=== PATIENT | male | born 1970 | race African-American/Black ===

== ENCOUNTER 2018-08-02 20:11 | Inpatient (IN) | payer OTHER ==
[2018-08-02 21:56] VITALS: BMI 27.1
--- NOTE | 2018-08-03 00:37 | HP ---
CIWA Score Nausea/Vomitin (vomiting x 2) Muscle Tremors: 4-Moderate,w/Arms Extend Anxiety: 3 Agitation: 3 Paroxysmal Sweats: 3 Orientation: 0-Oriented Tacttile Disturbances: 0-None Auditory Disturbances: 0-None Visual Disturbances: 0-None Headache: 4-Moderately Severe CIWA-Ar Total Score: 20 - Admission Criteria OASAS Guidelines: Admission for Medically Managed Detox: Requires at least one of the followin. CIWA greater than 12 2. Seizures within the past 24 hours 3. Delirium tremens within the past 24 hours 4. Hallucinations within the past 24 hours 5. Acute intervention needed for co occurring medical disorder 6. Acute intervention needed for co occurring psychiatric disorder 7. Severe withdrawal that cannot be handled at a lower level of care (continued vomiting, continued diarrhea, abnormal vital signs) requiring intravenous medication and/or fluids 8. Admission ROS [facility] - [facility] Chief Complaint: Alcohol and benzodiazepine withdrawal symptoms Allergies/Adverse Reactions: Allergies Allergy/AdvReac Type Severity Reaction Status Date / Time trazodone AdvReac Severe Nausea Verified 08/02/18 21:46 History of Present Illness: 47 years old male with a long history of alcohol and Xanax dependence is seeking admission to detox. Patient has been in detox multiple times, last at [facility] and reports 8 years of sobriety. He has history of hypertension and anxiety. Denies suicide attempt/ suicidal ideation at this time. Exam Limitations: No Limitations - Ebola screening Have you traveled outside of the country in the last 21 days: No (N) Have you had contact with anyone from an Ebola affected area: No Do you have a fever: No - Review of Systems Constitutional: Chills, Malaise, Night Sweats, Changes in sleep EENT: reports: No Symptoms Reported Respiratory: reports: No Symptoms reported GI: reports: Poor Appetite, Poor Fluid Intake, Vomiting (x 2), Abdominal cramping : reports: No Symptoms Reported Musculoskeletal: reports: No Symptoms Reported Integumentary: reports: Dryness, Flushing Neuro: reports: Headache, Tremors Endocrine: reports: No Symptoms Reported Hematology: reports: No Symptoms Reported Psychiatric: reports: Mood/Affect Appropiate, Orientated x3 Other Systems: Reviewed and Negative Patient History - Patient Medical History Hx Anemia: No Hx Asthma: No Hx Chronic Obstructive Pulmonary Disease (COPD): No Hx Cancer: No Hx Cardiac Disorders: No Hx Congestive Heart Failure: No Hx Hypertension: Yes (Amlodipine) Hx Hypercholesterolemia: No Hx Pacemaker: No HX Cerebrovascular Accident: No Hx Seizures: No Hx Dementia: No Hx Diabetes: No Hx Gastrointestinal Disorders: No Hx Liver Disease: No Hx Genitourinary Disorders: No Hx Sexually Transmitted Disorders: No Hx Renal Disease (ESRD): No Hx Thyroid Disease: No Hx Human Immunodeficiency Virus (HIV): No (NEGATIVE IN 04/2012) Hx Hepatitis C: No Hx Depression: No Hx Suicide Attempt: No (Denies suicidal ideation at this time) Hx Bipolar Disorder: No Hx Schizophrenia: No Other Medical History: Anxiety - Not on medication - Patient Surgical History Past Surgical History: No Hx Neurologic Surgery: No Hx Cataract Extraction: No Hx Cardiac Surgery: No Hx Lung Surgery: No Hx Abdominal Surgery: No Hx Appendectomy: No Hx Cholecystectomy: No Hx Genitourinary Surgery: No Hx Section: No Hx Orthopedic Surgery: No Hx Hysterectomy: No Anesthesia Reaction: No - PPD History Previous Implant?: Yes Documented Results: Positive w/proof Implanted On Prior [facility] Admission?: Yes Date: 03/17/12 Results: 0 mm PPD to be Administered?: Yes - Reproductive History Patient is a Female of Child Bearing Age (11 -55 yrs old): No (Male) - Smoking Cessation Smoking history: Current every day smoker Have you smoked in the past 12 months: Yes Aproximately how many cigarettes per day: 20 Cigars Per Day: 0 Hx Chewing Tobacco Use: No Initiated information on smoking cessation: Yes 'Breaking Loose' booklet given: 08/03/18 - Substance & Tx. History Hx Alcohol Use: Yes Substance Use Type: Cocaine, Marijuana, Prescribed Hx Substance Use Treatment: Yes ([facility]) - Substances abused Alcohol Substance route: Oral Frequency: Daily Amount used: 2 pints of vodka Age of first use: 15 Date of last use: 08/01/18 Alprazolam (Xanax) Substance route: Oral Frequency: Daily Amount used: 4mg Age of first use: 43 Date of last use: 08/01/18 Marijuana/Hashish Frequency: 3-6 times per week Amount used: 2 blunts Age of first use: 12 Date of last use: 08/01/18 Cocaine Substance route: Inhalation Frequency: 3-6 times per week Amount used: $20 Age of first use: 15 Date of last use: 08/01/18 Family Disease History - Family Disease History Family Disease History: Diabetes: Mother (hypertension) Admission Physical Exam [facility] - Vital Signs Vital Signs: Vital Signs - 24 hr 08/02/18 21:48 Pulse Rate 105 H Respiratory 20 Rate Blood Pressure 156/102 H - Physical General Appearance: Yes: Moderate Distress HEENTM: Yes: EOMI, Normal ENT Inspection, Normal Voice, PARMINDER Respiratory: Yes: Lungs Clear, Normal Breath Sounds, No Respiratory Distress Neck: Yes: Supple Breast: Yes: Breast Exam Deferred Cardiology: Yes: Tachycardia Abdominal: Yes: Normal Bowel Sounds, Soft Genitourinary: Yes: Within Normal Limits Back: Yes: Normal Inspection Musculoskeletal: Yes: Within Normal Limits Extremities: Yes: Tremors Neurological: Yes: Alert, Normal Mood/Affect Integumentary: Yes: Warm Lymphatic: Yes: Within Normal Limits - Diagnostic (1) Alcohol dependence with uncomplicated withdrawal Current Visit: Yes Status: Acute (2) Anxiety Current Visit: Yes Status: Acute (3) Cannabis dependence Current Visit: No Status: Active (4) Cocaine dependence Current Visit: No Status: Active (5) Essential hypertension Current Visit: No Status: Active (6) depression Current Visit: No Status: Active (7) migrane headaches Current Visit: No Status: Active Cleared for Admission [facility] - Detox or Rehab [facility] Level of Care: Medically Managed Detox Regimen/Protocol: Valium Breathalyzer - Breathalyzer Breathalyzer: 0 Urine Drug Screen - Test Device Lot number: [id number] Expiration date: 02/27/20 - Control Is test valid?: Yes - Results Drug screen NEGATIVE: No Urine drug screen results: THC-Marijuana, CARIDAD-Cocaine, BZO-Benzodiazepines Inpatient Rehab Admission - Rehab Decision to Admit Inpatient rehab admission?: No
[2018-08-03] MEDS ORDERED: BISMUTH SUBSALICYLATE 524 MG/30 ML UD PO PRN (00:45)
[2018-08-03] MEDS ORDERED: NICOTINE POLACRILEX 2 MG GUM BUC PRN (00:45)
[2018-08-03] MEDS ORDERED: ACETAMINOPHEN 325 MG TABLET (FP) PO PRN ×2 (00:45)
[2018-08-03] MEDS ORDERED: MAGNESIUM HYDROX 2400MG/30ML ORAL SUSPENSION 30 ML CUP PO PRN (00:45)
[2018-08-03] MEDS ORDERED: MENTHOL/PHENOL 1 EACH UD MM PRN (00:45)
[2018-08-03] MEDS ORDERED: diazePAM 5 MG TABLET PO ONE (00:45)
[2018-08-03] MEDS ORDERED: MAGNESIUM CITRATE 300 ML BOTTLE PO PRN (00:45)
[2018-08-03] MEDS ORDERED: IBUPROFEN 400 MG TABLET (FP) PO PRN (00:45)
[2018-08-03] MEDS ORDERED: MAG HYDROX/AL HYDROX/SIMETH 30 ML UNIT-DOSE CUP PO PRN (00:45)
[2018-08-03] MEDS ORDERED: METHOCARBAMOL 500 MG TABLET PO PRN (00:45)
[2018-08-03] MEDS ORDERED: hydrOXYzine PAMOATE 25 MG CAPSULE (FP) PO PRN (00:45)
[2018-08-03] MEDS ORDERED: MELATONIN 5 MG TABLETS PO PRN (00:45)
[2018-08-03] MEDS ORDERED: cloNIDine HCL 0.1 MG TABLET PO ONE (01:39)
[2018-08-03] MEDS: diazePAM 5 MG TABLET PO SCH ×3 (07:17→22:25)
--- NOTE | 2018-08-03 10:22 | PN ---
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
[2018-08-03] MEDS: NICOTINE 14 MG/24 HOURS TOPICAL PATCH TD SCH (10:30)
[2018-08-03] MEDS: PRENATAL VITAMINS W/ FOLIC ACID TABLET (FP) PO SCH (10:30)
[2018-08-03] MEDS: amLODIPine BESYLATE 10 MG TABLET (FP) PO SCH (10:30)
[2018-08-03] MEDS: diazePAM 5 MG TABLET PO PRN (10:31)
--- NOTE | 2018-08-03 11:40 | EKG ---
Test Reason : Blood Pressure : / mmHG Vent. Rate : 076 BPM Atrial Rate : 076 BPM P-R Int : 140 ms QRS Dur : 082 ms QT Int : 402 ms P-R-T Axes : 059 025 030 degrees QTc Int : 452 ms NORMAL SINUS RHYTHM NONSPECIFIC T WAVE ABNORMALITY ABNORMAL ECG NO PREVIOUS ECGS AVAILABLE Confirmed by Beny Cook MD ([id number]) on 08/03/2018 11:40:33 AM Referred By: Confirmed By:Beny Cook MD
[2018-08-03] MEDS: THIAMINE HCL 100 MG TABLET (FP) PO SCH (22:25)
[2018-08-04] MEDS: diazePAM 5 MG TABLET PO SCH ×2 (06:48→17:26)
[2018-08-04] MEDS: PRENATAL VITAMINS W/ FOLIC ACID TABLET (FP) PO SCH (10:44)
[2018-08-04] MEDS: amLODIPine BESYLATE 10 MG TABLET (FP) PO SCH (10:44)
[2018-08-04] MEDS: NICOTINE 14 MG/24 HOURS TOPICAL PATCH TD SCH (10:44)
[2018-08-04] MEDS: diazePAM 5 MG TABLET PO PRN ×2 (10:44→22:17)
[2018-08-04 12:31] LABS: ALBUMIN 3.6 g/dl (3.4-5.0); ALK PHOS 67 U/L (45-117); ANION GAP 7 MMOL/L (8-16); BILIRUBIN,TOTAL 0.8 mg/dL (0.2-1); BLOOD UREA NITROGEN 11 mg/dL (7-18); CHLORIDE 105 mmol/L (98-107); CO2 28 mmol/L (21-32); CREATININE 1.2 mg/dL (0.55-1.3); GLUCOSE,RANDOM 237 mg/dL (74-106); POTASSIUM 3.6 mmol/L (3.5-5.1); SGOT/AST 20 U/L (15-37); SGPT/ALT 44 U/L (13-61); SODIUM 140 mmol/L (136-145); TOT PROT 6.7 g/dl (6.4-8.2)
[2018-08-04 12:47] LABS: HEMATOCRIT 41.1 % (35.4-49); HEMOGLOBIN 13.9 GM/dL (11.7-16.9); MCH 30.1 pg (25.7-33.7); MCHC 33.7 g/dl (32.0-35.9); MEAN CELL VOLUME 89.2 fl (80-96); MEAN PLT VOLUME 10.1 fl (7.5-11.1); PLATELET COUNT 173 K/MM3 (134-434); RBC 4.61 M/mm3 (4.00-5.60); RDW 13.9 % (11.9-15.9); WHITE BLOOD COUNT 4.6 K/mm3 (4.0-10.0)
--- NOTE | 2018-08-04 16:57 | PN ---
[facility] CIWA - CIWA Score Nausea/Vomitin-No Nausea/No Vomiting Muscle Tremors: 3 Anxiety: 2 Agitation: 0-Normal Activity Paroxysmal Sweats: 3 Orientation: 0-Oriented Tacttile Disturbances: 2-Mild Itch/Numbness/Burn Auditory Disturbances: 1-Very Mild Visual Disturbances: 3-Moderate Sensitivity Headache: 0-None Present CIWA-Ar Total Score: 14 S Progress Note (SOAP) Subjective: Diarrhea, Sweating, Tremors, Interrupted Sleep. Objective: PATIENT A & O X 3. IN NO ACUTE DISTRESS. 08/04/18 16:56 Vital Signs Temperature 98.1 F 08/04/18 13:49 Pulse Rate 109 H 08/04/18 13:49 Respiratory Rate 18 08/04/18 13:49 Blood Pressure 119/75 08/04/18 13:49 O2 Sat by Pulse Oximetry (%) Laboratory Tests 08/04/18 08/04/18 07:30 07:30 WBC 4.6 RBC 4.61 Hgb 13.9 Hct 41.1 MCV 89.2 MCH 30.1 MCHC 33.7 RDW 13.9 Plt Count 173 MPV 10.1 Sodium 140 Potassium 3.6 Chloride 105 Carbon Dioxide 28 Anion Gap 7 L BUN 11 Creatinine 1.2 Creat Clearance w eGFR 64.35 Random Glucose 237 H Calcium 9.0 Total Bilirubin 0.8 AST 20 ALT 44 Alkaline Phosphatase 67 Total Protein 6.7 Albumin 3.6 LABS NOTED. RPR RESULT PENDING. 08/04/18 16:56 Assessment: 08/04/18 16:56 WITHDRAWAL SYMPTOMS. HYPERGLYCEMIA. 08/04/18 16:57 Plan: CONTINUE DETOX. INCREASE DAILY PO FLUID / WATER INTAKE. BGM ACBK FOR ELEVATED ADMISSION RANDOM GLUCOSE LEVEL.
[2018-08-04] MEDS: THIAMINE HCL 100 MG TABLET (FP) PO SCH (22:17)
[2018-08-05] MEDS ORDERED: diazePAM 5 MG TABLET PO ONE (06:00)
--- NOTE | 2018-08-05 08:34 | PN ---
S CIWA - CIWA Score Nausea/Vomitin Muscle Tremors: 2 Anxiety: 2 Agitation: 2 Paroxysmal Sweats: 1-Minimal Palms Moist Orientation: 0-Oriented Tacttile Disturbances: 1-Very Mild Itch/Numbness Auditory Disturbances: 1-Very Mild Visual Disturbances: 0-None Headache: 2-Mild CIWA-Ar Total Score: 13 [facility] Progress Note (SOAP) Subjective: alert,irritable,anxious,interrupted sleep Objective: 08/05/18 08:35 Vital Signs Temperature 98.1 F 08/04/18 21:33 Pulse Rate 82 08/04/18 21:33 Respiratory Rate 18 08/05/18 03:30 Blood Pressure 121/66 08/04/18 21:33 O2 Sat by Pulse Oximetry (%) Laboratory Last Values WBC 4.6 K/mm3 (4.0-10.0) 08/04/18 07:30 RBC 4.61 M/mm3 (4.00-5.60) 08/04/18 07:30 Hgb 13.9 GM/dL (11.7-16.9) 08/04/18 07:30 Hct 41.1 % (35.4-49) 08/04/18 07:30 MCV 89.2 fl (80-96) 08/04/18 07:30 MCH 30.1 pg (25.7-33.7) 08/04/18 07:30 MCHC 33.7 g/dl (32.0-35.9) 08/04/18 07:30 RDW 13.9 % (11.9-15.9) 08/04/18 07:30 Plt Count 173 K/MM3 (134-434) 08/04/18 07:30 MPV 10.1 fl (7.5-11.1) 08/04/18 07:30 Sodium 140 mmol/L (136-145) 08/04/18 07:30 Potassium 3.6 mmol/L (3.5-5.1) 08/04/18 07:30 Chloride 105 mmol/L (98-107) 08/04/18 07:30 Carbon Dioxide 28 mmol/L (21-32) 08/04/18 07:30 Anion Gap 7 MMOL/L (8-16) L 08/04/18 07:30 BUN 11 mg/dL (7-18) 08/04/18 07:30 Creatinine 1.2 mg/dL (0.55-1.3) 08/04/18 07:30 Creat Clearance w eGFR 64.35 (>60) 08/04/18 07:30 POC Glucometer 228 UNITS (80-120) 08/05/18 08:03 Random Glucose 237 mg/dL (74-106) H 08/04/18 07:30 Calcium 9.0 mg/dL (8.5-10.1) 08/04/18 07:30 Total Bilirubin 0.8 mg/dL (0.2-1) 08/04/18 07:30 AST 20 U/L (15-37) 08/04/18 07:30 ALT 44 U/L (13-61) 08/04/18 07:30 Alkaline Phosphatase 67 U/L (45-117) 08/04/18 07:30 Total Protein 6.7 g/dl (6.4-8.2) 08/04/18 07:30 Albumin 3.6 g/dl (3.4-5.0) 08/04/18 07:30 RPR Titer Nonreactive (NONREACTIVE) 08/04/18 07:30 Assessment: 08/05/18 08:36 withdrawal symptom Plan: continue detox
--- NOTE | 2018-08-05 08:40 | PN ---
[facility] Progress Note Note: patient did not want to complete treatment,stated has go go back to work,all attepmts to convince patient to stay with no avail,high risk of relapsing explained,patient understood, signed release ama, advise to go to emergency room if any problem and follow up with medical provider if any problem
--- NOTE | 2018-08-05 08:41 | DS ---
[facility] Detox Discharge Summary Admission Date: 08/03/18 Discharge Date: 08/05/18 - History Present History: Alcohol Dependence, Cannabis Dependence, Cocaine Dependence, Sedative Dependence Additional Comments: patient signed release ama,stated he has to go to work,has all medications at home, to out patient program and AA meeting as arrangement,to see medical provider for medical problem Pertinent Past History: hypertension type 2dm - Physical Exam Results Vital Signs: Vital Signs Temperature 98.1 F 08/04/18 21:33 Pulse Rate 82 08/04/18 21:33 Respiratory Rate 18 08/05/18 03:30 Blood Pressure 121/66 08/04/18 21:33 O2 Sat by Pulse Oximetry (%) Pertinent Admission Physical Exam Findings: withdrawal signs and symptom - Medication Discharge Medications: Ambulatory Orders Amlodipine Besylate [Norvasc -] 10 mg PO DAILY 03/15/12 metFORMIN HCL [Glucophage -] 500 mg PO DAILY@0700 tablet 08/05/18 - Diagnosis (1) Alcohol dependence with uncomplicated withdrawal Current Visit: Yes Status: Acute (2) Cannabis dependence Current Visit: No Status: Active (3) Cocaine dependence Current Visit: No Status: Active (4) Essential hypertension Current Visit: No Status: Active (5) Syncope Current Visit: No Status: Active (6) Weight decreased Current Visit: No Status: Active (7) DM2 (diabetes mellitus, type 2) Current Visit: Yes Status: Acute - AMA Did Patient Leave Against Medical Advice: Yes
[2018-08-05] MEDS: NICOTINE 14 MG/24 HOURS TOPICAL PATCH TD SCH (08:50)
[2018-08-05] MEDS: amLODIPine BESYLATE 10 MG TABLET (FP) PO SCH (08:50)
[2018-08-05] MEDS: PRENATAL VITAMINS W/ FOLIC ACID TABLET (FP) PO SCH (08:52)
[2018-08-05 09:17] VITALS: BP 128/83; PULSE 98; TEMP 97.9
[2018-08-06] MEDS ORDERED: metFORMIN HCL 500 MG TABLET (FP) PO SCH (07:00)
== END 2018-08-05 08:52 | disposition left against medical advice (07) | DRG 770 ==
LOC: YASAS 20:11 → Y6N 08-03 01:20
PROVIDERS: ADMIT Surgery; ATTEND Surgery
PROC: HZ2ZZZZ Detoxification Services for Substance Abuse Treatment (ICD-10-PCS; principal; 2018-08-03)
DX: F10.230 Alcohol dependence with withdrawal, uncomplicated (principal); F13.230 Sedative, hypnotic or anxiolytic dependence with withdrawal, uncomplicated; F14.20 Cocaine dependence, uncomplicated; F12.20 Cannabis dependence, uncomplicated; F41.8 Other specified anxiety disorders; F32.9 Major depressive disorder, single episode, unspecified; I10 Essential (primary) hypertension; E11.9 Type 2 diabetes mellitus without complications; R55 Syncope and collapse; R63.4 Abnormal weight loss; Z68.27 Body mass index [BMI] 27.0-27.9, adult; Z79.84 Long term (current) use of oral hypoglycemic drugs
CPT/HCPCS: 36415; 80053; 82962; 85027; 86593; 93005; 93010; J0735

== ENCOUNTER 2019-03-07 15:40 | Inpatient (IN) | payer OTHER ==
[2019-03-07 17:35] VITALS: BMI 28.5
--- NOTE | 2019-03-07 19:45 | HP ---
CIWA Score Nausea/Vomitin Muscle Tremors: 4-Moderate,w/Arms Extend Anxiety: 1-Mildly Anxious Agitation: 1-Slight > Activity Paroxysmal Sweats: 3 (Increased facial moisture) Orientation: 0-Oriented Tacttile Disturbances: 0-None Auditory Disturbances: 0-None Visual Disturbances: 0-None Headache: 3-Moderate (States RICKS is a "7") CIWA-Ar Total Score: 15 - Admission Criteria OASAS Guidelines: Admission for Medically Managed Detox: Requires at least one of the followin. CIWA greater than 12 2. Seizures within the past 24 hours 3. Delirium tremens within the past 24 hours 4. Hallucinations within the past 24 hours 5. Acute intervention needed for co occurring medical disorder 6. Acute intervention needed for co occurring psychiatric disorder 7. Severe withdrawal that cannot be handled at a lower level of care (continued vomiting, continued diarrhea, abnormal vital signs) requiring intravenous medication and/or fluids 8. Patient presents the following: CIWA greater than 12 Admission Criteria Met: Admission criteria met Admitting History and Physical - Smoking History Smoking history: Current every day smoker Have you smoked in the past 12 months: Yes Aproximately how many cigarettes per day: 20 - Alcohol/Substance Use Hx Alcohol Use: Yes Admission ROS [facility] - HPI Chief Complaint: States I need to stop, for my health. Allergies/Adverse Reactions: Allergies Allergy/AdvReac Type Severity Reaction Status Date / Time trazodone AdvReac Severe Nausea Verified 03/07/19 17:30 History of Present Illness: 48 yo presents w/ alcohol and Xanax withdrawal symptoms seeking detox. Last detox 08/05/18. Reports able to stay sober 3 months. UTox: + THC.BZO EUGENE: 0.0 Hx. Blackouts - states last on November 12, 2018. Denies hx seizures or overdoses. Alcohol use began at age 15. Currently drinks 2 pints/day. Last drink yesterday morning. Benzo use began at age 43. Currently use 4 mg daily. Patient states does not remember being prescribed Libruim or being in a detox in January. Cocaine use began at age 15. Current use $20-30 3 x/week - nasal. Last used Thursday (03/04/19) Marijuana use began at age 12. Current use is $20 3x/wk. Last used Thursday (03/04) Nicotine use began at 12. Currently down to 6 cig/day. PMHx: HTN, 07/2018 EKG showed Non-Specific T-wave abnormality MHHx: Depression. Does not see a MH Provider. Denies thoughts of harming self or others. SHx: Domiciled. Unemployed. Denies legal issues. Patient Name: Wan Banerjee Date: 1970 Address: [address] [place] [address] Sex: Male Rx Written Rx Dispensed Drug Quantity Days Supply Prescriber Name 02/18/2019 02/18/2019 chlordiazepoxide 10 mg capsule 3 1 Laks, Dylan HERNANDEZ 02/11/2019 02/11/2019 chlordiazepoxide 10 mg capsule 15 1 Laks, Dylan HERNANDEZ 02/08/2019 02/08/2019 chlordiazepoxide 10 mg capsule 45 3 Laks, Dylan HERNANDEZ 12/10/2018 12/10/2018 chlordiazepoxide 10 mg capsule 45 3 Laks, Dylan HERNANDEZ 10/13/2018 10/13/2018 chlordiazepoxide 10 mg capsule 20 2 Laks, Dylan HERNANDEZ 10/08/2018 10/08/2018 chlordiazepoxide 10 mg capsule 45 3 Laks, Dylan HERNANDEZ 08/30/2018 08/30/2018 chlordiazepoxide 10 mg capsule 30 2 Laks, Dylan HERNANDEZ 07/16/2018 07/16/2018 chlordiazepoxide 10 mg capsule 20 2 Laks, Dylan HERNANDEZ 07/12/2018 07/12/2018 chlordiazepoxide 10 mg capsule 45 3 Laks, Dylan HERNANDEZ 04/05/2018 04/05/2018 chlordiazepoxide 10 mg capsule 45 3 Laks, Dylan HERNANDEZ Exam Limitations: No Limitations - Ebola screening Have you traveled outside of the country in the last 21 days: No Have you had contact with anyone from an Ebola affected area: No Have you been sick,other than usual withdrawal symptoms: No Do you have a fever: No - Review of Systems Constitutional: Chills, Diaphoresis, Changes in sleep (Difficulty falling asleep ), Weight Stable EENT: reports: No Symptoms Reported Respiratory: reports: No Symptoms reported Cardiac: reports: No Symptoms Reported GI: reports: Nausea, Vomiting (Once this a.m. (bile-yellow liquid)) : reports: No Symptoms Reported Musculoskeletal: reports: No Symptoms Reported Integumentary: reports: No Symptoms Reported Neuro: reports: Headache (Throbbing temporal headache "7"), Tremors Endocrine: reports: No Symptoms Reported Hematology: reports: No Symptoms Reported Psychiatric: reports: Orientated x3, Agitated, Anxious, Depressed (Denies thoughts of harming self or others.) Patient History - Patient Medical History Hx Anemia: No Hx Asthma: No Hx Chronic Obstructive Pulmonary Disease (COPD): No Hx Cancer: No Hx Cardiac Disorders: No Hx Congestive Heart Failure: No Hx Hypertension: Yes (Amlodipine) Hx Hypercholesterolemia: No Hx Pacemaker: No HX Cerebrovascular Accident: No Hx Seizures: No Hx Dementia: No Hx Diabetes: No Hx Gastrointestinal Disorders: No Hx Liver Disease: No Hx Genitourinary Disorders: No Hx Sexually Transmitted Disorders: No Hx Renal Disease (ESRD): No Hx Thyroid Disease: No Hx Human Immunodeficiency Virus (HIV): No (NEGATIVE IN 04/2012) Hx Hepatitis C: No Hx Depression: No Hx Suicide Attempt: No (Denies suicidal ideation at this time) Hx Bipolar Disorder: No Hx Schizophrenia: No - Patient Surgical History Past Surgical History: No Hx Neurologic Surgery: No Hx Cataract Extraction: No Hx Cardiac Surgery: No Hx Lung Surgery: No Hx Breast Surgery: No Hx Breast Biopsy: No Hx Abdominal Surgery: No Hx Appendectomy: No Hx Cholecystectomy: No Hx Genitourinary Surgery: No Hx Section: No Hx Orthopedic Surgery: No Hx Hysterectomy: No Anesthesia Reaction: No - PPD History Previous Implant?: Yes Documented Results: Negative w/proof Implanted On Prior [facility] Admission?: Yes Date: 08/05/18 Results: 0 mm PPD to be Administered?: No - Smoking Cessation Smoking history: Current every day smoker Have you smoked in the past 12 months: Yes Aproximately how many cigarettes per day: 6 Cigars Per Day: 0 Hx Chewing Tobacco Use: No Initiated information on smoking cessation: Yes 'Breaking Loose' booklet given: 03/07/19 - Substance & Tx. History Hx Alcohol Use: Yes Hx Substance Use: Yes Substance Use Type: Alcohol, Cocaine, Marijuana, Tranquilizers (Xanax) Hx Substance Use Treatment: Yes (detox, rehab, residential (2013-) ) - Substances abused Alcohol Substance route: Oral Frequency: Daily Amount used: 3 PINTS OF VODKA Age of first use: 15 Date of last use: 03/05/19 Alprazolam (Xanax) Substance route: Oral Frequency: 3-6 times per week Amount used: 4 MG PER USE Age of first use: 43 Date of last use: 03/04/19 Marijuana/Hashish Substance route: Smoking Frequency: 3-6 times per week Amount used: 2 blunts/PER USE Age of first use: 12 Date of last use: 03/04/19 Cocaine Substance route: Inhalation Frequency: 3-6 times per week Amount used: $20/DAILY Age of first use: 15 Date of last use: 03/04/19 Admission Physical Exam [facility] - Vital Signs Vital Signs: Vital Signs - 24 hr 03/07/19 03/07/19 17:29 18:09 Temperature 98.8 F 98.8 F Pulse Rate 99 H 99 H Respiratory 17 17 Rate Blood Pressure 129/85 129/85 - Physical General Appearance: Yes: Nourished, Mild Distress, Tremorous, Irritable, Sweating (Increased facial moisture), Anxious HEENTM: Yes: EOMI, Hearing grossly Normal, Normocephalic, Normal Voice, PARMINDER, Pharynx Normal Respiratory: Yes: Lungs Clear (Pulse Ox = 97%), Normal Breath Sounds, No Respiratory Distress Neck: Yes: No masses,lesions,Nodules, Supple Breast: Yes: Breast Exam Deferred Cardiology: Yes: Regular Rhythm, Regular Rate, S1, S2 Abdominal: Yes: Non Tender, Flat, Soft, Increased Bowel Sounds Genitourinary: Yes: Within Normal Limits Back: Yes: Normal Inspection Musculoskeletal: Yes: full range of Motion, Gait Steady Extremities: Yes: Normal Capillary Refill (Peripheral pulses +), Tremors (Gross) Neurological: Yes: primary clinician II-XII NML intact, Fully Oriented, Alert, Motor Strength 5/5 Integumentary: Yes: Normal Color, Warm, Moist (Increased facial moisture) Lymphatic: Yes: Within Normal Limits - Diagnostic (1) Cocaine use disorder, mild, in early remission Current Visit: Yes Status: Acute Comment: 3 days remission (2) Cannabis dependence Current Visit: Yes Status: Chronic (3) Essential hypertension Current Visit: Yes Status: Chronic (4) Alcohol dependence with uncomplicated withdrawal Current Visit: Yes Status: Acute Cleared for Admission [facility] - Detox or Rehab [facility] Level of Care: Medically Managed Detox Regimen/Protocol: Valium (ATIVAN) Claeared for Rehab Admission: No Breathalyzer - Breathalyzer Breathalyzer: 0 Urine Drug Screen - Test Device Lot number: [id number] Expiration date: 10/27/20 - Control Is test valid?: Yes - Results Drug screen NEGATIVE: No Urine drug screen results: THC-Marijuana, BZO-Benzodiazepines Inpatient Rehab Admission - Rehab Decision to Admit Inpatient rehab admission?: No
[2019-03-07] MEDS ORDERED: LORazepam 2 MG TABLET PO ONE (20:14)
[2019-03-07] MEDS ORDERED: LORazepam 1 MG TABLET PO PRN (20:14)
[2019-03-07] MEDS ORDERED: MAGNESIUM HYDROX 2400MG/30ML ORAL SUSPENSION 30 ML CUP PO PRN (20:14)
[2019-03-07] MEDS ORDERED: MENTHOL/PHENOL 1 EACH UD MM PRN (20:14)
[2019-03-07] MEDS ORDERED: ACETAMINOPHEN 325 MG TABLET (FP) PO PRN ×2 (20:14)
[2019-03-07] MEDS ORDERED: NICOTINE POLACRILEX 2 MG GUM BUC PRN (20:14)
[2019-03-07] MEDS ORDERED: MAGNESIUM CITRATE 300 ML BOTTLE PO PRN (20:14)
[2019-03-07] MEDS ORDERED: MAG HYDROX/AL HYDROX/SIMETH 30 ML UNIT-DOSE CUP PO PRN (20:14)
[2019-03-07] MEDS ORDERED: IBUPROFEN 400 MG TABLET (FP) PO PRN (20:14)
[2019-03-07] MEDS ORDERED: BISMUTH SUBSALICYLATE 524 MG/30 ML UD PO PRN (20:14)
[2019-03-07] MEDS: THIAMINE HCL 100 MG TABLET (FP) PO SCH (22:10)
[2019-03-07] MEDS: MELATONIN 5 MG TABLETS PO PRN (22:10)
[2019-03-07] MEDS: LORazepam 2 MG TABLET PO SCH (22:10)
[2019-03-08] MEDS: LORazepam 2 MG TABLET PO SCH ×4 (05:33→22:16)
[2019-03-08] MEDS: PRENATAL VITAMINS W/ FOLIC ACID TABLET (FP) PO SCH (10:04)
[2019-03-08] MEDS: amLODIPine BESYLATE 10 MG TABLET (FP) PO SCH (10:04)
--- NOTE | 2019-03-08 10:39 | PN ---
S CIWA - CIWA Score Nausea/Vomitin-Mild Nausea/No Vomiting Muscle Tremors: 1-None Visible, but [place] Anxiety: 3 Agitation: 1-Slight > Activity Paroxysmal Sweats: 2 Orientation: 0-Oriented Tacttile Disturbances: 1-Very Mild Itch/Numbness Auditory Disturbances: 0-None Visual Disturbances: 0-None Headache: 2-Mild CIWA-Ar Total Score: 11 S Progress Note (SOAP) Subjective: 48 years old male admitted on 03/07/19 for alcohol benzo withdrawal sx management treated with ativan detox regimen resting on bed feeling tired limited conversation with staff Objective: 03/08/19 10:39 Vital Signs Temperature 96.1 F L 03/08/19 09:10 Pulse Rate 93 H 03/08/19 09:10 Respiratory Rate 16 03/08/19 09:10 Blood Pressure 130/87 03/08/19 09:10 O2 Sat by Pulse Oximetry (%) 03/08/19 10:39 lab pending Assessment: 03/08/19 10:39 alcohol benzo withdrawal Plan: ativan regimen
[2019-03-08 11:01] LABS: HEMATOCRIT 43.8 % (35.4-49); HEMOGLOBIN 14.7 GM/dL (11.7-16.9); MCH 30.2 pg (25.7-33.7); MCHC 33.4 g/dl (32.0-35.9); MEAN CELL VOLUME 90.3 fl (80-96); MEAN PLT VOLUME 10.3 fl (7.5-11.1); PLATELET COUNT 160 K/MM3 (134-434); RBC 4.86 M/mm3 (4.00-5.60); RDW 13.1 % (11.9-15.9); WHITE BLOOD COUNT 4.1 K/mm3 (4.0-10.0)
[2019-03-08 11:14] LABS: ALBUMIN 3.6 g/dl (3.4-5.0); BILIRUBIN,TOTAL 0.4 mg/dL (0.2-1); BLOOD UREA NITROGEN 14.4 mg/dL (7-18); CALCIUM 8.8 mg/dL (8.5-10.1); CREATININE 1.1 mg/dL (0.55-1.3); POTASSIUM 3.7 mmol/L (3.5-5.1); TOT PROT 6.6 g/dl (6.4-8.2)
[2019-03-08] MEDS: THIAMINE HCL 100 MG TABLET (FP) PO SCH (22:16)
[2019-03-08] MEDS: MELATONIN 5 MG TABLETS PO PRN (22:16)
[2019-03-09] MEDS: LORazepam 1 MG TABLET PO SCH ×2 (05:31→10:11)
[2019-03-09] MEDS: PRENATAL VITAMINS W/ FOLIC ACID TABLET (FP) PO SCH (10:11)
[2019-03-09] MEDS: amLODIPine BESYLATE 10 MG TABLET (FP) PO SCH (10:11)
--- NOTE | 2019-03-09 10:42 | EKG ---
Test Reason : Blood Pressure : / mmHG Vent. Rate : 080 BPM Atrial Rate : 080 BPM P-R Int : 132 ms QRS Dur : 074 ms QT Int : 370 ms P-R-T Axes : 068 033 002 degrees QTc Int : 426 ms NORMAL SINUS RHYTHM NORMAL ECG WHEN COMPARED WITH ECG OF 03-AUG-2018 01:23, NO SIGNIFICANT CHANGE WAS FOUND Confirmed by NIKOLAI BEASLEY MD ([id number]) on 03/09/2019 10:41:50 AM Referred By: Confirmed By:NIKOLAI BEASLEY MD
--- NOTE | 2019-03-09 12:25 | PN ---
S CIWA - CIWA Score Nausea/Vomitin-Mild Nausea/No Vomiting Muscle Tremors: 2 Anxiety: 2 Agitation: 2 Paroxysmal Sweats: 1-Minimal Palms Moist Orientation: 0-Oriented Tacttile Disturbances: 0-None Auditory Disturbances: 0-None Visual Disturbances: 0-None Headache: 1-Very Mild CIWA-Ar Total Score: 9 S Progress Note (SOAP) Subjective: 48 years old male admitted on 03/07/19 for alcohol benzo withdrawal sx management tretaed with ativan detox regimen feeling ok today ambulating on hallway social with peers in day room discuss supportive networking for recovery Objective: 03/09/19 12:26 Vital Signs Temperature 97.1 F L 03/09/19 09:12 Pulse Rate 89 03/09/19 09:12 Respiratory Rate 18 03/09/19 09:12 Blood Pressure 146/79 03/09/19 09:12 O2 Sat by Pulse Oximetry (%) Laboratory Last Values WBC 4.1 K/mm3 (4.0-10.0) 03/08/19 07:50 RBC 4.86 M/mm3 (4.00-5.60) 03/08/19 07:50 Hgb 14.7 GM/dL (11.7-16.9) 03/08/19 07:50 Hct 43.8 % (35.4-49) 03/08/19 07:50 MCV 90.3 fl (80-96) 03/08/19 07:50 MCH 30.2 pg (25.7-33.7) 03/08/19 07:50 MCHC 33.4 g/dl (32.0-35.9) 03/08/19 07:50 RDW 13.1 % (11.9-15.9) 03/08/19 07:50 Plt Count 160 K/MM3 (134-434) 03/08/19 07:50 MPV 10.3 fl (7.5-11.1) 03/08/19 07:50 Sodium 140 mmol/L (136-145) 03/08/19 07:50 Potassium 3.7 mmol/L (3.5-5.1) 03/08/19 07:50 Chloride 105 mmol/L (98-107) 03/08/19 07:50 Carbon Dioxide 28 mmol/L (21-32) 03/08/19 07:50 Anion Gap 7 MMOL/L (8-16) L 03/08/19 07:50 BUN 14.4 mg/dL (7-18) 03/08/19 07:50 Creatinine 1.1 mg/dL (0.55-1.3) 03/08/19 07:50 Est GFR (CKD-EPI)AfAm 90.24 03/08/19 07:50 Est GFR (CKD-EPI)NonAf 77.86 03/08/19 07:50 Random Glucose 231 mg/dL (74-106) H 03/08/19 07:50 Calcium 8.8 mg/dL (8.5-10.1) 03/08/19 07:50 Total Bilirubin 0.4 mg/dL (0.2-1) 03/08/19 07:50 AST 20 U/L (15-37) 03/08/19 07:50 ALT 42 U/L (13-61) 03/08/19 07:50 Alkaline Phosphatase 73 U/L (45-117) 03/08/19 07:50 Total Protein 6.6 g/dl (6.4-8.2) 03/08/19 07:50 Albumin 3.6 g/dl (3.4-5.0) 03/08/19 07:50 RPR Titer Nonreactive (NONREACTIVE) 03/08/19 07:50 lab noted Assessment: 03/09/19 12:26 alcohol benzo withdrawal Plan: ativan regimen
[2019-03-09 13:34] VITALS: BP 139/93; PULSE 92; TEMP 99.2
--- NOTE | 2019-03-09 14:00 | DS ---
[facility] Detox Discharge Summary Admission Date: 03/07/19 Discharge Date: 03/09/19 - History Present History: Alcohol Dependence, Sedative Dependence Additional Comments: 48 years old male admitted on 03/07/19 for alcohol and benzo withdrawal sx management treated with ativan detox regimen patient tolerated well alert oriented x 3 cardiac s1s2 regular rate rhythm respiratory clear lung bilaterally on auscultation extremities full range of motion Pertinent Past History: patient prefers to leave the detox unit today that he wants to return to work today estimation discharge date is 03/11/19 reports feeling better after lunch that he has support network in the community case discussed with the nurse routine discharge is appropriated - Physical Exam Results Vital Signs: Vital Signs Temperature 99.2 F 03/09/19 13:33 Pulse Rate 92 H 03/09/19 13:33 Respiratory Rate 18 03/09/19 13:33 Blood Pressure 139/93 03/09/19 13:33 O2 Sat by Pulse Oximetry (%) Pertinent Admission Physical Exam Findings: alcohol and benzo withdrawal sx Laboratory Last Values WBC 4.1 K/mm3 (4.0-10.0) 03/08/19 07:50 RBC 4.86 M/mm3 (4.00-5.60) 03/08/19 07:50 Hgb 14.7 GM/dL (11.7-16.9) 03/08/19 07:50 Hct 43.8 % (35.4-49) 03/08/19 07:50 MCV 90.3 fl (80-96) 03/08/19 07:50 MCH 30.2 pg (25.7-33.7) 03/08/19 07:50 MCHC 33.4 g/dl (32.0-35.9) 03/08/19 07:50 RDW 13.1 % (11.9-15.9) 03/08/19 07:50 Plt Count 160 K/MM3 (134-434) 03/08/19 07:50 MPV 10.3 fl (7.5-11.1) 03/08/19 07:50 Sodium 140 mmol/L (136-145) 03/08/19 07:50 Potassium 3.7 mmol/L (3.5-5.1) 03/08/19 07:50 Chloride 105 mmol/L (98-107) 03/08/19 07:50 Carbon Dioxide 28 mmol/L (21-32) 03/08/19 07:50 Anion Gap 7 MMOL/L (8-16) L 03/08/19 07:50 BUN 14.4 mg/dL (7-18) 03/08/19 07:50 Creatinine 1.1 mg/dL (0.55-1.3) 03/08/19 07:50 Est GFR (CKD-EPI)AfAm 90.24 03/08/19 07:50 Est GFR (CKD-EPI)NonAf 77.86 03/08/19 07:50 Random Glucose 231 mg/dL (74-106) H 03/08/19 07:50 Calcium 8.8 mg/dL (8.5-10.1) 03/08/19 07:50 Total Bilirubin 0.4 mg/dL (0.2-1) 03/08/19 07:50 AST 20 U/L (15-37) 03/08/19 07:50 ALT 42 U/L (13-61) 03/08/19 07:50 Alkaline Phosphatase 73 U/L (45-117) 03/08/19 07:50 Total Protein 6.6 g/dl (6.4-8.2) 03/08/19 07:50 Albumin 3.6 g/dl (3.4-5.0) 03/08/19 07:50 RPR Titer Nonreactive (NONREACTIVE) 03/08/19 07:50 lab noted long history of diabetes patient agrees returning to his primary care provider endocranologist for follow up - Treatment Hospital Course: Detox Protocol Followed, Detoxed Safely, Responded well, Discharged Condition Good, Rehab Referral Accepted Patient has Accepted a Rehab Referral to: community support approach - Medication Discharge Medications: Ambulatory Orders Amlodipine Besylate [Norvasc -] 10 mg PO DAILY 03/15/12 - Diagnosis (1) DM2 (diabetes mellitus, type 2) Status: Chronic 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 Diabetes mellitus complication status: without complication Qualified Code(s): E11.9 - Type 2 diabetes mellitus without complications (2) Essential hypertension Status: Chronic (3) Alcohol dependence with uncomplicated withdrawal Status: Acute (4) Nicotine dependence with current use Status: Acute - AMA Did Patient Leave Against Medical Advice: No CIWA Score - CIWA Score Nausea/Vomitin-No Nausea/No Vomiting Muscle Tremors: 2 Anxiety: 2 Agitation: 2 Paroxysmal Sweats: 1-Minimal Palms Moist Orientation: 0-Oriented Tacttile Disturbances: 0-None Auditory Disturbances: 0-None Visual Disturbances: 0-None Headache: 0-None Present CIWA-Ar Total Score: 7
[2019-03-10] MEDS ORDERED: LORazepam 0.5 MG TABLET PO PRN
[2019-03-10] MEDS ORDERED: LORazepam 0.5 MG TABLET PO SCH (05:00)
[2019-03-11] MEDS ORDERED: LORazepam 0.5 MG TABLET PO ONE (05:00)
== END 2019-03-09 14:00 | disposition home or self-care (01) | DRG 774 ==
LOC: YASAS 15:40 → Y3N 20:40
PROVIDERS: ADMIT Allergy & Immunology; ATTEND Allergy & Immunology
PROC: HZ2ZZZZ Detoxification Services for Substance Abuse Treatment (ICD-10-PCS; principal; 2019-03-07)
DX: F10.230 Alcohol dependence with withdrawal, uncomplicated (principal); F13.230 Sedative, hypnotic or anxiolytic dependence with withdrawal, uncomplicated; F14.20 Cocaine dependence, uncomplicated; F12.20 Cannabis dependence, uncomplicated; F17.210 Nicotine dependence, cigarettes, uncomplicated; F32.9 Major depressive disorder, single episode, unspecified; I10 Essential (primary) hypertension; E11.9 Type 2 diabetes mellitus without complications; Z79.4 Long term (current) use of insulin; Z88.8 Allergy status to other drugs, medicaments and biological substances
CPT/HCPCS: 36415; 80053; 85027; 86593; 93005; 93010

== ENCOUNTER 2019-11-24 09:50 | Inpatient (IN) | payer OTHER ==
--- NOTE | 2019-11-24 10:26 | BHS.RME ---
Substance Use & Tx History - Substance Use History Alcohol Substance amount: 3 pints vodka Frequency of use: Daily Substance route: Oral Date of Last Use: 11/24/19 Cocaine- Powder Substance amount: $20 Frequency of use: Less than 3 times per week Substance route: Inhalation (ex: sniffing or snorting) Date of Last Use: 11/23/19 Xanax Substance amount: 4 mg Frequency of use: Daily Substance route: Oral Date of Last Use: 11/23/19 Nicotine Substance amount: 10 ciggs Frequency of use: Daily Substance route: Smoking Date of Last Use: 11/24/19 Physical/Psych/Mental Status - Behavior General Behavior: Increased activity (restlessness, agitation) Eye Contact: Normal - Cooperativeness Cooperativeness: Cooperative - Thinking Thought Processes: Tight, Logical, Goal Directed - Physical Health Problems Is patient presently having any pain?: No Does patient presently have any injuries (include location): No Does patient currently have a fever: No Is patient : No CIWA Nausea/Vomitin Muscle Tremors: 5 Anxiety: 1-Mildly Anxious Agitation: 4-Moderately Restless Paroxysmal Sweats: 5 Orientation: 0-Oriented Tacttile Disturbances: 0-None Auditory Disturbances: 0-None Visual Disturbances: 1-Very Mild Sensitivity Headache: 5-Severe CIWA-Ar Total Score: 23
[2019-11-24 11:17] VITALS: BMI 26.3
--- NOTE | 2019-11-24 11:25 | HP ---
CIWA Score Nausea/Vomitin Muscle Tremors: 5 Anxiety: 1-Mildly Anxious Agitation: 4-Moderately Restless Paroxysmal Sweats: 5 Orientation: 0-Oriented Tacttile Disturbances: 0-None Auditory Disturbances: 0-None Visual Disturbances: 1-Very Mild Sensitivity Headache: 5-Severe CIWA-Ar Total Score: 23 - Admission Criteria OASAS Guidelines: Admission for Medically Managed Detox: Requires at least one of the followin. CIWA greater than 12 2. Seizures within the past 24 hours 3. Delirium tremens within the past 24 hours 4. Hallucinations within the past 24 hours 5. Acute intervention needed for co occurring medical disorder 6. Acute intervention needed for co occurring psychiatric disorder 7. Severe withdrawal that cannot be handled at a lower level of care (continued vomiting, continued diarrhea, abnormal vital signs) requiring intravenous medication and/or fluids 8. Admitting History and Physical - Admission Chief Complaint: " Mostly I need to do this and I need to stop. My job wants me to stop drinking. I don't want to lose my job and my apartment." History of Present Illness: 49 year old male with history with alcohol dependence and cocaine use disorder, sedative dependence and nicotine dependence. He was last here in 03/07-03/09/19 and left AMA due to work. But his boss now knows that he is alcoholic and has given him time to get treated. Substance Use & Tx History - Substance Use History Alcohol Substance amount: 3 pints vodka Frequency of use: Daily Substance route: Oral Date of Last Use: 11/24/19 Patient admits to [facility] and last one 2 months ago, also endorses the need for an eye panel maker daily Cocaine- Powder Substance amount: $20 Frequency of use: Less than 3 times per week Substance route: Inhalation (ex: sniffing or snorting) Date of Last Use: 11/23/19 Xanax Substance amount: 4 mg Frequency of use: Daily Substance route: Oral Date of Last Use: 11/23/19 Nicotine Substance amount: 10 ciggs Frequency of use: Daily Substance route: Smoking Date of Last Use: 11/24/19 PMH: HTN Psurg: None Psych: None 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 Patient meets criteria for detox as he is at high risk for relapse and has concommittant use of sedatives. 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 Loss EENT: reports: No Symptoms Reported Respiratory: reports: No Symptoms reported Cardiac: reports: No Symptoms Reported GI: reports: No Symptoms Reported : reports: No Symptoms Reported Musculoskeletal: reports: No Symptoms Reported Integumentary: reports: No Symptoms Reported Neuro: reports: No Symptoms reported Endocrine: reports: No Symptoms Reported Hematology: reports: No Symptoms Reported Psychiatric: reports: Judgement Intact, Orientated x3, Agitated, Anxious Other Systems: Reviewed and Negative Patient History - Patient Medical History Hx Anemia: No Hx Asthma: No Hx Chronic Obstructive Pulmonary Disease (COPD): No Hx Cancer: No Hx Cardiac Disorders: No Hx Congestive Heart Failure: No Hx Hypertension: Yes Hx Hypercholesterolemia: No Hx Pacemaker: No HX Cerebrovascular Accident: No Hx Seizures: No Hx Dementia: No Hx Diabetes: No Hx Gastrointestinal Disorders: No Hx Liver Disease: No Hx Genitourinary Disorders: No Hx Sexually Transmitted Disorders: No Hx Renal Disease (ESRD): No Hx Thyroid Disease: No Hx Human Immunodeficiency Virus (HIV): No (NEGATIVE IN 04/2012) Hx Hepatitis C: No Hx Depression: Yes Hx Suicide Attempt: No Hx Bipolar Disorder: No Hx Schizophrenia: No - Patient Surgical History Past Surgical History: No Hx Neurologic Surgery: No Hx Cataract Extraction: No Hx Cardiac Surgery: No Hx Lung Surgery: No Hx Breast Surgery: No Hx Breast Biopsy: No Hx Abdominal Surgery: No Hx Appendectomy: No Hx Cholecystectomy: No Hx Genitourinary Surgery: No Hx Section: No Hx Orthopedic Surgery: No Hx Hysterectomy: No Anesthesia Reaction: No - PPD History Date: 08/05/18 Results: 0 mm - Reproductive History Patient : (n/a) - Smoking Cessation Smoking history: Current every day smoker Have you smoked in the past 12 months: Yes Aproximately how many cigarettes per day: 10 Cigars Per Day: 0 Hx Chewing Tobacco Use: No Initiated information on smoking cessation: Yes 'Breaking Loose' booklet given: 11/24/19 - Substances abused Alcohol Substance route: Oral Frequency: Daily Amount used: 3 pints of vodka Age of first use: 15 Date of last use: 11/24/19 Cocaine Substance route: Inhalation Frequency: 3-6 times per week Amount used: $20 Age of first use: 15 Date of last use: 11/24/19 Alprazolam (Xanax) Substance route: Oral Frequency: Daily Amount used: 4mg Age of first use: 43 Date of last use: 11/24/19 Admission Physical Exam BHS - Vital Signs Vital Signs: Vital Signs - 24 hr 11/24/19 11/24/19 10:55 11:05 Temperature 97.2 F L 97.2 F L Pulse Rate 104 H 104 H Respiratory 18 20 Rate Blood Pressure 121/72 121/72 - Physical General Appearance: Yes: Mild Distress, Tremorous, Irritable, Sweating, Anxious HEENTM: Yes: Hearing grossly Normal, Normal ENT Inspection, Normocephalic, Normal Voice, PARMINDER, Pharynx Normal, Tm's normal Respiratory: Yes: Chest Non-Tender, Lungs Clear, Normal Breath Sounds, No Respiratory Distress, No Accessory Muscle Use Neck: Yes: No masses,lesions,Nodules, Supple, Trachea in good position Breast: Yes: Within Normal Limits Cardiology: Yes: Regular Rhythm, S1, S2, Tachycardia Abdominal: Yes: Normal Bowel Sounds, Non Tender, Flat, Soft Genitourinary: Yes: Within Normal Limits Back: Yes: Normal Inspection Musculoskeletal: Yes: full range of Motion, Gait Steady, Pelvis Stable Extremities: Yes: Normal Capillary Refill, Normal Inspection, Normal Range of Motion, Non-Tender Neurological: Yes: 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 NML intact, Fully Oriented, Alert, Motor Strength 5/5, Normal Mood/Affect, Normal Response Integumentary: Yes: Normal Color, Dry, Warm Lymphatic: Yes: Within Normal Limits - Diagnostic (1) Cocaine dependence Current Visit: Yes Status: Active (2) Weight decreased Current Visit: Yes Status: Active (3) depression Current Visit: Yes Status: Active (4) Alcohol dependence with uncomplicated withdrawal Current Visit: Yes Status: Acute (5) Cocaine use disorder, mild, in early remission Current Visit: Yes Status: Acute Comment: 3 days remission (6) Nicotine dependence with current use Current Visit: Yes Status: Acute (7) Essential hypertension Current Visit: Yes Status: Chronic Cleared for Admission S - Detox or Rehab [facility] Level of Care: Medically Managed Detox Regimen/Protocol: Librium Claeared for Rehab Admission: No Screened but not Admitted - Documentation of Visit Screened but not Admitted: No Breathalyzer - Breathalyzer Breathalyzer: 0.063 Vital Signs - Vital Signs Vital signs refused: No Temperature: 97.2 F Pulse Rate: 104 Respiratory Rate: 12 Blood Pressure: 121/72 BP Location: Left Arm Blood Pressure position: Sitting - Height Height: 5 ft 7 in - Weight Weight: 168 lb Weight measurement method: Standing scale - BMI Body Mass Index (BMI): 26.3 - Bowel Function Bowel Movement: No Urine Drug Screen - Test Device Lot number: [id number] Expiration date: 07/05/21 - Control Is test valid?: Yes - Results Drug screen NEGATIVE: No Urine drug screen results: THC-Marijuana, CARIDDA-Cocaine, BZO-Benzodiazepines Inpatient Rehab Admission - Rehab Decision to Admit Inpatient rehab admission?: No
[2019-11-24] MEDS ORDERED: METHOCARBAMOL 500 MG TABLET PO PRN (11:32)
[2019-11-24] MEDS ORDERED: NICOTINE POLACRILEX 2 MG GUM BUC PRN (11:32)
[2019-11-24] MEDS ORDERED: MAGNESIUM CITRATE 300 ML BOTTLE PO PRN (11:32)
[2019-11-24] MEDS ORDERED: MENTHOL/PHENOL 1 EACH UD MM PRN (11:32)
[2019-11-24] MEDS ORDERED: IBUPROFEN 400 MG TABLET (FP) PO PRN (11:32)
[2019-11-24] MEDS ORDERED: ACETAMINOPHEN 325 MG TABLET (FP) PO PRN ×2 (11:32)
[2019-11-24] MEDS ORDERED: MAGNESIUM HYDROX 2400MG/30ML ORAL SUSPENSION 30 ML CUP PO PRN (11:32)
[2019-11-24] MEDS ORDERED: chlordiazePOXIDE HCL 25 MG CAPSULE PO PRN (11:32)
[2019-11-24] MEDS ORDERED: BISMUTH SUBSALICYLATE 524 MG/30 ML UD PO PRN (11:32)
[2019-11-24] MEDS ORDERED: MAG HYDROX/AL HYDROX/SIMETH 30 ML UNIT-DOSE CUP PO PRN (11:32)
[2019-11-24] MEDS ORDERED: ONDANSETRON *ODT* 4 MG TABLET SL ONE (12:00)
[2019-11-24] MEDS: PRENATAL VITAMINS W/ FOLIC ACID TABLET (FP) PO SCH (12:34)
[2019-11-24] MEDS: amLODIPine BESYLATE 10 MG TABLET (FP) PO SCH (12:34)
[2019-11-24] MEDS: NICOTINE 7 MG/24 HOURS TOPICAL PATCH TD SCH (12:35)
[2019-11-24] MEDS: chlordiazePOXIDE HCL 25 MG CAPSULE PO SCH ×3 (12:35→22:55)
[2019-11-24] MEDS: hydrOXYzine PAMOATE 25 MG CAPSULE (FP) PO SCH ×3 (14:55→22:55)
[2019-11-24 15:00] LABS: HEMATOCRIT 43.3 % (35.4-49); HEMOGLOBIN 14.6 GM/dL (11.7-16.9); MCH 31.2 pg (25.7-33.7); MCHC 33.8 g/dl (32.0-35.9); MEAN CELL VOLUME 92.4 fl (80-96); MEAN PLT VOLUME 10.5 fl (7.5-11.1); PLATELET COUNT 202 K/MM3 (134-434); RBC 4.69 M/mm3 (4.00-5.60); RDW 14.4 % (11.9-15.9)
[2019-11-24 15:10] LABS: BILIRUBIN,TOTAL 1.2 mg/dL (0.2-1); CREATININE 1.5 mg/dL (0.55-1.3); POTASSIUM 3.7 mmol/L (3.5-5.1); TOT PROT 7.7 g/dl (6.4-8.2)
[2019-11-24] MEDS: MELATONIN 5 MG TABLETS PO SCH (22:55)
[2019-11-24] MEDS: THIAMINE HCL 100 MG TABLET (FP) PO SCH (22:55)
[2019-11-25] MEDS: hydrOXYzine PAMOATE 25 MG CAPSULE (FP) PO SCH ×2 (05:26→10:05)
[2019-11-25] MEDS: chlordiazePOXIDE HCL 25 MG CAPSULE PO SCH ×4 (05:26→22:26)
[2019-11-25] MEDS: amLODIPine BESYLATE 10 MG TABLET (FP) PO SCH (10:04)
[2019-11-25] MEDS: PRENATAL VITAMINS W/ FOLIC ACID TABLET (FP) PO SCH (10:04)
[2019-11-25] MEDS: NICOTINE 7 MG/24 HOURS TOPICAL PATCH TD SCH (10:04)
[2019-11-25] MEDS ORDERED: hydrOXYzine PAMOATE 25 MG CAPSULE (FP) PO PRN (10:33)
--- NOTE | 2019-11-25 10:37 | PN ---
S CIWA - CIWA Score Nausea/Vomitin Muscle Tremors: 3 Anxiety: 3 Agitation: 3 Paroxysmal Sweats: 3 Orientation: 0-Oriented Tacttile Disturbances: 0-None Auditory Disturbances: 0-None Visual Disturbances: 0-None Headache: 0-None Present CIWA-Ar Total Score: 14 S Progress Note (SOAP) Subjective: nausea sweats shakes body aches Objective: 11/25/19 10:36 Vital Signs Temperature 98 F 11/25/19 09:21 Pulse Rate 75 11/25/19 09:21 Respiratory Rate 20 11/25/19 09:21 Blood Pressure 124/81 11/25/19 09:21 O2 Sat by Pulse Oximetry (%) 99 11/25/19 09:21 Laboratory Tests 11/24/19 11/24/19 11/24/19 11:15 11:15 11:15 WBC 7.0 RBC 4.69 Hgb 14.6 Hct 43.3 MCV 92.4 MCH 31.2 MCHC 33.8 RDW 14.4 Plt Count 202 D MPV 10.5 Sodium 141 Potassium 3.7 Chloride 108 H Carbon Dioxide 26 Anion Gap 7 L BUN 23.0 H Creatinine 1.5 H Est GFR (CKD-EPI)AfAm 61.59 Est GFR (CKD-EPI)NonAf 53.14 Random Glucose 162 H Calcium 9.0 Total Bilirubin 1.2 H AST 38 H ALT 52 Alkaline Phosphatase 70 Total Protein 7.7 Albumin 4.0 Syphilis Serology COVID-19 (ALFREDO) HIV Ag/Ab Combo Qual Negative 11/24/19 11/24/19 11:15 11:15 WBC RBC Hgb Hct MCV MCH MCHC RDW Plt Count MPV Sodium Potassium Chloride Carbon Dioxide Anion Gap BUN Creatinine Est GFR (CKD-EPI)AfAm Est GFR (CKD-EPI)NonAf Random Glucose Calcium Total Bilirubin AST ALT Alkaline Phosphatase Total Protein Albumin Syphilis Serology Non-reactive COVID-19 (ALFREDO) Not detected HIV Ag/Ab Combo Qual labs noted aaox3 ambulating no acute distress Assessment: 11/25/19 10:37 withdrawal sx Plan: continue detox increase fluids [email or web address]
[2019-11-25] MEDS ORDERED: ONDANSETRON *ODT* 4 MG TABLET SL PRN (10:38)
[2019-11-25] MEDS: THIAMINE HCL 100 MG TABLET (FP) PO SCH (22:26)
[2019-11-25] MEDS: MELATONIN 5 MG TABLETS PO SCH (22:27)
[2019-11-26] MEDS: chlordiazePOXIDE HCL 25 MG CAPSULE PO SCH ×4 (05:52→22:06)
[2019-11-26] MEDS: amLODIPine BESYLATE 10 MG TABLET (FP) PO SCH (10:37)
[2019-11-26] MEDS: PRENATAL VITAMINS W/ FOLIC ACID TABLET (FP) PO SCH (10:37)
[2019-11-26] MEDS: NICOTINE 7 MG/24 HOURS TOPICAL PATCH TD SCH (10:38)
--- NOTE | 2019-11-26 11:56 | PN ---
[facility] CIWA - CIWA Score Nausea/Vomitin-No Nausea/No Vomiting Muscle Tremors: 3 Anxiety: 3 Agitation: 2 Paroxysmal Sweats: 3 Orientation: 0-Oriented Tacttile Disturbances: 0-None Auditory Disturbances: 1-Very Mild Visual Disturbances: 0-None Headache: 0-None Present CIWA-Ar Total Score: 12 S Progress Note (SOAP) Subjective: Complaints of agitation, anxiety, tremors, sweats, and mild noise sensitivity. Objective: 11/26/19 11:55 Vital Signs 11/26/19 05:47 Temperature 98.0 F Pulse Rate 74 Respiratory 18 Rate Blood Pressure 124/76 O2 Sat by Pulse 97 Oximetry (%) Laboratory Last Values WBC 7.0 K/mm3 (4.0-10.0) 11/24/19 11:15 RBC 4.69 M/mm3 (4.00-5.60) 11/24/19 11:15 Hgb 14.6 GM/dL (11.7-16.9) 11/24/19 11:15 Hct 43.3 % (35.4-49) 11/24/19 11:15 MCV 92.4 fl (80-96) 11/24/19 11:15 MCH 31.2 pg (25.7-33.7) 11/24/19 11:15 MCHC 33.8 g/dl (32.0-35.9) 11/24/19 11:15 RDW 14.4 % (11.9-15.9) 11/24/19 11:15 Plt Count 202 K/MM3 (134-434) D 11/24/19 11:15 MPV 10.5 fl (7.5-11.1) 11/24/19 11:15 Sodium 141 mmol/L (136-145) 11/24/19 11:15 Potassium 3.7 mmol/L (3.5-5.1) 11/24/19 11:15 Chloride 108 mmol/L (98-107) H 11/24/19 11:15 Carbon Dioxide 26 mmol/L (21-32) 11/24/19 11:15 Anion Gap 7 MMOL/L (8-16) L 11/24/19 11:15 BUN 23.0 mg/dL (7-18) H 11/24/19 11:15 Creatinine 1.5 mg/dL (0.55-1.3) H 11/24/19 11:15 Est GFR (CKD-EPI)AfAm 61.59 11/24/19 11:15 Est GFR (CKD-EPI)NonAf 53.14 11/24/19 11:15 Random Glucose 162 mg/dL (74-106) H 11/24/19 11:15 Calcium 9.0 mg/dL (8.5-10.1) 11/24/19 11:15 Total Bilirubin 1.2 mg/dL (0.2-1) H 11/24/19 11:15 AST 38 U/L (15-37) H 11/24/19 11:15 ALT 52 U/L (13-61) 11/24/19 11:15 Alkaline Phosphatase 70 U/L (45-117) 11/24/19 11:15 Total Protein 7.7 g/dl (6.4-8.2) 11/24/19 11:15 Albumin 4.0 g/dl (3.4-5.0) 11/24/19 11:15 Syphilis Serology Non-reactive (NONREACTIVE) 11/24/19 11:15 COVID-19 (ALFREDO) Not detected (Not Detected) 11/24/19 11:15 HIV Ag/Ab Combo Qual Negative (NEGATIVE) 11/24/19 11:15 Labs noted. Assessment: 11/26/19 11:56 Patient was seen and evaluated at bedside, alert and oriented x3, in no acute respiratory distress. Full ROM, ambulating without assistance. Skin warm to touch without lesion. Withdrawal symptoms. Plan: Continue detox protocol.
[2019-11-26] MEDS: THIAMINE HCL 100 MG TABLET (FP) PO SCH (22:05)
[2019-11-26] MEDS: MELATONIN 5 MG TABLETS PO SCH (22:05)
[2019-11-27] MEDS ORDERED: chlordiazePOXIDE HCL 10 MG CAPSULE PO PRN
[2019-11-27] MEDS: chlordiazePOXIDE HCL 10 MG CAPSULE PO SCH ×4 (06:20→22:32)
[2019-11-27] MEDS: PRENATAL VITAMINS W/ FOLIC ACID TABLET (FP) PO SCH (10:41)
[2019-11-27] MEDS: amLODIPine BESYLATE 10 MG TABLET (FP) PO SCH (10:41)
[2019-11-27] MEDS: NICOTINE 7 MG/24 HOURS TOPICAL PATCH TD SCH (10:42)
--- NOTE | 2019-11-27 15:16 | PN ---
S CIWA - CIWA Score Nausea/Vomitin-Mild Nausea/No Vomiting Muscle Tremors: 2 Anxiety: 2 Agitation: 2 Paroxysmal Sweats: 2 Orientation: 0-Oriented Tacttile Disturbances: 1-Very Mild Itch/Numbness Auditory Disturbances: 0-None Visual Disturbances: 0-None Headache: 0-None Present CIWA-Ar Total Score: 10 BHS Progress Note (SOAP) Subjective: Interrupted sleep Objective: 11/27/19 15:11 Last Vital Signs Temp Pulse Resp BP Pulse Ox 98.6 F 87 16 111/73 98 11/27/19 13:06 11/27/19 13:06 11/27/19 13:06 11/27/19 13:06 11/27/19 13:06 Laboratory Tests 11/24/19 11/24/19 11/24/19 11:15 11:15 11:15 WBC 7.0 RBC 4.69 Hgb 14.6 Hct 43.3 MCV 92.4 MCH 31.2 MCHC 33.8 RDW 14.4 Plt Count 202 D MPV 10.5 Sodium 141 Potassium 3.7 Chloride 108 H Carbon Dioxide 26 Anion Gap 7 L BUN 23.0 H Creatinine 1.5 H Est GFR (CKD-EPI)AfAm 61.59 Est GFR (CKD-EPI)NonAf 53.14 Random Glucose 162 H Calcium 9.0 Total Bilirubin 1.2 H AST 38 H ALT 52 Alkaline Phosphatase 70 Total Protein 7.7 Albumin 4.0 Syphilis Serology COVID-19 (ALFREDO) HIV Ag/Ab Combo Qual Negative 11/24/19 11/24/19 11:15 11:15 WBC RBC Hgb Hct MCV MCH MCHC RDW Plt Count MPV Sodium Potassium Chloride Carbon Dioxide Anion Gap BUN Creatinine Est GFR (CKD-EPI)AfAm Est GFR (CKD-EPI)NonAf Random Glucose Calcium Total Bilirubin AST ALT Alkaline Phosphatase Total Protein Albumin Syphilis Serology Non-reactive COVID-19 (ALFREDO) Not detected HIV Ag/Ab Combo Qual Labs reviewed: bun high, LISBET: creat 1.5 high, total bilirubin high Assessment: 11/27/19 15:14 Withdrawal sxs Noted with LISBET and abnormal LFTs Plan: Continue detox Encourage PO water intake LISBET: encourage to drink more water, repeat electrolyte panel Abnormal LFTs: repeat CMP
[2019-11-27] MEDS: MELATONIN 5 MG TABLETS PO SCH (22:32)
[2019-11-27] MEDS: THIAMINE HCL 100 MG TABLET (FP) PO SCH (22:32)
[2019-11-28] MEDS: chlordiazePOXIDE HCL 10 MG CAPSULE PO SCH ×2 (06:05→18:09)
[2019-11-28] MEDS: NICOTINE 7 MG/24 HOURS TOPICAL PATCH TD SCH (10:22)
[2019-11-28] MEDS: PRENATAL VITAMINS W/ FOLIC ACID TABLET (FP) PO SCH (10:23)
[2019-11-28] MEDS: amLODIPine BESYLATE 10 MG TABLET (FP) PO SCH (10:23)
--- NOTE | 2019-11-28 14:03 | PN ---
[facility] CIWA - CIWA Score Nausea/Vomitin-No Nausea/No Vomiting Muscle Tremors: None Anxiety: 1-Mildly Anxious Agitation: 0-Normal Activity Paroxysmal Sweats: No Perspiration Orientation: 0-Oriented Tacttile Disturbances: 0-None Auditory Disturbances: 0-None Visual Disturbances: 0-None Headache: 0-None Present CIWA-Ar Total Score: 1 S Progress Note (SOAP) Subjective: alert,irritable,anxious,interrupted sleep,aching pain in the body Objective: 11/28/19 14:47 Vital Signs Temperature 97.3 F L 11/28/19 12:55 Pulse Rate 82 11/28/19 12:55 Respiratory Rate 16 11/28/19 12:55 Blood Pressure 110/70 11/28/19 12:55 O2 Sat by Pulse Oximetry (%) 98 11/28/19 05:51 patient refused bmp blood test and fasting glucose Assessment: 11/28/19 14:48 withdrawal symptom Plan: continue detox,librium regimen,encourage oral fluid,water,life style diet modification,bgm bid,discharge in am
[2019-11-28] MEDS: MELATONIN 5 MG TABLETS PO SCH (22:09)
[2019-11-28] MEDS: THIAMINE HCL 100 MG TABLET (FP) PO SCH (22:09)
[2019-11-29] MEDS ORDERED: chlordiazePOXIDE HCL 10 MG CAPSULE PO ONE (05:00)
[2019-11-29 06:27] VITALS: BP 133/81; PULSE 81; TEMP 97.8
[2019-11-29] MEDS: amLODIPine BESYLATE 10 MG TABLET (FP) PO SCH (09:15)
[2019-11-29] MEDS: NICOTINE 7 MG/24 HOURS TOPICAL PATCH TD SCH (09:15)
[2019-11-29] MEDS: PRENATAL VITAMINS W/ FOLIC ACID TABLET (FP) PO SCH (09:16)
--- NOTE | 2019-11-29 10:09 | PN ---
[facility] CIWA - CIWA Score Nausea/Vomitin-No Nausea/No Vomiting Muscle Tremors: None Anxiety: 1-Mildly Anxious Agitation: 0-Normal Activity Paroxysmal Sweats: No Perspiration Orientation: 0-Oriented Tacttile Disturbances: 0-None Auditory Disturbances: 0-None Visual Disturbances: 0-None Headache: 0-None Present CIWA-Ar Total Score: 1 S Progress Note (SOAP) Subjective: alert,no complaint Objective: 11/29/19 09:56 Vital Signs Temperature 97.8 F 11/29/19 06:23 Pulse Rate 81 11/29/19 06:23 Respiratory Rate 18 11/29/19 06:23 Blood Pressure 133/81 11/29/19 06:23 O2 Sat by Pulse Oximetry (%) 98 11/29/19 06:23 Assessment: 11/29/19 09:56 detox completed,no withdrawal symptom Plan: discharge today,follow up with after care program as arrangement
--- NOTE | 2019-11-29 10:10 | DS ---
[facility] Detox Discharge Summary Admission Date: 11/24/19 Discharge Date: 11/29/19 - History Present History: Alcohol Dependence, Cannabis Dependence, Cocaine Dependence Additional Comments: alert,oriented x 3 ambulation on the unit lung clear on auscultation bilaterally abdomen soft,no pain,no tenderness no swelling of extremities detox completed,no withdrawal symptom stable for discharge today declined rehab follow up with after care program ,aa meeting as arrangement advise diet modification no salt ,no concentrated sweet,follow up with medical provider for medical issue,hypertension and dm total time spending on discharge is 35 minutes Pertinent Past History: hypertension type 2 dm nicotine dependence - Physical Exam Results Vital Signs: Vital Signs Temperature 97.8 F 11/29/19 06:23 Pulse Rate 81 11/29/19 06:23 Respiratory Rate 18 11/29/19 06:23 Blood Pressure 133/81 11/29/19 06:23 O2 Sat by Pulse Oximetry (%) 98 11/29/19 06:23 Pertinent Admission Physical Exam Findings: withdrawal sign and symptom Laboratory Last Values WBC 7.0 K/mm3 (4.0-10.0) 11/24/19 11:15 RBC 4.69 M/mm3 (4.00-5.60) 11/24/19 11:15 Hgb 14.6 GM/dL (11.7-16.9) 11/24/19 11:15 Hct 43.3 % (35.4-49) 11/24/19 11:15 MCV 92.4 fl (80-96) 11/24/19 11:15 MCH 31.2 pg (25.7-33.7) 11/24/19 11:15 MCHC 33.8 g/dl (32.0-35.9) 11/24/19 11:15 RDW 14.4 % (11.9-15.9) 11/24/19 11:15 Plt Count 202 K/MM3 (134-434) D 11/24/19 11:15 MPV 10.5 fl (7.5-11.1) 11/24/19 11:15 Sodium 141 mmol/L (136-145) 11/24/19 11:15 Potassium 3.7 mmol/L (3.5-5.1) 11/24/19 11:15 Chloride 108 mmol/L (98-107) H 11/24/19 11:15 Carbon Dioxide 26 mmol/L (21-32) 11/24/19 11:15 Anion Gap 7 MMOL/L (8-16) L 11/24/19 11:15 BUN 23.0 mg/dL (7-18) H 11/24/19 11:15 Creatinine 1.5 mg/dL (0.55-1.3) H 11/24/19 11:15 Est GFR (CKD-EPI)AfAm 61.59 11/24/19 11:15 Est GFR (CKD-EPI)NonAf 53.14 11/24/19 11:15 Random Glucose 162 mg/dL (74-106) H 11/24/19 11:15 Calcium 9.0 mg/dL (8.5-10.1) 11/24/19 11:15 Total Bilirubin 1.2 mg/dL (0.2-1) H 11/24/19 11:15 AST 38 U/L (15-37) H 11/24/19 11:15 ALT 52 U/L (13-61) 11/24/19 11:15 Alkaline Phosphatase 70 U/L (45-117) 11/24/19 11:15 Total Protein 7.7 g/dl (6.4-8.2) 11/24/19 11:15 Albumin 4.0 g/dl (3.4-5.0) 11/24/19 11:15 Syphilis Serology Non-reactive (NONREACTIVE) 11/24/19 11:15 COVID-19 (ALFREDO) Not detected (Not Detected) 11/24/19 11:15 HIV Ag/Ab Combo Qual Negative (NEGATIVE) 11/24/19 11:15 Vital Signs Temperature 97.8 F 11/29/19 06:23 Pulse Rate 81 11/29/19 06:23 Respiratory Rate 18 11/29/19 06:23 Blood Pressure 133/81 11/29/19 06:23 O2 Sat by Pulse Oximetry (%) 98 11/29/19 06:23 - Treatment Hospital Course: Detox Protocol Followed, Detoxed Safely, Responded well, Discharged Condition Good Patient has Accepted a Rehab Referral to: declined - Medication Discharge Medications: Ambulatory Orders Amlodipine Besylate [Norvasc -] 10 mg PO DAILY 03/15/12 - Diagnosis (1) Cocaine dependence Status: Active (2) Syncope Status: Active (3) Alcohol dependence with uncomplicated withdrawal Status: Acute (4) Cannabis dependence Status: Chronic (5) DM2 (diabetes mellitus, type 2) Status: Chronic Qualifiers: Diabetes mellitus mcfp insulin use: unspecified mcfp insulin use status Diabetes mellitus complication status: without complication Qualified Code(s): E11.9 - Type 2 diabetes mellitus without complications (6) Essential hypertension Status: Chronic - AMA Did Patient Leave Against Medical Advice: No
== END 2019-11-29 09:18 | disposition home or self-care (01) | DRG 774 ==
LOC: YASAS 09:50 → Y6N 11:04
PROVIDERS: ADMIT Allergy & Immunology; ATTEND Allergy & Immunology
PROC: HZ2ZZZZ Detoxification Services for Substance Abuse Treatment (ICD-10-PCS; principal; 2019-11-24)
DX: F10.230 Alcohol dependence with withdrawal, uncomplicated (principal); F14.20 Cocaine dependence, uncomplicated; F13.20 Sedative, hypnotic or anxiolytic dependence, uncomplicated; F12.20 Cannabis dependence, uncomplicated; F17.210 Nicotine dependence, cigarettes, uncomplicated; F32.9 Major depressive disorder, single episode, unspecified; N17.9 Acute kidney failure, unspecified; I10 Essential (primary) hypertension; E11.9 Type 2 diabetes mellitus without complications; Z79.4 Long term (current) use of insulin; R94.5 Abnormal results of liver function studies; R63.4 Abnormal weight loss; Z68.26 Body mass index [BMI] 26.0-26.9, adult; Z88.8 Allergy status to other drugs, medicaments and biological substances
CPT/HCPCS: 36415; 80053; 85027; 86780; 87389; Q0162; U0003

== ENCOUNTER 2019-12-21 14:58 | Inpatient (IN) | payer OTHER ==
--- NOTE | 2019-12-21 15:31 | BHS.RME ---
Substance Use & Tx History - Substance Use History Alcohol Substance amount: 4 pints Vodka Frequency of use: Daily Substance route: Oral Date of Last Use: 12/21/19 Cocaine- Powder Substance amount: $20 Frequency of use: More than 3 times per week Substance route: Inhalation (ex: sniffing or snorting) Date of Last Use: 12/20/19 Xanax Substance amount: 4 mg Frequency of use: Daily Substance route: Oral Date of Last Use: 12/21/19 Marijuana/Hashish Substance amount: 4 blunts Frequency of use: More than 3 times per week Substance route: Smoking Date of Last Use: 12/21/19 Nicotine Substance amount: one half pack Frequency of use: Daily Substance route: Smoking Date of Last Use: 12/21/19 - Last Treatment Date of last treatment: November 23 to Nov 29, 2019 Where was last treatment: Detox Physical/Psych/Mental Status - Behavior General Behavior: Decreased activity Eye Contact: Normal - Cooperativeness Cooperativeness: Cooperative - Thinking Thought Processes: Tight Thought content: Future oriented - Physical Health Problems Is patient presently having any pain?: No Does patient presently have any injuries (include location): No Does patient currently have a fever: No CIWA Nausea/Vomitin-Mild Nausea/No Vomiting Muscle Tremors: 4-Moderate,w/Arms Extend Anxiety: 4-Mod. Anxious/Guarded Agitation: 3 Paroxysmal Sweats: 3 Orientation: 0-Oriented Tacttile Disturbances: 0-None Auditory Disturbances: 0-None Visual Disturbances: 2-Mild Sensitivity Headache: 3-Moderate CIWA-Ar Total Score: 20
--- NOTE | 2019-12-21 17:22 | HP ---
CIWA Score Nausea/Vomitin-Mild Nausea/No Vomiting Muscle Tremors: 4-Moderate,w/Arms Extend Anxiety: 4-Mod. Anxious/Guarded Agitation: 3 Paroxysmal Sweats: 3 Orientation: 0-Oriented Tacttile Disturbances: 0-None Auditory Disturbances: 0-None Visual Disturbances: 2-Mild Sensitivity Headache: 3-Moderate CIWA-Ar Total Score: 20 - Admission Criteria OASAS Guidelines: Admission for Medically Managed Detox: Requires at least one of the followin. CIWA greater than 12 2. Seizures within the past 24 hours 3. Delirium tremens within the past 24 hours 4. Hallucinations within the past 24 hours 5. Acute intervention needed for co occurring medical disorder 6. Acute intervention needed for co occurring psychiatric disorder 7. Severe withdrawal that cannot be handled at a lower level of care (continued vomiting, continued diarrhea, abnormal vital signs) requiring intravenous medication and/or fluids 8. Admitting History and Physical - Admission Chief Complaint: 49 yo M presenting for alcohol detox; "want to stop with all the alcohol and drugs." History of Present Illness: 49 yo M presenting for alcohol detox; "want to stop with all the alcohol and drugs." Pt was last here 11/24/2019 - 11/29/2019. Pt did not go to rehab last time; plans to go to rehab this time. Pt relapsed about 1 week after leaving from last detox stay. Yesterday patient started "getting the shakes" and decided to go to [facility]; he was given librium yesterday and has intermediate relief. Pt reports that area/environment he lives in stressful and is a possible trigger. 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; in the [place] [employer] - none - Substance Use History Alcohol Substance amount: 4 pints Vodka Frequency of use: Daily Substance route: Oral Date of Last Use: 12/21/19 Cocaine- Powder Substance amount: $20 Frequency of use: More than 3 times per week Substance route: Inhalation (ex: sniffing or snorting) Date of Last Use: 12/20/19 Xanax Substance amount: 4 mg Frequency of use: Daily Substance route: Oral Date of Last Use: 12/21/19 Marijuana/Hashish Substance amount: 4 blunts Frequency of use: More than 3 times per week Substance route: Smoking Date of Last Use: 12/21/19 Nicotine Substance amount: one half pack Frequency of use: Daily Substance route: Smoking Date of Last Use: 12/21/19 - Last Treatment Date of last treatment: November 23 to Nov 29, 2019 Where was last treatment: Detox CIWA Nausea/Vomitin-Mild Nausea/No Vomiting Muscle Tremors: 4-Moderate,w/Arms Extend Anxiety: 4-Mod. Anxious/Guarded Agitation: 3 Paroxysmal Sweats: 3 Orientation: 0-Oriented Tacttile Disturbances: 0-None Auditory Disturbances: 0-None Visual Disturbances: 2-Mild Sensitivity Headache: 3-Moderate CIWA-Ar Total Score: 20 History Source: Patient Limitations to Obtaining History: No Limitations - Past Medical History Cardiovascular: Yes: HTN - Past Surgical History Past Surgical History: Yes: None - Smoking History Smoking history: Current every day smoker Have you smoked in the past 12 months: Yes Aproximately how many cigarettes per day: 10 - Alcohol/Substance Use Hx Alcohol Use: Yes Number of Drinks Daily: 10 Date of Last Use: 11/23/19 - Social History ADL: Independent 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 Loss (20 lb weight loss in last 1.5 months - reports not eating much and drinking mostly alcohol) EENT: reports: No Symptoms Reported Respiratory: reports: No Symptoms reported Cardiac: reports: No Symptoms Reported GI: reports: Diarrhea, Nausea, Vomiting (vomiting was clear (nb nb)) : reports: No Symptoms Reported Musculoskeletal: reports: No Symptoms Reported Integumentary: reports: No Symptoms Reported Neuro: reports: Headache, Tremors Endocrine: reports: No Symptoms Reported Hematology: reports: No Symptoms Reported Psychiatric: reports: Orientated x3 (no HI, SI), Agitated, Anxious, Depressed Patient History - Patient Medical History Hx Anemia: No Hx Asthma: No Hx Chronic Obstructive Pulmonary Disease (COPD): No Hx Cancer: No Hx Cardiac Disorders: No Hx Congestive Heart Failure: No Hx Hypertension: Yes Hx Hypercholesterolemia: No Hx Pacemaker: No HX Cerebrovascular Accident: No Hx Seizures: No Hx Dementia: No Hx Diabetes: No Hx Gastrointestinal Disorders: No Hx Liver Disease: No Hx Genitourinary Disorders: No Hx Sexually Transmitted Disorders: No Hx Renal Disease (ESRD): No Hx Thyroid Disease: No Hx Human Immunodeficiency Virus (HIV): No (NEGATIVE IN 04/2012) Hx Hepatitis C: No Hx Depression: Yes Hx Suicide Attempt: No Hx Bipolar Disorder: No Hx Schizophrenia: No - Patient Surgical History Past Surgical History: No Hx Neurologic Surgery: No Hx Cataract Extraction: No Hx Cardiac Surgery: No Hx Lung Surgery: No Hx Breast Surgery: No Hx Breast Biopsy: No Hx Abdominal Surgery: No Hx Appendectomy: No Hx Cholecystectomy: No Hx Genitourinary Surgery: No Hx Section: No Hx Orthopedic Surgery: No Hx Hysterectomy: No Anesthesia Reaction: No - PPD History Date: 08/05/18 Results: 0 mm - Smoking Cessation Smoking history: Current every day smoker Have you smoked in the past 12 months: Yes Aproximately how many cigarettes per day: 10 Cigars Per Day: 0 Hx Chewing Tobacco Use: No Initiated information on smoking cessation: Yes 'Breaking Loose' booklet given: 12/21/[address] [facility] - Vital Signs Vital Signs: BP 149/98 HR 95 RR 12 T 97.6 O2 sat 98% - Physical General Appearance: Yes: No Apparent Distress, Nourished, Appropriately Dressed HEENTM: Yes: EOMI, Hearing grossly Normal, Normocephalic, Normal Voice Respiratory: Yes: Lungs Clear, Normal Breath Sounds, No Respiratory Distress, No Accessory Muscle Use Neck: Yes: Supple, Trachea in good position Breast: Yes: Breast Exam Deferred Cardiology: Yes: Regular Rhythm, Regular Rate Abdominal: Yes: Normal Bowel Sounds, Non Tender, Flat, Soft Genitourinary: Yes: Other (deferred) Back: Yes: Normal Inspection Musculoskeletal: Yes: full range of Motion, Gait Steady Extremities: Yes: Normal Inspection, Normal Range of Motion, Non-Tender Neurological: Yes: Fully Oriented, Alert, Motor Strength 5/5 Integumentary: Yes: Normal Color, Dry, Warm Cleared for Admission S - Detox or Rehab [facility] Level of Care: Medically Managed Detox Regimen/Protocol: Librium Breathalyzer - Breathalyzer Breathalyzer: 0 Urine Drug Screen - Test Device Lot number: [id number] Expiration date: 10/31/21 - Control Is test valid?: Yes - Results Drug screen NEGATIVE: No Urine drug screen results: THC-Marijuana, CARIDAD-Cocaine, BZO-Benzodiazepines Inpatient Rehab Admission - Rehab Decision to Admit Inpatient rehab admission?: No
[2019-12-21] MEDS ORDERED: IBUPROFEN 400 MG TABLET (FP) PO PRN (17:34)
[2019-12-21] MEDS ORDERED: ONDANSETRON *ODT* 4 MG TABLET SL PRN (17:34)
[2019-12-21] MEDS ORDERED: ACETAMINOPHEN 325 MG TABLET (FP) PO PRN ×2 (17:34)
[2019-12-21] MEDS ORDERED: chlordiazePOXIDE HCL 25 MG CAPSULE PO PRN (17:34)
[2019-12-21] MEDS ORDERED: chlordiazePOXIDE HCL 25 MG CAPSULE PO ONE (17:34)
[2019-12-21] MEDS ORDERED: BISMUTH SUBSALICYLATE 524 MG/30 ML UD PO PRN (17:34)
[2019-12-21] MEDS ORDERED: MAG HYDROX/AL HYDROX/SIMETH 30 ML UNIT-DOSE CUP PO PRN (17:34)
[2019-12-21] MEDS ORDERED: MAGNESIUM CITRATE 300 ML BOTTLE PO PRN (17:34)
[2019-12-21] MEDS ORDERED: MENTHOL/PHENOL 1 EACH UD MM PRN (17:34)
[2019-12-21] MEDS ORDERED: MAGNESIUM HYDROX 2400MG/30ML ORAL SUSPENSION 30 ML CUP PO PRN (17:34)
[2019-12-21] MEDS ORDERED: NICOTINE POLACRILEX 2 MG GUM BUC PRN (17:34)
[2019-12-21] MEDS ORDERED: METHOCARBAMOL 500 MG TABLET PO PRN (17:34)
[2019-12-21 18:25] VITALS: BMI 26.7
[2019-12-21] MEDS: chlordiazePOXIDE HCL 25 MG CAPSULE PO SCH ×3 (19:11→23:53)
[2019-12-21] MEDS: NICOTINE 14 MG/24 HOURS TOPICAL PATCH TD SCH (19:20)
[2019-12-21] MEDS: hydrOXYzine PAMOATE 25 MG CAPSULE (FP) PO SCH ×2 (19:21→23:51)
--- OUTSIDE RECORDS SUMMARY | 2019-12-21 20:45 | XMS ---
:1970 Author Organization [facility] Care Team Providers Name Role Phone JEWELS CARTAGENA MD Unavailable Unavailable MD JORDON Unavailable Unavailable Re-disclosure Warning The records that you are about to access may contain information from federally- assisted alcohol or drug abuse programs. If such information is present, then the following federally mandated warning applies: This information has been disclosed to you from records protected by federal confidentiality rules (42 CFR part 2). The federal rules prohibit you from making any further disclosure of this information unless further disclosure is expressly permitted by the written consent of the person to whom it pertains or as otherwise permitted by 42 CFR part 2. A general authorization for the release of medical or other information is NOT sufficient for this purpose. The Federal rules restrict any use of the information to criminally investigate or prosecute any alcohol or drug abuse patient.The records that you are about to access may contain highly sensitive health information, the redisclosure of which is protected by Article 27-F of the [facility] Public Health law. If you continue you may haveaccess to information: Regarding HIV / AIDS; Provided by facilities licensed or operated by the [facility] Office of Mental Health; or Provided by the [facility] Office for People With Developmental Disabilities. If such information is present, then the following [facility] mandated warning applies: This information has been disclosed to you from confidential records which are protected by state law. State law prohibits you from making any further disclosure of this information without the specific written consent of the person to whom it pertains, or as otherwise permitted by law. Any unauthorized further disclosure in violation of state law may result in a fine or nursing home sentence or both. A general authorization for the release of medical or other information is NOT sufficient authorization for further disclosure. Encounters Encounter Providers Location Date Indications Data Source(s ) Inpatient Attender: JEWELS JAMES-1D 02/01/2019 [facility] jailyn SURBNSHANYANAdmitter 01:27:00 PM EST Hospital : [facility] - 02/07/2019 10:41:00 PM EST Patient discharged. Outpatient [facility] 02/01/2019 11:23:00 AM EST - 019 [facility] 02:28:00 PM EST Patient discharged. Medications Medication Brand Start Product Dose Route Administrative Pharmacy [facility] Indications Reaction Description Data Name Date Form Instructions Instructions Source(s) Glipizide 5 glipiZ ORAL complet glipiZ TRACY - [facility] MG Oral TRACY - 2018 Table ed 5 MG ORAL Nicolas nts Tablet 5 MG 12:00: t Tablet Hospital ORAL 00 AM Tablet EST Acamprosate Acampr ORAL complet Acampr osate [facility] calcium 333 osate 2018 Table ed Calcium - [facility] MG Delayed Calciu 12:00: t 333 MG ORA L Hospital Release m - 00 AM Tablet, Oral Tablet 333 MG EST Delayed ORAL Release Tablet , Delaye d Releas e Lisinopril Lisino ORAL complet Lisinop ril - [facility] 2.5 MG Oral pril - 2018 Table ed 2.5 MG ORA L [facility] Tablet 2.5 MG 12:00: t Tablet Hospita l ORAL 00 AM Tablet EST Insurance Providers Payer name Policy type Policy ID Covered Covered green party's Policy P olinda / Coverage green party ID relationship to [place] [facility] ormation type [place] [employer] [id number] SP [id number] H [employer] [id number] SP [id number] H SELF PAY 0 Self 0 MEDICAID INP [id number] Self [id number] H [facility] HE[facility] [id number] Self [id number] FIRST Problems, Conditions, and Diagnoses Code Display Name Description Problem Type Effective Data Sour ce(s) Dates F10.20 Alcohol dependence, Alcohol Diagnosis 02/07/2019 [facility] uncomplicated dependence, 11:52:00 AM Hospital uncomplicated EST Results ID Date Data Source [id number] 11/24/2019 11:15:00 AM EDT [facility] Name Value Range Interpretation Description Data Sup porting Code Source(s) Document(s ) SARS [facility] coronavirus 2 RNA This lab was ordered by [facility] Ac ct Bill Inter and reported by [facility]. ID Date Data Source [id number] 11/06/2019 08:15:00 PM EDT [facility] Name Value Range Interpretation Code Description Data Taisha rce(s) Supporting Document(s ) SARS-COV-2 [facility] PCR This lab was ordered by and reported by [facility]. ID Date Data Source [id number] 10/30/2019 08:38:00 AM EDT [facility] Name Value Range Interpretation Description Data Sup porting Code Source(s) Document(s ) [id number] [facility] W(Nasal) Reportable This lab was ordered by [facility] and reported by [facility]. ID Date Data Source [id number] 09/14/2019 12:00:00 AM EDT [facility] Name Value Range Interpretation Code Description Data Taisha rce(s) Supporting Document(s ) SARS-CoV-2 [facility] RNA Resp Ql ALFREDO+probe This lab was ordered by [facility] and reported by [facility]. ID Date Data Source [id number] 08/19/2019 09:45:00 AM EDT [facility] Name Value Range Interpretation Code Description Data Taisha rce(s) Supporting Document(s ) SARS-COV-2 [facility] PCR This lab was ordered by [facility] and re ported by [facility]. ID Date Data Source [id number] 07/31/2019 02:26:00 PM EDT [facility] Name Value Range Interpretation Description Data Sup porting Code Source(s) Document(s ) SARS [facility] Coronavirus 2 RNA Presence Respiratory Specimen ALFREDO Probe Detection This lab was ordered by [place] and rep orted by [facility]. ID Date Data Source [id number] 06/23/2019 05:49:00 PM EDT [facility] Name Value Range Interpretation Description Data Sup porting Code Source(s) Document(s ) 2019 Novel [facility] Coronavirus RNA Interpretation Unspecified Specimen Qualitative AL[facility]O Probe Detection This lab was ordered by [place] and rep orted by [facility]. Procedure Vital Signs ID Date Data Source UNK Name Value Range Interpretation Code Description Data Source(s) Body weight 177 lbs 177 lbs [facility] Diastolic blood 97 mmHg 97 mmHg [facility] Systolic blood 151 mmHg 151 mmHg [facility] Respiratory rate 18 bpm 18 bpm [facility] Heart rate 82 bpm 82 bpm [facility] Body temperature 97.9 Fahrenheit 97.9 Fahrenh t [facility] Diastolic blood 94 mmHg 94 mmHg [facility] Systolic blood 145 mmHg 145 mmHg [facility] Respiratory rate 18 bpm 18 bpm [facility] Heart rate 87 bpm 87 bpm [facility] Body temperature 97.6 Fahrenheit 97.6 Fahrenh t [facility] Diastolic blood 110 mmHg 110 mmHg [facility] Systolic blood 150 mmHg 150 mmHg [facility] Respiratory rate 18 bpm 18 bpm [facility] Heart rate 77 bpm 77 bpm [facility] Body temperature 97.0 Fahrenheit 97.0 Fahrenh t [facility] Diastolic blood 89 mmHg 89 mmHg [facility] Systolic blood 148 mmHg 148 mmHg [facility] Respiratory rate 18 bpm 18 bpm [facility] Heart rate 90 bpm 90 bpm [facility] Body temperature 97.8 Fahrenheit 97.8 Fahrenh t [facility] Diastolic blood 86 mmHg 86 mmHg [facility] Systolic blood 134 mmHg 134 mmHg [facility] Respiratory rate 18 bpm 18 bpm [facility] Heart rate 89 bpm 89 bpm [facility] Body temperature 97.6 Fahrenheit 97.6 Fahrenh t [facility]
[2019-12-21] MEDS ORDERED: MELATONIN 5 MG TABLETS PO SCH (22:00)
[2019-12-21] MEDS: THIAMINE HCL 100 MG TABLET (FP) PO SCH (23:51)
[2019-12-22] MEDS: chlordiazePOXIDE HCL 25 MG CAPSULE PO SCH ×4 (06:15→22:15)
[2019-12-22] MEDS: hydrOXYzine PAMOATE 25 MG CAPSULE (FP) PO SCH (06:16)
[2019-12-22] MEDS ORDERED: hydrOXYzine PAMOATE 25 MG CAPSULE (FP) PO PRN (08:32)
[2019-12-22] MEDS: NICOTINE 14 MG/24 HOURS TOPICAL PATCH TD SCH (10:15)
[2019-12-22] MEDS: amLODIPine BESYLATE 10 MG TABLET (FP) PO SCH (10:15)
[2019-12-22] MEDS: PRENATAL VITAMINS W/ FOLIC ACID TABLET (FP) PO SCH (10:15)
--- NOTE | 2019-12-22 10:47 | CONSULT ---
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 Refer to addiction counselor's summary for further information Medical History: Significant for hypertension. Smokes 10 cigarettes daily Psychiatric History: Patient is known for multiple previous admissions to this facility. He reports that his first psychiatric contact occured in 2018 when he was admitted to [facility] [place] for command auditory hallucinations and suicidal ideations in the context of drug intoxication. Claims that he was diagnosed with Bipolar Schizophrenia and started on Risperdal. He said that he was discharged after 2 weeks and referred to aftercare but did not comply. Reports that he has not received any psychiatric treatment nor experienced hallucination or suicidality since. Denies previous suicidal attempt. At present, denies experiencing psychotic symptoms, S/H ideations. However, reports feling anxious and sleeping poorly Physical/Sexual Abuse/Trauma History: Denies history of abuse as a child or DV relationship as an adult Mental Status Exam - Mental Status Exam Alert and Oriented to: Time, Place, Person Cognitive Function: Fair Patient Appearance: Well Groomed Mood: Anxious Affect: Appropriate Patient Behavior: Cooperative Speech Pattern: Clear Voice Loudness: Normal Thought Process: Intact, Goal Oriented Hallucinations: Denies Suicidal Ideation: Denies Homicidal Ideation: Denies Insight/Judgement: Poor Sleep: Poorly Appetite: Poor Muscle strength/Tone: Normal Gait/Station: Normal Psychiatric Findings - Problem List ([place] 1, 2,3) (1) Psychotic disorder Current Visit: Yes Status: Chronic (2) Substance-induced psychotic disorder Current Visit: Yes Status: Ruled-out (3) Substance-induced anxiety disorder Current Visit: Yes Status: Acute (4) Substance-induced sleep disorder Current Visit: Yes Status: Acute (5) Alcohol dependence with uncomplicated withdrawal Current Visit: No Status: Acute (6) Cocaine dependence, uncomplicated Current Visit: Yes Status: Acute (7) Cannabis dependence Current Visit: No Status: Acute (8) Nicotine dependence with current use Current Visit: No Status: Acute (9) Essential hypertension Current Visit: No Status: Chronic - Initial Treatment Plan Initial Treatment Plan: 1) Start Melatonin 10 mg po HS prn for insomnia. 2) Continue inpatient detoxification
[2019-12-22 10:52] LABS: HEMATOCRIT 47.7 % (35.4-49); HEMOGLOBIN 15.9 GM/dL (11.7-16.9); MCH 30.8 pg (25.7-33.7); MCHC 33.4 g/dl (32.0-35.9); MEAN CELL VOLUME 92.3 fl (80-96); MEAN PLT VOLUME 9.9 fl (7.5-11.1); PLATELET COUNT 160 K/MM3 (134-434); RBC 5.17 M/mm3 (4.00-5.60); RDW 14.6 % (11.9-15.9); WHITE BLOOD COUNT 4.3 K/mm3 (4.0-10.0)
[2019-12-22 11:07] LABS: POTASSIUM 3.8 mmol/L (3.5-5.1)
[2019-12-22 11:19] LABS: ALBUMIN 3.5 g/dl (3.4-5.0); BILIRUBIN,TOTAL 0.9 mg/dL (0.2-1); BLOOD UREA NITROGEN 14.9 mg/dL (7-18); CREATININE 1.1 mg/dL (0.55-1.3); TOT PROT 7.1 g/dl (6.4-8.2)
--- NOTE | 2019-12-22 11:56 | PN ---
Teaching Attending Note Name of Resident: Nolan Hughes ATTENDING PHYSICIAN STATEMENT I saw and evaluated the patient. I reviewed the resident's note and discussed the case with the resident. I agree with the resident's findings and plan as documented. SUBJECTIVE: OBJECTIVE: ASSESSMENT AND PLAN: 1. Alcohol withdrawal, uncomplicated Plan 1. Librium detox protocol
--- NOTE | 2019-12-22 13:20 | PN ---
S CIWA - CIWA Score Nausea/Vomitin-No Nausea/No Vomiting Muscle Tremors: 3 Anxiety: 3 Agitation: 3 Paroxysmal Sweats: 3 Orientation: 0-Oriented Tacttile Disturbances: 0-None Auditory Disturbances: 0-None Visual Disturbances: 0-None Headache: 0-None Present CIWA-Ar Total Score: 12 S Progress Note (SOAP) Subjective: sweats shakes headache interrupted sleep agitation Objective: 12/22/19 13:19 Vital Signs Temperature 98.0 F 12/22/19 09:13 Pulse Rate 89 12/22/19 09:13 Respiratory Rate 17 12/22/19 09:13 Blood Pressure 124/72 12/22/19 09:13 O2 Sat by Pulse Oximetry (%) 96 12/22/19 09:13 Laboratory Tests 12/22/19 12/22/19 12/22/19 07:50 07:50 07:50 WBC 4.3 RBC 5.17 Hgb 15.9 Hct 47.7 MCV 92.3 MCH 30.8 MCHC 33.4 RDW 14.6 Plt Count 160 D MPV 9.9 Sodium 141 Potassium 3.8 Chloride 106 Carbon Dioxide 30 Anion Gap 5 L BUN 14.9 Creatinine 1.1 Est GFR (CKD-EPI)AfAm 89.61 Est GFR (CKD-EPI)NonAf 77.32 Random Glucose 125 H Calcium 9.0 Total Bilirubin 0.9 AST 34 ALT 47 Alkaline Phosphatase 72 Total Protein 7.1 Albumin 3.5 Syphilis Serology Non-reactive labs noted aaox3 ambulating no acute distress Assessment: 12/22/19 13:19 withdrawals Plan: continue detox increase fluids tylenol/motrin prn
[2019-12-22] MEDS: MELATONIN 5 MG TABLETS PO PRN (22:15)
[2019-12-22] MEDS: THIAMINE HCL 100 MG TABLET (FP) PO SCH (22:15)
[2019-12-23] MEDS: chlordiazePOXIDE HCL 25 MG CAPSULE PO SCH ×4 (06:02→22:27)
[2019-12-23] MEDS: amLODIPine BESYLATE 10 MG TABLET (FP) PO SCH (10:30)
[2019-12-23] MEDS: PRENATAL VITAMINS W/ FOLIC ACID TABLET (FP) PO SCH (10:30)
[2019-12-23] MEDS: NICOTINE 14 MG/24 HOURS TOPICAL PATCH TD SCH (10:30)
--- NOTE | 2019-12-23 12:51 | PN ---
S CIWA - CIWA Score Nausea/Vomitin-No Nausea/No Vomiting Muscle Tremors: 3 Anxiety: 2 Agitation: 2 Paroxysmal Sweats: 1-Minimal Palms Moist Orientation: 0-Oriented Tacttile Disturbances: 0-None Auditory Disturbances: 0-None Visual Disturbances: 0-None Headache: 0-None Present CIWA-Ar Total Score: 8 BHS Progress Note (SOAP) Subjective: sweats agitation tired interrupted sleep body aches Objective: 12/23/19 12:50 Vital Signs Temperature 97.1 F L 12/23/19 09:00 Pulse Rate 85 12/23/19 09:00 Respiratory Rate 18 12/23/19 09:00 Blood Pressure 120/73 12/23/19 09:00 O2 Sat by Pulse Oximetry (%) 99 12/23/19 09:30 Laboratory Tests 12/21/19 12/22/19 12/22/19 19:35 07:50 07:50 WBC 4.3 RBC 5.17 Hgb 15.9 Hct 47.7 MCV 92.3 MCH 30.8 MCHC 33.4 RDW 14.6 Plt Count 160 D MPV 9.9 Sodium 141 Potassium 3.8 Chloride 106 Carbon Dioxide 30 Anion Gap 5 L BUN 14.9 Creatinine 1.1 Est GFR (CKD-EPI)AfAm 89.61 Est GFR (CKD-EPI)NonAf 77.32 Random Glucose 125 H Calcium 9.0 Total Bilirubin 0.9 AST 34 ALT 47 Alkaline Phosphatase 72 Total Protein 7.1 Albumin 3.5 Syphilis Serology COVID-19 ([facility]) Not detected 12/22/19 07:50 WBC RBC Hgb Hct MCV MCH MCHC RDW Plt Count MPV Sodium Potassium Chloride Carbon Dioxide Anion Gap BUN Creatinine Est GFR (CKD-EPI)AfAm Est GFR (CKD-EPI)NonAf Random Glucose Calcium Total Bilirubin AST ALT Alkaline Phosphatase Total Protein Albumin Syphilis Serology Non-reactive COVID-19 ([facility]) aaox3 ambulating no acute distress Assessment: 12/23/19 12:51 withdrawals Plan: continue detox increase fluids tylenol prn
[2019-12-23] MEDS: MELATONIN 5 MG TABLETS PO PRN (22:27)
[2019-12-23] MEDS: THIAMINE HCL 100 MG TABLET (FP) PO SCH (22:27)
[2019-12-24] MEDS ORDERED: chlordiazePOXIDE HCL 10 MG CAPSULE PO PRN
[2019-12-24] MEDS: chlordiazePOXIDE HCL 10 MG CAPSULE PO SCH ×4 (06:07→22:43)
[2019-12-24] MEDS: PRENATAL VITAMINS W/ FOLIC ACID TABLET (FP) PO SCH (10:41)
[2019-12-24] MEDS: NICOTINE 14 MG/24 HOURS TOPICAL PATCH TD SCH (10:41)
[2019-12-24] MEDS: amLODIPine BESYLATE 10 MG TABLET (FP) PO SCH (10:41)
--- NOTE | 2019-12-24 16:42 | PN ---
S CIWA - CIWA Score Nausea/Vomitin-No Nausea/No Vomiting Muscle Tremors: None Anxiety: 3 Agitation: 1-Slight > Activity Paroxysmal Sweats: 3 Orientation: 0-Oriented Tacttile Disturbances: 0-None Auditory Disturbances: 1-Very Mild Visual Disturbances: 1-Very Mild Sensitivity Headache: 0-None Present CIWA-Ar Total Score: 9 BHS Progress Note (SOAP) Subjective: Anxious, Sweating, Fatigue. Objective: Patient A & O X 3, Observed Ambulating on Detox Unit Unassisted. In No Acute Distress. 12/24/19 16:41 Vital Signs Temperature 98.6 F 12/24/19 12:47 Pulse Rate 96 H 12/24/19 12:47 Respiratory Rate 12/24/19 12:47 Blood Pressure 100/70 12/24/19 12:47 O2 Sat by Pulse Oximetry (%) 100 12/24/19 12:47 Laboratory Tests 12/21/19 12/22/19 12/22/19 19:35 07:50 07:50 WBC 4.3 RBC 5.17 Hgb 15.9 Hct 47.7 MCV 92.3 MCH 30.8 MCHC 33.4 RDW 14.6 Plt Count 160 D MPV 9.9 Sodium 141 Potassium 3.8 Chloride 106 Carbon Dioxide 30 Anion Gap 5 L BUN 14.9 Creatinine 1.1 Est GFR (CKD-EPI)AfAm 89.61 Est GFR (CKD-EPI)NonAf 77.32 Random Glucose 125 H Calcium 9.0 Total Bilirubin 0.9 AST 34 ALT 47 Alkaline Phosphatase 72 Total Protein 7.1 Albumin 3.5 Syphilis Serology COVID-19 ([facility]) Not detected 12/22/19 07:50 WBC RBC Hgb Hct MCV MCH MCHC RDW Plt Count MPV Sodium Potassium Chloride Carbon Dioxide Anion Gap BUN Creatinine Est GFR (CKD-EPI)AfAm Est GFR (CKD-EPI)NonAf Random Glucose Calcium Total Bilirubin AST ALT Alkaline Phosphatase Total Protein Albumin Syphilis Serology Non-reactive COVID-19 ([facility]) Lab Results noted. Assessment: 12/24/19 16:41 WITHDRAWAL SYMPTOMS. Plan: Continue Detox. Increase Daily Oral Water Intake.
[2019-12-24] MEDS: THIAMINE HCL 100 MG TABLET (FP) PO SCH (22:43)
[2019-12-24] MEDS: MELATONIN 5 MG TABLETS PO PRN (22:43)
[2019-12-25] MEDS: chlordiazePOXIDE HCL 10 MG CAPSULE PO SCH ×2 (05:46→18:08)
[2019-12-25] MEDS: NICOTINE 14 MG/24 HOURS TOPICAL PATCH TD SCH (10:35)
[2019-12-25] MEDS: amLODIPine BESYLATE 10 MG TABLET (FP) PO SCH (10:35)
[2019-12-25] MEDS: PRENATAL VITAMINS W/ FOLIC ACID TABLET (FP) PO SCH (10:36)
--- NOTE | 2019-12-25 11:35 | PN ---
[facility] CIWA - CIWA Score Nausea/Vomitin-No Nausea/No Vomiting Muscle Tremors: 1-None Visible, but [place] Anxiety: 2 Agitation: 1-Slight > Activity Paroxysmal Sweats: 1-Minimal Palms Moist Orientation: 0-Oriented Tacttile Disturbances: 0-None Auditory Disturbances: 0-None Visual Disturbances: 0-None Headache: 0-None Present CIWA-Ar Total Score: 5 BHS Progress Note (SOAP) Subjective: Complaints of mild anxiety and tremors. Objective: 12/25/19 11:33 Vital Signs 12/25/19 12/25/19 12/25/19 05:41 05:44 08:37 Temperature 97.5 F L 98.6 F 97.3 F L Pulse Rate 56 L 78 89 Respiratory 20 20 18 Rate Blood Pressure 128/74 115/78 123/75 O2 Sat by Pulse 97 96 96 Oximetry (%) Laboratory Last Values WBC 4.3 K/mm3 (4.0-10.0) 12/22/19 07:50 RBC 5.17 M/mm3 (4.00-5.60) 12/22/19 07:50 Hgb 15.9 GM/dL (11.7-16.9) 12/22/19 07:50 Hct 47.7 % (35.4-49) 12/22/19 07:50 MCV 92.3 fl (80-96) 12/22/19 07:50 MCH 30.8 pg (25.7-33.7) 12/22/19 07:50 MCHC 33.4 g/dl (32.0-35.9) 12/22/19 07:50 RDW 14.6 % (11.9-15.9) 12/22/19 07:50 Plt Count 160 K/MM3 (134-434) D 12/22/19 07:50 MPV 9.9 fl (7.5-11.1) 12/22/19 07:50 Sodium 141 mmol/L (136-145) 12/22/19 07:50 Potassium 3.8 mmol/L (3.5-5.1) 12/22/19 07:50 Chloride 106 mmol/L (98-107) 12/22/19 07:50 Carbon Dioxide 30 mmol/L (21-32) 12/22/19 07:50 Anion Gap 5 MMOL/L (8-16) L 12/22/19 07:50 BUN 14.9 mg/dL (7-18) 12/22/19 07:50 Creatinine 1.1 mg/dL (0.55-1.3) 12/22/19 07:50 Est GFR (CKD-EPI)AfAm 89.61 12/22/19 07:50 Est GFR (CKD-EPI)NonAf 77.32 12/22/19 07:50 Random Glucose 125 mg/dL (74-106) H 12/22/19 07:50 Calcium 9.0 mg/dL (8.5-10.1) 12/22/19 07:50 Total Bilirubin 0.9 mg/dL (0.2-1) 12/22/19 07:50 AST 34 U/L (15-37) 12/22/19 07:50 ALT 47 U/L (13-61) 12/22/19 07:50 Alkaline Phosphatase 72 U/L (45-117) 12/22/19 07:50 Total Protein 7.1 g/dl (6.4-8.2) 12/22/19 07:50 Albumin 3.5 g/dl (3.4-5.0) 12/22/19 07:50 Syphilis Serology Non-reactive (NONREACTIVE) 12/22/19 07:50 COVID-19 ([facility]) Not detected (Not Detected) 12/21/19 19:35 Labs noted. Assessment: 12/25/19 11:33 Alert and oriented x3, in no acute respiratory distress. Full ROM, ambulatory in the unit without assistance. Skin warm to touch. very mild withdrawal symptoms. 12/25/19 11:34 Plan: Continue detox protocol. D/C in AM.
[2019-12-25] MEDS: THIAMINE HCL 100 MG TABLET (FP) PO SCH (22:13)
[2019-12-25] MEDS: MELATONIN 5 MG TABLETS PO PRN (22:14)
[2019-12-26] MEDS ORDERED: chlordiazePOXIDE HCL 10 MG CAPSULE PO ONE (05:00)
[2019-12-26 07:16] VITALS: BP 124/78; PULSE 80; TEMP 98
--- NOTE | 2019-12-26 09:34 | DS ---
[facility] Detox Discharge Summary Admission Date: 12/21/19 Discharge Date: 12/26/19 - History Present History: Alcohol Dependence, Cocaine Dependence - Physical Exam Results Vital Signs: Vital Signs Temperature 98.0 F 12/26/19 05:42 Pulse Rate 80 12/26/19 05:42 Respiratory Rate 17 12/26/19 05:42 Blood Pressure 124/78 12/26/19 05:42 O2 Sat by Pulse Oximetry (%) 98 12/26/19 05:42 Pertinent Admission Physical Exam Findings: Vital Signs Temperature 98.0 F 12/26/19 05:42 Pulse Rate 80 12/26/19 05:42 Respiratory Rate 17 12/26/19 05:42 Blood Pressure 124/78 12/26/19 05:42 O2 Sat by Pulse Oximetry (%) 98 12/26/19 05:42 Laboratory Tests 12/21/19 12/22/19 12/22/19 19:35 07:50 07:50 WBC 4.3 RBC 5.17 Hgb 15.9 Hct 47.7 MCV 92.3 MCH 30.8 MCHC 33.4 RDW 14.6 Plt Count 160 D MPV 9.9 Sodium 141 Potassium 3.8 Chloride 106 Carbon Dioxide 30 Anion Gap 5 L BUN 14.9 Creatinine 1.1 Est GFR (CKD-EPI)AfAm 89.61 Est GFR (CKD-EPI)NonAf 77.32 Random Glucose 125 H Calcium 9.0 Total Bilirubin 0.9 AST 34 ALT 47 Alkaline Phosphatase 72 Total Protein 7.1 Albumin 3.5 Syphilis Serology COVID-19 ([facility]) Not detected 12/22/19 07:50 WBC RBC Hgb Hct MCV MCH MCHC RDW Plt Count MPV Sodium Potassium Chloride Carbon Dioxide Anion Gap BUN Creatinine Est GFR (CKD-EPI)AfAm Est GFR (CKD-EPI)NonAf Random Glucose Calcium Total Bilirubin AST ALT Alkaline Phosphatase Total Protein Albumin Syphilis Serology Non-reactive COVID-19 ([facility]) aaox3 ambulating no acute distress lungs CTA - Treatment Hospital Course: Detox Protocol Followed, Detoxed Safely, Responded well, Discharged Condition Good, Rehab Referral Accepted - Medication Discharge Medications: Ambulatory Orders Amlodipine Besylate [Norvasc -] 10 mg PO DAILY 03/15/12 - Diagnosis (1) Cocaine dependence, uncomplicated Current Visit: Yes Status: Chronic (2) Substance-induced anxiety disorder Current Visit: Yes Status: Chronic (3) Substance-induced sleep disorder Current Visit: Yes Status: Chronic (4) Psychotic disorder Current Visit: Yes Status: Chronic (5) Substance-induced psychotic disorder Current Visit: Yes Status: Ruled-out (6) Cocaine dependence Current Visit: No Status: Active (7) Syncope Current Visit: No Status: Active (8) Weight decreased Current Visit: No Status: Active (9) depression Current Visit: No Status: Active (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
== END 2019-12-26 09:22 | disposition home or self-care (01) | DRG 774 ==
LOC: YASAS 14:58 → Y6N 18:23
PROVIDERS: ADMIT Allergy & Immunology; ATTEND Allergy & Immunology
PROC: HZ2ZZZZ Detoxification Services for Substance Abuse Treatment (ICD-10-PCS; principal; 2019-12-21)
DX: F10.230 Alcohol dependence with withdrawal, uncomplicated (principal); F14.20 Cocaine dependence, uncomplicated; F13.20 Sedative, hypnotic or anxiolytic dependence, uncomplicated; F12.20 Cannabis dependence, uncomplicated; F17.210 Nicotine dependence, cigarettes, uncomplicated; F19.280 Other psychoactive substance dependence with psychoactive substance-induced anxiety disorder; F19.282 Other psychoactive substance dependence with psychoactive substance-induced sleep disorder; F29 Unspecified psychosis not due to a substance or known physiological condition; F41.9 Anxiety disorder, unspecified; F32.9 Major depressive disorder, single episode, unspecified; I10 Essential (primary) hypertension; G40.909 Epilepsy, unspecified, not intractable, without status epilepticus; R73.9 Hyperglycemia, unspecified; R63.4 Abnormal weight loss; Z68.26 Body mass index [BMI] 26.0-26.9, adult; Z88.8 Allergy status to other drugs, medicaments and biological substances
CPT/HCPCS: 36415; 80053; 85027; 86780; U0003

== ENCOUNTER 2020-07-24 09:55 | Inpatient (IN) | payer OTHER ==
[2020-07-24 10:18] VITALS: BMI 27.8
[2020-07-24] MEDS ORDERED: chlordiazePOXIDE HCL 25 MG CAPSULE PO PRN (10:57)
[2020-07-24] MEDS ORDERED: MAG HYDROX/AL HYDROX/SIMETH 30 ML UNIT-DOSE CUP PO PRN (10:57)
[2020-07-24] MEDS ORDERED: ONDANSETRON *ODT* 4 MG TABLET SL PRN (10:57)
[2020-07-24] MEDS ORDERED: MAGNESIUM CITRATE 300 ML BOTTLE PO PRN (10:57)
[2020-07-24] MEDS ORDERED: NICOTINE POLACRILEX 2 MG GUM BUC PRN (10:57)
[2020-07-24] MEDS ORDERED: MENTHOL/PHENOL 1 EACH UD MM PRN (10:57)
[2020-07-24] MEDS ORDERED: IBUPROFEN 400 MG TABLET (FP) PO PRN (10:57)
[2020-07-24] MEDS ORDERED: BISMUTH SUBSALICYLATE 524 MG/30 ML UD PO PRN (10:57)
[2020-07-24] MEDS ORDERED: ACETAMINOPHEN 325 MG TABLET (FP) PO PRN ×2 (10:57)
[2020-07-24] MEDS ORDERED: METHOCARBAMOL 500 MG TABLET PO PRN (10:57)
[2020-07-24] MEDS ORDERED: MAGNESIUM HYDROX 2400MG/30ML ORAL SUSPENSION 30 ML CUP PO PRN (10:57)
[2020-07-24 13:50] LABS: HEMATOCRIT 41.9 % (35.4-49); HEMOGLOBIN 14.5 GM/dL (11.7-16.9); MCH 31.5 pg (25.7-33.7); MCHC 34.6 g/dl (32.0-35.9); MEAN CELL VOLUME 90.8 fl (80-96); MEAN PLT VOLUME 10.1 fl (7.5-11.1); PLATELET COUNT 196 K/MM3 (134-434); RBC 4.62 M/mm3 (4.00-5.60); RDW 14.5 % (11.9-15.9); WHITE BLOOD COUNT 4.1 K/mm3 (4.0-10.0)
[2020-07-24 14:02] LABS: CALCIUM 9.6 mg/dL (8.5-10.1)
[2020-07-24] MEDS: chlordiazePOXIDE HCL 25 MG CAPSULE PO SCH ×3 (14:02→22:39)
[2020-07-24 14:03] LABS: ALBUMIN 4.2 g/dl (3.4-5.0); BLOOD UREA NITROGEN 21.4 mg/dL (7-18)
[2020-07-24] MEDS: PRENATAL VITAMINS W/ FOLIC ACID TABLET (FP) PO SCH (14:05)
[2020-07-24] MEDS: hydrOXYzine PAMOATE 25 MG CAPSULE (FP) PO SCH ×3 (14:05→22:38)
[2020-07-24 14:06] LABS: BILIRUBIN,TOTAL 1.1 mg/dL (0.2-1); CREATININE 1.2 mg/dL (0.55-1.3)
[2020-07-24 14:45] LABS: HIV INTERPRETATION NEGATIVE (NEGATIVE)
[2020-07-24] MEDS ORDERED: MELATONIN 5 MG TABLETS PO SCH (22:00)
[2020-07-24] MEDS: THIAMINE HCL 100 MG TABLET (FP) PO SCH (22:38)
[2020-07-24] MEDS: MELATONIN 5 MG TABLETS PO PRN (22:38)
[2020-07-25] MEDS: chlordiazePOXIDE HCL 25 MG CAPSULE PO SCH ×4 (06:25→22:50)
[2020-07-25] MEDS: hydrOXYzine PAMOATE 25 MG CAPSULE (FP) PO SCH ×2 (06:26→10:28)
[2020-07-25] MEDS: PRENATAL VITAMINS W/ FOLIC ACID TABLET (FP) PO SCH (10:28)
[2020-07-25] MEDS ORDERED: hydrOXYzine PAMOATE 25 MG CAPSULE (FP) PO PRN (11:50)
[2020-07-25] MEDS: THIAMINE HCL 100 MG TABLET (FP) PO SCH (22:50)
[2020-07-25] MEDS: MELATONIN 5 MG TABLETS PO PRN (22:51)
[2020-07-26] MEDS: chlordiazePOXIDE HCL 25 MG CAPSULE PO SCH ×2 (05:34→10:07)
[2020-07-26 09:03] VITALS: BP 115/75; PULSE 86; TEMP 97.5
[2020-07-26] MEDS: PRENATAL VITAMINS W/ FOLIC ACID TABLET (FP) PO SCH (10:07)
[2020-07-26] MEDS: POTASSIUM CHLORIDE TABS 20 MEQ TABLET.ER (FP) PO ONE ×2 (12:06→12:09)
[2020-07-27] MEDS ORDERED: chlordiazePOXIDE HCL 10 MG CAPSULE PO PRN
[2020-07-27] MEDS ORDERED: chlordiazePOXIDE HCL 10 MG CAPSULE PO SCH (05:00)
[2020-07-27 06:06] LABS: SARS-CoV-2 NAA Not Detected (Not Detected)
[2020-07-28] MEDS ORDERED: chlordiazePOXIDE HCL 10 MG CAPSULE PO SCH (05:00)
[2020-07-29] MEDS ORDERED: chlordiazePOXIDE HCL 10 MG CAPSULE PO ONE (05:00)
== END 2020-07-26 13:08 | disposition left against medical advice (07) | DRG 770 ==
LOC: YASAS 09:55 → Y3N 12:21
PROVIDERS: ADMIT Allergy & Immunology; ATTEND Allergy & Immunology
PROC: HZ2ZZZZ Detoxification Services for Substance Abuse Treatment (ICD-10-PCS; principal; 2020-07-24)
DX: F10.230 Alcohol dependence with withdrawal, uncomplicated (principal); F14.20 Cocaine dependence, uncomplicated; F12.20 Cannabis dependence, uncomplicated; F17.210 Nicotine dependence, cigarettes, uncomplicated; F19.282 Other psychoactive substance dependence with psychoactive substance-induced sleep disorder; F19.280 Other psychoactive substance dependence with psychoactive substance-induced anxiety disorder; F41.9 Anxiety disorder, unspecified; F32.9 Major depressive disorder, single episode, unspecified; E87.6 Hypokalemia; I10 Essential (primary) hypertension; G43.909 Migraine, unspecified, not intractable, without status migrainosus; R63.4 Abnormal weight loss; Z68.27 Body mass index [BMI] 27.0-27.9, adult; Z88.8 Allergy status to other drugs, medicaments and biological substances
CPT/HCPCS: 36415; 80053; 85027; 86780; 87389; C9803; U0003; U0005

== ENCOUNTER 2020-09-21 02:18 | Inpatient (IN) | payer OTHER ==
[2020-09-21 02:52] VITALS: BMI 27.6
[2020-09-21] MEDS ORDERED: ACETAMINOPHEN 325 MG TABLET (FP) PO PRN ×2 (03:23)
[2020-09-21] MEDS ORDERED: IBUPROFEN 400 MG TABLET (FP) PO PRN (03:23)
[2020-09-21] MEDS ORDERED: NICOTINE POLACRILEX 2 MG GUM BUC PRN (03:23)
[2020-09-21] MEDS ORDERED: BISMUTH SUBSALICYLATE 524 MG/30 ML PO PRN (03:23)
[2020-09-21] MEDS ORDERED: ONDANSETRON *ODT* 4 MG TABLET SL PRN (03:23)
[2020-09-21] MEDS ORDERED: MAG HYDROX/AL HYDROX/SIMETH 30 ML UNIT-DOSE CUP PO PRN (03:23)
[2020-09-21] MEDS ORDERED: MAGNESIUM CITRATE 300 ML BOTTLE PO PRN (03:23)
[2020-09-21] MEDS ORDERED: METHOCARBAMOL 500 MG TABLET PO PRN (03:23)
[2020-09-21] MEDS ORDERED: MENTHOL/PHENOL 1 EACH UD MM PRN (03:23)
[2020-09-21] MEDS ORDERED: MAGNESIUM HYDROX 2400MG/30ML ORAL SUSPENSION 30 ML CUP PO PRN (03:23)
[2020-09-21] MEDS: diazePAM 5 MG TABLET PO SCH ×4 (04:04→22:29)
[2020-09-21] MEDS: PRENATAL VITAMINS W/ FOLIC ACID TABLET (FP) PO SCH (10:07)
[2020-09-21] MEDS: NICOTINE 14 MG/24 HOURS TOPICAL PATCH TD SCH (10:07)
[2020-09-21 11:18] LABS: BLOOD UREA NITROGEN 20.1 mg/dL (7-18); CALCIUM 9.2 mg/dL (8.5-10.1)
[2020-09-21 11:22] LABS: BILIRUBIN,TOTAL 0.9 mg/dL (0.2-1)
[2020-09-21 11:23] LABS: TOT PROT 7.4 g/dl (6.4-8.2)
[2020-09-21 11:25] LABS: CREATININE 1.2 mg/dL (0.55-1.3)
[2020-09-21 11:43] LABS: HEMATOCRIT 45.4 % (35.4-49); MCH 29.9 pg (25.7-33.7); MCHC 33.1 g/dl (32.0-35.9); MEAN CELL VOLUME 90.6 fl (80-96); MEAN PLT VOLUME 10.1 fl (7.5-11.1); PLATELET COUNT 199 10^3/uL (134-434); RBC 5.01 M/mm3 (4.00-5.60); RDW 14.2 % (11.9-15.9); WHITE BLOOD COUNT 6.8 K/mm3 (4.0-10.0)
[2020-09-21] MEDS: THIAMINE HCL 100 MG TABLET (FP) PO SCH (22:29)
[2020-09-21] MEDS: MELATONIN 5 MG TABLETS PO SCH (22:29)
[2020-09-22] MEDS: diazePAM 5 MG TABLET PO SCH ×3 (05:54→22:14)
[2020-09-22] MEDS: diazePAM 5 MG TABLET PO PRN ×2 (09:05→13:06)
[2020-09-22] MEDS: NICOTINE 14 MG/24 HOURS TOPICAL PATCH TD SCH (10:20)
[2020-09-22] MEDS: PRENATAL VITAMINS W/ FOLIC ACID TABLET (FP) PO SCH (10:20)
[2020-09-22] MEDS: MELATONIN 5 MG TABLETS PO SCH (22:14)
[2020-09-22] MEDS: THIAMINE HCL 100 MG TABLET (FP) PO SCH (22:14)
[2020-09-23] MEDS: diazePAM 5 MG TABLET PO SCH ×2 (05:34→17:38)
[2020-09-23] MEDS: diazePAM 5 MG TABLET PO PRN (08:40)
[2020-09-23] MEDS: PRENATAL VITAMINS W/ FOLIC ACID TABLET (FP) PO SCH (10:20)
[2020-09-23] MEDS: NICOTINE 14 MG/24 HOURS TOPICAL PATCH TD SCH (10:21)
[2020-09-23] MEDS: THIAMINE HCL 100 MG TABLET (FP) PO SCH (22:24)
[2020-09-23] MEDS: MELATONIN 5 MG TABLETS PO SCH (22:24)
[2020-09-24] MEDS ORDERED: diazePAM 5 MG TABLET PO ONE (06:00)
[2020-09-24 06:53] VITALS: BP 130/82; PULSE 64; TEMP 96.6
[2020-09-24] MEDS: NICOTINE 14 MG/24 HOURS TOPICAL PATCH TD SCH (09:31)
[2020-09-24] MEDS: PRENATAL VITAMINS W/ FOLIC ACID TABLET (FP) PO SCH (09:31)
[2020-09-24] MEDS ORDERED: amLODIPine BESYLATE 10 MG TABLET (FP) PO SCH (10:00)
== END 2020-09-24 08:56 | disposition home or self-care (01) | DRG 774 ==
LOC: YASAS 02:18 → Y3N 03:28
PROVIDERS: ADMIT Allergy & Immunology; ATTEND Allergy & Immunology
PROC: HZ2ZZZZ Detoxification Services for Substance Abuse Treatment (ICD-10-PCS; principal; 2020-09-21)
DX: F10.230 Alcohol dependence with withdrawal, uncomplicated (principal); F14.20 Cocaine dependence, uncomplicated; F13.20 Sedative, hypnotic or anxiolytic dependence, uncomplicated; F12.20 Cannabis dependence, uncomplicated; F17.210 Nicotine dependence, cigarettes, uncomplicated; F19.282 Other psychoactive substance dependence with psychoactive substance-induced sleep disorder; F19.24 Other psychoactive substance dependence with psychoactive substance-induced mood disorder; F41.9 Anxiety disorder, unspecified; F32.9 Major depressive disorder, single episode, unspecified; I10 Essential (primary) hypertension; Z88.8 Allergy status to other drugs, medicaments and biological substances
CPT/HCPCS: 36415; 80053; 85027; 86780; 93005; 93010; C9803; Q0162; U0003; U0005

== ENCOUNTER 2020-10-29 19:45 | Inpatient (IN) | payer OTHER ==
[2020-10-29 20:17] VITALS: BMI 28.1
[2020-10-29] MEDS ORDERED: ACETAMINOPHEN 325 MG TABLET (FP) PO PRN (20:48)
[2020-10-29] MEDS ORDERED: BISMUTH SUBSALICYLATE 524 MG/30 ML PO PRN (20:48)
[2020-10-29] MEDS ORDERED: MAGNESIUM HYDROX 2400MG/30ML ORAL SUSPENSION 30 ML CUP PO PRN (20:48)
[2020-10-29] MEDS ORDERED: MAG HYDROX/AL HYDROX/SIMETH 30 ML UNIT-DOSE CUP PO PRN (20:48)
[2020-10-29] MEDS ORDERED: MENTHOL/PHENOL 1 EACH UD MM PRN (20:48)
[2020-10-29] MEDS ORDERED: ONDANSETRON *ODT* 4 MG TABLET SL PRN (20:48)
[2020-10-29] MEDS ORDERED: IBUPROFEN 400 MG TABLET (FP) PO PRN (20:48)
[2020-10-29] MEDS ORDERED: MAGNESIUM CITRATE 300 ML BOTTLE PO PRN (20:48)
[2020-10-29] MEDS ORDERED: diazePAM 5 MG TABLET PO PRN (20:50)
[2020-10-30] MEDS: MELATONIN 5 MG TABLETS PO SCH ×2 (02:19→22:14)
[2020-10-30] MEDS: THIAMINE HCL 100 MG TABLET (FP) PO SCH ×2 (02:20→22:14)
[2020-10-30] MEDS: amLODIPine BESYLATE 10 MG TABLET (FP) PO SCH (10:11)
[2020-10-30] MEDS: PRENATAL VITAMINS W/ FOLIC ACID TABLET (FP) PO SCH (10:12)
[2020-10-30] MEDS: diazePAM 5 MG TABLET PO SCH ×3 (10:12→22:16)
[2020-10-30 10:23] LABS: ALBUMIN 3.5 g/dl (3.4-5.0); CALCIUM 8.9 mg/dL (8.5-10.1)
[2020-10-30 10:24] LABS: BLOOD UREA NITROGEN 23.9 mg/dL (7-18)
[2020-10-30 10:27] LABS: CREATININE 1.3 mg/dL (0.55-1.3); HEMATOCRIT 41.6 % (35.4-49); HEMOGLOBIN 14.5 GM/dL (11.7-16.9); MEAN CELL VOLUME 88.7 fl (80-96); MEAN PLT VOLUME 9.9 fl (7.5-11.1); PLATELET COUNT 183 10^3/uL (134-434); RBC 4.69 M/mm3 (4.00-5.60); RDW 13.7 % (11.9-15.9); WHITE BLOOD COUNT 5.2 K/mm3 (4.0-10.0)
[2020-10-30 10:28] LABS: BILIRUBIN,TOTAL 0.5 mg/dL (0.2-1); TOT PROT 6.8 g/dl (6.4-8.2)
[2020-10-30] MEDS: hydrOXYzine PAMOATE 25 MG CAPSULE (FP) PO PRN ×2 (17:48→22:14)
[2020-10-30] MEDS: METHOCARBAMOL 500 MG TABLET PO PRN (22:16)
[2020-10-31] MEDS: diazePAM 5 MG TABLET PO SCH ×4 (05:56→22:12)
[2020-10-31] MEDS: PRENATAL VITAMINS W/ FOLIC ACID TABLET (FP) PO SCH (10:13)
[2020-10-31] MEDS: amLODIPine BESYLATE 10 MG TABLET (FP) PO SCH (10:13)
[2020-10-31 15:30] LABS: HIV INTERPRETATION NEGATIVE (NEGATIVE)
[2020-10-31] MEDS: THIAMINE HCL 100 MG TABLET (FP) PO SCH (22:11)
[2020-10-31] MEDS: MELATONIN 5 MG TABLETS PO SCH (22:13)
[2020-10-31] MEDS: METHOCARBAMOL 500 MG TABLET PO PRN (22:13)
[2020-11-01] MEDS: diazePAM 5 MG TABLET PO SCH ×3 (06:52→22:46)
[2020-11-01] MEDS: amLODIPine BESYLATE 10 MG TABLET (FP) PO SCH (10:27)
[2020-11-01] MEDS: hydrOXYzine PAMOATE 25 MG CAPSULE (FP) PO PRN (10:27)
[2020-11-01] MEDS: PRENATAL VITAMINS W/ FOLIC ACID TABLET (FP) PO SCH (10:27)
[2020-11-01] MEDS: THIAMINE HCL 100 MG TABLET (FP) PO SCH (22:47)
[2020-11-01] MEDS: ACETAMINOPHEN 325 MG TABLET (FP) PO PRN (22:47)
[2020-11-01] MEDS: MELATONIN 5 MG TABLETS PO SCH (22:47)
[2020-11-02] MEDS: diazePAM 5 MG TABLET PO SCH ×2 (05:55→17:27)
[2020-11-02] MEDS: amLODIPine BESYLATE 10 MG TABLET (FP) PO SCH (10:10)
[2020-11-02] MEDS: PRENATAL VITAMINS W/ FOLIC ACID TABLET (FP) PO SCH (10:11)
[2020-11-02 11:42] LABS: BLOOD UREA NITROGEN 9.8 mg/dL (7-18)
[2020-11-02] MEDS: THIAMINE HCL 100 MG TABLET (FP) PO SCH (22:14)
[2020-11-02] MEDS: MELATONIN 5 MG TABLETS PO SCH (22:14)
[2020-11-02] MEDS: ACETAMINOPHEN 325 MG TABLET (FP) PO PRN (22:15)
[2020-11-03] MEDS ORDERED: diazePAM 5 MG TABLET PO ONE (06:00)
[2020-11-03 09:21] VITALS: BP 128/69; PULSE 72; TEMP 95.8
[2020-11-03] MEDS: PRENATAL VITAMINS W/ FOLIC ACID TABLET (FP) PO SCH (09:23)
[2020-11-03] MEDS: amLODIPine BESYLATE 10 MG TABLET (FP) PO SCH (09:23)
== END 2020-11-03 09:31 | disposition home or self-care (01) | DRG 775 ==
LOC: YASAS 19:45 → Y3N 23:07
PROVIDERS: ADMIT Allergy & Immunology; ATTEND Allergy & Immunology
PROC: HZ2ZZZZ Detoxification Services for Substance Abuse Treatment (ICD-10-PCS; principal; 2020-10-29)
DX: F10.230 Alcohol dependence with withdrawal, uncomplicated (principal); F10.220 Alcohol dependence with intoxication, uncomplicated; F12.20 Cannabis dependence, uncomplicated; F17.210 Nicotine dependence, cigarettes, uncomplicated; I10 Essential (primary) hypertension; R79.89 Other specified abnormal findings of blood chemistry; R73.9 Hyperglycemia, unspecified; R00.0 Tachycardia, unspecified; Z88.8 Allergy status to other drugs, medicaments and biological substances
CPT/HCPCS: 36415; 80053; 82947; 84520; 85027; 86780; 87389; C9803; U0003; U0005

== ENCOUNTER 2021-01-09 11:14 | Inpatient (IN) | payer OTHER ==
[2021-01-09 12:27] VITALS: BMI 25.9
[2021-01-09] MEDS ORDERED: MAGNESIUM CITRATE 300 ML BOTTLE PO PRN (12:38)
[2021-01-09] MEDS ORDERED: IBUPROFEN 400 MG TABLET (FP) PO PRN (12:38)
[2021-01-09] MEDS ORDERED: diazePAM 5 MG TABLET PO PRN (12:38)
[2021-01-09] MEDS ORDERED: MAGNESIUM HYDROX 2400MG/30ML ORAL SUSPENSION 30 ML CUP PO PRN (12:38)
[2021-01-09] MEDS ORDERED: ACETAMINOPHEN 325 MG TABLET (FP) PO PRN ×2 (12:38)
[2021-01-09] MEDS ORDERED: MAG HYDROX/AL HYDROX/SIMETH 30 ML UNIT-DOSE CUP PO PRN (12:38)
[2021-01-09] MEDS ORDERED: MENTHOL/PHENOL 1 EACH UD MM PRN (12:38)
[2021-01-09] MEDS ORDERED: ONDANSETRON *ODT* 4 MG TABLET SL PRN (12:38)
[2021-01-09] MEDS ORDERED: NICOTINE 10 MG CARTRIDGE (INHALER) IH PRN (12:38)
[2021-01-09] MEDS ORDERED: BISMUTH SUBSALICYLATE 262 MG/15 ML BTL PO PRN (12:38)
[2021-01-09] MEDS: hydrOXYzine PAMOATE 25 MG CAPSULE (FP) PO SCH ×3 (15:34→22:35)
[2021-01-09] MEDS: PRENATAL VITAMINS W/ FOLIC ACID TABLET (FP) PO SCH (15:34)
[2021-01-09] MEDS: diazePAM 5 MG TABLET PO SCH ×2 (18:04→22:35)
[2021-01-09] MEDS: THIAMINE HCL 100 MG TABLET (FP) PO SCH (22:35)
[2021-01-09] MEDS: MELATONIN 5 MG TABLETS PO SCH (22:35)
[2021-01-10] MEDS: hydrOXYzine PAMOATE 25 MG CAPSULE (FP) PO SCH ×2 (06:21→10:11)
[2021-01-10] MEDS: diazePAM 5 MG TABLET PO SCH ×4 (06:21→22:14)
[2021-01-10] MEDS: PRENATAL VITAMINS W/ FOLIC ACID TABLET (FP) PO SCH (10:11)
[2021-01-10] MEDS: amLODIPine BESYLATE 10 MG TABLET (FP) PO SCH (10:11)
[2021-01-10 10:56] LABS: HEMATOCRIT 45.2 % (35.4-49); HEMOGLOBIN 15.5 GM/dL (11.7-16.9); MCH 31.1 pg (25.7-33.7); MCHC 34.3 g/dl (32.0-35.9); MEAN CELL VOLUME 90.7 fl (80-96); MEAN PLT VOLUME 10.4 fl (7.5-11.1); PLATELET COUNT 195 10^3/uL (134-434); RBC 4.99 M/mm3 (4.00-5.60); RDW 14.5 % (11.9-15.9); WHITE BLOOD COUNT 4.5 K/mm3 (4.0-10.0)
[2021-01-10 10:59] LABS: BLOOD UREA NITROGEN 14.6 mg/dL (7-18); CALCIUM 8.9 mg/dL (8.5-10.1)
[2021-01-10 11:02] LABS: CREATININE 1.1 mg/dL (0.55-1.3)
[2021-01-10 11:04] LABS: TOT PROT 6.8 g/dl (6.4-8.2)
[2021-01-10 11:08] LABS: ALBUMIN 3.2 g/dl (3.4-5.0)
[2021-01-10] MEDS: MELATONIN 5 MG TABLETS PO SCH (22:13)
[2021-01-10] MEDS: THIAMINE HCL 100 MG TABLET (FP) PO SCH (22:13)
[2021-01-10] MEDS: METHOCARBAMOL 500 MG TABLET PO PRN (22:15)
[2021-01-11] MEDS: diazePAM 5 MG TABLET PO SCH ×3 (05:48→22:13)
[2021-01-11] MEDS: PRENATAL VITAMINS W/ FOLIC ACID TABLET (FP) PO SCH (10:43)
[2021-01-11] MEDS: amLODIPine BESYLATE 10 MG TABLET (FP) PO SCH (10:43)
[2021-01-11] MEDS: MELATONIN 5 MG TABLETS PO SCH (22:12)
[2021-01-11] MEDS: THIAMINE HCL 100 MG TABLET (FP) PO SCH (22:12)
[2021-01-11] MEDS: hydrOXYzine PAMOATE 25 MG CAPSULE (FP) PO PRN (22:13)
[2021-01-11] MEDS: METHOCARBAMOL 500 MG TABLET PO PRN (22:13)
[2021-01-12] MEDS: diazePAM 5 MG TABLET PO SCH ×2 (06:01→17:26)
[2021-01-12] MEDS: amLODIPine BESYLATE 10 MG TABLET (FP) PO SCH (10:17)
[2021-01-12] MEDS: PRENATAL VITAMINS W/ FOLIC ACID TABLET (FP) PO SCH (10:18)
[2021-01-12] MEDS: THIAMINE HCL 100 MG TABLET (FP) PO SCH (22:06)
[2021-01-12] MEDS: MELATONIN 5 MG TABLETS PO SCH (22:06)
[2021-01-12] MEDS: hydrOXYzine PAMOATE 25 MG CAPSULE (FP) PO PRN (22:06)
[2021-01-12] MEDS: METHOCARBAMOL 500 MG TABLET PO PRN (22:07)
[2021-01-13] MEDS ORDERED: diazePAM 5 MG TABLET PO ONE (06:00)
[2021-01-13 06:04] VITALS: BP 129/82; PULSE 82; TEMP 96.8
[2021-01-13] MEDS: PRENATAL VITAMINS W/ FOLIC ACID TABLET (FP) PO SCH (11:21)
[2021-01-13] MEDS: amLODIPine BESYLATE 10 MG TABLET (FP) PO SCH (11:21)
== END 2021-01-13 12:45 | disposition home or self-care (01) | DRG 774 ==
LOC: YASAS 11:14 → Y3N 13:24
PROVIDERS: ADMIT Allergy & Immunology; ATTEND Allergy & Immunology
PROC: HZ2ZZZZ Detoxification Services for Substance Abuse Treatment (ICD-10-PCS; principal; 2021-01-09)
DX: F10.230 Alcohol dependence with withdrawal, uncomplicated (principal); F14.20 Cocaine dependence, uncomplicated; F12.20 Cannabis dependence, uncomplicated; F17.210 Nicotine dependence, cigarettes, uncomplicated; I10 Essential (primary) hypertension; Z88.8 Allergy status to other drugs, medicaments and biological substances
CPT/HCPCS: 36415; 80053; 80307; 81003; 82550; 82553; 83690; 83735; 84100; 84484; 85025; 85027; 86780; 93005; 93010; 99282-25; C9803; J0131; U0003; U0005

== ENCOUNTER 2021-02-23 00:14 | Inpatient (IN) | payer OTHER ==
[2021-02-23] MEDS ORDERED: BISMUTH SUBSALICYLATE 524 MG/30 ML PO PRN (00:30)
[2021-02-23] MEDS ORDERED: ONDANSETRON *ODT* 4 MG TABLET SL PRN (00:30)
[2021-02-23] MEDS ORDERED: guaiFENesin 200 MG/10 ML 10 ML UNIT-DOSE CUPS PO PRN (00:30)
[2021-02-23] MEDS ORDERED: NICOTINE 10 MG CARTRIDGE (INHALER) IH PRN (00:30)
[2021-02-23] MEDS ORDERED: MAG HYDROX/AL HYDROX/SIMETH 30 ML UNIT-DOSE CUP PO PRN (00:30)
[2021-02-23] MEDS ORDERED: ACETAMINOPHEN 325 MG TABLET (FP) PO PRN ×2 (00:30)
[2021-02-23] MEDS ORDERED: MAGNESIUM CITRATE 300 ML BOTTLE PO PRN (00:30)
[2021-02-23] MEDS ORDERED: MENTHOL/PHENOL 1 EACH UD MM PRN (00:30)
[2021-02-23] MEDS ORDERED: hydrOXYzine PAMOATE 50 MG CAPSULE (FP) PO PRN (00:30)
[2021-02-23] MEDS ORDERED: IBUPROFEN 400 MG TABLET (FP) PO PRN (00:30)
[2021-02-23] MEDS ORDERED: DICYCLOMINE HCL 10 MG CAPSULE PO PRN (00:30)
[2021-02-23] MEDS ORDERED: P-EPHED 60MG/TRIPROLIDI 2.5MG TABLET PO PRN (00:30)
[2021-02-23] MEDS ORDERED: MAGNESIUM HYDROX 2400MG/30ML ORAL SUSPENSION 30 ML CUP PO PRN (00:30)
[2021-02-23 00:35] VITALS: BMI 27.2
[2021-02-23] MEDS ORDERED: MASKS NR ONE (05:32)
[2021-02-23] MEDS: diazePAM 5 MG TABLET PO SCH ×4 (05:33→22:24)
[2021-02-23] MEDS: amLODIPine BESYLATE 10 MG TABLET (FP) PO SCH (10:26)
[2021-02-23] MEDS: NICOTINE 21 MG/24 HOURS TOPICAL PATCH TD SCH (10:26)
[2021-02-23] MEDS: PRENATAL VITAMINS W/ FOLIC ACID TABLET (FP) PO SCH (10:26)
[2021-02-23] MEDS: METHOCARBAMOL 500 MG TABLET PO PRN ×2 (10:28→17:36)
[2021-02-23] MEDS: MELATONIN 5 MG TABLETS PO SCH (22:24)
[2021-02-23] MEDS: THIAMINE HCL 100 MG TABLET (FP) PO SCH (22:24)
[2021-02-24] MEDS: diazePAM 5 MG TABLET PO SCH ×3 (05:31→22:12)
[2021-02-24] MEDS: METHOCARBAMOL 500 MG TABLET PO PRN (05:31)
[2021-02-24] MEDS: PRENATAL VITAMINS W/ FOLIC ACID TABLET (FP) PO SCH (10:30)
[2021-02-24] MEDS: amLODIPine BESYLATE 10 MG TABLET (FP) PO SCH (10:30)
[2021-02-24] MEDS: diazePAM 5 MG TABLET PO PRN (10:30)
[2021-02-24] MEDS: NICOTINE 21 MG/24 HOURS TOPICAL PATCH TD SCH (10:30)
[2021-02-24 10:48] LABS: HEMATOCRIT 43.6 % (35.4-49); MCH 30.8 pg (25.7-33.7); MCHC 34.5 g/dl (32.0-35.9); MEAN CELL VOLUME 89.3 fl (80-96); MEAN PLT VOLUME 9.7 fl (7.5-11.1); PLATELET COUNT 183 10^3/uL (134-434); RBC 4.88 M/mm3 (4.00-5.60); RDW 14.4 % (11.9-15.9); WHITE BLOOD COUNT 4.4 K/mm3 (4.0-10.0)
[2021-02-24 11:07] LABS: ALBUMIN 3.4 g/dl (3.4-5.0); BLOOD UREA NITROGEN 9.9 mg/dL (7-18); CALCIUM 8.8 mg/dL (8.5-10.1)
[2021-02-24 11:12] LABS: BILIRUBIN,TOTAL 0.5 mg/dL (0.2-1); TOT PROT 6.8 g/dl (6.4-8.2)
[2021-02-24] MEDS: MELATONIN 5 MG TABLETS PO SCH (22:13)
[2021-02-24] MEDS: THIAMINE HCL 100 MG TABLET (FP) PO SCH (22:13)
[2021-02-25] MEDS: diazePAM 5 MG TABLET PO SCH ×2 (05:22→17:59)
[2021-02-25] MEDS: amLODIPine BESYLATE 10 MG TABLET (FP) PO SCH (11:00)
[2021-02-25] MEDS: diazePAM 5 MG TABLET PO PRN (11:00)
[2021-02-25] MEDS: METHOCARBAMOL 500 MG TABLET PO PRN (11:00)
[2021-02-25] MEDS: PRENATAL VITAMINS W/ FOLIC ACID TABLET (FP) PO SCH (11:00)
[2021-02-25] MEDS: NICOTINE 21 MG/24 HOURS TOPICAL PATCH TD SCH (11:01)
[2021-02-25] MEDS: THIAMINE HCL 100 MG TABLET (FP) PO SCH (23:09)
[2021-02-25] MEDS: MELATONIN 5 MG TABLETS PO SCH (23:09)
[2021-02-26] MEDS ORDERED: diazePAM 5 MG TABLET PO ONE (06:00)
[2021-02-26 09:16] VITALS: BP 120/84; PULSE 108; TEMP 97.1
== END 2021-02-26 09:22 | disposition home or self-care (01) | DRG 774 ==
LOC: YASAS 00:14 → Y3N 00:47
PROVIDERS: ADMIT Allergy & Immunology; ATTEND Allergy & Immunology
PROC: HZ2ZZZZ Detoxification Services for Substance Abuse Treatment (ICD-10-PCS; principal; 2021-02-23)
DX: F10.230 Alcohol dependence with withdrawal, uncomplicated (principal); F14.20 Cocaine dependence, uncomplicated; F12.20 Cannabis dependence, uncomplicated; F17.210 Nicotine dependence, cigarettes, uncomplicated; F19.24 Other psychoactive substance dependence with psychoactive substance-induced mood disorder; I10 Essential (primary) hypertension; R73.9 Hyperglycemia, unspecified; R00.0 Tachycardia, unspecified; Z88.8 Allergy status to other drugs, medicaments and biological substances
CPT/HCPCS: 36415; 80053; 83036; 85027; 86780; C9803; U0003; U0005

== ENCOUNTER 2021-04-17 16:11 | Inpatient (IN) | payer OTHER ==
[2021-04-17] MEDS ORDERED: MAGNESIUM HYDROX 2400MG/30ML ORAL SUSPENSION 30 ML CUP PO PRN (19:53)
[2021-04-17] MEDS ORDERED: IBUPROFEN 400 MG TABLET (FP) PO PRN (19:53)
[2021-04-17] MEDS ORDERED: MENTHOL/PHENOL 1 EACH UD MM PRN (19:53)
[2021-04-17] MEDS ORDERED: ONDANSETRON *ODT* 4 MG TABLET SL PRN (19:53)
[2021-04-17] MEDS ORDERED: ACETAMINOPHEN 325 MG TABLET (FP) PO PRN (19:53)
[2021-04-17] MEDS ORDERED: MAGNESIUM CITRATE 300 ML BOTTLE PO PRN (19:53)
[2021-04-17] MEDS ORDERED: BISMUTH SUBSALICYLATE 524 MG/30 ML PO PRN (19:53)
[2021-04-17] MEDS ORDERED: MAG HYDROX/AL HYDROX/SIMETH 30 ML UNIT-DOSE CUP PO PRN (19:53)
[2021-04-17] MEDS ORDERED: NICOTINE POLACRILEX 2 MG GUM BUC PRN (19:53)
[2021-04-17 21:50] VITALS: BMI 27.7
[2021-04-18] MEDS ORDERED: diazePAM 5 MG TABLET PO PRN (02:17)
[2021-04-18] MEDS: MELATONIN 5 MG TABLETS PO SCH ×2 (02:19→22:44)
[2021-04-18] MEDS: THIAMINE HCL 100 MG TABLET (FP) PO SCH ×2 (02:19→22:44)
[2021-04-18] MEDS: diazePAM 5 MG TABLET PO SCH ×4 (05:44→22:45)
[2021-04-18] MEDS: METHOCARBAMOL 500 MG TABLET PO PRN ×2 (09:55→18:21)
[2021-04-18] MEDS: PRENATAL VITAMINS W/ FOLIC ACID TABLET (FP) PO SCH (09:55)
[2021-04-18] MEDS: amLODIPine BESYLATE 10 MG TABLET (FP) PO SCH (09:55)
[2021-04-18] MEDS: NICOTINE 14 MG/24 HOURS TOPICAL PATCH TD SCH (09:57)
[2021-04-18 13:09] LABS: HEMATOCRIT 43.3 % (35.4-49); HEMOGLOBIN 14.3 GM/dL (11.7-16.9); MCH 29.6 pg (25.7-33.7); MEAN CELL VOLUME 89.8 fl (80-96); MEAN PLT VOLUME 10.1 fl (7.5-11.1); PLATELET COUNT 229 10^3/uL (134-434); RBC 4.82 M/mm3 (4.00-5.60); RDW 14.6 % (11.9-15.9); WHITE BLOOD COUNT 6.3 K/mm3 (4.0-10.0)
[2021-04-18 13:21] LABS: ALBUMIN 3.8 g/dl (3.4-5.0); BLOOD UREA NITROGEN 21.6 mg/dL (7-18); CALCIUM 9.3 mg/dL (8.5-10.1)
[2021-04-18 13:24] LABS: CREATININE 1.2 mg/dL (0.55-1.3)
[2021-04-18 13:26] LABS: BILIRUBIN,TOTAL 0.9 mg/dL (0.2-1)
[2021-04-18] MEDS: ACETAMINOPHEN 325 MG TABLET (FP) PO PRN (18:19)
[2021-04-19] MEDS: diazePAM 5 MG TABLET PO SCH ×3 (05:38→22:04)
[2021-04-19] MEDS: METHOCARBAMOL 500 MG TABLET PO PRN (05:38)
[2021-04-19] MEDS: ACETAMINOPHEN 325 MG TABLET (FP) PO PRN (05:39)
[2021-04-19] MEDS: NICOTINE 14 MG/24 HOURS TOPICAL PATCH TD SCH (10:22)
[2021-04-19] MEDS: PRENATAL VITAMINS W/ FOLIC ACID TABLET (FP) PO SCH (10:22)
[2021-04-19] MEDS: amLODIPine BESYLATE 10 MG TABLET (FP) PO SCH (10:22)
[2021-04-19] MEDS: MELATONIN 5 MG TABLETS PO SCH (22:04)
[2021-04-19] MEDS: THIAMINE HCL 100 MG TABLET (FP) PO SCH (22:04)
[2021-04-20] MEDS: METHOCARBAMOL 500 MG TABLET PO PRN ×2 (05:15→17:54)
[2021-04-20] MEDS: diazePAM 5 MG TABLET PO SCH ×2 (05:15→17:53)
[2021-04-20] MEDS: amLODIPine BESYLATE 10 MG TABLET (FP) PO SCH (09:46)
[2021-04-20] MEDS: PRENATAL VITAMINS W/ FOLIC ACID TABLET (FP) PO SCH (09:46)
[2021-04-20] MEDS: ACETAMINOPHEN 325 MG TABLET (FP) PO PRN (09:48)
[2021-04-20] MEDS: NICOTINE 14 MG/24 HOURS TOPICAL PATCH TD SCH (09:49)
[2021-04-20] MEDS: MELATONIN 5 MG TABLETS PO SCH (22:48)
[2021-04-20] MEDS: THIAMINE HCL 100 MG TABLET (FP) PO SCH (22:49)
[2021-04-21] MEDS: METHOCARBAMOL 500 MG TABLET PO PRN (05:31)
[2021-04-21] MEDS ORDERED: diazePAM 5 MG TABLET PO ONE (06:00)
[2021-04-21 09:20] VITALS: BP 133/91; PULSE 101; TEMP 96.9
== END 2021-04-21 09:30 | disposition home or self-care (01) | DRG 774 ==
LOC: YASAS 16:11 → Y3N 23:11
PROVIDERS: ADMIT Allergy & Immunology; ATTEND Allergy & Immunology
PROC: HZ2ZZZZ Detoxification Services for Substance Abuse Treatment (ICD-10-PCS; principal; 2021-04-17)
DX: F10.230 Alcohol dependence with withdrawal, uncomplicated (principal); F13.20 Sedative, hypnotic or anxiolytic dependence, uncomplicated; F14.20 Cocaine dependence, uncomplicated; F12.20 Cannabis dependence, uncomplicated; F17.210 Nicotine dependence, cigarettes, uncomplicated; F19.24 Other psychoactive substance dependence with psychoactive substance-induced mood disorder; F41.8 Other specified anxiety disorders; F32.A Depression, unspecified; I10 Essential (primary) hypertension; G43.909 Migraine, unspecified, not intractable, without status migrainosus; M10.9 Gout, unspecified; Z88.8 Allergy status to other drugs, medicaments and biological substances
CPT/HCPCS: 36415; 80053; 85027; 86780; 93005; 93010; C9803; U0003; U0005

== ENCOUNTER 2021-06-25 12:37 | Inpatient (IN) | payer OTHER ==
[2021-06-25] MEDS ORDERED: NICOTINE 10 MG CARTRIDGE (INHALER) IH PRN (13:36)
[2021-06-25] MEDS ORDERED: MAGNESIUM HYDROX 2400MG/30ML ORAL SUSPENSION 30 ML CUP PO PRN (13:36)
[2021-06-25] MEDS ORDERED: MAGNESIUM CITRATE 300 ML BOTTLE PO PRN (13:36)
[2021-06-25] MEDS ORDERED: ONDANSETRON *ODT* 4 MG TABLET SL PRN (13:36)
[2021-06-25] MEDS ORDERED: MENTHOL/PHENOL 1 EACH UD MM PRN (13:36)
[2021-06-25] MEDS ORDERED: LOPERAMIDE HCL 2 MG CAPSULE PO PRN (13:36)
[2021-06-25] MEDS ORDERED: BISMUTH SUBSALICYLATE 524 MG/30 ML PO PRN (13:36)
[2021-06-25] MEDS ORDERED: ACETAMINOPHEN 325 MG TABLET (FP) PO PRN (13:36)
[2021-06-25] MEDS ORDERED: MAG HYDROX/AL HYDROX/SIMETH 30 ML UNIT-DOSE CUP PO PRN (13:36)
[2021-06-25] MEDS ORDERED: IBUPROFEN 400 MG TABLET (FP) PO PRN (13:36)
[2021-06-25 14:32] VITALS: BMI 27.3
[2021-06-25] MEDS: PRENATAL VITAMINS W/ FOLIC ACID TABLET (FP) PO SCH (15:59)
[2021-06-25] MEDS: hydrOXYzine PAMOATE 25 MG CAPSULE (FP) PO SCH ×3 (16:00→22:37)
[2021-06-25] MEDS: METHOCARBAMOL 500 MG TABLET PO PRN (17:43)
[2021-06-25] MEDS: diazePAM 5 MG TABLET PO SCH ×2 (17:43→22:37)
[2021-06-25 18:16] LABS: ALBUMIN 4.2 g/dl (3.4-5.0); CALCIUM 9.4 mg/dL (8.5-10.1); HEMATOCRIT 42.7 % (35.4-49); HEMOGLOBIN 14.9 GM/dL (11.7-16.9); MCH 31.3 pg (25.7-33.7); MCHC 34.8 g/dl (32.0-35.9); MEAN CELL VOLUME 89.7 fl (80-96); MEAN PLT VOLUME 9.3 fl (7.5-11.1); PLATELET COUNT 213 10^3/uL (134-434); RBC 4.76 M/mm3 (4.00-5.60); RDW 14.3 % (11.9-15.9); WHITE BLOOD COUNT 7.5 K/mm3 (4.0-10.0)
[2021-06-25 18:19] LABS: CREATININE 1.1 mg/dL (0.55-1.3)
[2021-06-25 18:20] LABS: BILIRUBIN,TOTAL 1.2 mg/dL (0.2-1)
[2021-06-25] MEDS: MELATONIN 5 MG TABLETS PO SCH (22:37)
[2021-06-25] MEDS: THIAMINE HCL 100 MG TABLET (FP) PO SCH (22:37)
[2021-06-25] MEDS: ACETAMINOPHEN 325 MG TABLET (FP) PO PRN (22:38)
[2021-06-26] MEDS: hydrOXYzine PAMOATE 25 MG CAPSULE (FP) PO SCH ×5 (05:20→22:14)
[2021-06-26] MEDS: diazePAM 5 MG TABLET PO SCH ×4 (05:21→22:14)
[2021-06-26] MEDS: METHOCARBAMOL 500 MG TABLET PO PRN (05:21)
[2021-06-26] MEDS: PRENATAL VITAMINS W/ FOLIC ACID TABLET (FP) PO SCH (10:14)
[2021-06-26] MEDS: ACETAMINOPHEN 325 MG TABLET (FP) PO PRN (10:16)
[2021-06-26] MEDS: amLODIPine BESYLATE 10 MG TABLET (FP) PO SCH (16:18)
[2021-06-26] MEDS ORDERED: cloNIDine HCL 0.1 MG TABLET PO ONE (16:52)
[2021-06-26] MEDS: THIAMINE HCL 100 MG TABLET (FP) PO SCH (22:14)
[2021-06-26] MEDS: MELATONIN 5 MG TABLETS PO SCH (22:15)
[2021-06-27] MEDS: diazePAM 5 MG TABLET PO SCH ×3 (05:45→23:39)
[2021-06-27] MEDS: hydrOXYzine PAMOATE 25 MG CAPSULE (FP) PO SCH ×5 (05:46→23:40)
[2021-06-27] MEDS: amLODIPine BESYLATE 10 MG TABLET (FP) PO SCH (10:14)
[2021-06-27] MEDS: PRENATAL VITAMINS W/ FOLIC ACID TABLET (FP) PO SCH (10:15)
[2021-06-27] MEDS: diazePAM 5 MG TABLET PO PRN (10:15)
[2021-06-27 23:07] LABS: SARS-CoV-2 NAA Not Detected (Not Detected)
[2021-06-27] MEDS: MELATONIN 5 MG TABLETS PO SCH (23:39)
[2021-06-27] MEDS: THIAMINE HCL 100 MG TABLET (FP) PO SCH (23:40)
[2021-06-28] MEDS: diazePAM 5 MG TABLET PO SCH ×2 (05:50→18:19)
[2021-06-28] MEDS: hydrOXYzine PAMOATE 25 MG CAPSULE (FP) PO SCH ×5 (05:50→22:24)
[2021-06-28] MEDS: diazePAM 5 MG TABLET PO PRN (10:13)
[2021-06-28] MEDS: amLODIPine BESYLATE 10 MG TABLET (FP) PO SCH (10:13)
[2021-06-28] MEDS: PRENATAL VITAMINS W/ FOLIC ACID TABLET (FP) PO SCH (10:14)
[2021-06-28] MEDS: THIAMINE HCL 100 MG TABLET (FP) PO SCH (22:24)
[2021-06-28] MEDS: MELATONIN 5 MG TABLETS PO SCH (22:24)
[2021-06-29] MEDS: hydrOXYzine PAMOATE 25 MG CAPSULE (FP) PO SCH ×2 (05:44→09:43)
[2021-06-29] MEDS ORDERED: diazePAM 5 MG TABLET PO ONE (06:00)
[2021-06-29 09:25] VITALS: BP 126/80; PULSE 99; TEMP 98
[2021-06-29] MEDS: amLODIPine BESYLATE 10 MG TABLET (FP) PO SCH (09:43)
[2021-06-29] MEDS: PRENATAL VITAMINS W/ FOLIC ACID TABLET (FP) PO SCH (09:43)
== END 2021-06-29 09:35 | disposition home or self-care (01) | DRG 774 ==
LOC: YASAS 12:37 → Y3N 15:15
PROVIDERS: ADMIT Allergy & Immunology; ATTEND Allergy & Immunology
PROC: HZ2ZZZZ Detoxification Services for Substance Abuse Treatment (ICD-10-PCS; principal; 2021-06-25)
DX: F10.230 Alcohol dependence with withdrawal, uncomplicated (principal); F13.20 Sedative, hypnotic or anxiolytic dependence, uncomplicated; F14.20 Cocaine dependence, uncomplicated; F12.20 Cannabis dependence, uncomplicated; F17.210 Nicotine dependence, cigarettes, uncomplicated; F41.9 Anxiety disorder, unspecified; F32.A Depression, unspecified; I10 Essential (primary) hypertension; Z88.8 Allergy status to other drugs, medicaments and biological substances
CPT/HCPCS: 36415; 80053; 85027; 86780; 87811; C9803-CS; J0735; U0003; U0005

== ENCOUNTER 2021-08-12 02:32 | Inpatient (IN) | payer OTHER ==
[2021-08-12 02:38] VITALS: BMI 27.8
[2021-08-12] MEDS ORDERED: ACETAMINOPHEN 325 MG TABLET (FP) PO PRN (03:19)
[2021-08-12] MEDS ORDERED: MAGNESIUM HYDROX 2400MG/30ML ORAL SUSPENSION 30 ML CUP PO PRN (03:19)
[2021-08-12] MEDS ORDERED: BENZOCAINE/MENTHOL (CHLORASEPTIC ) LOZENGE MM PRN (03:19)
[2021-08-12] MEDS ORDERED: MAGNESIUM CITRATE 300 ML BOTTLE PO PRN (03:19)
[2021-08-12] MEDS ORDERED: DICYCLOMINE HCL 10 MG CAPSULE PO PRN (03:19)
[2021-08-12] MEDS ORDERED: LOPERAMIDE HCL 2 MG CAPSULE PO PRN (03:19)
[2021-08-12] MEDS ORDERED: ONDANSETRON *ODT* 4 MG TABLET SL PRN (03:19)
[2021-08-12] MEDS ORDERED: MAG HYDROX/AL HYDROX/SIMETH 30 ML UNIT-DOSE CUP PO PRN (03:19)
[2021-08-12] MEDS ORDERED: BISMUTH SUBSALICYLATE 524 MG/30 ML PO PRN (03:19)
[2021-08-12] MEDS ORDERED: chlordiazePOXIDE HCL 25 MG CAPSULE PO PRN (06:43)
[2021-08-12] MEDS: chlordiazePOXIDE HCL 25 MG CAPSULE PO SCH ×4 (07:07→22:30)
[2021-08-12] MEDS: METHOCARBAMOL 500 MG TABLET PO PRN ×2 (07:12→22:33)
[2021-08-12] MEDS: ACETAMINOPHEN 325 MG TABLET (FP) PO PRN (07:12)
[2021-08-12] MEDS: PRENATAL VITAMINS W/ FOLIC ACID TABLET (FP) PO SCH (10:16)
[2021-08-12 15:08] LABS: HEMATOCRIT 41.2 % (35.4-49); MCH 30.5 pg (25.7-33.7); MCHC 33.9 g/dl (32.0-35.9); MEAN CELL VOLUME 90.1 fl (80-96); MEAN PLT VOLUME 9.5 fl (7.5-11.1); PLATELET COUNT 235 10^3/uL (134-434); RBC 4.57 M/mm3 (4.00-5.60); RDW 14.2 % (11.9-15.9); WHITE BLOOD COUNT 6.9 K/mm3 (4.0-10.0)
[2021-08-12 17:05] LABS: CALCIUM 9.4 mg/dL (8.5-10.1)
[2021-08-12 17:07] LABS: ALBUMIN 3.7 g/dl (3.4-5.0); BILIRUBIN,TOTAL 0.9 mg/dL (0.2-1)
[2021-08-12 17:08] LABS: CREATININE 1.3 mg/dL (0.55-1.3); TOT PROT 6.9 g/dl (6.4-8.2)
[2021-08-12] MEDS: THIAMINE HCL 100 MG TABLET (FP) PO SCH (22:30)
[2021-08-12] MEDS: MELATONIN 5 MG TABLETS PO SCH (22:30)
[2021-08-13] MEDS: chlordiazePOXIDE HCL 25 MG CAPSULE PO SCH ×4 (05:13→22:03)
[2021-08-13] MEDS: METHOCARBAMOL 500 MG TABLET PO PRN ×2 (10:22→17:56)
[2021-08-13] MEDS: PRENATAL VITAMINS W/ FOLIC ACID TABLET (FP) PO SCH (10:22)
[2021-08-13] MEDS: ACETAMINOPHEN 325 MG TABLET (FP) PO PRN (10:23)
[2021-08-13] MEDS: IBUPROFEN 400 MG TABLET (FP) PO PRN (17:56)
[2021-08-13] MEDS: THIAMINE HCL 100 MG TABLET (FP) PO SCH (22:03)
[2021-08-13] MEDS: MELATONIN 5 MG TABLETS PO SCH (22:03)
[2021-08-14] MEDS ORDERED: chlordiazePOXIDE HCL 10 MG CAPSULE PO PRN
[2021-08-14] MEDS: chlordiazePOXIDE HCL 10 MG CAPSULE PO SCH ×4 (05:24→22:03)
[2021-08-14 10:07] LABS: SARS-CoV-2 NAA Not Detected (Not Detected)
[2021-08-14] MEDS: amLODIPine BESYLATE 10 MG TABLET (FP) PO SCH (10:21)
[2021-08-14] MEDS: PRENATAL VITAMINS W/ FOLIC ACID TABLET (FP) PO SCH (10:21)
[2021-08-14] MEDS: METHOCARBAMOL 500 MG TABLET PO PRN (10:23)
[2021-08-14] MEDS: IBUPROFEN 400 MG TABLET (FP) PO PRN (17:43)
[2021-08-14] MEDS: THIAMINE HCL 100 MG TABLET (FP) PO SCH (22:03)
[2021-08-14] MEDS: MELATONIN 5 MG TABLETS PO SCH (22:03)
[2021-08-15] MEDS: chlordiazePOXIDE HCL 10 MG CAPSULE PO SCH ×2 (05:28→18:13)
[2021-08-15] MEDS: amLODIPine BESYLATE 10 MG TABLET (FP) PO SCH (10:28)
[2021-08-15] MEDS: PRENATAL VITAMINS W/ FOLIC ACID TABLET (FP) PO SCH (10:29)
[2021-08-15] MEDS ORDERED: hydrOXYzine PAMOATE 25 MG CAPSULE (FP) PO PRN (14:45)
[2021-08-15] MEDS: MELATONIN 5 MG TABLETS PO SCH (22:13)
[2021-08-15] MEDS: THIAMINE HCL 100 MG TABLET (FP) PO SCH (22:13)
[2021-08-16] MEDS ORDERED: chlordiazePOXIDE HCL 10 MG CAPSULE PO ONE (05:00)
[2021-08-16] MEDS ORDERED: INSULIN SLIDING SCALE (NOVOLOG) 1 VIAL SQ ONE (07:48)
[2021-08-16 09:16] VITALS: BP 138/90; PULSE 104; TEMP 96.4
== END 2021-08-16 09:28 | disposition home or self-care (01) | DRG 774 ==
LOC: YASAS 02:32 → Y3N 03:47
PROVIDERS: ADMIT Allergy & Immunology; ATTEND Surgery
PROC: HZ2ZZZZ Detoxification Services for Substance Abuse Treatment (ICD-10-PCS; principal; 2021-08-12)
DX: F10.230 Alcohol dependence with withdrawal, uncomplicated (principal); F14.20 Cocaine dependence, uncomplicated; F13.20 Sedative, hypnotic or anxiolytic dependence, uncomplicated; F12.20 Cannabis dependence, uncomplicated; I10 Essential (primary) hypertension; R73.9 Hyperglycemia, unspecified; Z87.891 Personal history of nicotine dependence; Z88.8 Allergy status to other drugs, medicaments and biological substances
CPT/HCPCS: 36415; 80053; 82947; 84520; 85027; 86780; 93005; 93010; C9803-CS; U0003; U0005

== ENCOUNTER 2021-09-12 14:39 | Inpatient (IN) | payer OTHER ==
[2021-09-12 15:51] VITALS: BMI 26.6
[2021-09-12] MEDS ORDERED: DICYCLOMINE HCL 10 MG CAPSULE PO PRN (16:27)
[2021-09-12] MEDS ORDERED: IBUPROFEN 400 MG TABLET (FP) PO PRN (16:27)
[2021-09-12] MEDS ORDERED: IBUPROFEN 600 MG TABLET (FP) PO PRN (16:27)
[2021-09-12] MEDS ORDERED: MAGNESIUM CITRATE 300 ML BOTTLE PO PRN (16:27)
[2021-09-12] MEDS ORDERED: LOPERAMIDE HCL 2 MG CAPSULE PO PRN (16:27)
[2021-09-12] MEDS ORDERED: MAGNESIUM HYDROX 2400MG/30ML ORAL SUSPENSION 30 ML CUP PO PRN (16:27)
[2021-09-12] MEDS ORDERED: ACETAMINOPHEN 325 MG TABLET (FP) PO PRN (16:27)
[2021-09-12] MEDS ORDERED: ONDANSETRON *ODT* 4 MG TABLET SL PRN (16:27)
[2021-09-12] MEDS ORDERED: MAG HYDROX/AL HYDROX/SIMETH 30 ML UNIT-DOSE CUP PO PRN (16:27)
[2021-09-12] MEDS ORDERED: BENZOCAINE/MENTHOL (CHLORASEPTIC ) LOZENGE MM PRN (16:27)
[2021-09-12] MEDS ORDERED: BISMUTH SUBSALICYLATE 524 MG/30 ML PO PRN (16:27)
[2021-09-12] MEDS ORDERED: chlordiazePOXIDE HCL 25 MG CAPSULE PO PRN (16:30)
[2021-09-12] MEDS: ACETAMINOPHEN 325 MG TABLET (FP) PO PRN (20:19)
[2021-09-12] MEDS: chlordiazePOXIDE HCL 25 MG CAPSULE PO SCH ×2 (20:20→22:31)
[2021-09-12] MEDS: MELATONIN 5 MG TABLETS PO PRN (22:31)
[2021-09-12] MEDS: METHOCARBAMOL 500 MG TABLET PO PRN (22:31)
[2021-09-12] MEDS: hydrOXYzine PAMOATE 25 MG CAPSULE (FP) PO PRN (22:31)
[2021-09-12] MEDS: THIAMINE HCL 100 MG TABLET (FP) PO SCH (22:31)
[2021-09-13] MEDS: chlordiazePOXIDE HCL 25 MG CAPSULE PO SCH ×4 (05:46→22:21)
[2021-09-13] MEDS: PRENATAL VITAMINS W/ FOLIC ACID TABLET (FP) PO SCH (10:15)
[2021-09-13] MEDS: amLODIPine BESYLATE 10 MG TABLET (FP) PO SCH (10:15)
[2021-09-13] MEDS: METHOCARBAMOL 500 MG TABLET PO PRN (10:16)
[2021-09-13] MEDS: hydrOXYzine PAMOATE 25 MG CAPSULE (FP) PO PRN ×2 (18:27→22:21)
[2021-09-13] MEDS: MELATONIN 5 MG TABLETS PO PRN (22:21)
[2021-09-13] MEDS: THIAMINE HCL 100 MG TABLET (FP) PO SCH (22:21)
[2021-09-14] MEDS: chlordiazePOXIDE HCL 25 MG CAPSULE PO SCH ×4 (05:47→22:06)
[2021-09-14] MEDS: amLODIPine BESYLATE 10 MG TABLET (FP) PO SCH (10:51)
[2021-09-14] MEDS: PRENATAL VITAMINS W/ FOLIC ACID TABLET (FP) PO SCH (10:51)
[2021-09-14] MEDS: THIAMINE HCL 100 MG TABLET (FP) PO SCH (22:05)
[2021-09-14] MEDS: MELATONIN 5 MG TABLETS PO PRN (22:06)
[2021-09-15] MEDS ORDERED: chlordiazePOXIDE HCL 10 MG CAPSULE PO PRN
[2021-09-15] MEDS: chlordiazePOXIDE HCL 10 MG CAPSULE PO SCH ×4 (05:52→22:06)
[2021-09-15] MEDS: amLODIPine BESYLATE 10 MG TABLET (FP) PO SCH (10:29)
[2021-09-15] MEDS: PRENATAL VITAMINS W/ FOLIC ACID TABLET (FP) PO SCH (10:29)
[2021-09-15] MEDS: METHOCARBAMOL 500 MG TABLET PO PRN (10:30)
[2021-09-15] MEDS: hydrOXYzine PAMOATE 25 MG CAPSULE (FP) PO PRN (10:30)
[2021-09-15] MEDS: THIAMINE HCL 100 MG TABLET (FP) PO SCH (22:06)
[2021-09-15] MEDS: MELATONIN 5 MG TABLETS PO PRN (22:07)
[2021-09-15] MEDS: ACETAMINOPHEN 325 MG TABLET (FP) PO PRN (22:07)
[2021-09-16] MEDS: chlordiazePOXIDE HCL 10 MG CAPSULE PO SCH ×2 (05:53→17:07)
[2021-09-16] MEDS: PRENATAL VITAMINS W/ FOLIC ACID TABLET (FP) PO SCH (10:10)
[2021-09-16] MEDS: amLODIPine BESYLATE 10 MG TABLET (FP) PO SCH (10:11)
[2021-09-16] MEDS: METHOCARBAMOL 500 MG TABLET PO PRN ×2 (10:11→22:08)
[2021-09-16] MEDS: hydrOXYzine PAMOATE 25 MG CAPSULE (FP) PO PRN (10:11)
[2021-09-16] MEDS: MELATONIN 5 MG TABLETS PO PRN (22:08)
[2021-09-16] MEDS: THIAMINE HCL 100 MG TABLET (FP) PO SCH (22:08)
[2021-09-17] MEDS ORDERED: chlordiazePOXIDE HCL 10 MG CAPSULE PO ONE (05:00)
[2021-09-17 08:56] VITALS: BP 134/73; PULSE 97; TEMP 96.9
== END 2021-09-17 08:55 | disposition home or self-care (01) | DRG 774 ==
LOC: YASAS 14:39 → Y6N 19:05
PROVIDERS: ADMIT Allergy & Immunology; ATTEND Surgery
PROC: HZ2ZZZZ Detoxification Services for Substance Abuse Treatment (ICD-10-PCS; principal; 2021-09-12)
DX: F10.230 Alcohol dependence with withdrawal, uncomplicated (principal); F13.230 Sedative, hypnotic or anxiolytic dependence with withdrawal, uncomplicated; F14.20 Cocaine dependence, uncomplicated; F12.10 Cannabis abuse, uncomplicated; I10 Essential (primary) hypertension; G47.30 Sleep apnea, unspecified; Z87.891 Personal history of nicotine dependence; Z88.8 Allergy status to other drugs, medicaments and biological substances
CPT/HCPCS: 82962; C9803-CS; U0003; U0005

== ENCOUNTER 2021-10-15 18:08 | Inpatient (IN) | payer OTHER ==
[2021-10-15 19:06] VITALS: BMI 27.7
[2021-10-15] MEDS ORDERED: BENZOCAINE/MENTHOL (CHLORASEPTIC ) LOZENGE MM PRN (20:16)
[2021-10-15] MEDS ORDERED: ONDANSETRON *ODT* 4 MG TABLET SL PRN (20:16)
[2021-10-15] MEDS ORDERED: LOPERAMIDE HCL 2 MG CAPSULE PO PRN (20:16)
[2021-10-15] MEDS ORDERED: MAGNESIUM HYDROX 2400MG/30ML ORAL SUSPENSION 30 ML CUP PO PRN (20:16)
[2021-10-15] MEDS ORDERED: BISMUTH SUBSALICYLATE 524 MG/30 ML PO PRN (20:16)
[2021-10-15] MEDS ORDERED: DICYCLOMINE HCL 10 MG CAPSULE PO PRN (20:16)
[2021-10-15] MEDS ORDERED: MAG HYDROX/AL HYDROX/SIMETH 30 ML UNIT-DOSE CUP PO PRN (20:16)
[2021-10-15] MEDS ORDERED: MAGNESIUM CITRATE 300 ML BOTTLE PO PRN (20:16)
[2021-10-15] MEDS ORDERED: ACETAMINOPHEN 325 MG TABLET (FP) PO PRN ×2 (20:16)
[2021-10-15] MEDS ORDERED: IBUPROFEN 600 MG TABLET (FP) PO PRN (20:16)
[2021-10-15] MEDS ORDERED: IBUPROFEN 400 MG TABLET (FP) PO PRN (20:16)
[2021-10-15] MEDS ORDERED: chlordiazePOXIDE HCL 25 MG CAPSULE PO PRN (20:18)
[2021-10-16] MEDS: MELATONIN 5 MG TABLETS PO PRN ×2 (00:01→23:28)
[2021-10-16] MEDS: hydrOXYzine PAMOATE 25 MG CAPSULE (FP) PO PRN ×3 (00:01→23:28)
[2021-10-16] MEDS: amLODIPine BESYLATE 10 MG TABLET (FP) PO SCH ×2 (00:01→10:44)
[2021-10-16] MEDS: chlordiazePOXIDE HCL 25 MG CAPSULE PO SCH ×5 (00:02→23:28)
[2021-10-16] MEDS: THIAMINE HCL 100 MG TABLET (FP) PO SCH ×2 (00:02→23:28)
[2021-10-16] MEDS: PRENATAL VITAMINS W/ FOLIC ACID TABLET (FP) PO SCH (10:44)
[2021-10-16 11:51] LABS: HEMATOCRIT 43.7 % (35.4-49); HEMOGLOBIN 15.2 GM/dL (11.7-16.9); MCH 31.2 pg (25.7-33.7); MCHC 34.8 g/dl (32.0-35.9); MEAN CELL VOLUME 89.7 fl (80-96); MEAN PLT VOLUME 9.5 fl (7.5-11.1); PLATELET COUNT 185 10^3/uL (134-434); RBC 4.87 M/mm3 (4.00-5.60); RDW 14.1 % (11.9-15.9); WHITE BLOOD COUNT 6.4 K/mm3 (4.0-10.0)
[2021-10-16 12:02] LABS: CALCIUM 9.3 mg/dL (8.5-10.1)
[2021-10-16 12:05] LABS: ALBUMIN 3.3 g/dl (3.4-5.0); BLOOD UREA NITROGEN 13.9 mg/dL (7-18)
[2021-10-16 12:07] LABS: CREATININE 1.1 mg/dL (0.55-1.3)
[2021-10-16 12:09] LABS: BILIRUBIN,TOTAL 0.7 mg/dL (0.2-1); TOT PROT 6.6 g/dl (6.4-8.2)
[2021-10-16] MEDS: METHOCARBAMOL 500 MG TABLET PO PRN (23:28)
[2021-10-17] MEDS: hydrOXYzine PAMOATE 25 MG CAPSULE (FP) PO PRN ×3 (06:02→22:43)
[2021-10-17] MEDS: chlordiazePOXIDE HCL 25 MG CAPSULE PO SCH ×4 (06:03→22:43)
[2021-10-17] MEDS: PRENATAL VITAMINS W/ FOLIC ACID TABLET (FP) PO SCH (10:31)
[2021-10-17] MEDS: amLODIPine BESYLATE 10 MG TABLET (FP) PO SCH (10:31)
[2021-10-17] MEDS: METHOCARBAMOL 500 MG TABLET PO PRN (18:49)
[2021-10-17] MEDS: THIAMINE HCL 100 MG TABLET (FP) PO SCH (22:43)
[2021-10-17] MEDS: MELATONIN 5 MG TABLETS PO PRN (22:43)
[2021-10-18] MEDS ORDERED: chlordiazePOXIDE HCL 10 MG CAPSULE PO PRN
[2021-10-18] MEDS: chlordiazePOXIDE HCL 10 MG CAPSULE PO SCH ×4 (05:45→22:14)
[2021-10-18] MEDS: METHOCARBAMOL 500 MG TABLET PO PRN ×2 (10:57→22:14)
[2021-10-18] MEDS: amLODIPine BESYLATE 10 MG TABLET (FP) PO SCH (10:57)
[2021-10-18] MEDS: PRENATAL VITAMINS W/ FOLIC ACID TABLET (FP) PO SCH (10:57)
[2021-10-18] MEDS: hydrOXYzine PAMOATE 25 MG CAPSULE (FP) PO PRN (10:57)
[2021-10-18] MEDS: THIAMINE HCL 100 MG TABLET (FP) PO SCH (22:14)
[2021-10-18] MEDS: MELATONIN 5 MG TABLETS PO PRN (22:15)
[2021-10-19] MEDS: chlordiazePOXIDE HCL 10 MG CAPSULE PO SCH ×2 (05:26→18:57)
[2021-10-19] MEDS: PRENATAL VITAMINS W/ FOLIC ACID TABLET (FP) PO SCH (10:55)
[2021-10-19] MEDS: METHOCARBAMOL 500 MG TABLET PO PRN ×2 (10:55→18:57)
[2021-10-19] MEDS: amLODIPine BESYLATE 10 MG TABLET (FP) PO SCH (10:55)
[2021-10-19] MEDS: hydrOXYzine PAMOATE 25 MG CAPSULE (FP) PO PRN ×2 (18:57→22:31)
[2021-10-19] MEDS: MELATONIN 5 MG TABLETS PO PRN (22:30)
[2021-10-19] MEDS: THIAMINE HCL 100 MG TABLET (FP) PO SCH (22:31)
[2021-10-20] MEDS ORDERED: chlordiazePOXIDE HCL 10 MG CAPSULE PO ONE (05:00)
[2021-10-20 07:02] VITALS: RESP 17
[2021-10-20 09:35] VITALS: BP 115/80; PULSE 88; TEMP 98
== END 2021-10-20 10:12 | disposition home or self-care (01) | DRG 774 ==
LOC: YASAS 18:08 → Y6N 21:31
PROVIDERS: ADMIT Surgery; ATTEND Allergy & Immunology
PROC: HZ2ZZZZ Detoxification Services for Substance Abuse Treatment (ICD-10-PCS; principal; 2021-10-15)
DX: F10.230 Alcohol dependence with withdrawal, uncomplicated (principal); F14.20 Cocaine dependence, uncomplicated; F13.10 Sedative, hypnotic or anxiolytic abuse, uncomplicated; F16.10 Hallucinogen abuse, uncomplicated; F12.20 Cannabis dependence, uncomplicated; I10 Essential (primary) hypertension; Z87.891 Personal history of nicotine dependence; Z88.8 Allergy status to other drugs, medicaments and biological substances
CPT/HCPCS: 36415; 80053; 83036; 85027; 86780; 87811; C9803-CS; U0003; U0005

== ENCOUNTER 2021-10-28 19:20 | Inpatient (IN) | payer OTHER ==
[2021-10-28 21:46] VITALS: BMI 27.7
[2021-10-28] MEDS ORDERED: MAGNESIUM HYDROX 2400MG/30ML ORAL SUSPENSION 30 ML CUP PO PRN (22:30)
[2021-10-28] MEDS ORDERED: ONDANSETRON *ODT* 4 MG TABLET SL PRN (22:30)
[2021-10-28] MEDS ORDERED: DICYCLOMINE HCL 10 MG CAPSULE PO PRN (22:30)
[2021-10-28] MEDS ORDERED: guaiFENesin 200 MG/10 ML 10 ML UNIT-DOSE CUPS PO PRN (22:30)
[2021-10-28] MEDS ORDERED: IBUPROFEN 400 MG TABLET (FP) PO PRN (22:30)
[2021-10-28] MEDS ORDERED: MAGNESIUM CITRATE 300 ML BOTTLE PO PRN (22:30)
[2021-10-28] MEDS ORDERED: IBUPROFEN 600 MG TABLET (FP) PO PRN (22:30)
[2021-10-28] MEDS ORDERED: hydrOXYzine PAMOATE 25 MG CAPSULE (FP) PO PRN (22:30)
[2021-10-28] MEDS ORDERED: P-EPHED 60MG/TRIPROLIDI 2.5MG TABLET PO PRN (22:30)
[2021-10-28] MEDS ORDERED: ACETAMINOPHEN 325 MG TABLET (FP) PO PRN (22:30)
[2021-10-28] MEDS ORDERED: MAG HYDROX/AL HYDROX/SIMETH 30 ML UNIT-DOSE CUP PO PRN (22:30)
[2021-10-28] MEDS ORDERED: LOPERAMIDE HCL 2 MG CAPSULE PO PRN (22:30)
[2021-10-28] MEDS ORDERED: BISMUTH SUBSALICYLATE 524 MG/30 ML PO PRN (22:30)
[2021-10-28] MEDS ORDERED: BENZOCAINE/MENTHOL (CHLORASEPTIC ) LOZENGE MM PRN (22:30)
[2021-10-29] MEDS ORDERED: chlordiazePOXIDE HCL 25 MG CAPSULE PO PRN (09:31)
[2021-10-29] MEDS: amLODIPine BESYLATE 10 MG TABLET (FP) PO SCH (10:32)
[2021-10-29] MEDS: PRENATAL VITAMINS W/ FOLIC ACID TABLET (FP) PO SCH (10:32)
[2021-10-29] MEDS: chlordiazePOXIDE HCL 25 MG CAPSULE PO SCH ×3 (10:34→22:14)
[2021-10-29] MEDS: METHOCARBAMOL 500 MG TABLET PO PRN ×2 (10:34→22:15)
[2021-10-29] MEDS: ACETAMINOPHEN 325 MG TABLET (FP) PO PRN (10:35)
[2021-10-29 10:48] LABS: HEMATOCRIT 44.7 % (35.4-49); HEMOGLOBIN 15.2 GM/dL (11.7-16.9); MCH 30.5 pg (25.7-33.7); MCHC 33.9 g/dl (32.0-35.9); MEAN CELL VOLUME 90.1 fl (80-96); MEAN PLT VOLUME 9.4 fl (7.5-11.1); PLATELET COUNT 162 10^3/uL (134-434); RBC 4.96 M/mm3 (4.00-5.60); RDW 14.4 % (11.9-15.9)
[2021-10-29 12:09] LABS: ALBUMIN 3.6 g/dl (3.4-5.0); BLOOD UREA NITROGEN 23.2 mg/dL (7-18); CALCIUM 9.2 mg/dL (8.5-10.1)
[2021-10-29 12:12] LABS: CREATININE 1.4 mg/dL (0.55-1.3)
[2021-10-29 12:14] LABS: BILIRUBIN,TOTAL 0.8 mg/dL (0.2-1)
[2021-10-29 18:36] LABS: HIV INTERPRETATION NEGATIVE (NEGATIVE)
[2021-10-29] MEDS: MELATONIN 5 MG TABLETS PO SCH (22:14)
[2021-10-29] MEDS: THIAMINE HCL 100 MG TABLET (FP) PO SCH (22:14)
[2021-10-30] MEDS: chlordiazePOXIDE HCL 25 MG CAPSULE PO SCH ×4 (05:51→22:21)
[2021-10-30] MEDS: PRENATAL VITAMINS W/ FOLIC ACID TABLET (FP) PO SCH (10:38)
[2021-10-30] MEDS: METHOCARBAMOL 500 MG TABLET PO PRN ×2 (10:38→22:23)
[2021-10-30] MEDS: amLODIPine BESYLATE 10 MG TABLET (FP) PO SCH (10:38)
[2021-10-30] MEDS: ACETAMINOPHEN 325 MG TABLET (FP) PO PRN (18:04)
[2021-10-30] MEDS: THIAMINE HCL 100 MG TABLET (FP) PO SCH (22:20)
[2021-10-30] MEDS: MELATONIN 5 MG TABLETS PO SCH (22:21)
[2021-10-31] MEDS: chlordiazePOXIDE HCL 25 MG CAPSULE PO SCH ×4 (05:24→22:12)
[2021-10-31] MEDS ORDERED: INSULIN SLIDING SCALE (NOVOLOG) 1 VIAL SQ SCH (07:00)
[2021-10-31] MEDS: PRENATAL VITAMINS W/ FOLIC ACID TABLET (FP) PO SCH (10:36)
[2021-10-31] MEDS: amLODIPine BESYLATE 10 MG TABLET (FP) PO SCH (10:36)
[2021-10-31] MEDS: INSULIN SLIDING SCALE (NOVOLOG) 1 VIAL SQ SCH (17:50)
[2021-10-31] MEDS: ACETAMINOPHEN 325 MG TABLET (FP) PO PRN (17:53)
[2021-10-31] MEDS: MELATONIN 5 MG TABLETS PO SCH (22:11)
[2021-10-31] MEDS: THIAMINE HCL 100 MG TABLET (FP) PO SCH (22:11)
[2021-11-01] MEDS ORDERED: chlordiazePOXIDE HCL 10 MG CAPSULE PO PRN
[2021-11-01] MEDS: chlordiazePOXIDE HCL 10 MG CAPSULE PO SCH ×4 (05:39→22:07)
[2021-11-01] MEDS: INSULIN SLIDING SCALE (NOVOLOG) 1 VIAL SQ SCH ×3 (06:26→17:04)
[2021-11-01] MEDS: PRENATAL VITAMINS W/ FOLIC ACID TABLET (FP) PO SCH (10:23)
[2021-11-01] MEDS: amLODIPine BESYLATE 10 MG TABLET (FP) PO SCH (10:23)
[2021-11-01] MEDS: THIAMINE HCL 100 MG TABLET (FP) PO SCH (22:07)
[2021-11-01] MEDS: MELATONIN 5 MG TABLETS PO SCH (22:07)
[2021-11-02] MEDS: chlordiazePOXIDE HCL 10 MG CAPSULE PO SCH ×2 (06:36→18:36)
[2021-11-02] MEDS: INSULIN SLIDING SCALE (NOVOLOG) 1 VIAL SQ SCH ×3 (07:25→18:37)
[2021-11-02] MEDS: amLODIPine BESYLATE 10 MG TABLET (FP) PO SCH (10:20)
[2021-11-02] MEDS: PRENATAL VITAMINS W/ FOLIC ACID TABLET (FP) PO SCH (10:20)
[2021-11-02] MEDS: metFORMIN HCL 500 MG TABLET (FP) PO SCH (18:36)
[2021-11-02] MEDS ORDERED: metFORMIN HCL 500 MG TABLET (FP) PO SCH (22:00)
[2021-11-02] MEDS: MELATONIN 5 MG TABLETS PO SCH (22:02)
[2021-11-02] MEDS: THIAMINE HCL 100 MG TABLET (FP) PO SCH (22:02)
[2021-11-03] MEDS ORDERED: INSULIN SLIDING SCALE (NOVOLOG) 1 VIAL SQ ONE ×2 (04:38→06:50)
[2021-11-03] MEDS ORDERED: chlordiazePOXIDE HCL 10 MG CAPSULE PO ONE (05:00)
[2021-11-03] MEDS: INSULIN SLIDING SCALE (NOVOLOG) 1 VIAL SQ SCH (06:09)
[2021-11-03] MEDS: metFORMIN HCL 500 MG TABLET (FP) PO SCH (06:09)
[2021-11-03 06:42] VITALS: RESP 18
[2021-11-03 08:54] VITALS: BP 122/80; PULSE 94; TEMP 96.9
[2021-11-03] MEDS: amLODIPine BESYLATE 10 MG TABLET (FP) PO SCH (10:51)
[2021-11-03] MEDS: PRENATAL VITAMINS W/ FOLIC ACID TABLET (FP) PO SCH (10:52)
== END 2021-11-03 10:28 | disposition home or self-care (01) | DRG 774 ==
LOC: YASAS 19:20 → Y3N 23:31
PROVIDERS: ADMIT Allergy & Immunology; ATTEND Surgery
PROC: HZ2ZZZZ Detoxification Services for Substance Abuse Treatment (ICD-10-PCS; principal; 2021-10-28)
DX: F10.230 Alcohol dependence with withdrawal, uncomplicated (principal); F14.20 Cocaine dependence, uncomplicated; F16.20 Hallucinogen dependence, uncomplicated; F12.20 Cannabis dependence, uncomplicated; F13.10 Sedative, hypnotic or anxiolytic abuse, uncomplicated; F17.210 Nicotine dependence, cigarettes, uncomplicated; F19.24 Other psychoactive substance dependence with psychoactive substance-induced mood disorder; I10 Essential (primary) hypertension; E11.65 Type 2 diabetes mellitus with hyperglycemia; Z86.69 Personal history of other diseases of the nervous system and sense organs; Z79.84 Long term (current) use of oral hypoglycemic drugs; Z88.8 Allergy status to other drugs, medicaments and biological substances
CPT/HCPCS: 36415; 80053; 82962; 85027; 86780; 87389; C9803-CS; U0003; U0005

== ENCOUNTER 2021-12-23 03:17 | Inpatient (IN) | payer OTHER ==
[2021-12-23 03:40] VITALS: BMI 26.9
[2021-12-23] MEDS ORDERED: IBUPROFEN 600 MG TABLET (FP) PO PRN (03:56)
[2021-12-23] MEDS ORDERED: DICYCLOMINE HCL 10 MG CAPSULE PO PRN (03:56)
[2021-12-23] MEDS ORDERED: MAGNESIUM HYDROX 2400MG/30ML ORAL SUSPENSION 30 ML CUP PO PRN (03:56)
[2021-12-23] MEDS ORDERED: ONDANSETRON *ODT* 4 MG TABLET SL PRN (03:56)
[2021-12-23] MEDS ORDERED: LOPERAMIDE HCL 2 MG CAPSULE PO PRN (03:56)
[2021-12-23] MEDS ORDERED: MAG HYDROX/AL HYDROX/SIMETH 30 ML UNIT-DOSE CUP PO PRN (03:56)
[2021-12-23] MEDS ORDERED: IBUPROFEN 400 MG TABLET (FP) PO PRN (03:56)
[2021-12-23] MEDS ORDERED: BISMUTH SUBSALICYLATE 524 MG/30 ML PO PRN (03:56)
[2021-12-23] MEDS ORDERED: chlordiazePOXIDE HCL 25 MG CAPSULE PO PRN (03:56)
[2021-12-23] MEDS ORDERED: NALOXONE HCL (KLOXXADO) 8 MG SPRAY NS PRN (03:56)
[2021-12-23] MEDS ORDERED: MAGNESIUM CITRATE 300 ML BOTTLE PO PRN (03:56)
[2021-12-23] MEDS ORDERED: BENZOCAINE/MENTHOL (CHLORASEPTIC ) LOZENGE MM PRN (03:56)
[2021-12-23] MEDS ORDERED: ACETAMINOPHEN 325 MG TABLET (FP) PO PRN (03:56)
[2021-12-23] MEDS: chlordiazePOXIDE HCL 25 MG CAPSULE PO SCH ×4 (04:34→22:09)
[2021-12-23] MEDS: PRENATAL VITAMINS W/ FOLIC ACID TABLET (FP) PO SCH (10:17)
[2021-12-23] MEDS: amLODIPine BESYLATE 10 MG TABLET (FP) PO SCH (10:17)
[2021-12-23 16:07] LABS: HEMATOCRIT 41.7 % (35.4-49); HEMOGLOBIN 13.8 GM/dL (11.7-16.9); MCH 29.7 pg (25.7-33.7); MCHC 33.1 g/dl (32.0-35.9); MEAN CELL VOLUME 89.8 fl (80-96); MEAN PLT VOLUME 9.5 fl (7.5-11.1); PLATELET COUNT 222 10^3/uL (134-434); RBC 4.65 M/mm3 (4.00-5.60); RDW 14.5 % (11.9-15.9)
[2021-12-23 16:14] LABS: CALCIUM 9.3 mg/dL (8.5-10.1)
[2021-12-23 16:15] LABS: ALBUMIN 3.5 g/dl (3.4-5.0); BLOOD UREA NITROGEN 20.9 mg/dL (7-18)
[2021-12-23 16:18] LABS: CREATININE 1.2 mg/dL (0.55-1.3)
[2021-12-23 16:20] LABS: TOT PROT 6.7 g/dl (6.4-8.2)
[2021-12-23] MEDS ORDERED: METFORMIN HCL 500 MG PO SCH (16:30)
[2021-12-23] MEDS: metFORMIN HCL 500 MG TABLET (FP) PO SCH (17:49)
[2021-12-23] MEDS: THIAMINE HCL 100 MG TABLET (FP) PO SCH (22:08)
[2021-12-23] MEDS: MELATONIN 5 MG TABLETS PO SCH (22:09)
[2021-12-23] MEDS: METHOCARBAMOL 500 MG TABLET PO PRN (22:10)
[2021-12-24] MEDS: chlordiazePOXIDE HCL 25 MG CAPSULE PO SCH ×4 (05:21→22:02)
[2021-12-24] MEDS: metFORMIN HCL 500 MG TABLET (FP) PO SCH ×2 (06:11→17:33)
[2021-12-24] MEDS: amLODIPine BESYLATE 10 MG TABLET (FP) PO SCH (10:15)
[2021-12-24] MEDS: PRENATAL VITAMINS W/ FOLIC ACID TABLET (FP) PO SCH (10:15)
[2021-12-24] MEDS: METHOCARBAMOL 500 MG TABLET PO PRN (10:16)
[2021-12-24] MEDS: ACETAMINOPHEN 325 MG TABLET (FP) PO PRN (17:34)
[2021-12-24] MEDS: THIAMINE HCL 100 MG TABLET (FP) PO SCH (22:03)
[2021-12-24] MEDS: MELATONIN 5 MG TABLETS PO SCH (22:03)
[2021-12-25] MEDS ORDERED: chlordiazePOXIDE HCL 10 MG CAPSULE PO PRN
[2021-12-25] MEDS: chlordiazePOXIDE HCL 10 MG CAPSULE PO SCH ×4 (06:01→22:05)
[2021-12-25] MEDS: metFORMIN HCL 500 MG TABLET (FP) PO SCH ×2 (06:02→17:49)
[2021-12-25] MEDS: PRENATAL VITAMINS W/ FOLIC ACID TABLET (FP) PO SCH (10:00)
[2021-12-25] MEDS: amLODIPine BESYLATE 10 MG TABLET (FP) PO SCH (10:00)
[2021-12-25] MEDS: THIAMINE HCL 100 MG TABLET (FP) PO SCH (22:05)
[2021-12-25] MEDS: MELATONIN 5 MG TABLETS PO SCH (22:05)
[2021-12-26] MEDS: chlordiazePOXIDE HCL 10 MG CAPSULE PO SCH ×2 (05:16→17:57)
[2021-12-26] MEDS: metFORMIN HCL 500 MG TABLET (FP) PO SCH ×2 (07:34→17:58)
[2021-12-26] MEDS: PRENATAL VITAMINS W/ FOLIC ACID TABLET (FP) PO SCH (10:06)
[2021-12-26] MEDS: amLODIPine BESYLATE 10 MG TABLET (FP) PO SCH (10:06)
[2021-12-26] MEDS: ACETAMINOPHEN 325 MG TABLET (FP) PO PRN ×2 (10:07→22:05)
[2021-12-26 21:01] VITALS: RESP 18
[2021-12-26] MEDS: THIAMINE HCL 100 MG TABLET (FP) PO SCH (22:04)
[2021-12-26] MEDS: MELATONIN 5 MG TABLETS PO SCH (22:04)
[2021-12-27] MEDS ORDERED: chlordiazePOXIDE HCL 10 MG CAPSULE PO ONE (05:00)
[2021-12-27 06:04] VITALS: BP 116/72; PULSE 85; TEMP 97.3
[2021-12-27] MEDS: metFORMIN HCL 500 MG TABLET (FP) PO SCH (06:17)
== END 2021-12-27 08:52 | disposition home or self-care (01) | DRG 774 ==
LOC: YASAS 03:17 → Y3N 04:01
PROVIDERS: ADMIT Allergy & Immunology; ATTEND Surgery
PROC: HZ2ZZZZ Detoxification Services for Substance Abuse Treatment (ICD-10-PCS; principal; 2021-12-23)
DX: F10.230 Alcohol dependence with withdrawal, uncomplicated (principal); F14.20 Cocaine dependence, uncomplicated; F12.20 Cannabis dependence, uncomplicated; F41.9 Anxiety disorder, unspecified; F32.A Depression, unspecified; I10 Essential (primary) hypertension; E11.9 Type 2 diabetes mellitus without complications; Z79.84 Long term (current) use of oral hypoglycemic drugs; Z87.891 Personal history of nicotine dependence; Z86.69 Personal history of other diseases of the nervous system and sense organs; Z88.8 Allergy status to other drugs, medicaments and biological substances
CPT/HCPCS: 36415; 80053; 82962; 85027; 86780; C9803-CS; U0003; U0005

== ENCOUNTER 2022-02-11 10:14 | Inpatient (IN) | payer OTHER ==
[2022-02-11 10:37] VITALS: BMI 28.3
[2022-02-11] MEDS ORDERED: NICOTINE POLACRILEX 2 MG GUM BUC PRN (10:38)
[2022-02-11] MEDS ORDERED: chlordiazePOXIDE HCL 25 MG CAPSULE PO PRN (10:38)
[2022-02-11] MEDS ORDERED: BISMUTH SUBSALICYLATE 524 MG/30 ML PO PRN (10:38)
[2022-02-11] MEDS ORDERED: MAG HYDROX/AL HYDROX/SIMETH 30 ML UNIT-DOSE CUP PO PRN (10:38)
[2022-02-11] MEDS ORDERED: ONDANSETRON *ODT* 4 MG TABLET SL PRN (10:38)
[2022-02-11] MEDS ORDERED: IBUPROFEN 400 MG TABLET (FP) PO PRN (10:38)
[2022-02-11] MEDS ORDERED: ACETAMINOPHEN 325 MG TABLET (FP) PO PRN ×2 (10:38)
[2022-02-11] MEDS ORDERED: NICOTINE 10 MG CARTRIDGE (INHALER) IH PRN (10:38)
[2022-02-11] MEDS ORDERED: NICOTINE 7 MG/24 HOURS TOPICAL PATCH TD PRN (10:38)
[2022-02-11] MEDS ORDERED: LOPERAMIDE HCL 2 MG CAPSULE PO PRN (10:38)
[2022-02-11] MEDS ORDERED: BENZOCAINE/MENTHOL (CHLORASEPTIC ) LOZENGE MM PRN (10:38)
[2022-02-11] MEDS ORDERED: DICYCLOMINE HCL 10 MG CAPSULE PO PRN (10:38)
[2022-02-11] MEDS ORDERED: MAGNESIUM HYDROX 2400MG/30ML ORAL SUSPENSION 30 ML CUP PO PRN (10:38)
[2022-02-11] MEDS ORDERED: amLODIPine BESYLATE 10 MG TABLET (FP) PO SCH (10:45)
[2022-02-11] MEDS: chlordiazePOXIDE HCL 25 MG CAPSULE PO SCH ×3 (11:14→22:35)
[2022-02-11] MEDS ORDERED: chlordiazePOXIDE HCL 25 MG CAPSULE ONE (11:15)
[2022-02-11] MEDS: IBUPROFEN 600 MG TABLET (FP) PO PRN (12:14)
[2022-02-11] MEDS: hydrOXYzine PAMOATE 25 MG CAPSULE (FP) PO PRN (12:14)
[2022-02-11] MEDS: PRENATAL VITAMINS W/ FOLIC ACID TABLET (FP) PO SCH (12:14)
[2022-02-11] MEDS: metFORMIN HCL 500 MG TABLET (FP) PO SCH (17:46)
[2022-02-11 19:47] LABS: HEMATOCRIT 43.7 % (35.4-49); HEMOGLOBIN 14.3 GM/dL (11.7-16.9); MCH 29.6 pg (25.7-33.7); MCHC 32.7 g/dl (32.0-35.9); MEAN CELL VOLUME 90.4 fl (80-96); MEAN PLT VOLUME 10.4 fl (7.5-11.1); PLATELET COUNT 191 10^3/uL (134-434); RBC 4.83 M/mm3 (4.00-5.60); RDW 14.8 % (11.9-15.9); WHITE BLOOD COUNT 9.4 K/mm3 (4.0-10.0)
[2022-02-11 19:55] LABS: CALCIUM 9.8 mg/dL (8.5-10.1)
[2022-02-11 19:56] LABS: ALBUMIN 4.4 g/dl (3.4-5.0)
[2022-02-11 19:59] LABS: CREATININE 1.4 mg/dL (0.55-1.3)
[2022-02-11 20:00] LABS: TOT PROT 8.2 g/dl (6.4-8.2)
[2022-02-11 20:01] LABS: BILIRUBIN,TOTAL 0.4 mg/dL (0.2-1)
[2022-02-11] MEDS: FAMOTIDINE 20 MG TABLET PO SCH (22:34)
[2022-02-11] MEDS: THIAMINE HCL 100 MG TABLET (FP) PO SCH (22:34)
[2022-02-11] MEDS: DIVALPROEX SODIUM 500 MG TABLET E.C. PO SCH (22:34)
[2022-02-11] MEDS: MELATONIN 5 MG TABLETS PO SCH (22:36)
[2022-02-12] MEDS: chlordiazePOXIDE HCL 25 MG CAPSULE PO SCH ×4 (05:21→22:24)
[2022-02-12] MEDS: metFORMIN HCL 500 MG TABLET (FP) PO SCH ×2 (06:54→17:46)
[2022-02-12] MEDS: DIVALPROEX SODIUM 500 MG TABLET E.C. PO SCH ×2 (10:12→22:24)
[2022-02-12] MEDS: amLODIPine BESYLATE 10 MG TABLET (FP) PO SCH (10:13)
[2022-02-12] MEDS: PRENATAL VITAMINS W/ FOLIC ACID TABLET (FP) PO SCH (10:13)
[2022-02-12] MEDS: FAMOTIDINE 20 MG TABLET PO SCH ×2 (10:13→22:24)
[2022-02-12] MEDS: IBUPROFEN 600 MG TABLET (FP) PO PRN (10:14)
[2022-02-12] MEDS: METHOCARBAMOL 500 MG TABLET PO PRN (10:14)
[2022-02-12] MEDS: MELATONIN 5 MG TABLETS PO SCH (22:24)
[2022-02-12] MEDS: THIAMINE HCL 100 MG TABLET (FP) PO SCH (22:24)
[2022-02-13] MEDS: chlordiazePOXIDE HCL 25 MG CAPSULE PO SCH ×4 (04:58→22:31)
[2022-02-13] MEDS: metFORMIN HCL 500 MG TABLET (FP) PO SCH ×2 (07:30→17:27)
[2022-02-13] MEDS: METHOCARBAMOL 500 MG TABLET PO PRN (10:12)
[2022-02-13] MEDS: hydrOXYzine PAMOATE 25 MG CAPSULE (FP) PO PRN (10:12)
[2022-02-13] MEDS: DIVALPROEX SODIUM 500 MG TABLET E.C. PO SCH ×2 (10:12→22:30)
[2022-02-13] MEDS: PRENATAL VITAMINS W/ FOLIC ACID TABLET (FP) PO SCH (10:12)
[2022-02-13] MEDS: FAMOTIDINE 20 MG TABLET PO SCH ×2 (10:12→22:31)
[2022-02-13] MEDS: amLODIPine BESYLATE 10 MG TABLET (FP) PO SCH (10:12)
[2022-02-13 10:45] LABS: BLOOD UREA NITROGEN 14.9 mg/dL (7-18)
[2022-02-13 10:48] LABS: CREATININE 1.2 mg/dL (0.55-1.3)
[2022-02-13 18:10] VITALS: RESP 18
[2022-02-13] MEDS: THIAMINE HCL 100 MG TABLET (FP) PO SCH (22:30)
[2022-02-13] MEDS: MELATONIN 5 MG TABLETS PO SCH (22:31)
[2022-02-14] MEDS ORDERED: chlordiazePOXIDE HCL 10 MG CAPSULE PO PRN
[2022-02-14] MEDS: chlordiazePOXIDE HCL 10 MG CAPSULE PO SCH ×2 (05:06→10:13)
[2022-02-14] MEDS: metFORMIN HCL 500 MG TABLET (FP) PO SCH (06:47)
[2022-02-14 09:52] VITALS: BP 112/69; PULSE 89; TEMP 97.8
[2022-02-14] MEDS: PRENATAL VITAMINS W/ FOLIC ACID TABLET (FP) PO SCH (10:12)
[2022-02-14] MEDS: METHOCARBAMOL 500 MG TABLET PO PRN (10:13)
[2022-02-14] MEDS: amLODIPine BESYLATE 10 MG TABLET (FP) PO SCH (10:13)
[2022-02-14] MEDS: DIVALPROEX SODIUM 500 MG TABLET E.C. PO SCH (10:13)
[2022-02-14] MEDS: FAMOTIDINE 20 MG TABLET PO SCH (10:13)
[2022-02-15] MEDS ORDERED: chlordiazePOXIDE HCL 10 MG CAPSULE PO SCH (05:00)
[2022-02-16] MEDS ORDERED: chlordiazePOXIDE HCL 10 MG CAPSULE PO ONE (05:00)
== END 2022-02-14 14:22 | disposition home or self-care (01) | DRG 774 ==
LOC: YASAS 10:14 → Y6N 11:43
PROVIDERS: ADMIT Allergy & Immunology; ATTEND Surgery
PROC: HZ2ZZZZ Detoxification Services for Substance Abuse Treatment (ICD-10-PCS; principal; 2022-02-11)
DX: F10.230 Alcohol dependence with withdrawal, uncomplicated (principal); F14.20 Cocaine dependence, uncomplicated; F13.20 Sedative, hypnotic or anxiolytic dependence, uncomplicated; F12.20 Cannabis dependence, uncomplicated; I10 Essential (primary) hypertension; E11.9 Type 2 diabetes mellitus without complications; Z79.84 Long term (current) use of oral hypoglycemic drugs; M17.11 Unilateral primary osteoarthritis, right knee; Z86.69 Personal history of other diseases of the nervous system and sense organs; Z88.8 Allergy status to other drugs, medicaments and biological substances
CPT/HCPCS: 36415; 80053; 80164; 82565; 82962; 84450; 84460; 84520; 85027; 86780; 86803; 87811; C9803-CS; U0003; U0005

== ENCOUNTER 2022-03-07 11:20 | Inpatient (IN) | payer OTHER ==
[2022-03-07 14:58] VITALS: BMI 28.1
[2022-03-07] MEDS ORDERED: ONDANSETRON *ODT* 4 MG TABLET SL PRN (16:39)
[2022-03-07] MEDS ORDERED: NALOXONE HCL (KLOXXADO) 8 MG SPRAY NS PRN (16:39)
[2022-03-07] MEDS ORDERED: IBUPROFEN 600 MG TABLET (FP) PO PRN (16:39)
[2022-03-07] MEDS ORDERED: DICYCLOMINE HCL 10 MG CAPSULE PO PRN (16:39)
[2022-03-07] MEDS ORDERED: MAG HYDROX/AL HYDROX/SIMETH 30 ML UNIT-DOSE CUP PO PRN (16:39)
[2022-03-07] MEDS ORDERED: BENZOCAINE/MENTHOL (CHLORASEPTIC ) LOZENGE MM PRN (16:39)
[2022-03-07] MEDS ORDERED: POLYETHYLENE GLYCOL (HEALTHYLAX) 3350 17 GM PACKET PO PRN (16:39)
[2022-03-07] MEDS ORDERED: LOPERAMIDE HCL 2 MG CAPSULE PO PRN (16:39)
[2022-03-07] MEDS ORDERED: chlordiazePOXIDE HCL 25 MG CAPSULE PO PRN (16:39)
[2022-03-07] MEDS ORDERED: hydrOXYzine PAMOATE 25 MG CAPSULE (FP) PO PRN (16:39)
[2022-03-07] MEDS ORDERED: ACETAMINOPHEN 325 MG TABLET (FP) PO PRN ×2 (16:39)
[2022-03-07] MEDS ORDERED: MAGNESIUM HYDROX 2400MG/30ML ORAL SUSPENSION 30 ML CUP PO PRN (16:39)
[2022-03-07] MEDS ORDERED: IBUPROFEN 400 MG TABLET (FP) PO PRN (16:39)
[2022-03-07] MEDS ORDERED: BISMUTH SUBSALICYLATE 524 MG/30 ML PO PRN (16:39)
[2022-03-07] MEDS ORDERED: IBUPROFEN 600 MG TABLET (FP) PO ONE (17:16)
[2022-03-07] MEDS: chlordiazePOXIDE HCL 25 MG CAPSULE PO SCH ×2 (17:45→22:32)
[2022-03-07] MEDS: DIVALPROEX SODIUM 500 MG TABLET E.C. PO SCH ×2 (17:45→22:32)
[2022-03-07] MEDS: PRENATAL VITAMINS W/ FOLIC ACID TABLET (FP) PO SCH (17:47)
[2022-03-07] MEDS: METHOCARBAMOL 500 MG TABLET PO PRN (17:47)
[2022-03-07] MEDS: MELATONIN 5 MG TABLETS PO SCH (22:31)
[2022-03-07] MEDS: THIAMINE HCL 100 MG TABLET (FP) PO SCH (22:32)
[2022-03-07] MEDS: INSULIN SLIDING SCALE (NOVOLOG) 1 VIAL SQ SCH (22:34)
[2022-03-08] MEDS: chlordiazePOXIDE HCL 25 MG CAPSULE PO SCH ×4 (05:29→22:11)
[2022-03-08] MEDS: INSULIN SLIDING SCALE (NOVOLOG) 1 VIAL SQ SCH ×4 (07:42→22:10)
[2022-03-08] MEDS: metFORMIN HCL 500 MG TABLET (FP) PO SCH ×2 (07:42→17:38)
[2022-03-08] MEDS: amLODIPine BESYLATE 10 MG TABLET (FP) PO SCH (10:27)
[2022-03-08] MEDS: PRENATAL VITAMINS W/ FOLIC ACID TABLET (FP) PO SCH (10:27)
[2022-03-08] MEDS: DIVALPROEX SODIUM 500 MG TABLET E.C. PO SCH ×2 (10:27→22:10)
[2022-03-08] MEDS: METHOCARBAMOL 500 MG TABLET PO PRN (10:28)
[2022-03-08 11:44] LABS: HEMATOCRIT 41.3 % (35.4-49); HEMOGLOBIN 13.6 GM/dL (11.7-16.9); MCH 29.8 pg (25.7-33.7); MEAN CELL VOLUME 90.4 fl (80-96); MEAN PLT VOLUME 10.2 fl (7.5-11.1); PLATELET COUNT 186 10^3/uL (134-434); RBC 4.56 M/mm3 (4.00-5.60); RDW 15.2 % (11.9-15.9); WHITE BLOOD COUNT 5.7 K/mm3 (4.0-10.0)
[2022-03-08 12:28] LABS: ALBUMIN 3.1 g/dl (3.4-5.0)
[2022-03-08 12:31] LABS: CREATININE 1.2 mg/dL (0.55-1.3)
[2022-03-08 12:33] LABS: BILIRUBIN,TOTAL 0.4 mg/dL (0.2-1); TOT PROT 6.2 g/dl (6.4-8.2)
[2022-03-08 12:34] LABS: BLOOD UREA NITROGEN 22.9 mg/dL (7-18)
[2022-03-08] MEDS: MELATONIN 5 MG TABLETS PO SCH (22:10)
[2022-03-08] MEDS: THIAMINE HCL 100 MG TABLET (FP) PO SCH (22:10)
[2022-03-09] MEDS: chlordiazePOXIDE HCL 25 MG CAPSULE PO SCH ×2 (05:29→10:39)
[2022-03-09] MEDS: metFORMIN HCL 500 MG TABLET (FP) PO SCH (07:10)
[2022-03-09] MEDS: INSULIN SLIDING SCALE (NOVOLOG) 1 VIAL SQ SCH ×2 (07:10→11:21)
[2022-03-09] MEDS: PRENATAL VITAMINS W/ FOLIC ACID TABLET (FP) PO SCH (10:38)
[2022-03-09] MEDS: DIVALPROEX SODIUM 500 MG TABLET E.C. PO SCH (10:38)
[2022-03-09] MEDS: amLODIPine BESYLATE 10 MG TABLET (FP) PO SCH (10:38)
[2022-03-09 12:03] VITALS: BP 127/84; PULSE 84; RESP 18; TEMP 97.5
[2022-03-10] MEDS ORDERED: chlordiazePOXIDE HCL 10 MG CAPSULE PO PRN
[2022-03-10] MEDS ORDERED: chlordiazePOXIDE HCL 10 MG CAPSULE PO SCH (05:00)
[2022-03-11] MEDS ORDERED: chlordiazePOXIDE HCL 10 MG CAPSULE PO SCH (05:00)
[2022-03-12] MEDS ORDERED: chlordiazePOXIDE HCL 10 MG CAPSULE PO ONE (05:00)
== END 2022-03-09 13:35 | disposition home or self-care (01) | DRG 774 ==
LOC: YASAS 11:20 → Y6N 16:47
PROVIDERS: ADMIT Allergy & Immunology; ATTEND Surgery
PROC: HZ2ZZZZ Detoxification Services for Substance Abuse Treatment (ICD-10-PCS; principal; 2022-03-07)
DX: F10.230 Alcohol dependence with withdrawal, uncomplicated (principal); F13.230 Sedative, hypnotic or anxiolytic dependence with withdrawal, uncomplicated; F14.20 Cocaine dependence, uncomplicated; F12.20 Cannabis dependence, uncomplicated; G40.909 Epilepsy, unspecified, not intractable, without status epilepticus; I10 Essential (primary) hypertension; M17.11 Unilateral primary osteoarthritis, right knee; E11.9 Type 2 diabetes mellitus without complications; Z79.84 Long term (current) use of oral hypoglycemic drugs; Z87.891 Personal history of nicotine dependence
CPT/HCPCS: 36415; 80053; 82962; 85027; 86780; 87811; C9803-CS; U0003; U0005

== ENCOUNTER 2022-04-23 13:50 | Inpatient (IN) | payer OTHER ==
[2022-04-23 14:25] VITALS: BMI 29.7
[2022-04-23] MEDS ORDERED: LOPERAMIDE HCL 2 MG CAPSULE PO PRN (15:31)
[2022-04-23] MEDS ORDERED: BISMUTH SUBSALICYLATE 262 MG/15 ML BTL PO PRN (15:31)
[2022-04-23] MEDS ORDERED: ACETAMINOPHEN 325 MG TABLET (FP) PO PRN (15:31)
[2022-04-23] MEDS ORDERED: MAG HYDROX/AL HYDROX/SIMETH 30 ML UNIT-DOSE CUP PO PRN (15:31)
[2022-04-23] MEDS ORDERED: IBUPROFEN 600 MG TABLET (FP) PO PRN (15:31)
[2022-04-23] MEDS ORDERED: BENZOCAINE/MENTHOL (CHLORASEPTIC ) LOZENGE MM PRN (15:31)
[2022-04-23] MEDS ORDERED: POLYETHYLENE GLYCOL (HEALTHYLAX) 3350 17 GM PACKET PO PRN (15:31)
[2022-04-23] MEDS ORDERED: NALOXONE HCL (KLOXXADO) 8 MG SPRAY NS PRN (15:31)
[2022-04-23] MEDS ORDERED: diazePAM 5 MG TABLET PO PRN (15:31)
[2022-04-23] MEDS ORDERED: DICYCLOMINE HCL 10 MG CAPSULE PO PRN (15:31)
[2022-04-23] MEDS ORDERED: ONDANSETRON *ODT* 4 MG TABLET SL PRN (15:31)
[2022-04-23] MEDS ORDERED: MAGNESIUM HYDROX 2400MG/30ML ORAL SUSPENSION 30 ML CUP PO PRN (15:31)
[2022-04-23] MEDS ORDERED: IBUPROFEN 400 MG TABLET (FP) PO PRN (15:31)
[2022-04-23] MEDS: diazePAM 5 MG TABLET PO SCH ×2 (17:35→22:13)
[2022-04-23] MEDS: metFORMIN HCL 500 MG TABLET (FP) PO SCH (17:35)
[2022-04-23] MEDS: hydrOXYzine PAMOATE 25 MG CAPSULE (FP) PO PRN (22:12)
[2022-04-23] MEDS: DIVALPROEX SODIUM 250 MG TABLET E.C. PO SCH (22:12)
[2022-04-23] MEDS: THIAMINE HCL 100 MG TABLET (FP) PO SCH (22:12)
[2022-04-23] MEDS: METHOCARBAMOL 500 MG TABLET PO PRN (22:12)
[2022-04-23] MEDS: MELATONIN 5 MG TABLETS PO SCH (22:12)
[2022-04-24] MEDS: diazePAM 5 MG TABLET PO SCH ×4 (05:15→22:30)
[2022-04-24] MEDS: metFORMIN HCL 500 MG TABLET (FP) PO SCH ×2 (06:21→17:11)
[2022-04-24] MEDS: amLODIPine BESYLATE 10 MG TABLET (FP) PO SCH (10:31)
[2022-04-24] MEDS: PRENATAL VITAMINS W/ FOLIC ACID TABLET (FP) PO SCH (10:31)
[2022-04-24] MEDS: DIVALPROEX SODIUM 250 MG TABLET E.C. PO SCH ×2 (10:31→22:30)
[2022-04-24] MEDS: ACETAMINOPHEN 325 MG TABLET (FP) PO PRN (10:32)
[2022-04-24] MEDS: METHOCARBAMOL 500 MG TABLET PO PRN ×2 (10:32→22:30)
[2022-04-24 11:35] LABS: HEMATOCRIT 42.5 % (35.4-49); HEMOGLOBIN 14.3 GM/dL (11.7-16.9); MCHC 33.7 g/dl (32.0-35.9); MEAN PLT VOLUME 9.7 fl (7.5-11.1); PLATELET COUNT 243 10^3/uL (134-434); RBC 4.78 M/mm3 (4.00-5.60); RDW 14.1 % (11.9-15.9); WHITE BLOOD COUNT 5.8 K/mm3 (4.0-10.0)
[2022-04-24 11:53] LABS: CALCIUM 9.2 mg/dL (8.5-10.1)
[2022-04-24 11:54] LABS: ALBUMIN 3.5 g/dl (3.4-5.0); BLOOD UREA NITROGEN 23.3 mg/dL (7-18)
[2022-04-24 11:56] LABS: CREATININE 1.2 mg/dL (0.55-1.3)
[2022-04-24 11:57] LABS: BILIRUBIN,TOTAL 1.2 mg/dL (0.2-1); TOT PROT 6.7 g/dl (6.4-8.2)
[2022-04-24] MEDS: MELATONIN 5 MG TABLETS PO SCH (22:29)
[2022-04-24] MEDS: hydrOXYzine PAMOATE 25 MG CAPSULE (FP) PO PRN (22:29)
[2022-04-24] MEDS: THIAMINE HCL 100 MG TABLET (FP) PO SCH (22:29)
[2022-04-25] MEDS: diazePAM 5 MG TABLET PO SCH ×3 (05:30→22:07)
[2022-04-25] MEDS: metFORMIN HCL 500 MG TABLET (FP) PO SCH ×2 (06:24→17:30)
[2022-04-25] MEDS: PRENATAL VITAMINS W/ FOLIC ACID TABLET (FP) PO SCH (10:16)
[2022-04-25] MEDS: amLODIPine BESYLATE 10 MG TABLET (FP) PO SCH (10:16)
[2022-04-25] MEDS: DIVALPROEX SODIUM 250 MG TABLET E.C. PO SCH ×2 (10:16→22:06)
[2022-04-25] MEDS: METHOCARBAMOL 500 MG TABLET PO PRN (17:35)
[2022-04-25] MEDS: ACETAMINOPHEN 325 MG TABLET (FP) PO PRN (17:36)
[2022-04-25] MEDS: THIAMINE HCL 100 MG TABLET (FP) PO SCH (22:06)
[2022-04-25] MEDS: MELATONIN 5 MG TABLETS PO SCH (22:07)
[2022-04-26] MEDS: diazePAM 5 MG TABLET PO SCH ×2 (05:39→17:45)
[2022-04-26] MEDS: metFORMIN HCL 500 MG TABLET (FP) PO SCH ×2 (06:04→17:44)
[2022-04-26] MEDS: amLODIPine BESYLATE 10 MG TABLET (FP) PO SCH (10:15)
[2022-04-26] MEDS: DIVALPROEX SODIUM 250 MG TABLET E.C. PO SCH ×2 (10:15→22:09)
[2022-04-26] MEDS: PRENATAL VITAMINS W/ FOLIC ACID TABLET (FP) PO SCH (10:15)
[2022-04-26] MEDS: ACETAMINOPHEN 325 MG TABLET (FP) PO PRN (10:16)
[2022-04-26 11:09] LABS: EPI CELLS 4 /uL (0-25.1); HYALINE CASTS 1 /uL (0-3.1); PH,URINE 6.5 (5.0-8.0); URINE APPEARANCE CLEAR; URINE BACTERIA 1 /uL (0-1359); URINE BILIRUBIN NEGATIVE (NEGATIVE); URINE COLOR YELLOW; URINE GLUCOSE (UA) NEGATIVE (NEGATIVE); URINE KETONE NEGATIVE (NEGATIVE); URINE LEUK ESTERASE NEGATIVE (NEGATIVE); URINE NITRITE NEGATIVE (NEGATIVE); URINE PROTEIN 1+ (NEGATIVE); URINE RBC 2 /uL (0-23.9); URINE UROBILINOGEN 0.2 mg/dL (0.2-1.0); URINE WBC 4 /uL (0-25.8)
[2022-04-26] MEDS: hydrOXYzine PAMOATE 25 MG CAPSULE (FP) PO PRN (17:44)
[2022-04-26] MEDS: THIAMINE HCL 100 MG TABLET (FP) PO SCH (22:09)
[2022-04-26] MEDS: METHOCARBAMOL 500 MG TABLET PO PRN (22:09)
[2022-04-26] MEDS: MELATONIN 5 MG TABLETS PO SCH (22:09)
[2022-04-27] MEDS ORDERED: diazePAM 5 MG TABLET PO ONE (06:00)
[2022-04-27] MEDS: metFORMIN HCL 500 MG TABLET (FP) PO SCH ×2 (06:09→17:08)
[2022-04-27] MEDS: amLODIPine BESYLATE 10 MG TABLET (FP) PO SCH (09:42)
[2022-04-27] MEDS: DIVALPROEX SODIUM 250 MG TABLET E.C. PO SCH (09:42)
[2022-04-27] MEDS: PRENATAL VITAMINS W/ FOLIC ACID TABLET (FP) PO SCH (09:43)
[2022-04-27 13:14] VITALS: RESP 18
[2022-04-27 17:38] VITALS: BP 148/87; PULSE 118; TEMP 96.6
== END 2022-04-27 18:02 | disposition other institution (70) | DRG 774 ==
LOC: YASAS 13:50 → Y3N 15:20
PROVIDERS: ADMIT Allergy & Immunology; ATTEND Family Medicine
PROC: HZ2ZZZZ Detoxification Services for Substance Abuse Treatment (ICD-10-PCS; principal; 2022-04-23)
DX: F10.230 Alcohol dependence with withdrawal, uncomplicated (principal); F14.20 Cocaine dependence, uncomplicated; F13.20 Sedative, hypnotic or anxiolytic dependence, uncomplicated; F12.20 Cannabis dependence, uncomplicated; I10 Essential (primary) hypertension; E11.9 Type 2 diabetes mellitus without complications; Z79.84 Long term (current) use of oral hypoglycemic drugs; K21.9 Gastro-esophageal reflux disease without esophagitis; M17.11 Unilateral primary osteoarthritis, right knee; R79.89 Other specified abnormal findings of blood chemistry; Z86.69 Personal history of other diseases of the nervous system and sense organs; Z87.891 Personal history of nicotine dependence
CPT/HCPCS: 36415; 80053; 81003; 82962; 85027; 86780; 87811; C9803-CS; U0003; U0005

== ENCOUNTER 2022-04-27 17:51 | Inpatient (IN) | payer OTHER ==
[2022-04-27 18:08] VITALS: RESP 18
[2022-04-27] MEDS ORDERED: BENZOCAINE/MENTHOL (CHLORASEPTIC ) LOZENGE MM PRN (18:44)
[2022-04-27] MEDS ORDERED: MAG HYDROX/AL HYDROX/SIMETH 30 ML UNIT-DOSE CUP PO PRN (18:44)
[2022-04-27] MEDS ORDERED: guaiFENesin 200 MG/10 ML 10 ML UNIT-DOSE CUPS PO PRN (18:44)
[2022-04-27] MEDS ORDERED: MAGNESIUM HYDROX 2400MG/30ML ORAL SUSPENSION 30 ML CUP PO PRN (18:44)
[2022-04-27] MEDS ORDERED: LOPERAMIDE HCL 2 MG CAPSULE PO PRN (18:44)
[2022-04-27] MEDS ORDERED: P-EPHED 60MG/TRIPROLIDI 2.5MG TABLET PO PRN (18:44)
[2022-04-27] MEDS ORDERED: POLYETHYLENE GLYCOL (HEALTHYLAX) 3350 17 GM PACKET PO PRN (18:44)
[2022-04-27] MEDS: THIAMINE HCL 100 MG TABLET (FP) PO SCH (21:51)
[2022-04-27] MEDS: MELATONIN 5 MG TABLETS PO PRN (21:51)
[2022-04-27] MEDS: DIVALPROEX SODIUM 250 MG TABLET E.C. PO SCH (21:52)
[2022-04-28] MEDS: metFORMIN HCL 500 MG TABLET (FP) PO SCH ×2 (06:19→16:46)
[2022-04-28] MEDS: DIVALPROEX SODIUM 250 MG TABLET E.C. PO SCH ×2 (10:24→21:31)
[2022-04-28] MEDS: amLODIPine BESYLATE 10 MG TABLET (FP) PO SCH (10:25)
[2022-04-28] MEDS: PRENATAL VITAMINS W/ FOLIC ACID TABLET (FP) PO SCH (10:25)
[2022-04-28] MEDS: THIAMINE HCL 100 MG TABLET (FP) PO SCH (21:31)
[2022-04-28] MEDS: MELATONIN 5 MG TABLETS PO PRN (21:31)
[2022-04-29] MEDS: metFORMIN HCL 500 MG TABLET (FP) PO SCH ×2 (06:01→16:39)
[2022-04-29] MEDS: PRENATAL VITAMINS W/ FOLIC ACID TABLET (FP) PO SCH (10:19)
[2022-04-29] MEDS: amLODIPine BESYLATE 10 MG TABLET (FP) PO SCH (10:20)
[2022-04-29] MEDS: DIVALPROEX SODIUM 250 MG TABLET E.C. PO SCH ×2 (10:20→21:16)
[2022-04-29] MEDS: THIAMINE HCL 100 MG TABLET (FP) PO SCH (21:16)
[2022-04-30] MEDS: metFORMIN HCL 500 MG TABLET (FP) PO SCH ×2 (06:03→16:41)
[2022-04-30] MEDS: DIVALPROEX SODIUM 250 MG TABLET E.C. PO SCH ×2 (09:54→21:10)
[2022-04-30] MEDS: amLODIPine BESYLATE 10 MG TABLET (FP) PO SCH (09:54)
[2022-04-30] MEDS: PRENATAL VITAMINS W/ FOLIC ACID TABLET (FP) PO SCH (09:54)
[2022-04-30] MEDS: THIAMINE HCL 100 MG TABLET (FP) PO SCH (21:10)
[2022-04-30] MEDS: MELATONIN 5 MG TABLETS PO PRN (21:10)
[2022-05-01] MEDS: ACETAMINOPHEN 325 MG TABLET (FP) PO PRN (06:12)
[2022-05-01] MEDS: metFORMIN HCL 500 MG TABLET (FP) PO SCH ×2 (06:13→16:35)
[2022-05-01] MEDS: PRENATAL VITAMINS W/ FOLIC ACID TABLET (FP) PO SCH (09:38)
[2022-05-01] MEDS: DIVALPROEX SODIUM 250 MG TABLET E.C. PO SCH ×2 (09:38→21:31)
[2022-05-01] MEDS: amLODIPine BESYLATE 10 MG TABLET (FP) PO SCH (09:38)
[2022-05-01] MEDS: MELATONIN 5 MG TABLETS PO PRN (21:31)
[2022-05-01] MEDS: THIAMINE HCL 100 MG TABLET (FP) PO SCH (21:31)
[2022-05-02] MEDS: metFORMIN HCL 500 MG TABLET (FP) PO SCH ×2 (06:33→16:32)
[2022-05-02] MEDS: DIVALPROEX SODIUM 250 MG TABLET E.C. PO SCH ×2 (10:07→21:28)
[2022-05-02] MEDS: amLODIPine BESYLATE 10 MG TABLET (FP) PO SCH (10:07)
[2022-05-02] MEDS: PRENATAL VITAMINS W/ FOLIC ACID TABLET (FP) PO SCH (10:07)
[2022-05-02] MEDS: THIAMINE HCL 100 MG TABLET (FP) PO SCH (21:28)
[2022-05-03] MEDS: metFORMIN HCL 500 MG TABLET (FP) PO SCH ×2 (06:04→17:00)
[2022-05-03] MEDS: ACETAMINOPHEN 325 MG TABLET (FP) PO PRN (06:04)
[2022-05-03] MEDS: PRENATAL VITAMINS W/ FOLIC ACID TABLET (FP) PO SCH (09:54)
[2022-05-03] MEDS: DIVALPROEX SODIUM 250 MG TABLET E.C. PO SCH ×2 (09:54→21:48)
[2022-05-03] MEDS: amLODIPine BESYLATE 10 MG TABLET (FP) PO SCH (09:55)
[2022-05-03] MEDS: MELATONIN 5 MG TABLETS PO PRN (21:48)
[2022-05-03] MEDS: THIAMINE HCL 100 MG TABLET (FP) PO SCH (21:48)
[2022-05-04] MEDS: metFORMIN HCL 500 MG TABLET (FP) PO SCH ×2 (06:06→16:52)
[2022-05-04] MEDS: PRENATAL VITAMINS W/ FOLIC ACID TABLET (FP) PO SCH (09:51)
[2022-05-04] MEDS: DIVALPROEX SODIUM 250 MG TABLET E.C. PO SCH ×2 (09:51→21:44)
[2022-05-04] MEDS: amLODIPine BESYLATE 10 MG TABLET (FP) PO SCH (09:51)
[2022-05-04] MEDS: MELATONIN 5 MG TABLETS PO PRN (21:44)
[2022-05-04] MEDS: THIAMINE HCL 100 MG TABLET (FP) PO SCH (21:44)
[2022-05-05] MEDS: IBUPROFEN 400 MG TABLET (FP) PO PRN (06:43)
[2022-05-05] MEDS: metFORMIN HCL 500 MG TABLET (FP) PO SCH ×2 (06:43→16:45)
[2022-05-05] MEDS: DIVALPROEX SODIUM 250 MG TABLET E.C. PO SCH ×2 (10:05→21:33)
[2022-05-05] MEDS: amLODIPine BESYLATE 10 MG TABLET (FP) PO SCH (10:05)
[2022-05-05] MEDS: PRENATAL VITAMINS W/ FOLIC ACID TABLET (FP) PO SCH (10:05)
[2022-05-05] MEDS: THIAMINE HCL 100 MG TABLET (FP) PO SCH (21:33)
[2022-05-05] MEDS: MELATONIN 5 MG TABLETS PO PRN (21:33)
[2022-05-06] MEDS: ACETAMINOPHEN 325 MG TABLET (FP) PO PRN (06:33)
[2022-05-06] MEDS: metFORMIN HCL 500 MG TABLET (FP) PO SCH ×2 (06:34→16:44)
[2022-05-06] MEDS: amLODIPine BESYLATE 10 MG TABLET (FP) PO SCH (10:08)
[2022-05-06] MEDS: PRENATAL VITAMINS W/ FOLIC ACID TABLET (FP) PO SCH (10:08)
[2022-05-06] MEDS: DIVALPROEX SODIUM 250 MG TABLET E.C. PO SCH ×2 (10:08→21:23)
[2022-05-06] MEDS: IBUPROFEN 400 MG TABLET (FP) PO PRN (16:43)
[2022-05-06] MEDS: MELATONIN 5 MG TABLETS PO PRN (21:23)
[2022-05-06] MEDS: THIAMINE HCL 100 MG TABLET (FP) PO SCH (21:24)
[2022-05-07] MEDS: metFORMIN HCL 500 MG TABLET (FP) PO SCH (06:25)
[2022-05-07 06:47] VITALS: TEMP 97.7
[2022-05-07] MEDS: IBUPROFEN 400 MG TABLET (FP) PO PRN (07:04)
[2022-05-07] MEDS: amLODIPine BESYLATE 10 MG TABLET (FP) PO SCH (09:16)
[2022-05-07] MEDS: DIVALPROEX SODIUM 250 MG TABLET E.C. PO SCH (09:16)
[2022-05-07] MEDS: PRENATAL VITAMINS W/ FOLIC ACID TABLET (FP) PO SCH (09:16)
[2022-05-07 10:53] VITALS: BP 134/86; PULSE 108
== END 2022-05-07 09:25 | disposition home or self-care (01) | DRG 772 ==
LOC: YASAS 17:51 → Y5N 17:52
PROVIDERS: ADMIT Allergy & Immunology; ATTEND Psychiatry & Neurology Pain Medicine
PROC: HZ42ZZZ Group Counseling for Substance Abuse Treatment, Cognitive-Behavioral (ICD-10-PCS; principal; 2022-04-27)
DX: F14.20 Cocaine dependence, uncomplicated (principal); F10.20 Alcohol dependence, uncomplicated; F13.20 Sedative, hypnotic or anxiolytic dependence, uncomplicated; F12.20 Cannabis dependence, uncomplicated; G40.909 Epilepsy, unspecified, not intractable, without status epilepticus; I10 Essential (primary) hypertension; E11.9 Type 2 diabetes mellitus without complications; Z79.84 Long term (current) use of oral hypoglycemic drugs; M17.11 Unilateral primary osteoarthritis, right knee; Z86.69 Personal history of other diseases of the nervous system and sense organs; Z99.89 Dependence on other enabling machines and devices
CPT/HCPCS: 80164; 82962

== ENCOUNTER 2022-06-01 13:36 | Inpatient (IN) | payer OTHER ==
[2022-06-01 14:25] VITALS: BMI 28.1
[2022-06-01] MEDS ORDERED: DICYCLOMINE HCL 10 MG CAPSULE PO PRN (17:20)
[2022-06-01] MEDS ORDERED: ACETAMINOPHEN 325 MG TABLET (FP) PO PRN ×2 (17:20)
[2022-06-01] MEDS ORDERED: P-EPHED 60MG/TRIPROLIDI 2.5MG TABLET PO PRN (17:20)
[2022-06-01] MEDS ORDERED: BISMUTH SUBSALICYLATE 524 MG/30 ML PO PRN (17:20)
[2022-06-01] MEDS ORDERED: ONDANSETRON *ODT* 4 MG TABLET SL PRN (17:20)
[2022-06-01] MEDS ORDERED: MAGNESIUM HYDROX 2400MG/30ML ORAL SUSPENSION 30 ML CUP PO PRN (17:20)
[2022-06-01] MEDS ORDERED: IBUPROFEN 400 MG TABLET (FP) PO PRN (17:20)
[2022-06-01] MEDS ORDERED: guaiFENesin 200 MG/10 ML 10 ML UNIT-DOSE CUPS PO PRN (17:20)
[2022-06-01] MEDS ORDERED: IBUPROFEN 600 MG TABLET (FP) PO PRN (17:20)
[2022-06-01] MEDS ORDERED: POLYETHYLENE GLYCOL (HEALTHYLAX) 3350 17 GM PACKET PO PRN (17:20)
[2022-06-01] MEDS ORDERED: MAG HYDROX/AL HYDROX/SIMETH 30 ML UNIT-DOSE CUP PO PRN (17:20)
[2022-06-01] MEDS ORDERED: LOPERAMIDE HCL 2 MG CAPSULE PO PRN (17:20)
[2022-06-01] MEDS ORDERED: BENZOCAINE/MENTHOL (CHLORASEPTIC ) LOZENGE MM PRN (17:20)
[2022-06-01] MEDS ORDERED: chlordiazePOXIDE HCL 25 MG CAPSULE PO PRN (17:23)
[2022-06-01] MEDS: DIVALPROEX SODIUM 250 MG TABLET E.C. PO SCH (22:32)
[2022-06-01] MEDS: chlordiazePOXIDE HCL 25 MG CAPSULE PO SCH (22:33)
[2022-06-01] MEDS: MELATONIN 5 MG TABLETS PO PRN (22:34)
[2022-06-01] MEDS: METHOCARBAMOL 500 MG TABLET PO PRN (22:34)
[2022-06-01] MEDS: THIAMINE HCL 100 MG TABLET (FP) PO SCH (22:34)
[2022-06-02] MEDS: chlordiazePOXIDE HCL 25 MG CAPSULE PO SCH ×4 (05:43→22:32)
[2022-06-02] MEDS: metFORMIN HCL 500 MG TABLET (FP) PO SCH ×2 (06:11→17:01)
[2022-06-02] MEDS: DIVALPROEX SODIUM 250 MG TABLET E.C. PO SCH ×2 (10:15→22:32)
[2022-06-02] MEDS: PRENATAL VITAMINS W/ FOLIC ACID TABLET (FP) PO SCH (10:15)
[2022-06-02] MEDS: amLODIPine BESYLATE 10 MG TABLET (FP) PO SCH (10:15)
[2022-06-02] MEDS: METHOCARBAMOL 500 MG TABLET PO PRN ×2 (10:16→17:03)
[2022-06-02 12:44] LABS: HEMATOCRIT 41.1 % (35.4-49); HEMOGLOBIN 13.6 GM/dL (11.7-16.9); MCH 29.5 pg (25.7-33.7); MCHC 33.1 g/dl (32.0-35.9); MEAN CELL VOLUME 88.9 fl (80-96); MEAN PLT VOLUME 9.6 fl (7.5-11.1); PLATELET COUNT 146 10^3/uL (134-434); RBC 4.62 M/mm3 (4.00-5.60); WHITE BLOOD COUNT 4.3 K/mm3 (4.0-10.0)
[2022-06-02 13:08] LABS: ALBUMIN 3.1 g/dl (3.4-5.0); BLOOD UREA NITROGEN 17.8 mg/dL (7-18); CALCIUM 8.7 mg/dL (8.5-10.1); CREATININE 1.2 mg/dL (0.55-1.3)
[2022-06-02 13:09] LABS: BILIRUBIN,TOTAL 0.9 mg/dL (0.2-1)
[2022-06-02] MEDS: MELATONIN 5 MG TABLETS PO PRN (22:31)
[2022-06-02] MEDS: THIAMINE HCL 100 MG TABLET (FP) PO SCH (22:32)
[2022-06-03] MEDS ORDERED: chlordiazePOXIDE HCL 25 MG CAPSULE PO SCH (05:00)
[2022-06-03] MEDS: metFORMIN HCL 500 MG TABLET (FP) PO SCH ×2 (06:09→16:43)
[2022-06-03] MEDS: chlordiazePOXIDE HCL 10 MG CAPSULE PO SCH ×4 (06:13→22:24)
[2022-06-03] MEDS: amLODIPine BESYLATE 10 MG TABLET (FP) PO SCH (10:22)
[2022-06-03] MEDS: DIVALPROEX SODIUM 250 MG TABLET E.C. PO SCH ×2 (10:22→22:24)
[2022-06-03] MEDS: PRENATAL VITAMINS W/ FOLIC ACID TABLET (FP) PO SCH (10:22)
[2022-06-03] MEDS: THIAMINE HCL 100 MG TABLET (FP) PO SCH (22:24)
[2022-06-03] MEDS: MELATONIN 5 MG TABLETS PO PRN (22:25)
[2022-06-04] MEDS ORDERED: chlordiazePOXIDE HCL 10 MG CAPSULE PO PRN
[2022-06-04] MEDS ORDERED: chlordiazePOXIDE HCL 10 MG CAPSULE PO SCH (05:00)
[2022-06-04] MEDS: metFORMIN HCL 500 MG TABLET (FP) PO SCH (06:17)
[2022-06-04 09:53] VITALS: BP 131/88; PULSE 98; RESP 17; TEMP 97.1
[2022-06-04] MEDS: PRENATAL VITAMINS W/ FOLIC ACID TABLET (FP) PO SCH (10:20)
[2022-06-04] MEDS: amLODIPine BESYLATE 10 MG TABLET (FP) PO SCH (10:20)
[2022-06-04] MEDS: DIVALPROEX SODIUM 250 MG TABLET E.C. PO SCH (10:20)
[2022-06-05] MEDS ORDERED: chlordiazePOXIDE HCL 10 MG CAPSULE PO ONE (05:00)
== END 2022-06-04 10:55 | disposition home or self-care (01) | DRG 774 ==
LOC: YASAS 13:36 → Y6N 18:05
PROVIDERS: ADMIT Allergy & Immunology; ATTEND Surgery
PROC: HZ2ZZZZ Detoxification Services for Substance Abuse Treatment (ICD-10-PCS; principal; 2022-06-01)
DX: F10.230 Alcohol dependence with withdrawal, uncomplicated (principal); F14.20 Cocaine dependence, uncomplicated; F13.20 Sedative, hypnotic or anxiolytic dependence, uncomplicated; F12.20 Cannabis dependence, uncomplicated; I10 Essential (primary) hypertension; K21.9 Gastro-esophageal reflux disease without esophagitis; M17.11 Unilateral primary osteoarthritis, right knee; E11.9 Type 2 diabetes mellitus without complications; Z79.84 Long term (current) use of oral hypoglycemic drugs; Z88.8 Allergy status to other drugs, medicaments and biological substances
CPT/HCPCS: 36415; 80053; 82962; 85027; 86780; 87811; C9803-CS; U0003; U0005

== ENCOUNTER 2022-07-08 09:00 | Inpatient (IN) | payer OTHER ==
[2022-07-08 09:27] VITALS: BMI 25.7
[2022-07-08] MEDS ORDERED: IBUPROFEN 400 MG TABLET (FP) PO PRN (10:17)
[2022-07-08] MEDS ORDERED: DICYCLOMINE HCL 10 MG CAPSULE PO PRN (10:17)
[2022-07-08] MEDS ORDERED: guaiFENesin 600 MG TABLET.ER (FP) PO PRN (10:17)
[2022-07-08] MEDS ORDERED: BENZOCAINE/MENTHOL (CHLORASEPTIC ) LOZENGE MM PRN (10:17)
[2022-07-08] MEDS ORDERED: BENZONATATE 200 MG CAPSULE PO PRN (10:17)
[2022-07-08] MEDS ORDERED: POLYETHYLENE GLYCOL (HEALTHYLAX) 3350 17 GM PACKET PO PRN (10:17)
[2022-07-08] MEDS ORDERED: ACETAMINOPHEN 325 MG TABLET (FP) PO PRN (10:17)
[2022-07-08] MEDS ORDERED: MAGNESIUM HYDROX 2400MG/30ML ORAL SUSPENSION 30 ML CUP PO PRN (10:17)
[2022-07-08] MEDS ORDERED: chlordiazePOXIDE HCL 25 MG CAPSULE PO PRN (10:17)
[2022-07-08] MEDS ORDERED: ONDANSETRON *ODT* 4 MG TABLET SL PRN (10:17)
[2022-07-08] MEDS ORDERED: BISMUTH SUBSALICYLATE 262 MG/15 ML BTL PO PRN (10:17)
[2022-07-08] MEDS ORDERED: MAG HYDROX/AL HYDROX/SIMETH 30 ML UNIT-DOSE CUP PO PRN (10:17)
[2022-07-08] MEDS ORDERED: LOPERAMIDE HCL 2 MG CAPSULE PO PRN (10:17)
[2022-07-08] MEDS: amLODIPine BESYLATE 10 MG TABLET (FP) PO SCH (11:00)
[2022-07-08] MEDS ORDERED: amLODIPine BESYLATE 5 MG TABLET (FP) ONE (11:14)
[2022-07-08] MEDS: METHOCARBAMOL 500 MG TABLET PO PRN (11:50)
[2022-07-08] MEDS: IBUPROFEN 600 MG TABLET (FP) PO PRN (11:50)
[2022-07-08 13:20] LABS: HEMATOCRIT 43.1 % (35.4-49); HEMOGLOBIN 14.9 GM/dL (11.7-16.9); MCH 30.7 pg (25.7-33.7); MCHC 34.5 g/dl (32.0-35.9); MEAN CELL VOLUME 89.2 fl (80-96); MEAN PLT VOLUME 9.8 fl (7.5-11.1); PLATELET COUNT 214 10^3/uL (134-434); RBC 4.84 M/mm3 (4.00-5.60); RDW 15.8 % (11.9-15.9); WHITE BLOOD COUNT 4.3 K/mm3 (4.0-10.0)
[2022-07-08 14:08] LABS: CALCIUM 9.2 mg/dL (8.5-10.1)
[2022-07-08 14:09] LABS: BLOOD UREA NITROGEN 17.4 mg/dL (7-18)
[2022-07-08 14:11] LABS: CREATININE 1.2 mg/dL (0.55-1.3)
[2022-07-08 14:13] LABS: BILIRUBIN,TOTAL 0.9 mg/dL (0.2-1)
[2022-07-08 14:14] LABS: TOT PROT 7.9 g/dl (6.4-8.2)
[2022-07-08] MEDS: metFORMIN HCL 500 MG TABLET (FP) PO SCH (17:09)
[2022-07-08] MEDS: chlordiazePOXIDE HCL 25 MG CAPSULE PO SCH ×2 (17:09→22:35)
[2022-07-08] MEDS: hydrOXYzine PAMOATE 25 MG CAPSULE (FP) PO PRN (17:11)
[2022-07-08] MEDS: THIAMINE HCL 100 MG TABLET (FP) PO SCH (22:34)
[2022-07-08] MEDS: MELATONIN 5 MG TABLETS PO SCH (22:34)
[2022-07-08] MEDS: FAMOTIDINE 20 MG TABLET PO SCH (22:36)
[2022-07-09] MEDS: chlordiazePOXIDE HCL 25 MG CAPSULE PO SCH ×4 (05:23→22:34)
[2022-07-09] MEDS: metFORMIN HCL 500 MG TABLET (FP) PO SCH ×2 (06:33→17:36)
[2022-07-09] MEDS: PRENATAL VITAMINS W/ FOLIC ACID TABLET (FP) PO SCH (10:13)
[2022-07-09] MEDS: amLODIPine BESYLATE 10 MG TABLET (FP) PO SCH (10:13)
[2022-07-09] MEDS: METHOCARBAMOL 500 MG TABLET PO PRN (10:13)
[2022-07-09] MEDS: FAMOTIDINE 20 MG TABLET PO SCH ×2 (10:13→22:33)
[2022-07-09] MEDS: hydrOXYzine PAMOATE 25 MG CAPSULE (FP) PO PRN (10:13)
[2022-07-09] MEDS: IBUPROFEN 600 MG TABLET (FP) PO PRN (10:15)
[2022-07-09] MEDS: MELATONIN 5 MG TABLETS PO SCH (22:33)
[2022-07-09] MEDS: THIAMINE HCL 100 MG TABLET (FP) PO SCH (22:34)
[2022-07-10] MEDS: chlordiazePOXIDE HCL 25 MG CAPSULE PO SCH ×4 (05:50→22:03)
[2022-07-10] MEDS: metFORMIN HCL 500 MG TABLET (FP) PO SCH ×2 (06:28→17:11)
[2022-07-10] MEDS: amLODIPine BESYLATE 10 MG TABLET (FP) PO SCH (10:15)
[2022-07-10] MEDS: FAMOTIDINE 20 MG TABLET PO SCH ×2 (10:16→22:03)
[2022-07-10] MEDS: METHOCARBAMOL 500 MG TABLET PO PRN (10:16)
[2022-07-10] MEDS: PRENATAL VITAMINS W/ FOLIC ACID TABLET (FP) PO SCH (10:16)
[2022-07-10] MEDS: MELATONIN 5 MG TABLETS PO SCH (22:03)
[2022-07-10] MEDS: THIAMINE HCL 100 MG TABLET (FP) PO SCH (22:03)
[2022-07-10] MEDS: IBUPROFEN 600 MG TABLET (FP) PO PRN (22:06)
[2022-07-11] MEDS ORDERED: chlordiazePOXIDE HCL 10 MG CAPSULE PO PRN
[2022-07-11] MEDS: chlordiazePOXIDE HCL 10 MG CAPSULE PO SCH ×2 (05:25→10:48)
[2022-07-11] MEDS: metFORMIN HCL 500 MG TABLET (FP) PO SCH (06:52)
[2022-07-11 09:24] VITALS: BP 128/89; PULSE 83; RESP 17; TEMP 98.1
[2022-07-11] MEDS: PRENATAL VITAMINS W/ FOLIC ACID TABLET (FP) PO SCH (10:48)
[2022-07-11] MEDS: FAMOTIDINE 20 MG TABLET PO SCH (10:48)
[2022-07-11] MEDS: amLODIPine BESYLATE 10 MG TABLET (FP) PO SCH (10:48)
[2022-07-12] MEDS ORDERED: chlordiazePOXIDE HCL 10 MG CAPSULE PO SCH (05:00)
[2022-07-13] MEDS ORDERED: chlordiazePOXIDE HCL 10 MG CAPSULE PO ONE (05:00)
== END 2022-07-11 09:35 | disposition home or self-care (01) | DRG 774 ==
LOC: YASAS 09:00 → Y6N 11:08
PROVIDERS: ADMIT Allergy & Immunology; ATTEND Surgery
PROC: HZ2ZZZZ Detoxification Services for Substance Abuse Treatment (ICD-10-PCS; principal; 2022-07-08)
DX: F10.230 Alcohol dependence with withdrawal, uncomplicated (principal); F13.230 Sedative, hypnotic or anxiolytic dependence with withdrawal, uncomplicated; F14.20 Cocaine dependence, uncomplicated; F12.20 Cannabis dependence, uncomplicated; F16.10 Hallucinogen abuse, uncomplicated; G40.909 Epilepsy, unspecified, not intractable, without status epilepticus; I10 Essential (primary) hypertension; E11.9 Type 2 diabetes mellitus without complications; Z79.84 Long term (current) use of oral hypoglycemic drugs; K21.9 Gastro-esophageal reflux disease without esophagitis; M17.11 Unilateral primary osteoarthritis, right knee; Z88.8 Allergy status to other drugs, medicaments and biological substances
CPT/HCPCS: 36415; 80053; 80164; 82962; 83036; 85027; 86780; C9803-CS; U0003; U0005

== ENCOUNTER 2022-08-24 09:11 | Inpatient (IN) | payer OTHER ==
[2022-08-24 09:39] VITALS: BMI 26.6
[2022-08-24] MEDS ORDERED: ONDANSETRON *ODT* 4 MG TABLET SL PRN (10:18)
[2022-08-24] MEDS ORDERED: ACETAMINOPHEN 325 MG TABLET (FP) PO PRN ×2 (10:18)
[2022-08-24] MEDS ORDERED: IBUPROFEN 400 MG TABLET (FP) PO PRN (10:18)
[2022-08-24] MEDS ORDERED: LOPERAMIDE HCL 2 MG CAPSULE PO PRN (10:18)
[2022-08-24] MEDS ORDERED: P-EPHED 60MG/TRIPROLIDI 2.5MG TABLET PO PRN (10:18)
[2022-08-24] MEDS ORDERED: BISMUTH SUBSALICYLATE 524 MG/30 ML PO PRN (10:18)
[2022-08-24] MEDS ORDERED: POLYETHYLENE GLYCOL (HEALTHYLAX) 3350 17 GM PACKET PO PRN (10:18)
[2022-08-24] MEDS ORDERED: NALOXONE HCL (KLOXXADO) 8 MG SPRAY NS PRN (10:18)
[2022-08-24] MEDS ORDERED: BENZOCAINE/MENTHOL (CHLORASEPTIC ) LOZENGE MM PRN (10:18)
[2022-08-24] MEDS ORDERED: DICYCLOMINE HCL 10 MG CAPSULE PO PRN (10:18)
[2022-08-24] MEDS ORDERED: MAG HYDROX/AL HYDROX/SIMETH 30 ML UNIT-DOSE CUP PO PRN (10:18)
[2022-08-24] MEDS ORDERED: BENZONATATE 200 MG CAPSULE PO PRN (10:18)
[2022-08-24] MEDS ORDERED: NALOXONE HCL 0.4 MG/ML VIAL IM PRN (10:18)
[2022-08-24] MEDS ORDERED: MAGNESIUM HYDROX 2400MG/30ML ORAL SUSPENSION 30 ML CUP PO PRN (10:18)
[2022-08-24] MEDS ORDERED: guaiFENesin 600 MG TABLET.ER (FP) PO PRN (10:18)
[2022-08-24] MEDS: DIVALPROEX SODIUM 500 MG TABLET E.C. PO SCH ×2 (11:26→22:36)
[2022-08-24] MEDS: FAMOTIDINE 20 MG TABLET PO SCH ×2 (11:26→22:36)
[2022-08-24] MEDS: metFORMIN HCL 500 MG TABLET (FP) PO SCH (17:41)
[2022-08-24] MEDS: THIAMINE HCL 100 MG TABLET (FP) PO SCH (22:36)
[2022-08-24] MEDS: MELATONIN 5 MG TABLETS PO PRN (22:36)
[2022-08-25] MEDS: metFORMIN HCL 500 MG TABLET (FP) PO SCH ×2 (06:33→16:57)
[2022-08-25] MEDS ORDERED: chlordiazePOXIDE HCL 25 MG CAPSULE PO PRN (08:48)
[2022-08-25] MEDS: PRENATAL VITAMINS W/ FOLIC ACID TABLET (FP) PO SCH (10:30)
[2022-08-25] MEDS: amLODIPine BESYLATE 10 MG TABLET (FP) PO SCH (10:30)
[2022-08-25] MEDS: FAMOTIDINE 20 MG TABLET PO SCH ×2 (10:30→22:36)
[2022-08-25] MEDS: DIVALPROEX SODIUM 500 MG TABLET E.C. PO SCH ×2 (10:30→22:36)
[2022-08-25] MEDS: chlordiazePOXIDE HCL 25 MG CAPSULE PO SCH ×3 (10:32→22:36)
[2022-08-25 16:53] LABS: HEMATOCRIT 44.9 % (35.4-49); HEMOGLOBIN 15.4 GM/dL (11.7-16.9); MCH 31.2 pg (25.7-33.7); MCHC 34.4 g/dl (32.0-35.9); MEAN CELL VOLUME 90.7 fl (80-96); MEAN PLT VOLUME 10.7 fl (7.5-11.1); PLATELET COUNT 152 10^3/uL (134-434); RBC 4.95 M/mm3 (4.00-5.60); RDW 14.3 % (11.9-15.9); WHITE BLOOD COUNT 6.4 K/mm3 (4.0-10.0)
[2022-08-25] MEDS: IBUPROFEN 600 MG TABLET (FP) PO PRN (16:57)
[2022-08-25 16:58] LABS: ALBUMIN 3.2 g/dl (3.4-5.0); BLOOD UREA NITROGEN 10.4 mg/dL (7-18)
[2022-08-25 17:02] LABS: TOT PROT 6.6 g/dl (6.4-8.2)
[2022-08-25 17:03] LABS: BILIRUBIN,TOTAL 0.3 mg/dL (0.2-1)
[2022-08-25] MEDS: THIAMINE HCL 100 MG TABLET (FP) PO SCH (22:36)
[2022-08-25] MEDS: MELATONIN 5 MG TABLETS PO PRN (22:39)
[2022-08-26] MEDS: chlordiazePOXIDE HCL 25 MG CAPSULE PO SCH ×4 (05:38→22:28)
[2022-08-26] MEDS: metFORMIN HCL 500 MG TABLET (FP) PO SCH ×2 (06:14→17:17)
[2022-08-26] MEDS ORDERED: TRIMETHOBENZAMIDE HCL 200MG/2ML INJ IM PRN (08:45)
[2022-08-26] MEDS: FAMOTIDINE 20 MG TABLET PO SCH ×2 (10:20→22:27)
[2022-08-26] MEDS: hydrOXYzine PAMOATE 25 MG CAPSULE (FP) PO PRN (10:20)
[2022-08-26] MEDS: amLODIPine BESYLATE 10 MG TABLET (FP) PO SCH (10:20)
[2022-08-26] MEDS: PRENATAL VITAMINS W/ FOLIC ACID TABLET (FP) PO SCH (10:20)
[2022-08-26] MEDS: DIVALPROEX SODIUM 500 MG TABLET E.C. PO SCH ×2 (10:35→22:27)
[2022-08-26] MEDS: IBUPROFEN 600 MG TABLET (FP) PO PRN (17:18)
[2022-08-26] MEDS: THIAMINE HCL 100 MG TABLET (FP) PO SCH (22:27)
[2022-08-26] MEDS: MELATONIN 5 MG TABLETS PO PRN (22:28)
[2022-08-27] MEDS: chlordiazePOXIDE HCL 25 MG CAPSULE PO SCH ×4 (05:13→22:12)
[2022-08-27] MEDS: metFORMIN HCL 500 MG TABLET (FP) PO SCH ×2 (06:10→17:30)
[2022-08-27] MEDS: amLODIPine BESYLATE 10 MG TABLET (FP) PO SCH (10:22)
[2022-08-27] MEDS: FAMOTIDINE 20 MG TABLET PO SCH ×2 (10:22→22:13)
[2022-08-27] MEDS: PRENATAL VITAMINS W/ FOLIC ACID TABLET (FP) PO SCH (10:22)
[2022-08-27] MEDS: DIVALPROEX SODIUM 500 MG TABLET E.C. PO SCH ×2 (10:22→22:13)
[2022-08-27] MEDS: MELATONIN 5 MG TABLETS PO PRN (22:13)
[2022-08-27] MEDS: IBUPROFEN 600 MG TABLET (FP) PO PRN (22:15)
[2022-08-27] MEDS: THIAMINE HCL 100 MG TABLET (FP) PO SCH (22:24)
[2022-08-28] MEDS ORDERED: chlordiazePOXIDE HCL 10 MG CAPSULE PO PRN
[2022-08-28] MEDS: chlordiazePOXIDE HCL 10 MG CAPSULE PO SCH ×4 (05:20→22:07)
[2022-08-28] MEDS: metFORMIN HCL 500 MG TABLET (FP) PO SCH ×2 (06:01→17:21)
[2022-08-28] MEDS: DIVALPROEX SODIUM 500 MG TABLET E.C. PO SCH ×2 (10:19→22:06)
[2022-08-28] MEDS: FAMOTIDINE 20 MG TABLET PO SCH ×2 (10:19→22:07)
[2022-08-28] MEDS: hydrOXYzine PAMOATE 25 MG CAPSULE (FP) PO PRN (10:19)
[2022-08-28] MEDS: amLODIPine BESYLATE 10 MG TABLET (FP) PO SCH (10:19)
[2022-08-28] MEDS: PRENATAL VITAMINS W/ FOLIC ACID TABLET (FP) PO SCH (10:19)
[2022-08-28] MEDS: THIAMINE HCL 100 MG TABLET (FP) PO SCH (22:07)
[2022-08-28] MEDS: MELATONIN 5 MG TABLETS PO PRN (22:09)
[2022-08-29] MEDS: chlordiazePOXIDE HCL 10 MG CAPSULE PO SCH ×2 (05:08→17:05)
[2022-08-29] MEDS: metFORMIN HCL 500 MG TABLET (FP) PO SCH ×2 (06:32→17:05)
[2022-08-29] MEDS: amLODIPine BESYLATE 10 MG TABLET (FP) PO SCH (10:19)
[2022-08-29] MEDS: PRENATAL VITAMINS W/ FOLIC ACID TABLET (FP) PO SCH (10:19)
[2022-08-29] MEDS: FAMOTIDINE 20 MG TABLET PO SCH ×2 (10:19→22:18)
[2022-08-29] MEDS: DIVALPROEX SODIUM 500 MG TABLET E.C. PO SCH ×2 (10:19→22:18)
[2022-08-29] MEDS: hydrOXYzine PAMOATE 25 MG CAPSULE (FP) PO PRN (10:19)
[2022-08-29] MEDS: MELATONIN 5 MG TABLETS PO PRN (22:18)
[2022-08-29] MEDS: THIAMINE HCL 100 MG TABLET (FP) PO SCH (22:18)
[2022-08-30] MEDS ORDERED: chlordiazePOXIDE HCL 10 MG CAPSULE PO ONE (05:00)
[2022-08-30] MEDS: metFORMIN HCL 500 MG TABLET (FP) PO SCH ×2 (06:15→16:52)
[2022-08-30] MEDS: PRENATAL VITAMINS W/ FOLIC ACID TABLET (FP) PO SCH (10:14)
[2022-08-30] MEDS: amLODIPine BESYLATE 10 MG TABLET (FP) PO SCH (10:14)
[2022-08-30] MEDS: FAMOTIDINE 20 MG TABLET PO SCH (10:14)
[2022-08-30] MEDS: DIVALPROEX SODIUM 500 MG TABLET E.C. PO SCH (10:14)
[2022-08-30 16:57] VITALS: BP 135/66; PULSE 88; RESP 16; TEMP 97.8
== END 2022-08-30 17:05 | disposition other institution (70) | DRG 774 ==
LOC: YASAS 09:11 → Y6N 10:26
PROVIDERS: ADMIT Allergy & Immunology; ATTEND Surgery
PROC: HZ2ZZZZ Detoxification Services for Substance Abuse Treatment (ICD-10-PCS; principal; 2022-08-24)
DX: F10.230 Alcohol dependence with withdrawal, uncomplicated (principal); F13.20 Sedative, hypnotic or anxiolytic dependence, uncomplicated; F14.20 Cocaine dependence, uncomplicated; F19.282 Other psychoactive substance dependence with psychoactive substance-induced sleep disorder; F19.280 Other psychoactive substance dependence with psychoactive substance-induced anxiety disorder; I10 Essential (primary) hypertension; K21.9 Gastro-esophageal reflux disease without esophagitis; E11.9 Type 2 diabetes mellitus without complications; Z79.84 Long term (current) use of oral hypoglycemic drugs; M17.11 Unilateral primary osteoarthritis, right knee; Z86.69 Personal history of other diseases of the nervous system and sense organs; Z88.8 Allergy status to other drugs, medicaments and biological substances
CPT/HCPCS: 36415; 80053; 80164; 82962; 85027; 86780; 87635; 87811; C9803-CS; U0003; U0005

== ENCOUNTER 2022-08-30 17:12 | Inpatient (IN) | payer OTHER ==
[2022-08-30 17:59] VITALS: RESP 18
[2022-08-30] MEDS ORDERED: IBUPROFEN 400 MG TABLET (FP) PO PRN (19:43)
[2022-08-30] MEDS ORDERED: BENZOCAINE/MENTHOL (CHLORASEPTIC ) LOZENGE MM PRN (19:43)
[2022-08-30] MEDS ORDERED: COLLOIDAL OATMEAL 1 BAR EACH TP PRN (19:43)
[2022-08-30] MEDS ORDERED: IBUPROFEN 600 MG TABLET (FP) PO PRN (19:43)
[2022-08-30] MEDS ORDERED: LOPERAMIDE HCL 2 MG CAPSULE PO PRN (19:43)
[2022-08-30] MEDS ORDERED: AMMONIUM LACTATE 12% LOTION 225 GM BOTTLE TP PRN (19:43)
[2022-08-30] MEDS ORDERED: ACETAMINOPHEN 325 MG TABLET (FP) PO PRN (19:43)
[2022-08-30] MEDS ORDERED: MAGNESIUM HYDROX 2400MG/30ML ORAL SUSPENSION 30 ML CUP PO PRN (19:43)
[2022-08-30] MEDS ORDERED: NALOXONE HCL 0.4 MG/ML VIAL IM PRN (19:43)
[2022-08-30] MEDS ORDERED: guaiFENesin 600 MG TABLET.ER (FP) PO PRN (19:43)
[2022-08-30] MEDS ORDERED: NALOXONE HCL (KLOXXADO) 8 MG SPRAY NS PRN (19:43)
[2022-08-30] MEDS ORDERED: POLYETHYLENE GLYCOL (HEALTHYLAX) 3350 17 GM PACKET PO PRN (19:43)
[2022-08-30] MEDS ORDERED: hydrOXYzine PAMOATE 25 MG CAPSULE (FP) PO PRN (19:43)
[2022-08-30] MEDS ORDERED: NICOTINE 10 MG CARTRIDGE (INHALER) IH PRN (19:43)
[2022-08-30] MEDS ORDERED: MAG HYDROX/AL HYDROX/SIMETH 30 ML UNIT-DOSE CUP PO PRN (19:43)
[2022-08-30] MEDS ORDERED: BENZONATATE 200 MG CAPSULE PO PRN (19:43)
[2022-08-30] MEDS: DIVALPROEX SODIUM 500 MG TABLET E.C. PO SCH (21:27)
[2022-08-30] MEDS: THIAMINE HCL 100 MG TABLET (FP) PO SCH (21:27)
[2022-08-30] MEDS: MELATONIN 5 MG TABLETS PO SCH (21:27)
[2022-08-30] MEDS: FAMOTIDINE 20 MG TABLET PO SCH (21:27)
[2022-08-31] MEDS: metFORMIN HCL 500 MG TABLET (FP) PO SCH ×2 (06:28→16:38)
[2022-08-31] MEDS: FAMOTIDINE 20 MG TABLET PO SCH ×2 (09:33→21:19)
[2022-08-31] MEDS: DIVALPROEX SODIUM 500 MG TABLET E.C. PO SCH ×2 (09:33→21:19)
[2022-08-31] MEDS: amLODIPine BESYLATE 10 MG TABLET (FP) PO SCH (09:33)
[2022-08-31] MEDS: PRENATAL VITAMINS W/ FOLIC ACID TABLET (FP) PO SCH (09:33)
[2022-08-31 11:12] LABS: EPI CELLS 3 /uL (0-25.1); HYALINE CASTS 0 /uL (0-3.1); PH,URINE 6.5 (5.0-8.0); URINE APPEARANCE CLEAR; URINE BACTERIA 5 /uL (0-1359); URINE BILIRUBIN NEGATIVE (NEGATIVE); URINE COLOR YELLOW; URINE GLUCOSE (UA) TRACE (NEGATIVE); URINE KETONE NEGATIVE (NEGATIVE); URINE LEUK ESTERASE NEGATIVE (NEGATIVE); URINE NITRITE NEGATIVE (NEGATIVE); URINE PROTEIN 1+ (NEGATIVE); URINE RBC 1 /uL (0-23.9); URINE UROBILINOGEN 0.2 mg/dL (0.2-1.0); URINE WBC 6 /uL (0-25.8)
[2022-08-31] MEDS: MELATONIN 5 MG TABLETS PO SCH (21:19)
[2022-08-31] MEDS: THIAMINE HCL 100 MG TABLET (FP) PO SCH (21:19)
[2022-09-01] MEDS: metFORMIN HCL 500 MG TABLET (FP) PO SCH ×2 (07:03→16:31)
[2022-09-01] MEDS: amLODIPine BESYLATE 10 MG TABLET (FP) PO SCH (09:44)
[2022-09-01] MEDS: DIVALPROEX SODIUM 500 MG TABLET E.C. PO SCH ×2 (09:44→21:24)
[2022-09-01] MEDS: FAMOTIDINE 20 MG TABLET PO SCH ×2 (09:44→21:23)
[2022-09-01] MEDS: PRENATAL VITAMINS W/ FOLIC ACID TABLET (FP) PO SCH (09:44)
[2022-09-01 10:59] LABS: POTASSIUM 3.7 mmol/L (3.5-5.1)
[2022-09-01 11:06] LABS: CALCIUM 9.8 mg/dL (8.5-10.1)
[2022-09-01 11:07] LABS: BLOOD UREA NITROGEN 16.5 mg/dL (7-18)
[2022-09-01 11:10] LABS: CREATININE 1.2 mg/dL (0.55-1.3)
[2022-09-01 11:11] LABS: BILIRUBIN,TOTAL 0.4 mg/dL (0.2-1)
[2022-09-01 11:12] LABS: TOT PROT 8.1 g/dl (6.4-8.2)
[2022-09-01 11:20] LABS: ALBUMIN 4.1 g/dl (3.4-5.0)
[2022-09-01 11:22] LABS: HEMATOCRIT 49.3 % (35.4-49); HEMOGLOBIN 16.4 GM/dL (11.7-16.9); MCH 30.3 pg (25.7-33.7); MCHC 33.2 g/dl (32.0-35.9); MEAN CELL VOLUME 91.3 fl (80-96); MEAN PLT VOLUME 10.8 fl (7.5-11.1); PLATELET COUNT 202 10^3/uL (134-434); RDW 14.6 % (11.9-15.9); WHITE BLOOD COUNT 6.8 K/mm3 (4.0-10.0)
[2022-09-01 11:31] LABS: SYPHILIS W/ RPR CONF NON-REACTIVE (NONREACTIVE)
[2022-09-01] MEDS: MELATONIN 5 MG TABLETS PO SCH (21:24)
[2022-09-01] MEDS: THIAMINE HCL 100 MG TABLET (FP) PO SCH (21:24)
[2022-09-02] MEDS: metFORMIN HCL 500 MG TABLET (FP) PO SCH ×2 (07:11→16:36)
[2022-09-02] MEDS: PRENATAL VITAMINS W/ FOLIC ACID TABLET (FP) PO SCH (09:56)
[2022-09-02] MEDS: FAMOTIDINE 20 MG TABLET PO SCH ×2 (09:57→21:21)
[2022-09-02] MEDS: DIVALPROEX SODIUM 500 MG TABLET E.C. PO SCH ×2 (09:57→21:21)
[2022-09-02] MEDS: amLODIPine BESYLATE 10 MG TABLET (FP) PO SCH (09:57)
[2022-09-02] MEDS: THIAMINE HCL 100 MG TABLET (FP) PO SCH (21:21)
[2022-09-02] MEDS: MELATONIN 5 MG TABLETS PO SCH (21:21)
[2022-09-03] MEDS: metFORMIN HCL 500 MG TABLET (FP) PO SCH ×2 (06:53→16:28)
[2022-09-03] MEDS: PRENATAL VITAMINS W/ FOLIC ACID TABLET (FP) PO SCH (09:54)
[2022-09-03] MEDS: amLODIPine BESYLATE 10 MG TABLET (FP) PO SCH (09:54)
[2022-09-03] MEDS: FAMOTIDINE 20 MG TABLET PO SCH ×2 (09:54→21:22)
[2022-09-03] MEDS: DIVALPROEX SODIUM 500 MG TABLET E.C. PO SCH ×2 (09:54→21:22)
[2022-09-03] MEDS: THIAMINE HCL 100 MG TABLET (FP) PO SCH (21:22)
[2022-09-03] MEDS: MELATONIN 5 MG TABLETS PO SCH (21:22)
[2022-09-04] MEDS: metFORMIN HCL 500 MG TABLET (FP) PO SCH (06:06)
[2022-09-04 07:13] VITALS: TEMP 97.3
[2022-09-04] MEDS: amLODIPine BESYLATE 10 MG TABLET (FP) PO SCH (09:27)
[2022-09-04] MEDS: FAMOTIDINE 20 MG TABLET PO SCH (09:27)
[2022-09-04] MEDS: PRENATAL VITAMINS W/ FOLIC ACID TABLET (FP) PO SCH (09:27)
[2022-09-04] MEDS: DIVALPROEX SODIUM 500 MG TABLET E.C. PO SCH (09:27)
[2022-09-04 10:18] VITALS: BP 116/76; PULSE 99
== END 2022-09-04 10:18 | disposition home or self-care (01) | DRG 772 ==
LOC: YASAS 17:12 → Y5N 17:43
PROVIDERS: ADMIT Allergy & Immunology; ATTEND Psychiatry & Neurology Pain Medicine
PROC: HZ42ZZZ Group Counseling for Substance Abuse Treatment, Cognitive-Behavioral (ICD-10-PCS; principal; 2022-08-30)
DX: F10.20 Alcohol dependence, uncomplicated (principal); F14.20 Cocaine dependence, uncomplicated; F13.20 Sedative, hypnotic or anxiolytic dependence, uncomplicated; F12.20 Cannabis dependence, uncomplicated; F19.282 Other psychoactive substance dependence with psychoactive substance-induced sleep disorder; I10 Essential (primary) hypertension; K21.9 Gastro-esophageal reflux disease without esophagitis; E11.9 Type 2 diabetes mellitus without complications; Z79.84 Long term (current) use of oral hypoglycemic drugs; M17.11 Unilateral primary osteoarthritis, right knee; Z86.69 Personal history of other diseases of the nervous system and sense organs; Z88.0 Allergy status to penicillin
CPT/HCPCS: 36415; 80053; 81003; 82962; 85027; 86780; 86803

== ENCOUNTER 2022-11-13 08:49 | Inpatient (IN) | payer OTHER ==
[2022-11-13 09:37] VITALS: BMI 27.6
[2022-11-13] MEDS ORDERED: LORazepam 1 MG TABLET PO PRN (10:53)
[2022-11-13] MEDS ORDERED: hydrOXYzine PAMOATE 25 MG CAPSULE (FP) PO PRN (10:53)
[2022-11-13] MEDS ORDERED: ACETAMINOPHEN 325 MG TABLET (FP) PO PRN (10:53)
[2022-11-13] MEDS ORDERED: BENZOCAINE/MENTHOL (CHLORASEPTIC ) LOZENGE MM PRN (10:53)
[2022-11-13] MEDS ORDERED: NALOXONE HCL 0.4 MG/ML VIAL IM PRN (10:53)
[2022-11-13] MEDS ORDERED: IBUPROFEN 600 MG TABLET (FP) PO PRN (10:53)
[2022-11-13] MEDS ORDERED: LOPERAMIDE HCL 2 MG CAPSULE PO PRN (10:53)
[2022-11-13] MEDS ORDERED: MAG HYDROX/AL HYDROX/SIMETH 30 ML UNIT-DOSE CUP PO PRN (10:53)
[2022-11-13] MEDS ORDERED: guaiFENesin 600 MG TABLET.ER (FP) PO PRN (10:53)
[2022-11-13] MEDS ORDERED: BENZONATATE 200 MG CAPSULE PO PRN (10:53)
[2022-11-13] MEDS ORDERED: POLYETHYLENE GLYCOL (HEALTHYLAX) 3350 17 GM PACKET PO PRN (10:53)
[2022-11-13] MEDS ORDERED: DICYCLOMINE HCL 10 MG CAPSULE PO PRN (10:53)
[2022-11-13] MEDS ORDERED: METHOCARBAMOL 500 MG TABLET PO PRN (10:53)
[2022-11-13] MEDS ORDERED: ONDANSETRON *ODT* 4 MG TABLET SL PRN (10:53)
[2022-11-13] MEDS ORDERED: NALOXONE HCL (KLOXXADO) 8 MG SPRAY NS PRN (10:53)
[2022-11-13] MEDS ORDERED: MAGNESIUM HYDROX 2400MG/30ML ORAL SUSPENSION 30 ML CUP PO PRN (10:53)
[2022-11-13] MEDS ORDERED: LORazepam 2 MG TABLET PO ONE (10:53)
[2022-11-13] MEDS ORDERED: BISMUTH SUBSALICYLATE 524 MG/30 ML PO PRN (10:53)
[2022-11-13] MEDS ORDERED: IBUPROFEN 400 MG TABLET (FP) PO PRN (10:53)
[2022-11-13] MEDS ORDERED: LORazepam 2 MG TABLET ONE (12:12)
[2022-11-13] MEDS ORDERED: PRENATAL VITAMINS W/ FOLIC ACID TABLET (FP) PO ONE (12:13)
[2022-11-13] MEDS: PRENATAL VITAMINS W/ FOLIC ACID TABLET (FP) PO SCH (12:25)
[2022-11-13 13:44] LABS: HEMATOCRIT 42.3 % (35.4-49); HEMOGLOBIN 14.1 GM/dL (11.7-16.9); MCHC 33.2 g/dl (32.0-35.9); MEAN CELL VOLUME 90.2 fl (80-96); MEAN PLT VOLUME 10.4 fl (7.5-11.1); PLATELET COUNT 227 10^3/uL (134-434); RBC 4.69 M/mm3 (4.00-5.60); RDW 13.7 % (11.9-15.9); WHITE BLOOD COUNT 12.8 K/mm3 (4.0-10.0)
[2022-11-13 13:53] LABS: POTASSIUM 4.1 mmol/L (3.5-5.1)
[2022-11-13 14:09] LABS: ALBUMIN 4.3 g/dl (3.4-5.0); BLOOD UREA NITROGEN 44.4 mg/dL (7-18)
[2022-11-13 14:12] LABS: CREATININE 2.7 mg/dL (0.55-1.3)
[2022-11-13 14:14] LABS: TOT PROT 8.2 g/dl (6.4-8.2)
[2022-11-13 14:15] LABS: BILIRUBIN,TOTAL 1.4 mg/dL (0.2-1)
[2022-11-13] MEDS: LORazepam 2 MG TABLET PO SCH ×2 (17:30→22:11)
[2022-11-13] MEDS: metFORMIN HCL 500 MG TABLET (FP) PO SCH (17:31)
[2022-11-13] MEDS: INSULIN SLIDING SCALE (NOVOLOG) 1 VIAL SQ SCH (17:34)
[2022-11-13] MEDS: FAMOTIDINE 20 MG TABLET PO SCH (22:11)
[2022-11-13] MEDS: THIAMINE HCL 100 MG TABLET (FP) PO SCH (22:11)
[2022-11-13] MEDS: DIVALPROEX SODIUM 500 MG TABLET E.C. PO SCH (22:11)
[2022-11-13] MEDS: MELATONIN 5 MG TABLETS PO SCH (22:11)
[2022-11-14] MEDS: LORazepam 2 MG TABLET PO SCH ×4 (05:41→22:39)
[2022-11-14] MEDS: metFORMIN HCL 500 MG TABLET (FP) PO SCH ×2 (06:17→17:21)
[2022-11-14] MEDS: INSULIN SLIDING SCALE (NOVOLOG) 1 VIAL SQ SCH ×3 (06:18→17:24)
[2022-11-14] MEDS: DIVALPROEX SODIUM 500 MG TABLET E.C. PO SCH ×2 (10:13→22:40)
[2022-11-14] MEDS: PRENATAL VITAMINS W/ FOLIC ACID TABLET (FP) PO SCH (10:13)
[2022-11-14] MEDS: amLODIPine BESYLATE 10 MG TABLET (FP) PO SCH (10:13)
[2022-11-14] MEDS: FAMOTIDINE 20 MG TABLET PO SCH ×2 (10:13→22:40)
[2022-11-14] MEDS ORDERED: INSULIN (NOVOLOG) ASPART 100 UNITS/ML 10ML VIAL ONE (17:22)
[2022-11-14] MEDS: MELATONIN 5 MG TABLETS PO SCH (22:40)
[2022-11-14] MEDS: THIAMINE HCL 100 MG TABLET (FP) PO SCH (22:40)
[2022-11-15] MEDS: LORazepam 1 MG TABLET PO SCH ×4 (05:16→22:25)
[2022-11-15] MEDS: INSULIN SLIDING SCALE (NOVOLOG) 1 VIAL SQ SCH ×3 (06:05→17:27)
[2022-11-15] MEDS: metFORMIN HCL 500 MG TABLET (FP) PO SCH ×2 (06:05→17:25)
[2022-11-15] MEDS: amLODIPine BESYLATE 10 MG TABLET (FP) PO SCH (10:28)
[2022-11-15] MEDS: FAMOTIDINE 20 MG TABLET PO SCH ×2 (10:28→22:26)
[2022-11-15] MEDS: PRENATAL VITAMINS W/ FOLIC ACID TABLET (FP) PO SCH (10:28)
[2022-11-15] MEDS: DIVALPROEX SODIUM 500 MG TABLET E.C. PO SCH ×2 (10:28→22:26)
[2022-11-15] MEDS: THIAMINE HCL 100 MG TABLET (FP) PO SCH (22:26)
[2022-11-15] MEDS: MELATONIN 5 MG TABLETS PO SCH (22:26)
[2022-11-16] MEDS ORDERED: LORazepam 0.5 MG TABLET PO PRN
[2022-11-16] MEDS: LORazepam 0.5 MG TABLET PO SCH ×4 (05:19→22:15)
[2022-11-16] MEDS: metFORMIN HCL 500 MG TABLET (FP) PO SCH ×2 (07:57→17:15)
[2022-11-16] MEDS: INSULIN SLIDING SCALE (NOVOLOG) 1 VIAL SQ SCH ×3 (07:58→16:55)
[2022-11-16] MEDS: PRENATAL VITAMINS W/ FOLIC ACID TABLET (FP) PO SCH (10:11)
[2022-11-16] MEDS: DIVALPROEX SODIUM 500 MG TABLET E.C. PO SCH ×2 (10:11→22:14)
[2022-11-16] MEDS: FAMOTIDINE 20 MG TABLET PO SCH ×2 (10:11→22:14)
[2022-11-16] MEDS: amLODIPine BESYLATE 10 MG TABLET (FP) PO SCH (10:11)
[2022-11-16] MEDS: LACTULOSE 20 GM/30 ML UDC (FOR ORAL USE ONLY) PO SCH ×3 (13:17→22:17)
[2022-11-16] MEDS: THIAMINE HCL 100 MG TABLET (FP) PO SCH (22:14)
[2022-11-16] MEDS: MELATONIN 5 MG TABLETS PO SCH (22:15)
[2022-11-17] MEDS ORDERED: LORazepam 0.5 MG TABLET PO ONE (05:00)
[2022-11-17 06:20] VITALS: RESP 18
[2022-11-17] MEDS: metFORMIN HCL 500 MG TABLET (FP) PO SCH (07:30)
[2022-11-17] MEDS: INSULIN SLIDING SCALE (NOVOLOG) 1 VIAL SQ SCH ×2 (07:30→11:23)
[2022-11-17 09:28] VITALS: BP 158/93; PULSE 118; TEMP 97.1
[2022-11-17] MEDS: PRENATAL VITAMINS W/ FOLIC ACID TABLET (FP) PO SCH (09:38)
[2022-11-17] MEDS: amLODIPine BESYLATE 10 MG TABLET (FP) PO SCH (09:39)
[2022-11-17] MEDS: DIVALPROEX SODIUM 500 MG TABLET E.C. PO SCH (09:39)
[2022-11-17] MEDS: FAMOTIDINE 20 MG TABLET PO SCH (09:39)
[2022-11-17] MEDS: LACTULOSE 20 GM/30 ML UDC (FOR ORAL USE ONLY) PO SCH (09:41)
== END 2022-11-17 11:00 | disposition home or self-care (01) | DRG 774 ==
LOC: YASAS 08:49 → Y6N 12:28
PROVIDERS: ADMIT Allergy & Immunology; ATTEND Allergy & Immunology
PROC: HZ2ZZZZ Detoxification Services for Substance Abuse Treatment (ICD-10-PCS; principal; 2022-11-13)
DX: F10.230 Alcohol dependence with withdrawal, uncomplicated (principal); F14.20 Cocaine dependence, uncomplicated; F12.20 Cannabis dependence, uncomplicated; F16.10 Hallucinogen abuse, uncomplicated; F19.24 Other psychoactive substance dependence with psychoactive substance-induced mood disorder; F19.282 Other psychoactive substance dependence with psychoactive substance-induced sleep disorder; F41.1 Generalized anxiety disorder; I12.9 Hypertensive chronic kidney disease with stage 1 through stage 4 chronic kidney disease, or unspecified chronic kidney disease; K21.9 Gastro-esophageal reflux disease without esophagitis; N18.9 Chronic kidney disease, unspecified; E11.9 Type 2 diabetes mellitus without complications; Z79.84 Long term (current) use of oral hypoglycemic drugs; M17.11 Unilateral primary osteoarthritis, right knee; R79.89 Other specified abnormal findings of blood chemistry; Z88.8 Allergy status to other drugs, medicaments and biological substances
CPT/HCPCS: 36415; 80053; 82140; 82962; 85027; 86780; 87635; 87811; Q0162

== ENCOUNTER 2022-12-15 12:01 | Inpatient (IN) | payer OTHER ==
[2022-12-15 13:37] VITALS: BMI 23.8
[2022-12-15] MEDS ORDERED: BISMUTH SUBSALICYLATE 262 MG/15 ML BTL PO PRN (14:41)
[2022-12-15] MEDS ORDERED: NALOXONE HCL (KLOXXADO) 8 MG SPRAY NS PRN (14:41)
[2022-12-15] MEDS ORDERED: BENZONATATE 200 MG CAPSULE PO PRN (14:41)
[2022-12-15] MEDS ORDERED: MAG HYDROX/AL HYDROX/SIMETH 30 ML UNIT-DOSE CUP PO PRN (14:41)
[2022-12-15] MEDS ORDERED: LOPERAMIDE HCL 2 MG CAPSULE PO PRN (14:41)
[2022-12-15] MEDS ORDERED: ONDANSETRON *ODT* 4 MG TABLET SL PRN (14:41)
[2022-12-15] MEDS ORDERED: BENZOCAINE/MENTHOL (CHLORASEPTIC ) LOZENGE MM PRN (14:41)
[2022-12-15] MEDS ORDERED: MAGNESIUM HYDROX 2400MG/30ML ORAL SUSPENSION 30 ML CUP PO PRN (14:41)
[2022-12-15] MEDS ORDERED: ACETAMINOPHEN 325 MG TABLET (FP) PO PRN (14:41)
[2022-12-15] MEDS ORDERED: NALOXONE HCL 0.4 MG/ML VIAL IM PRN (14:41)
[2022-12-15] MEDS ORDERED: IBUPROFEN 600 MG TABLET (FP) PO PRN (14:41)
[2022-12-15] MEDS ORDERED: IBUPROFEN 400 MG TABLET (FP) PO PRN (14:41)
[2022-12-15] MEDS ORDERED: POLYETHYLENE GLYCOL (HEALTHYLAX) 3350 17 GM PACKET PO PRN (14:41)
[2022-12-15] MEDS ORDERED: guaiFENesin 600 MG TABLET.ER (FP) PO PRN (14:41)
[2022-12-15] MEDS ORDERED: diazePAM 5 MG TABLET PO PRN (14:44)
[2022-12-15] MEDS: diazePAM 5 MG TABLET PO SCH ×2 (17:24→22:39)
[2022-12-15] MEDS: THIAMINE HCL 100 MG TABLET (FP) PO SCH (22:38)
[2022-12-15] MEDS: hydrOXYzine PAMOATE 25 MG CAPSULE (FP) PO PRN (22:38)
[2022-12-15] MEDS: MELATONIN 5 MG TABLETS PO SCH (22:38)
[2022-12-16] MEDS: diazePAM 5 MG TABLET PO SCH ×4 (05:44→22:19)
[2022-12-16] MEDS: PRENATAL VITAMINS W/ FOLIC ACID TABLET (FP) PO SCH (10:18)
[2022-12-16] MEDS: FAMOTIDINE 20 MG TABLET PO SCH ×2 (10:18→22:19)
[2022-12-16] MEDS: amLODIPine BESYLATE 10 MG TABLET (FP) PO SCH (10:18)
[2022-12-16] MEDS: DIVALPROEX SODIUM 500 MG TABLET E.C. PO SCH ×2 (10:19→22:19)
[2022-12-16 11:35] LABS: HEMATOCRIT 43.3 % (35.4-49); HEMOGLOBIN 15.1 GM/dL (11.7-16.9); MCH 31.3 pg (25.7-33.7); MCHC 34.8 g/dl (32.0-35.9); MEAN CELL VOLUME 89.9 fl (80-96); MEAN PLT VOLUME 9.3 fl (7.5-11.1); PLATELET COUNT 192 10^3/uL (134-434); RBC 4.82 M/mm3 (4.00-5.60); RDW 14.6 % (11.9-15.9); WHITE BLOOD COUNT 4.6 K/mm3 (4.0-10.0)
[2022-12-16 11:42] LABS: POTASSIUM 3.5 mmol/L (3.5-5.1)
[2022-12-16 11:51] LABS: CALCIUM 8.8 mg/dL (8.5-10.1)
[2022-12-16 11:55] LABS: ALBUMIN 2.9 g/dl (3.4-5.0); BLOOD UREA NITROGEN 10.2 mg/dL (7-18); CREATININE 1.1 mg/dL (0.55-1.3)
[2022-12-16 11:56] LABS: BILIRUBIN,TOTAL 0.9 mg/dL (0.2-1); TOT PROT 6.2 g/dl (6.4-8.2)
[2022-12-16] MEDS: metFORMIN HCL 500 MG TABLET (FP) PO SCH (16:53)
[2022-12-16] MEDS: THIAMINE HCL 100 MG TABLET (FP) PO SCH (22:19)
[2022-12-16] MEDS: MELATONIN 5 MG TABLETS PO SCH (22:19)
[2022-12-16] MEDS: hydrOXYzine PAMOATE 25 MG CAPSULE (FP) PO PRN (22:20)
[2022-12-17] MEDS: diazePAM 5 MG TABLET PO SCH ×3 (05:40→22:38)
[2022-12-17] MEDS: metFORMIN HCL 500 MG TABLET (FP) PO SCH ×2 (06:36→17:20)
[2022-12-17] MEDS: DIVALPROEX SODIUM 500 MG TABLET E.C. PO SCH ×2 (10:11→22:37)
[2022-12-17] MEDS: FAMOTIDINE 20 MG TABLET PO SCH ×2 (10:12→22:37)
[2022-12-17] MEDS: amLODIPine BESYLATE 10 MG TABLET (FP) PO SCH (10:12)
[2022-12-17] MEDS: PRENATAL VITAMINS W/ FOLIC ACID TABLET (FP) PO SCH (10:12)
[2022-12-17] MEDS: MELATONIN 5 MG TABLETS PO SCH (22:37)
[2022-12-17] MEDS: THIAMINE HCL 100 MG TABLET (FP) PO SCH (22:37)
[2022-12-18] MEDS ORDERED: diazePAM 5 MG TABLET PO SCH (06:00)
[2022-12-18 06:01] VITALS: RESP 16; TEMP 97.7
[2022-12-18] MEDS: metFORMIN HCL 500 MG TABLET (FP) PO SCH (06:43)
[2022-12-18] MEDS: FAMOTIDINE 20 MG TABLET PO SCH (09:12)
[2022-12-18] MEDS: amLODIPine BESYLATE 10 MG TABLET (FP) PO SCH (09:12)
[2022-12-18] MEDS: DIVALPROEX SODIUM 500 MG TABLET E.C. PO SCH (09:12)
[2022-12-18] MEDS: PRENATAL VITAMINS W/ FOLIC ACID TABLET (FP) PO SCH (09:13)
[2022-12-18 09:27] VITALS: BP 129/84; PULSE 96
[2022-12-19] MEDS ORDERED: diazePAM 5 MG TABLET PO ONE (06:00)
== END 2022-12-18 13:05 | disposition home or self-care (01) | DRG 775 ==
LOC: YASAS 12:01 → Y3N 15:11
PROVIDERS: ADMIT Allergy & Immunology; ATTEND Surgery
PROC: HZ2ZZZZ Detoxification Services for Substance Abuse Treatment (ICD-10-PCS; principal; 2022-12-15)
DX: F10.230 Alcohol dependence with withdrawal, uncomplicated (principal); F13.20 Sedative, hypnotic or anxiolytic dependence, uncomplicated; F12.20 Cannabis dependence, uncomplicated; U07.1 COVID-19; K21.9 Gastro-esophageal reflux disease without esophagitis; E11.9 Type 2 diabetes mellitus without complications; Z79.84 Long term (current) use of oral hypoglycemic drugs
CPT/HCPCS: 36415; 80053; 82962; 85027; 86780; 87635; 87811; 93005; 93010

== ENCOUNTER 2023-01-06 09:55 | Inpatient (IN) | payer OTHER ==
[2023-01-06 10:28] VITALS: BMI 27.1
[2023-01-06] MEDS ORDERED: guaiFENesin 600 MG TABLET.ER (FP) PO PRN (10:54)
[2023-01-06] MEDS ORDERED: ONDANSETRON *ODT* 4 MG TABLET SL PRN (10:54)
[2023-01-06] MEDS ORDERED: IBUPROFEN 400 MG TABLET (FP) PO PRN (10:54)
[2023-01-06] MEDS ORDERED: DICYCLOMINE HCL 10 MG CAPSULE PO PRN (10:54)
[2023-01-06] MEDS ORDERED: LOPERAMIDE HCL 2 MG CAPSULE PO PRN (10:54)
[2023-01-06] MEDS ORDERED: MAGNESIUM HYDROX 2400MG/30ML ORAL SUSPENSION 30 ML CUP PO PRN (10:54)
[2023-01-06] MEDS ORDERED: POLYETHYLENE GLYCOL (HEALTHYLAX) 3350 17 GM PACKET PO PRN (10:54)
[2023-01-06] MEDS ORDERED: BENZOCAINE/MENTHOL (CHLORASEPTIC ) LOZENGE MM PRN (10:54)
[2023-01-06] MEDS ORDERED: IBUPROFEN 600 MG TABLET (FP) PO PRN (10:54)
[2023-01-06] MEDS ORDERED: ACETAMINOPHEN 325 MG TABLET (FP) PO PRN (10:54)
[2023-01-06] MEDS ORDERED: BENZONATATE 200 MG CAPSULE PO PRN (10:54)
[2023-01-06] MEDS ORDERED: MAG HYDROX/AL HYDROX/SIMETH 30 ML UNIT-DOSE CUP PO PRN (10:54)
[2023-01-06] MEDS ORDERED: BISMUTH SUBSALICYLATE 262 MG/15 ML BTL PO PRN (10:54)
[2023-01-06] MEDS ORDERED: NALOXONE HCL (KLOXXADO) 8 MG SPRAY NS PRN (10:54)
[2023-01-06] MEDS ORDERED: hydrOXYzine PAMOATE 25 MG CAPSULE (FP) PO PRN (10:54)
[2023-01-06] MEDS ORDERED: NALOXONE HCL 0.4 MG/ML VIAL IM PRN (10:54)
[2023-01-06] MEDS ORDERED: diazePAM 5 MG TABLET PO PRN (10:58)
[2023-01-06] MEDS ORDERED: INSULIN SLIDING SCALE (NOVOLOG) 1 VIAL SQ PRN (11:08)
[2023-01-06] MEDS ORDERED: diazePAM 5 MG TABLET ONE (11:29)
[2023-01-06] MEDS: diazePAM 5 MG TABLET PO SCH ×3 (11:32→22:48)
[2023-01-06] MEDS: THIAMINE HCL 100 MG TABLET (FP) PO SCH (22:48)
[2023-01-06] MEDS: MELATONIN 5 MG TABLETS PO SCH (22:49)
[2023-01-07] MEDS: diazePAM 5 MG TABLET PO SCH ×4 (05:38→22:19)
[2023-01-07] MEDS: PRENATAL VITAMINS W/ FOLIC ACID TABLET (FP) PO SCH (10:12)
[2023-01-07] MEDS: METHOCARBAMOL 500 MG TABLET PO PRN (10:15)
[2023-01-07] MEDS: FAMOTIDINE 20 MG TABLET PO SCH ×2 (10:30→22:19)
[2023-01-07] MEDS: amLODIPine BESYLATE 10 MG TABLET (FP) PO SCH (10:31)
[2023-01-07 10:42] LABS: HEMATOCRIT 44.6 % (35.4-49); HEMOGLOBIN 15.5 GM/dL (11.7-16.9); MCH 31.7 pg (25.7-33.7); MCHC 34.8 g/dl (32.0-35.9); MEAN CELL VOLUME 90.9 fl (80-96); MEAN PLT VOLUME 10.1 fl (7.5-11.1); PLATELET COUNT 175 10^3/uL (134-434); RBC 4.91 M/mm3 (4.00-5.60); WHITE BLOOD COUNT 4.4 K/mm3 (4.0-10.0)
[2023-01-07 10:47] LABS: POTASSIUM 3.3 mmol/L (3.5-5.1)
[2023-01-07 10:48] LABS: CALCIUM 8.4 mg/dL (8.5-10.1)
[2023-01-07 10:52] LABS: BLOOD UREA NITROGEN 11.4 mg/dL (7-18); CREATININE 1.1 mg/dL (0.55-1.3)
[2023-01-07 10:54] LABS: BILIRUBIN,TOTAL 0.8 mg/dL (0.2-1)
[2023-01-07 10:57] LABS: TOT PROT 6.4 g/dl (6.4-8.2)
[2023-01-07] MEDS: LISINOPRIL 10 MG TABLET PO SCH (15:09)
[2023-01-07] MEDS: metFORMIN HCL 500 MG TABLET (FP) PO SCH (17:12)
[2023-01-07] MEDS: MELATONIN 5 MG TABLETS PO SCH (22:19)
[2023-01-07] MEDS: THIAMINE HCL 100 MG TABLET (FP) PO SCH (22:19)
[2023-01-07] MEDS ORDERED: POTASSIUM CHLORIDE TABS 20 MEQ TABLET.ER (FP) PO ONE (23:20)
[2023-01-08] MEDS: diazePAM 5 MG TABLET PO SCH ×3 (05:44→22:25)
[2023-01-08] MEDS: metFORMIN HCL 500 MG TABLET (FP) PO SCH ×2 (06:02→17:32)
[2023-01-08] MEDS: FAMOTIDINE 20 MG TABLET PO SCH ×2 (09:30→22:24)
[2023-01-08] MEDS: amLODIPine BESYLATE 10 MG TABLET (FP) PO SCH (09:30)
[2023-01-08] MEDS: PRENATAL VITAMINS W/ FOLIC ACID TABLET (FP) PO SCH (09:30)
[2023-01-08] MEDS: LISINOPRIL 10 MG TABLET PO SCH (09:30)
[2023-01-08] MEDS: LACTULOSE 20 GM/30 ML UDC (FOR ORAL USE ONLY) PO SCH ×3 (14:07→22:23)
[2023-01-08] MEDS: MELATONIN 5 MG TABLETS PO SCH (22:24)
[2023-01-08] MEDS: THIAMINE HCL 100 MG TABLET (FP) PO SCH (22:24)
[2023-01-09] MEDS: diazePAM 5 MG TABLET PO SCH ×2 (05:51→17:49)
[2023-01-09] MEDS: metFORMIN HCL 500 MG TABLET (FP) PO SCH ×2 (06:01→17:48)
[2023-01-09] MEDS: LACTULOSE 20 GM/30 ML UDC (FOR ORAL USE ONLY) PO SCH ×4 (10:38→22:39)
[2023-01-09] MEDS: PRENATAL VITAMINS W/ FOLIC ACID TABLET (FP) PO SCH (10:38)
[2023-01-09] MEDS: METHOCARBAMOL 500 MG TABLET PO PRN (10:39)
[2023-01-09] MEDS: LISINOPRIL 10 MG TABLET PO SCH (10:39)
[2023-01-09] MEDS: amLODIPine BESYLATE 10 MG TABLET (FP) PO SCH (10:39)
[2023-01-09] MEDS: FAMOTIDINE 20 MG TABLET PO SCH ×2 (10:39→22:39)
[2023-01-09] MEDS: THIAMINE HCL 100 MG TABLET (FP) PO SCH (22:39)
[2023-01-09] MEDS: MELATONIN 5 MG TABLETS PO SCH (22:39)
[2023-01-10] MEDS ORDERED: diazePAM 5 MG TABLET PO ONE (06:00)
[2023-01-10] MEDS: metFORMIN HCL 500 MG TABLET (FP) PO SCH (06:18)
[2023-01-10] MEDS: LACTULOSE 20 GM/30 ML UDC (FOR ORAL USE ONLY) PO SCH (09:23)
[2023-01-10] MEDS: FAMOTIDINE 20 MG TABLET PO SCH (09:23)
[2023-01-10] MEDS: amLODIPine BESYLATE 10 MG TABLET (FP) PO SCH (09:23)
[2023-01-10] MEDS: PRENATAL VITAMINS W/ FOLIC ACID TABLET (FP) PO SCH (09:24)
[2023-01-10] MEDS: LISINOPRIL 10 MG TABLET PO SCH (09:24)
[2023-01-10 09:39] VITALS: BP 140/89; PULSE 104; RESP 14; TEMP 97.9
== END 2023-01-10 09:25 | disposition home or self-care (01) | DRG 774 ==
LOC: YASAS 09:55 → Y6N 11:39
PROVIDERS: ADMIT Allergy & Immunology; ATTEND Surgery
PROC: HZ2ZZZZ Detoxification Services for Substance Abuse Treatment (ICD-10-PCS; principal; 2023-01-06)
DX: F10.230 Alcohol dependence with withdrawal, uncomplicated (principal); F13.230 Sedative, hypnotic or anxiolytic dependence with withdrawal, uncomplicated; F14.20 Cocaine dependence, uncomplicated; F19.24 Other psychoactive substance dependence with psychoactive substance-induced mood disorder; I10 Essential (primary) hypertension; K21.9 Gastro-esophageal reflux disease without esophagitis; E87.6 Hypokalemia; E11.9 Type 2 diabetes mellitus without complications; Z79.84 Long term (current) use of oral hypoglycemic drugs; R79.89 Other specified abnormal findings of blood chemistry; Z86.69 Personal history of other diseases of the nervous system and sense organs; Z88.8 Allergy status to other drugs, medicaments and biological substances
CPT/HCPCS: 36415; 80053; 80164; 82140; 82962; 84132; 85027; 86780; 86803; 87635; 87811; 93005; 93010

== ENCOUNTER 2023-02-18 02:25 | Inpatient (IN) | payer OTHER ==
[2023-02-18 02:41] VITALS: BMI 25.0
[2023-02-18] MEDS ORDERED: LOPERAMIDE HCL 2 MG CAPSULE PO PRN (03:22)
[2023-02-18] MEDS ORDERED: MAGNESIUM HYDROX 2400MG/30ML ORAL SUSPENSION 30 ML CUP PO PRN (03:22)
[2023-02-18] MEDS ORDERED: NALOXONE HCL (KLOXXADO) 8 MG SPRAY NS PRN (03:22)
[2023-02-18] MEDS ORDERED: POLYETHYLENE GLYCOL (HEALTHYLAX) 3350 17 GM PACKET PO PRN (03:22)
[2023-02-18] MEDS ORDERED: BENZOCAINE/MENTHOL (CHLORASEPTIC ) LOZENGE MM PRN (03:22)
[2023-02-18] MEDS ORDERED: MAG HYDROX/AL HYDROX/SIMETH 30 ML UNIT-DOSE CUP PO PRN (03:22)
[2023-02-18] MEDS ORDERED: guaiFENesin 600 MG TABLET.ER (FP) PO PRN (03:22)
[2023-02-18] MEDS ORDERED: BENZONATATE 200 MG CAPSULE PO PRN (03:22)
[2023-02-18] MEDS ORDERED: ACETAMINOPHEN 325 MG TABLET (FP) PO PRN (03:22)
[2023-02-18] MEDS ORDERED: NALOXONE HCL 0.4 MG/ML VIAL IM PRN (03:22)
[2023-02-18] MEDS ORDERED: BISMUTH SUBSALICYLATE 524 MG/30 ML PO PRN (03:22)
[2023-02-18] MEDS ORDERED: hydrOXYzine PAMOATE 25 MG CAPSULE (FP) PO PRN (03:22)
[2023-02-18] MEDS ORDERED: IBUPROFEN 400 MG TABLET (FP) PO PRN (03:22)
[2023-02-18] MEDS ORDERED: ONDANSETRON *ODT* 4 MG TABLET SL PRN (03:22)
[2023-02-18] MEDS ORDERED: IBUPROFEN 600 MG TABLET (FP) PO PRN (03:22)
[2023-02-18] MEDS ORDERED: chlordiazePOXIDE HCL 25 MG CAPSULE PO PRN (03:26)
[2023-02-18] MEDS ORDERED: diazePAM 5 MG TABLET PO PRN (03:35)
[2023-02-18] MEDS: diazePAM 5 MG TABLET PO SCH ×4 (04:33→22:20)
[2023-02-18] MEDS: METHOCARBAMOL 500 MG TABLET PO PRN ×2 (04:34→17:33)
[2023-02-18] MEDS ORDERED: chlordiazePOXIDE HCL 25 MG CAPSULE PO SCH (05:00)
[2023-02-18] MEDS: metFORMIN HCL 500 MG TABLET (FP) PO SCH ×2 (07:23→17:31)
[2023-02-18] MEDS: DIVALPROEX SODIUM 500 MG TABLET E.C. PO SCH ×2 (10:29→22:19)
[2023-02-18] MEDS: LOSARTAN POTASSIUM 25 MG TABLET PO SCH (10:29)
[2023-02-18] MEDS: amLODIPine BESYLATE 10 MG TABLET (FP) PO SCH (10:29)
[2023-02-18] MEDS: FAMOTIDINE 20 MG TABLET PO SCH ×2 (10:29→22:19)
[2023-02-18] MEDS: PRENATAL VITAMINS W/ FOLIC ACID TABLET (FP) PO SCH (10:29)
[2023-02-18 13:24] LABS: POTASSIUM 3.4 mmol/L (3.5-5.1)
[2023-02-18 13:25] LABS: HEMATOCRIT 44.1 % (35.4-49); HEMOGLOBIN 15.1 GM/dL (11.7-16.9); MCH 31.2 pg (25.7-33.7); MCHC 34.2 g/dl (32.0-35.9); MEAN CELL VOLUME 91.5 fl (80-96); PLATELET COUNT 191 10^3/uL (134-434); RBC 4.82 M/mm3 (4.00-5.60); RDW 14.1 % (11.9-15.9); WHITE BLOOD COUNT 4.8 K/mm3 (4.0-10.0)
[2023-02-18 13:30] LABS: ALBUMIN 3.5 g/dl (3.4-5.0); BLOOD UREA NITROGEN 18.2 mg/dL (7-18); CALCIUM 9.1 mg/dL (8.5-10.1)
[2023-02-18 13:33] LABS: CREATININE 1.1 mg/dL (0.55-1.3)
[2023-02-18 13:34] LABS: BILIRUBIN,TOTAL 0.5 mg/dL (0.2-1); TOT PROT 6.7 g/dl (6.4-8.2)
[2023-02-18] MEDS: THIAMINE HCL 100 MG TABLET (FP) PO SCH (22:19)
[2023-02-18] MEDS: MELATONIN 5 MG TABLETS PO SCH (22:22)
[2023-02-19] MEDS ORDERED: chlordiazePOXIDE HCL 25 MG CAPSULE PO SCH (05:00)
[2023-02-19] MEDS: diazePAM 5 MG TABLET PO SCH ×3 (05:35→22:17)
[2023-02-19] MEDS: metFORMIN HCL 500 MG TABLET (FP) PO SCH ×2 (06:49→16:43)
[2023-02-19] MEDS: DIVALPROEX SODIUM 500 MG TABLET E.C. PO SCH ×2 (10:07→22:17)
[2023-02-19] MEDS: POTASSIUM CHLORIDE ORAL LIQUID 20 MEQ/15 ML PO SCH ×2 (10:07→22:16)
[2023-02-19] MEDS: LOSARTAN POTASSIUM 25 MG TABLET PO SCH (10:07)
[2023-02-19] MEDS: amLODIPine BESYLATE 10 MG TABLET (FP) PO SCH (10:07)
[2023-02-19] MEDS: PRENATAL VITAMINS W/ FOLIC ACID TABLET (FP) PO SCH (10:07)
[2023-02-19] MEDS: FAMOTIDINE 20 MG TABLET PO SCH ×2 (10:07→22:16)
[2023-02-19] MEDS: METHOCARBAMOL 500 MG TABLET PO PRN (22:16)
[2023-02-19] MEDS: THIAMINE HCL 100 MG TABLET (FP) PO SCH (22:16)
[2023-02-19] MEDS: MELATONIN 5 MG TABLETS PO SCH (22:16)
[2023-02-20] MEDS ORDERED: chlordiazePOXIDE HCL 10 MG CAPSULE PO PRN
[2023-02-20] MEDS ORDERED: chlordiazePOXIDE HCL 10 MG CAPSULE PO SCH (05:00)
[2023-02-20 05:44] VITALS: RESP 18; TEMP 97.7
[2023-02-20] MEDS ORDERED: diazePAM 5 MG TABLET PO SCH (06:00)
[2023-02-20] MEDS: metFORMIN HCL 500 MG TABLET (FP) PO SCH (06:19)
[2023-02-20 08:34] VITALS: BP 145/92; PULSE 96
[2023-02-20] MEDS: LOSARTAN POTASSIUM 25 MG TABLET PO SCH (10:03)
[2023-02-20] MEDS: FAMOTIDINE 20 MG TABLET PO SCH (10:03)
[2023-02-20] MEDS: DIVALPROEX SODIUM 500 MG TABLET E.C. PO SCH (10:03)
[2023-02-20] MEDS: amLODIPine BESYLATE 10 MG TABLET (FP) PO SCH (10:03)
[2023-02-20] MEDS: POTASSIUM CHLORIDE ORAL LIQUID 20 MEQ/15 ML PO SCH (10:04)
[2023-02-20] MEDS: PRENATAL VITAMINS W/ FOLIC ACID TABLET (FP) PO SCH (10:04)
[2023-02-21] MEDS ORDERED: chlordiazePOXIDE HCL 10 MG CAPSULE PO SCH (05:00)
[2023-02-21] MEDS ORDERED: diazePAM 5 MG TABLET PO ONE (06:00)
[2023-02-22] MEDS ORDERED: chlordiazePOXIDE HCL 10 MG CAPSULE PO ONE (05:00)
== END 2023-02-20 09:55 | disposition home or self-care (01) | DRG 774 ==
LOC: YASAS 02:25 → Y6N 03:49
PROVIDERS: ADMIT Allergy & Immunology; ATTEND Allergy & Immunology
PROC: HZ2ZZZZ Detoxification Services for Substance Abuse Treatment (ICD-10-PCS; principal; 2023-02-18)
DX: F10.230 Alcohol dependence with withdrawal, uncomplicated (principal); F13.230 Sedative, hypnotic or anxiolytic dependence with withdrawal, uncomplicated; F14.20 Cocaine dependence, uncomplicated; F16.10 Hallucinogen abuse, uncomplicated; G40.909 Epilepsy, unspecified, not intractable, without status epilepticus; I10 Essential (primary) hypertension; K21.9 Gastro-esophageal reflux disease without esophagitis; E11.9 Type 2 diabetes mellitus without complications; Z79.84 Long term (current) use of oral hypoglycemic drugs; Z88.8 Allergy status to other drugs, medicaments and biological substances
CPT/HCPCS: 36415; 80053; 80307; 82962; 85027; 86780; 87635; 87811

== ENCOUNTER 2023-03-11 14:18 | Inpatient (IN) | payer OTHER ==
[2023-03-11 14:56] VITALS: BMI 27.3
[2023-03-11] MEDS ORDERED: LOPERAMIDE HCL 2 MG CAPSULE PO PRN (19:13)
[2023-03-11] MEDS ORDERED: ACETAMINOPHEN 325 MG TABLET (FP) PO PRN (19:13)
[2023-03-11] MEDS ORDERED: POLYETHYLENE GLYCOL (HEALTHYLAX) 3350 17 GM PACKET PO PRN (19:13)
[2023-03-11] MEDS ORDERED: IBUPROFEN 400 MG TABLET (FP) PO PRN (19:13)
[2023-03-11] MEDS ORDERED: guaiFENesin 600 MG TABLET.ER (FP) PO PRN (19:13)
[2023-03-11] MEDS ORDERED: DICYCLOMINE HCL 10 MG CAPSULE PO PRN (19:13)
[2023-03-11] MEDS ORDERED: BENZOCAINE/MENTHOL (CHLORASEPTIC ) LOZENGE MM PRN (19:13)
[2023-03-11] MEDS ORDERED: ONDANSETRON *ODT* 4 MG TABLET SL PRN (19:13)
[2023-03-11] MEDS ORDERED: IBUPROFEN 600 MG TABLET (FP) PO PRN (19:13)
[2023-03-11] MEDS ORDERED: P-EPHED 60MG/TRIPROLIDI 2.5MG TABLET PO PRN (19:13)
[2023-03-11] MEDS ORDERED: BENZONATATE 200 MG CAPSULE PO PRN (19:13)
[2023-03-11] MEDS ORDERED: MAG HYDROX/AL HYDROX/SIMETH 30 ML UNIT-DOSE CUP PO PRN (19:13)
[2023-03-11] MEDS ORDERED: MAGNESIUM HYDROX 2400MG/30ML ORAL SUSPENSION 30 ML CUP PO PRN (19:13)
[2023-03-11] MEDS ORDERED: BISMUTH SUBSALICYLATE 524 MG/30 ML PO PRN (19:13)
[2023-03-11] MEDS ORDERED: chlordiazePOXIDE HCL 25 MG CAPSULE PO PRN (19:14)
[2023-03-11] MEDS: METHOCARBAMOL 500 MG TABLET PO PRN (22:26)
[2023-03-11] MEDS: DIVALPROEX SODIUM 500 MG TABLET E.C. PO SCH (22:26)
[2023-03-11] MEDS: chlordiazePOXIDE HCL 25 MG CAPSULE PO SCH (22:26)
[2023-03-11] MEDS: MELATONIN 5 MG TABLETS PO SCH (22:27)
[2023-03-11] MEDS: THIAMINE HCL 100 MG TABLET (FP) PO SCH (22:31)
[2023-03-12] MEDS: chlordiazePOXIDE HCL 25 MG CAPSULE PO SCH ×4 (05:15→22:31)
[2023-03-12] MEDS: metFORMIN HCL 500 MG TABLET (FP) PO SCH ×2 (06:43→17:39)
[2023-03-12] MEDS: amLODIPine BESYLATE 10 MG TABLET (FP) PO SCH (10:09)
[2023-03-12] MEDS: DIVALPROEX SODIUM 500 MG TABLET E.C. PO SCH ×2 (10:09→22:30)
[2023-03-12] MEDS: PRENATAL VITAMINS W/ FOLIC ACID TABLET (FP) PO SCH (10:09)
[2023-03-12] MEDS: METHOCARBAMOL 500 MG TABLET PO PRN (10:09)
[2023-03-12 12:25] LABS: HEMATOCRIT 44.7 % (35.4-49); MCH 30.6 pg (25.7-33.7); MCHC 33.6 g/dl (32.0-35.9); MEAN CELL VOLUME 91.2 fl (80-96); MEAN PLT VOLUME 10.2 fl (7.5-11.1); PLATELET COUNT 216 10^3/uL (134-434); RDW 13.5 % (11.9-15.9); WHITE BLOOD COUNT 6.1 K/mm3 (4.0-10.0)
[2023-03-12 12:53] LABS: CHLORIDE 106 mmol/L (98-107); POTASSIUM 3.8 mmol/L (3.5-5.1); SODIUM 140 mmol/L (136-145)
[2023-03-12 12:58] LABS: CALCIUM 8.6 mg/dL (8.5-10.1)
[2023-03-12 12:59] LABS: ALBUMIN 3.3 g/dl (3.4-5.0); ANION GAP 10 mmol/L (4-13); BLOOD UREA NITROGEN 16.6 mg/dL (7-18); CO2 24 mmol/L (21-32); GLUCOSE,RANDOM 164 mg/dL (74-106)
[2023-03-12 13:02] LABS: CREATININE 1.1 mg/dL (0.55-1.3); SGOT/AST 16 U/L (15-37); SGPT/ALT 22 U/L (13-61)
[2023-03-12 13:03] LABS: TOT PROT 6.9 g/dl (6.4-8.2)
[2023-03-12 13:04] LABS: BILIRUBIN,TOTAL 0.3 mg/dL (0.2-1)
[2023-03-12 13:05] LABS: ALK PHOS 88 U/L (45-117)
[2023-03-12] MEDS: LACTULOSE 20 GM/30 ML UDC (FOR ORAL USE ONLY) PO SCH ×3 (14:33→22:32)
[2023-03-12] MEDS: THIAMINE HCL 100 MG TABLET (FP) PO SCH (22:30)
[2023-03-12] MEDS: MELATONIN 5 MG TABLETS PO SCH (22:33)
[2023-03-13] MEDS: chlordiazePOXIDE HCL 25 MG CAPSULE PO SCH ×4 (05:57→22:23)
[2023-03-13] MEDS: metFORMIN HCL 500 MG TABLET (FP) PO SCH ×2 (07:17→17:28)
[2023-03-13] MEDS: amLODIPine BESYLATE 10 MG TABLET (FP) PO SCH (10:35)
[2023-03-13] MEDS: DIVALPROEX SODIUM 500 MG TABLET E.C. PO SCH ×2 (10:35→22:23)
[2023-03-13] MEDS: PRENATAL VITAMINS W/ FOLIC ACID TABLET (FP) PO SCH (10:35)
[2023-03-13] MEDS: LACTULOSE 20 GM/30 ML UDC (FOR ORAL USE ONLY) PO SCH ×4 (10:36→22:23)
[2023-03-13] MEDS: METHOCARBAMOL 500 MG TABLET PO PRN (14:02)
[2023-03-13] MEDS: MELATONIN 5 MG TABLETS PO SCH (22:22)
[2023-03-13] MEDS: THIAMINE HCL 100 MG TABLET (FP) PO SCH (22:22)
[2023-03-14] MEDS ORDERED: chlordiazePOXIDE HCL 10 MG CAPSULE PO PRN
[2023-03-14] MEDS: chlordiazePOXIDE HCL 10 MG CAPSULE PO SCH ×2 (05:56→10:50)
[2023-03-14] MEDS: metFORMIN HCL 500 MG TABLET (FP) PO SCH (06:14)
[2023-03-14 09:40] VITALS: BP 125/82; PULSE 98; RESP 18; TEMP 97.5
[2023-03-14] MEDS: DIVALPROEX SODIUM 500 MG TABLET E.C. PO SCH (10:50)
[2023-03-14] MEDS: PRENATAL VITAMINS W/ FOLIC ACID TABLET (FP) PO SCH (10:50)
[2023-03-14] MEDS: LACTULOSE 20 GM/30 ML UDC (FOR ORAL USE ONLY) PO SCH (10:50)
[2023-03-14] MEDS: amLODIPine BESYLATE 10 MG TABLET (FP) PO SCH (10:50)
[2023-03-15] MEDS ORDERED: chlordiazePOXIDE HCL 10 MG CAPSULE PO SCH (05:00)
[2023-03-16] MEDS ORDERED: chlordiazePOXIDE HCL 10 MG CAPSULE PO ONE (05:00)
== END 2023-03-14 11:40 | disposition left against medical advice (07) | DRG 770 ==
LOC: YASAS 14:18 → Y3N 21:19 → Y6N 21:20
PROVIDERS: ADMIT Allergy & Immunology; ATTEND Surgery
PROC: HZ2ZZZZ Detoxification Services for Substance Abuse Treatment (ICD-10-PCS; principal; 2023-03-11)
DX: F10.230 Alcohol dependence with withdrawal, uncomplicated (principal); F13.20 Sedative, hypnotic or anxiolytic dependence, uncomplicated; F12.20 Cannabis dependence, uncomplicated; I10 Essential (primary) hypertension; E11.9 Type 2 diabetes mellitus without complications; Z79.84 Long term (current) use of oral hypoglycemic drugs; K21.9 Gastro-esophageal reflux disease without esophagitis; M17.11 Unilateral primary osteoarthritis, right knee; N40.0 Benign prostatic hyperplasia without lower urinary tract symptoms; R79.89 Other specified abnormal findings of blood chemistry; Z86.59 Personal history of other mental and behavioral disorders; Z86.69 Personal history of other diseases of the nervous system and sense organs; Z88.0 Allergy status to penicillin
CPT/HCPCS: 36415; 80053; 80307; 82140; 82962; 85027; 86780; 87635

== ENCOUNTER 2023-04-13 09:26 | Inpatient (IN) | payer OTHER ==
[2023-04-13 09:44] VITALS: BMI 26.3
[2023-04-13] MEDS ORDERED: NALOXONE HCL 0.4 MG/ML VIAL IM PRN (10:15)
[2023-04-13] MEDS ORDERED: IBUPROFEN 600 MG TABLET (FP) PO PRN (10:15)
[2023-04-13] MEDS ORDERED: hydrOXYzine PAMOATE 25 MG CAPSULE (FP) PO PRN (10:15)
[2023-04-13] MEDS ORDERED: guaiFENesin 600 MG TABLET.ER (FP) PO PRN (10:15)
[2023-04-13] MEDS ORDERED: BISMUTH SUBSALICYLATE 524 MG/30 ML PO PRN (10:15)
[2023-04-13] MEDS ORDERED: ONDANSETRON *ODT* 4 MG TABLET SL PRN (10:15)
[2023-04-13] MEDS ORDERED: IBUPROFEN 400 MG TABLET (FP) PO PRN (10:15)
[2023-04-13] MEDS ORDERED: LOPERAMIDE HCL 2 MG CAPSULE PO PRN (10:15)
[2023-04-13] MEDS ORDERED: LORazepam 1 MG TABLET PO PRN (10:15)
[2023-04-13] MEDS ORDERED: MAGNESIUM HYDROX 2400MG/30ML ORAL SUSPENSION 30 ML CUP PO PRN (10:15)
[2023-04-13] MEDS ORDERED: DICYCLOMINE HCL 10 MG CAPSULE PO PRN (10:15)
[2023-04-13] MEDS ORDERED: ACETAMINOPHEN 325 MG TABLET (FP) PO PRN (10:15)
[2023-04-13] MEDS ORDERED: MAG HYDROX/AL HYDROX/SIMETH 30 ML UNIT-DOSE CUP PO PRN (10:15)
[2023-04-13] MEDS ORDERED: BENZOCAINE/MENTHOL (CHLORASEPTIC ) LOZENGE MM PRN (10:15)
[2023-04-13] MEDS ORDERED: POLYETHYLENE GLYCOL (HEALTHYLAX) 3350 17 GM PACKET PO PRN (10:15)
[2023-04-13] MEDS ORDERED: NALOXONE HCL (KLOXXADO) 8 MG SPRAY NS PRN (10:15)
[2023-04-13] MEDS ORDERED: BENZONATATE 200 MG CAPSULE PO PRN (10:15)
[2023-04-13] MEDS ORDERED: LORazepam 2 MG TABLET ONE (10:47)
[2023-04-13] MEDS ORDERED: PRENATAL VITAMINS W/ FOLIC ACID TABLET (FP) PO ONE (10:48)
[2023-04-13] MEDS: PRENATAL VITAMINS W/ FOLIC ACID TABLET (FP) PO SCH (10:49)
[2023-04-13] MEDS: LORazepam 2 MG TABLET PO SCH ×3 (10:49→22:31)
[2023-04-13] MEDS ORDERED: LOSARTAN POTASSIUM 25 MG TABLET PO ONE (12:30)
[2023-04-13] MEDS ORDERED: amLODIPine BESYLATE 10 MG TABLET (FP) PO ONE (12:30)
[2023-04-13] MEDS: metFORMIN HCL 500 MG TABLET (FP) PO SCH (17:22)
[2023-04-13] MEDS ORDERED: MELATONIN 5 MG TABLETS PO SCH (22:00)
[2023-04-13] MEDS ORDERED: THIAMINE HCL 100 MG TABLET (FP) PO SCH (22:00)
[2023-04-13] MEDS: FAMOTIDINE 20 MG TABLET PO SCH (22:31)
[2023-04-13] MEDS: DIVALPROEX SODIUM 500 MG TABLET E.C. PO SCH (22:31)
[2023-04-14] MEDS: LORazepam 2 MG TABLET PO SCH ×3 (05:55→17:24)
[2023-04-14] MEDS: metFORMIN HCL 500 MG TABLET (FP) PO SCH ×2 (07:28→17:24)
[2023-04-14] MEDS ORDERED: amLODIPine BESYLATE 10 MG TABLET (FP) PO SCH (10:00)
[2023-04-14] MEDS ORDERED: LOSARTAN POTASSIUM 25 MG TABLET PO SCH (10:00)
[2023-04-14] MEDS: PRENATAL VITAMINS W/ FOLIC ACID TABLET (FP) PO SCH (10:08)
[2023-04-14] MEDS: FAMOTIDINE 20 MG TABLET PO SCH (10:09)
[2023-04-14] MEDS: DIVALPROEX SODIUM 500 MG TABLET E.C. PO SCH (10:09)
[2023-04-14] MEDS: METHOCARBAMOL 500 MG TABLET PO PRN ×2 (10:10→17:26)
[2023-04-14 11:40] LABS: CHLORIDE 106 mmol/L (98-107); HEMATOCRIT 43.5 % (35.4-49); HEMOGLOBIN 14.4 GM/dL (11.7-16.9); MCH 30.4 pg (25.7-33.7); MEAN CELL VOLUME 91.9 fl (80-96); MEAN PLT VOLUME 10.2 fl (7.5-11.1); PLATELET COUNT 148 10^3/uL (134-434); POTASSIUM 3.6 mmol/L (3.5-5.1); RBC 4.73 M/mm3 (4.00-5.60); RDW 14.5 % (11.9-15.9); SODIUM 142 mmol/L (136-145); WHITE BLOOD COUNT 5.2 K/mm3 (4.0-10.0)
[2023-04-14 11:46] LABS: ALBUMIN 2.9 g/dl (3.4-5.0); ANION GAP 10 mmol/L (4-13); BLOOD UREA NITROGEN 8.8 mg/dL (7-18); CO2 26 mmol/L (21-32); GLUCOSE,RANDOM 124 mg/dL (74-106)
[2023-04-14 11:50] LABS: SGPT/ALT 20 U/L (13-61)
[2023-04-14 11:51] LABS: BILIRUBIN,TOTAL 0.4 mg/dL (0.2-1); TOT PROT 6.5 g/dl (6.4-8.2)
[2023-04-14 11:52] LABS: ALK PHOS 81 U/L (45-117); SGOT/AST 21 U/L (15-37)
[2023-04-14] MEDS: LACTULOSE 20 GM/30 ML UDC (FOR ORAL USE ONLY) PO SCH ×2 (13:39→17:25)
[2023-04-14 21:10] VITALS: BP 146/92; PULSE 108; RESP 16; TEMP 97.8
[2023-04-15] MEDS ORDERED: LORazepam 1 MG TABLET PO SCH (05:00)
[2023-04-16] MEDS ORDERED: LORazepam 0.5 MG TABLET PO PRN
[2023-04-16] MEDS ORDERED: LORazepam 0.5 MG TABLET PO SCH (05:00)
[2023-04-17] MEDS ORDERED: LORazepam 0.5 MG TABLET PO ONE (05:00)
== END 2023-04-14 20:44 | disposition left against medical advice (07) | DRG 770 ==
LOC: YASAS 09:26 → Y6N 10:49
PROVIDERS: ADMIT Allergy & Immunology; ATTEND Allergy & Immunology
PROC: HZ2ZZZZ Detoxification Services for Substance Abuse Treatment (ICD-10-PCS; principal; 2023-04-13)
DX: F10.230 Alcohol dependence with withdrawal, uncomplicated (principal); F13.230 Sedative, hypnotic or anxiolytic dependence with withdrawal, uncomplicated; F14.20 Cocaine dependence, uncomplicated; F16.10 Hallucinogen abuse, uncomplicated; F12.20 Cannabis dependence, uncomplicated; F19.282 Other psychoactive substance dependence with psychoactive substance-induced sleep disorder; F19.24 Other psychoactive substance dependence with psychoactive substance-induced mood disorder; E72.20 Disorder of urea cycle metabolism, unspecified; I12.9 Hypertensive chronic kidney disease with stage 1 through stage 4 chronic kidney disease, or unspecified chronic kidney disease; N18.9 Chronic kidney disease, unspecified; K21.9 Gastro-esophageal reflux disease without esophagitis; G47.00 Insomnia, unspecified; E11.9 Type 2 diabetes mellitus without complications; Z79.84 Long term (current) use of oral hypoglycemic drugs; M17.11 Unilateral primary osteoarthritis, right knee
CPT/HCPCS: 36415; 80053; 80164; 80307; 82140; 82962; 85027; 86780; 87635; 87811

== ENCOUNTER 2023-05-10 12:28 | Inpatient (IN) | payer OTHER ==
[2023-05-10 13:05] VITALS: BMI 27.6
[2023-05-10] MEDS ORDERED: MAGNESIUM HYDROX 2400MG/30ML ORAL SUSPENSION 30 ML CUP PO PRN (13:44)
[2023-05-10] MEDS ORDERED: BENZONATATE 200 MG CAPSULE PO PRN (13:44)
[2023-05-10] MEDS ORDERED: DICYCLOMINE HCL 10 MG CAPSULE PO PRN (13:44)
[2023-05-10] MEDS ORDERED: MAG HYDROX/AL HYDROX/SIMETH 30 ML UNIT-DOSE CUP PO PRN (13:44)
[2023-05-10] MEDS ORDERED: LOPERAMIDE HCL 2 MG CAPSULE PO PRN (13:44)
[2023-05-10] MEDS ORDERED: P-EPHED 60MG/TRIPROLIDI 2.5MG TABLET PO PRN (13:44)
[2023-05-10] MEDS ORDERED: IBUPROFEN 400 MG TABLET (FP) PO PRN (13:44)
[2023-05-10] MEDS ORDERED: guaiFENesin 600 MG TABLET.ER (FP) PO PRN (13:44)
[2023-05-10] MEDS ORDERED: POLYETHYLENE GLYCOL (HEALTHYLAX) 3350 17 GM PACKET PO PRN (13:44)
[2023-05-10] MEDS ORDERED: BISMUTH SUBSALICYLATE 524 MG/30 ML PO PRN (13:44)
[2023-05-10] MEDS ORDERED: BENZOCAINE/MENTHOL (CHLORASEPTIC ) LOZENGE MM PRN (13:44)
[2023-05-10] MEDS ORDERED: ONDANSETRON *ODT* 4 MG TABLET SL PRN (13:44)
[2023-05-10] MEDS ORDERED: ACETAMINOPHEN 325 MG TABLET (FP) ONE (14:53)
[2023-05-10] MEDS ORDERED: diazePAM 5 MG TABLET ONE (14:55)
[2023-05-10] MEDS: diazePAM 5 MG TABLET PO PRN (14:58)
[2023-05-10] MEDS: diazePAM 5 MG TABLET PO ONE (15:14)
[2023-05-10] MEDS ORDERED: diazePAM 5 MG TABLET PO SCH (17:00)
[2023-05-10] MEDS: METHOCARBAMOL 500 MG TABLET PO PRN (17:43)
[2023-05-10] MEDS: diazePAM 5 MG TABLET PO SCH (17:43)
[2023-05-10] MEDS: ACETAMINOPHEN 325 MG TABLET (FP) PO PRN (17:44)
[2023-05-10] MEDS: metFORMIN HCL 500 MG TABLET (FP) PO SCH (17:44)
[2023-05-10] MEDS: MELATONIN 5 MG TABLETS PO SCH (22:13)
[2023-05-10] MEDS: DIVALPROEX SODIUM 500 MG TABLET E.C. PO SCH (22:13)
[2023-05-10] MEDS: FAMOTIDINE 20 MG TABLET PO SCH (22:13)
[2023-05-10] MEDS: THIAMINE HCL 100 MG TABLET (FP) PO SCH (22:13)
[2023-05-11] MEDS: diazePAM 5 MG TABLET PO SCH (06:06)
[2023-05-11] MEDS: amLODIPine BESYLATE 10 MG TABLET (FP) PO SCH (10:07)
[2023-05-11] MEDS: PRENATAL VITAMINS W/ FOLIC ACID TABLET (FP) PO SCH (10:07)
[2023-05-11] MEDS: LOSARTAN POTASSIUM 25 MG TABLET PO SCH (11:31)
[2023-05-12] MEDS: diazePAM 5 MG TABLET PO SCH (05:39)
[2023-05-12] MEDS ORDERED: diazePAM 5 MG TABLET PO SCH ×2 (06:00)
[2023-05-12 11:33] LABS: POTASSIUM 4.1 mmol/L (3.5-5.1)
[2023-05-12 11:35] LABS: ALBUMIN 3.6 g/dl (3.4-5.0); CALCIUM 10.1 mg/dL (8.5-10.1); HEMATOCRIT 45.7 % (35.4-49); HEMOGLOBIN 15.1 GM/dL (11.7-16.9); MCH 30.1 pg (25.7-33.7); MCHC 33.1 g/dl (32.0-35.9); MEAN CELL VOLUME 90.8 fl (80-96); MEAN PLT VOLUME 10.3 fl (7.5-11.1); PLATELET COUNT 216 10^3/uL (134-434); RBC 5.03 M/mm3 (4.00-5.60); WHITE BLOOD COUNT 5.6 K/mm3 (4.0-10.0)
[2023-05-12 11:38] LABS: CREATININE 1.2 mg/dL (0.55-1.3)
[2023-05-12 11:40] LABS: BILIRUBIN,TOTAL 0.4 mg/dL (0.2-1); TOT PROT 7.7 g/dl (6.4-8.2)
[2023-05-12] MEDS: LACTULOSE 20 GM/30 ML UDC (FOR ORAL USE ONLY) PO SCH (13:24)
[2023-05-13] MEDS: diazePAM 5 MG TABLET PO ONE (05:50)
[2023-05-13] MEDS ORDERED: diazePAM 5 MG TABLET PO SCH (06:00)
[2023-05-14] MEDS ORDERED: diazePAM 5 MG TABLET PO ONE (06:00)
[2023-05-14 09:09] VITALS: BP 124/72; PULSE 76; RESP 18; TEMP 97.6
== END 2023-05-14 10:28 | disposition home or self-care (01) | DRG 774 ==
LOC: YASAS 12:28 → Y3N 14:14
PROVIDERS: ADMIT Allergy & Immunology; ATTEND Surgery
PROC: HZ2ZZZZ Detoxification Services for Substance Abuse Treatment (ICD-10-PCS; principal; 2023-05-10)
DX: F10.230 Alcohol dependence with withdrawal, uncomplicated (principal); F14.20 Cocaine dependence, uncomplicated; F12.20 Cannabis dependence, uncomplicated; E72.20 Disorder of urea cycle metabolism, unspecified; I10 Essential (primary) hypertension; K21.9 Gastro-esophageal reflux disease without esophagitis; M17.11 Unilateral primary osteoarthritis, right knee; E11.59 Type 2 diabetes mellitus with other circulatory complications; Z79.84 Long term (current) use of oral hypoglycemic drugs; Z86.69 Personal history of other diseases of the nervous system and sense organs; Z88.8 Allergy status to other drugs, medicaments and biological substances
CPT/HCPCS: 36415; 80053; 82140; 82962; 85027; 86780; 87635; 87811; 93005; 93010

== ENCOUNTER 2023-07-14 14:20 | Inpatient (IN) | payer OTHER ==
[2023-07-14 14:55] VITALS: BMI 29.7
[2023-07-14] MEDS ORDERED: chlordiazePOXIDE HCL 25 MG CAPSULE PO PRN (16:07)
[2023-07-14] MEDS ORDERED: POLYETHYLENE GLYCOL (HEALTHYLAX) 3350 17 GM PACKET PO PRN (16:08)
[2023-07-14] MEDS ORDERED: ACETAMINOPHEN 325 MG TABLET (FP) PO PRN (16:08)
[2023-07-14] MEDS ORDERED: DICYCLOMINE HCL 10 MG CAPSULE PO PRN (16:08)
[2023-07-14] MEDS ORDERED: IBUPROFEN 400 MG TABLET (FP) PO PRN (16:08)
[2023-07-14] MEDS ORDERED: ONDANSETRON *ODT* 4 MG TABLET SL PRN (16:08)
[2023-07-14] MEDS ORDERED: BENZOCAINE/MENTHOL (CHLORASEPTIC ) LOZENGE MM PRN (16:08)
[2023-07-14] MEDS ORDERED: LOPERAMIDE HCL 2 MG CAPSULE PO PRN (16:08)
[2023-07-14] MEDS ORDERED: BISMUTH SUBSALICYLATE 524 MG/30 ML PO PRN (16:08)
[2023-07-14] MEDS ORDERED: BENZONATATE 200 MG CAPSULE PO PRN (16:08)
[2023-07-14] MEDS ORDERED: METHOCARBAMOL 500 MG TABLET PO PRN (16:08)
[2023-07-14] MEDS ORDERED: IBUPROFEN 600 MG TABLET (FP) PO PRN (16:08)
[2023-07-14] MEDS ORDERED: MAGNESIUM HYDROX 2400MG/30ML ORAL SUSPENSION 30 ML CUP PO PRN (16:08)
[2023-07-14] MEDS ORDERED: guaiFENesin 600 MG TABLET.ER (FP) PO PRN (16:08)
[2023-07-14] MEDS ORDERED: MAG HYDROX/AL HYDROX/SIMETH 30 ML UNIT-DOSE CUP PO PRN (16:08)
[2023-07-14] MEDS: chlordiazePOXIDE HCL 25 MG CAPSULE PO SCH (18:43)
[2023-07-14] MEDS: metFORMIN HCL 500 MG TABLET (FP) PO SCH (18:44)
[2023-07-14] MEDS: DIVALPROEX SODIUM 500 MG TABLET E.C. PO SCH (22:24)
[2023-07-14] MEDS: FAMOTIDINE 20 MG TABLET PO SCH (22:24)
[2023-07-14] MEDS: THIAMINE HCL 100 MG TABLET (FP) PO SCH (22:25)
[2023-07-14] MEDS: MELATONIN 5 MG TABLETS PO SCH (22:25)
[2023-07-15] MEDS: amLODIPine BESYLATE 10 MG TABLET (FP) PO SCH (10:45)
[2023-07-15] MEDS: PRENATAL VITAMINS W/ FOLIC ACID TABLET (FP) PO SCH (10:45)
[2023-07-15 11:36] LABS: HEMATOCRIT 41.4 % (35.4-49); HEMOGLOBIN 13.8 GM/dL (11.7-16.9); MCH 29.9 pg (25.7-33.7); MCHC 33.3 g/dl (32.0-35.9); MEAN CELL VOLUME 89.6 fl (80-96); MEAN PLT VOLUME 10.1 fl (7.5-11.1); PLATELET COUNT 257 10^3/uL (134-434); RBC 4.62 M/mm3 (4.00-5.60); RDW 13.5 % (11.9-15.9); WHITE BLOOD COUNT 5.3 K/mm3 (4.0-10.0)
[2023-07-15 12:19] LABS: ALBUMIN 3.1 g/dl (3.4-5.0)
[2023-07-15 12:20] LABS: CALCIUM 9.1 mg/dL (8.5-10.1)
[2023-07-15 12:21] LABS: BLOOD UREA NITROGEN 23.9 mg/dL (7-18)
[2023-07-15 12:22] LABS: CREATININE 1.2 mg/dL (0.55-1.3)
[2023-07-15 12:24] LABS: BILIRUBIN,TOTAL 0.7 mg/dL (0.2-1); TOT PROT 6.8 g/dl (6.4-8.2)
[2023-07-16] MEDS ORDERED: chlordiazePOXIDE HCL 10 MG CAPSULE PO SCH (05:27)
[2023-07-16] MEDS: chlordiazePOXIDE HCL 10 MG CAPSULE PO SCH (06:23)
[2023-07-16] MEDS: chlordiazePOXIDE HCL 25 MG CAPSULE PO SCH (06:52)
[2023-07-16 12:13] VITALS: BP 141/80; PULSE 99; RESP 18; TEMP 97.5
[2023-07-17] MEDS ORDERED: chlordiazePOXIDE HCL 10 MG CAPSULE PO PRN
[2023-07-17] MEDS ORDERED: chlordiazePOXIDE HCL 10 MG CAPSULE PO SCH (05:00)
[2023-07-18] MEDS ORDERED: chlordiazePOXIDE HCL 10 MG CAPSULE PO ONE (05:00)
== END 2023-07-16 12:40 | disposition home or self-care (01) | DRG 774 ==
LOC: YASAS 14:20 → Y6N 16:31
PROVIDERS: ADMIT Allergy & Immunology; ATTEND Surgery
PROC: HZ2ZZZZ Detoxification Services for Substance Abuse Treatment (ICD-10-PCS; principal; 2023-07-14)
DX: F10.230 Alcohol dependence with withdrawal, uncomplicated (principal); F14.20 Cocaine dependence, uncomplicated; F12.20 Cannabis dependence, uncomplicated; F32.A Depression, unspecified; G40.909 Epilepsy, unspecified, not intractable, without status epilepticus; I10 Essential (primary) hypertension; K21.9 Gastro-esophageal reflux disease without esophagitis; E11.9 Type 2 diabetes mellitus without complications; Z79.84 Long term (current) use of oral hypoglycemic drugs; Z88.5 Allergy status to narcotic agent
CPT/HCPCS: 36415; 80053; 80164; 82962; 85027; 86780

== ENCOUNTER 2023-08-09 10:24 | Inpatient (IN) | payer OTHER ==
[2023-08-09 11:10] VITALS: BMI 26.2
[2023-08-09] MEDS ORDERED: DICYCLOMINE HCL 10 MG CAPSULE PO PRN (12:49)
[2023-08-09] MEDS ORDERED: IBUPROFEN 400 MG TABLET (FP) PO PRN (12:49)
[2023-08-09] MEDS ORDERED: BENZOCAINE/MENTHOL (CHLORASEPTIC ) LOZENGE MM PRN (12:49)
[2023-08-09] MEDS ORDERED: LOPERAMIDE HCL 2 MG CAPSULE PO PRN (12:49)
[2023-08-09] MEDS ORDERED: IBUPROFEN 600 MG TABLET (FP) PO PRN (12:49)
[2023-08-09] MEDS ORDERED: POLYETHYLENE GLYCOL (HEALTHYLAX) 3350 17 GM PACKET PO PRN (12:49)
[2023-08-09] MEDS ORDERED: guaiFENesin 600 MG TABLET.ER (FP) PO PRN (12:49)
[2023-08-09] MEDS ORDERED: NICOTINE POLACRILEX 4 MG GUM BUC PRN (12:49)
[2023-08-09] MEDS ORDERED: MAG HYDROX/AL HYDROX/SIMETH 30 ML UNIT-DOSE CUP PO PRN (12:49)
[2023-08-09] MEDS ORDERED: BENZONATATE 200 MG CAPSULE PO PRN (12:49)
[2023-08-09] MEDS ORDERED: NALOXONE HCL 0.4 MG/ML VIAL IM PRN (12:49)
[2023-08-09] MEDS ORDERED: BISMUTH SUBSALICYLATE 524 MG/30 ML PO PRN (12:49)
[2023-08-09] MEDS ORDERED: MAGNESIUM HYDROX 2400MG/30ML ORAL SUSPENSION 30 ML CUP PO PRN (12:49)
[2023-08-09] MEDS ORDERED: ONDANSETRON *ODT* 4 MG TABLET SL PRN (12:49)
[2023-08-09] MEDS ORDERED: NICOTINE POLACRILEX 4 MG LOZENGE BC PRN (12:49)
[2023-08-09] MEDS ORDERED: NALOXONE HCL (KLOXXADO) 8 MG SPRAY NS PRN (12:49)
[2023-08-09] MEDS ORDERED: METHOCARBAMOL 500 MG TABLET PO PRN (12:49)
[2023-08-09] MEDS: amLODIPine BESYLATE 10 MG TABLET (FP) PO SCH (13:39)
[2023-08-09] MEDS: FAMOTIDINE 20 MG TABLET PO SCH (13:39)
[2023-08-09] MEDS: metFORMIN HCL 500 MG TABLET (FP) PO SCH (17:42)
[2023-08-09] MEDS: MELATONIN 5 MG TABLETS PO SCH (22:33)
[2023-08-09] MEDS: THIAMINE 100 MG TABLET PO SCH (22:33)
[2023-08-09] MEDS: hydrOXYzine PAMOATE 25 MG CAPSULE (FP) PO PRN (22:35)
[2023-08-10] MEDS: PRENATAL VITAMINS W/ FOLIC ACID TABLET (FP) PO SCH (09:58)
[2023-08-10] MEDS: ACETAMINOPHEN 325 MG TABLET (FP) PO PRN (10:00)
[2023-08-10] MEDS ORDERED: chlordiazePOXIDE HCL 25 MG CAPSULE PO PRN (10:24)
[2023-08-10] MEDS: chlordiazePOXIDE HCL 25 MG CAPSULE PO SCH (11:12)
[2023-08-10 11:56] LABS: HEMATOCRIT 42.5 % (35.4-49); HEMOGLOBIN 14.9 GM/dL (11.7-16.9); MCH 31.5 pg (25.7-33.7); MCHC 35.1 g/dl (32.0-35.9); MEAN CELL VOLUME 89.8 fl (80-96); MEAN PLT VOLUME 9.5 fl (7.5-11.1); PLATELET COUNT 139 10^3/uL (134-434); RBC 4.73 M/mm3 (4.00-5.60); RDW 15.5 % (11.9-15.9); WHITE BLOOD COUNT 4.8 K/mm3 (4.0-10.0)
[2023-08-10 12:45] LABS: CHLORIDE 107 mmol/L (98-107); POTASSIUM 3.4 mmol/L (3.5-5.1); SODIUM 141 mmol/L (136-145)
[2023-08-10 12:49] LABS: BLOOD UREA NITROGEN 14.7 mg/dL (7-18); CALCIUM 8.5 mg/dL (8.5-10.1)
[2023-08-10 12:50] LABS: ANION GAP 7 mmol/L (4-13); CO2 27 mmol/L (21-32); GLUCOSE,RANDOM 129 mg/dL (74-106)
[2023-08-10 12:52] LABS: SGPT/ALT 31 U/L (13-61)
[2023-08-10 12:53] LABS: CREATININE 1.2 mg/dL (0.55-1.3); SGOT/AST 40 U/L (15-37)
[2023-08-10 12:54] LABS: TOT PROT 6.4 g/dl (6.4-8.2)
[2023-08-10 12:55] LABS: ALK PHOS 78 U/L (45-117)
[2023-08-10] MEDS: POTASSIUM CHLORIDE ORAL LIQUID 20 MEQ/15 ML PO ONE (14:54)
[2023-08-10] MEDS: LACTULOSE 20 GM/30 ML UDC (FOR ORAL USE ONLY) PO SCH (17:07)
[2023-08-10] MEDS: POTASSIUM CHLORIDE ORAL LIQUID 20 MEQ/15 ML PO SCH (22:42)
[2023-08-12] MEDS: chlordiazePOXIDE HCL 25 MG CAPSULE PO SCH (05:23)
[2023-08-12 13:26] VITALS: BP 124/79; PULSE 86; RESP 18; TEMP 97.3
[2023-08-13] MEDS ORDERED: chlordiazePOXIDE HCL 10 MG CAPSULE PO PRN
[2023-08-13] MEDS ORDERED: chlordiazePOXIDE HCL 10 MG CAPSULE PO SCH (05:00)
[2023-08-14] MEDS ORDERED: chlordiazePOXIDE HCL 10 MG CAPSULE PO SCH (05:00)
[2023-08-15] MEDS ORDERED: chlordiazePOXIDE HCL 10 MG CAPSULE PO ONE (05:00)
== END 2023-08-12 15:30 | disposition home or self-care (01) | DRG 774 ==
LOC: YASAS 10:24 → SUATTDRO 10:24 → Y6N 13:07
PROVIDERS: ADMIT Psychiatry & Neurology Pain Medicine; ATTEND Surgery
PROC: HZ2ZZZZ Detoxification Services for Substance Abuse Treatment (ICD-10-PCS; principal; 2023-08-09)
DX: F10.230 Alcohol dependence with withdrawal, uncomplicated (principal); F14.20 Cocaine dependence, uncomplicated; F12.20 Cannabis dependence, uncomplicated; F32.A Depression, unspecified; E72.20 Disorder of urea cycle metabolism, unspecified; E87.6 Hypokalemia; E11.9 Type 2 diabetes mellitus without complications; Z79.84 Long term (current) use of oral hypoglycemic drugs; R79.89 Other specified abnormal findings of blood chemistry; Z88.8 Allergy status to other drugs, medicaments and biological substances
CPT/HCPCS: 36415; 80053; 80305; 80307; 82140; 82962; 85027; 86780; 93005; 93010

== ENCOUNTER 2023-09-01 11:15 | Inpatient (IN) | payer OTHER ==
[2023-09-01 12:28] VITALS: BMI 22.8
[2023-09-01] MEDS ORDERED: LOPERAMIDE HCL 2 MG CAPSULE PO PRN (13:01)
[2023-09-01] MEDS ORDERED: BISMUTH SUBSALICYLATE 524 MG/30 ML PO PRN (13:01)
[2023-09-01] MEDS ORDERED: POLYETHYLENE GLYCOL (HEALTHYLAX) 3350 17 GM PACKET PO PRN (13:01)
[2023-09-01] MEDS ORDERED: MAGNESIUM HYDROX 2400MG/30ML ORAL SUSPENSION 30 ML CUP PO PRN (13:01)
[2023-09-01] MEDS ORDERED: DICYCLOMINE HCL 10 MG CAPSULE PO PRN (13:01)
[2023-09-01] MEDS ORDERED: IBUPROFEN 400 MG TABLET (FP) PO PRN (13:01)
[2023-09-01] MEDS ORDERED: NALOXONE HCL 0.4 MG/ML VIAL IM PRN (13:01)
[2023-09-01] MEDS ORDERED: guaiFENesin 600 MG TABLET.ER (FP) PO PRN (13:01)
[2023-09-01] MEDS ORDERED: BENZOCAINE/MENTHOL (CHLORASEPTIC ) LOZENGE MM PRN (13:01)
[2023-09-01] MEDS ORDERED: NALOXONE HCL (KLOXXADO) 8 MG SPRAY NS PRN (13:01)
[2023-09-01] MEDS ORDERED: MAG HYDROX/AL HYDROX/SIMETH 30 ML UNIT-DOSE CUP PO PRN (13:01)
[2023-09-01] MEDS ORDERED: ACETAMINOPHEN 325 MG TABLET (FP) PO PRN (13:01)
[2023-09-01] MEDS ORDERED: BENZONATATE 200 MG CAPSULE PO PRN (13:01)
[2023-09-01] MEDS ORDERED: ONDANSETRON *ODT* 4 MG TABLET SL PRN (13:01)
[2023-09-01] MEDS: PRENATAL VITAMINS W/ FOLIC ACID TABLET (FP) PO SCH (13:47)
[2023-09-01] MEDS ORDERED: PRENATAL VITAMINS W/ FOLIC ACID TABLET (FP) PO ONE (13:47)
[2023-09-01] MEDS: LACTULOSE 20 GM/30 ML UDC (FOR ORAL USE ONLY) PO SCH (14:01)
[2023-09-01] MEDS: chlordiazePOXIDE HCL 25 MG CAPSULE PO PRN (14:02)
[2023-09-01] MEDS: chlordiazePOXIDE HCL 25 MG CAPSULE PO SCH (17:27)
[2023-09-01] MEDS: metFORMIN HCL 500 MG TABLET (FP) PO SCH (17:27)
[2023-09-01] MEDS: MELATONIN 5 MG TABLETS PO SCH (22:24)
[2023-09-01] MEDS: THIAMINE 100 MG TABLET PO SCH (22:24)
[2023-09-01] MEDS: DIVALPROEX SODIUM 500 MG TABLET E.C. PO SCH (22:24)
[2023-09-01] MEDS: FAMOTIDINE 20 MG TABLET PO SCH (22:25)
[2023-09-02] MEDS: METHOCARBAMOL 500 MG TABLET PO PRN (05:48)
[2023-09-02] MEDS: LOSARTAN POTASSIUM 25 MG TABLET PO SCH (10:55)
[2023-09-02] MEDS: amLODIPine BESYLATE 10 MG TABLET (FP) PO SCH (10:59)
[2023-09-02 11:57] LABS: HEMATOCRIT 41.4 % (35.4-49); MCH 31.3 pg (25.7-33.7); MCHC 33.7 g/dl (32.0-35.9); MEAN CELL VOLUME 92.7 fl (80-96); MEAN PLT VOLUME 10.7 fl (7.5-11.1); PLATELET COUNT 191 10^3/uL (134-434); RBC 4.47 M/mm3 (4.00-5.60); RDW 15.2 % (11.9-15.9); WHITE BLOOD COUNT 4.7 K/mm3 (4.0-10.0)
[2023-09-02 12:05] LABS: POTASSIUM 3.6 mmol/L (3.5-5.1)
[2023-09-02 12:10] LABS: BLOOD UREA NITROGEN 26.3 mg/dL (7-18); CALCIUM 9.6 mg/dL (8.5-10.1)
[2023-09-02 12:11] LABS: ALBUMIN 3.9 g/dl (3.4-5.0)
[2023-09-02 12:14] LABS: CREATININE 1.4 mg/dL (0.55-1.3)
[2023-09-02 12:15] LABS: BILIRUBIN,TOTAL 0.6 mg/dL (0.2-1); TOT PROT 7.6 g/dl (6.4-8.2)
[2023-09-02] MEDS: hydrOXYzine PAMOATE 25 MG CAPSULE (FP) PO PRN (13:44)
[2023-09-02] MEDS: SUVOREXANT 10 MG TABLET PO PRN (22:11)
[2023-09-03] MEDS: chlordiazePOXIDE HCL 25 MG CAPSULE PO SCH (05:16)
[2023-09-03] MEDS: IBUPROFEN 600 MG TABLET (FP) PO PRN (17:22)
[2023-09-04] MEDS ORDERED: chlordiazePOXIDE HCL 10 MG CAPSULE PO PRN
[2023-09-04] MEDS: chlordiazePOXIDE HCL 10 MG CAPSULE PO SCH (05:44)
[2023-09-04 09:16] VITALS: BP 111/70; PULSE 90; RESP 18; TEMP 96.8
[2023-09-05] MEDS ORDERED: chlordiazePOXIDE HCL 10 MG CAPSULE PO SCH (05:00)
[2023-09-06] MEDS ORDERED: chlordiazePOXIDE HCL 10 MG CAPSULE PO ONE (05:00)
== END 2023-09-04 09:40 | disposition home or self-care (01) | DRG 774 ==
LOC: YASAS 11:15 → Y6N 13:42
PROVIDERS: ADMIT Allergy & Immunology; ATTEND Surgery
PROC: HZ2ZZZZ Detoxification Services for Substance Abuse Treatment (ICD-10-PCS; principal; 2023-09-01)
DX: F10.230 Alcohol dependence with withdrawal, uncomplicated (principal); F13.230 Sedative, hypnotic or anxiolytic dependence with withdrawal, uncomplicated; F14.20 Cocaine dependence, uncomplicated; F12.20 Cannabis dependence, uncomplicated; F19.24 Other psychoactive substance dependence with psychoactive substance-induced mood disorder; F41.9 Anxiety disorder, unspecified; E72.20 Disorder of urea cycle metabolism, unspecified; I10 Essential (primary) hypertension; K21.9 Gastro-esophageal reflux disease without esophagitis; E11.9 Type 2 diabetes mellitus without complications; Z79.84 Long term (current) use of oral hypoglycemic drugs; Z86.69 Personal history of other diseases of the nervous system and sense organs; Z88.8 Allergy status to other drugs, medicaments and biological substances
CPT/HCPCS: 36415; 80053; 80305; 80307; 82140; 82962; 85027; 86780; 93005; 93010

== ENCOUNTER 2023-10-23 09:51 | Inpatient (IN) | payer OTHER ==
[2023-10-23 10:23] VITALS: BMI 26.8
[2023-10-23] MEDS ORDERED: MAG HYDROX/AL HYDROX/SIMETH 30 ML UNIT-DOSE CUP PO PRN (10:49)
[2023-10-23] MEDS ORDERED: IBUPROFEN 400 MG TABLET (FP) PO PRN (10:49)
[2023-10-23] MEDS ORDERED: BENZOCAINE/MENTHOL (CHLORASEPTIC ) LOZENGE MM PRN (10:49)
[2023-10-23] MEDS ORDERED: BISMUTH SUBSALICYLATE 524 MG/30 ML PO PRN (10:49)
[2023-10-23] MEDS ORDERED: ONDANSETRON *ODT* 4 MG TABLET SL PRN (10:49)
[2023-10-23] MEDS ORDERED: POLYETHYLENE GLYCOL (HEALTHYLAX) 3350 17 GM PACKET PO PRN (10:49)
[2023-10-23] MEDS ORDERED: DICYCLOMINE HCL 10 MG CAPSULE PO PRN (10:49)
[2023-10-23] MEDS ORDERED: NALOXONE HCL 0.4 MG/ML VIAL IM PRN (10:49)
[2023-10-23] MEDS ORDERED: NALOXONE (NARCAN) HCL 4 MG/0.1 ML SPRAY NS PRN (10:49)
[2023-10-23] MEDS ORDERED: guaiFENesin 600 MG TABLET.ER (FP) PO PRN (10:49)
[2023-10-23] MEDS ORDERED: MAGNESIUM HYDROX 2400MG/30ML ORAL SUSPENSION 30 ML CUP PO PRN (10:49)
[2023-10-23] MEDS ORDERED: IBUPROFEN 600 MG TABLET (FP) PO PRN (10:49)
[2023-10-23] MEDS ORDERED: ACETAMINOPHEN 325 MG TABLET (FP) PO PRN (10:49)
[2023-10-23] MEDS ORDERED: LOPERAMIDE HCL 2 MG CAPSULE PO PRN (10:49)
[2023-10-23] MEDS ORDERED: BENZONATATE 200 MG CAPSULE PO PRN (10:49)
[2023-10-23] MEDS ORDERED: chlordiazePOXIDE HCL 25 MG CAPSULE PO PRN (10:51)
[2023-10-23] MEDS ORDERED: amLODIPine BESYLATE 5 MG TABLET (FP) ONE (12:00)
[2023-10-23] MEDS ORDERED: chlordiazePOXIDE HCL 25 MG CAPSULE ONE (12:00)
[2023-10-23] MEDS ORDERED: PRENATAL VITAMINS W/ FOLIC ACID TABLET (FP) PO ONE (12:00)
[2023-10-23] MEDS: PRENATAL VITAMINS W/ FOLIC ACID TABLET (FP) PO SCH (12:04)
[2023-10-23] MEDS: amLODIPine BESYLATE 10 MG TABLET (FP) PO SCH (12:05)
[2023-10-23] MEDS: chlordiazePOXIDE HCL 25 MG CAPSULE PO SCH (12:06)
[2023-10-23] MEDS: LOSARTAN POTASSIUM 25 MG TABLET PO SCH (12:52)
[2023-10-23] MEDS: metFORMIN HCL 500 MG TABLET (FP) PO SCH (16:51)
[2023-10-23 17:48] LABS: HIV INTERPRETATION NEGATIVE (NEGATIVE)
[2023-10-23] MEDS: MELATONIN 5 MG TABLETS PO SCH (22:42)
[2023-10-23] MEDS: THIAMINE 100 MG TABLET PO SCH (22:42)
[2023-10-23] MEDS: DIVALPROEX SODIUM 500 MG TABLET E.C. PO SCH (22:42)
[2023-10-23] MEDS: FAMOTIDINE 20 MG TABLET PO SCH (22:42)
[2023-10-24 10:51] LABS: HEMATOCRIT 47.4 % (35.4-49); HEMOGLOBIN 16.5 GM/dL (11.7-16.9); MCH 31.8 pg (25.7-33.7); MCHC 34.8 g/dl (32.0-35.9); MEAN CELL VOLUME 91.2 fl (80-96); MEAN PLT VOLUME 9.9 fl (7.5-11.1); PLATELET COUNT 174 10^3/uL (134-434); RDW 14.1 % (11.9-15.9); WHITE BLOOD COUNT 4.6 K/mm3 (4.0-10.0)
[2023-10-24 11:00] LABS: POTASSIUM 3.8 mmol/L (3.5-5.1)
[2023-10-24 11:08] LABS: CALCIUM 8.7 mg/dL (8.5-10.1)
[2023-10-24 11:09] LABS: ALBUMIN 3.5 g/dl (3.4-5.0); BILIRUBIN,TOTAL 0.7 mg/dL (0.2-1); BLOOD UREA NITROGEN 13.8 mg/dL (7-18)
[2023-10-24] MEDS: METHOCARBAMOL 500 MG TABLET PO PRN (17:45)
[2023-10-25] MEDS: chlordiazePOXIDE HCL 25 MG CAPSULE PO SCH (05:30)
[2023-10-25] MEDS: NALTREXONE HCL 50 MG TABLET PO SCH (16:46)
[2023-10-26] MEDS ORDERED: chlordiazePOXIDE HCL 10 MG CAPSULE PO PRN
[2023-10-26] MEDS: chlordiazePOXIDE HCL 10 MG CAPSULE PO SCH (05:20)
[2023-10-27] MEDS: chlordiazePOXIDE HCL 10 MG CAPSULE PO SCH (05:22)
[2023-10-27] MEDS: hydrOXYzine PAMOATE 25 MG CAPSULE (FP) PO PRN (22:09)
[2023-10-28] MEDS: chlordiazePOXIDE HCL 10 MG CAPSULE PO ONE (05:32)
[2023-10-28 09:21] VITALS: BP 150/90; PULSE 92; RESP 18; TEMP 98
== END 2023-10-28 09:55 | disposition home or self-care (01) | DRG 774 ==
LOC: YASAS 09:51 → Y6N 12:34
PROVIDERS: ADMIT Allergy & Immunology; ATTEND Surgery
PROC: HZ2ZZZZ Detoxification Services for Substance Abuse Treatment (ICD-10-PCS; principal; 2023-10-23)
DX: F10.230 Alcohol dependence with withdrawal, uncomplicated (principal); F14.20 Cocaine dependence, uncomplicated; F13.20 Sedative, hypnotic or anxiolytic dependence, uncomplicated; F12.20 Cannabis dependence, uncomplicated; F41.9 Anxiety disorder, unspecified; G40.909 Epilepsy, unspecified, not intractable, without status epilepticus; I10 Essential (primary) hypertension; K21.9 Gastro-esophageal reflux disease without esophagitis; E11.9 Type 2 diabetes mellitus without complications; Z79.84 Long term (current) use of oral hypoglycemic drugs; Z87.891 Personal history of nicotine dependence; Z88.8 Allergy status to other drugs, medicaments and biological substances
CPT/HCPCS: 36415; 80053; 80305; 80307; 82962; 85027; 86780; 86803; 87389; 93005; 93010

== ENCOUNTER 2023-11-19 01:07 | Inpatient (IN) | payer OTHER ==
[2023-11-19 01:27] VITALS: BMI 27.7
[2023-11-19] MEDS ORDERED: IBUPROFEN 600 MG TABLET (FP) PO PRN (02:06)
[2023-11-19] MEDS ORDERED: BENZOCAINE/MENTHOL (CHLORASEPTIC ) LOZENGE MM PRN (02:06)
[2023-11-19] MEDS ORDERED: POLYETHYLENE GLYCOL (HEALTHYLAX) 3350 17 GM PACKET PO PRN (02:06)
[2023-11-19] MEDS ORDERED: IBUPROFEN 400 MG TABLET (FP) PO PRN (02:06)
[2023-11-19] MEDS ORDERED: NALOXONE HCL 0.4 MG/ML VIAL IM PRN (02:06)
[2023-11-19] MEDS ORDERED: MAGNESIUM HYDROX 2400MG/30ML ORAL SUSPENSION 30 ML CUP PO PRN (02:06)
[2023-11-19] MEDS ORDERED: BISMUTH SUBSALICYLATE 524 MG/30 ML PO PRN (02:06)
[2023-11-19] MEDS ORDERED: NALOXONE (NARCAN) HCL 4 MG/0.1 ML SPRAY NS PRN (02:06)
[2023-11-19] MEDS ORDERED: BENZONATATE 200 MG CAPSULE PO PRN (02:06)
[2023-11-19] MEDS ORDERED: MAG HYDROX/AL HYDROX/SIMETH 30 ML UNIT-DOSE CUP PO PRN (02:06)
[2023-11-19] MEDS ORDERED: LOPERAMIDE HCL 2 MG CAPSULE PO PRN (02:06)
[2023-11-19] MEDS ORDERED: DICYCLOMINE HCL 10 MG CAPSULE PO PRN (02:06)
[2023-11-19] MEDS ORDERED: hydrOXYzine PAMOATE 25 MG CAPSULE (FP) PO PRN (02:06)
[2023-11-19] MEDS ORDERED: guaiFENesin 600 MG TABLET.ER (FP) PO PRN (02:06)
[2023-11-19] MEDS ORDERED: chlordiazePOXIDE HCL 25 MG CAPSULE PO PRN (02:10)
[2023-11-19] MEDS: chlordiazePOXIDE HCL 25 MG CAPSULE PO SCH (05:35)
[2023-11-19] MEDS: PRENATAL VITAMINS W/ FOLIC ACID TABLET (FP) PO SCH (09:41)
[2023-11-19] MEDS ORDERED: DIVALPROEX SODIUM 500 MG TABLET E.C. PO SCH (12:30)
[2023-11-19] MEDS ORDERED: amLODIPine BESYLATE 10 MG TABLET (FP) PO SCH (12:30)
[2023-11-19] MEDS ORDERED: NALTREXONE HCL 50 MG TABLET PO SCH (12:30)
[2023-11-19] MEDS ORDERED: FAMOTIDINE 20 MG TABLET PO SCH (12:30)
[2023-11-19] MEDS: NALTREXONE HCL 50 MG TABLET PO SCH (13:58)
[2023-11-19] MEDS: FAMOTIDINE 20 MG TABLET PO SCH (13:58)
[2023-11-19] MEDS: amLODIPine BESYLATE 10 MG TABLET (FP) PO SCH (13:58)
[2023-11-19] MEDS: DIVALPROEX SODIUM 500 MG TABLET E.C. PO SCH (13:58)
[2023-11-19] MEDS: metFORMIN HCL 500 MG TABLET (FP) PO SCH (17:18)
[2023-11-19] MEDS: METHOCARBAMOL 500 MG TABLET PO PRN (17:19)
[2023-11-19] MEDS: THIAMINE 100 MG TABLET PO SCH (22:31)
[2023-11-19] MEDS: MELATONIN 5 MG TABLETS PO SCH (22:33)
[2023-11-20] MEDS: chlordiazePOXIDE HCL 25 MG CAPSULE PO SCH (05:22)
[2023-11-20] MEDS: LOSARTAN POTASSIUM 25 MG TABLET PO SCH (09:12)
[2023-11-20 11:14] LABS: HEMATOCRIT 40.7 % (35.4-49); HEMOGLOBIN 13.7 GM/dL (11.7-16.9); MCH 31.1 pg (25.7-33.7); MCHC 33.8 g/dl (32.0-35.9); MEAN CELL VOLUME 92.1 fl (80-96); MEAN PLT VOLUME 10.6 fl (7.5-11.1); PLATELET COUNT 152 10^3/uL (134-434); RBC 4.41 M/mm3 (4.00-5.60); RDW 13.8 % (11.9-15.9)
[2023-11-20 11:22] LABS: POTASSIUM 4.2 mmol/L (3.5-5.1)
[2023-11-20 11:29] LABS: ALBUMIN 3.5 g/dl (3.4-5.0); BLOOD UREA NITROGEN 25.4 mg/dL (7-18); CALCIUM 8.7 mg/dL (8.5-10.1)
[2023-11-20 11:33] LABS: CREATININE 1.2 mg/dL (0.55-1.3); TOT PROT 6.6 g/dl (6.4-8.2)
[2023-11-21] MEDS ORDERED: chlordiazePOXIDE HCL 10 MG CAPSULE PO PRN
[2023-11-21] MEDS: chlordiazePOXIDE HCL 10 MG CAPSULE PO SCH (05:22)
[2023-11-21] MEDS: ACETAMINOPHEN 325 MG TABLET (FP) PO PRN (10:38)
[2023-11-21] MEDS: ONDANSETRON *ODT* 4 MG TABLET SL PRN (10:38)
[2023-11-22] MEDS: chlordiazePOXIDE HCL 10 MG CAPSULE PO SCH (05:09)
[2023-11-22 16:52] VITALS: BP 132/83; PULSE 86; RESP 16; TEMP 97.9
[2023-11-23] MEDS ORDERED: chlordiazePOXIDE HCL 10 MG CAPSULE PO ONE (05:00)
== END 2023-11-22 18:23 | disposition home or self-care (01) | DRG 775 ==
LOC: YASAS 01:07 → Y6N 02:44
PROVIDERS: ADMIT Allergy & Immunology; ATTEND Surgery
PROC: HZ2ZZZZ Detoxification Services for Substance Abuse Treatment (ICD-10-PCS; principal; 2023-11-19)
DX: F10.230 Alcohol dependence with withdrawal, uncomplicated (principal); F13.20 Sedative, hypnotic or anxiolytic dependence, uncomplicated; F12.20 Cannabis dependence, uncomplicated; F32.A Depression, unspecified; G40.909 Epilepsy, unspecified, not intractable, without status epilepticus; I10 Essential (primary) hypertension; K21.9 Gastro-esophageal reflux disease without esophagitis; E11.9 Type 2 diabetes mellitus without complications; Z79.84 Long term (current) use of oral hypoglycemic drugs; Z88.8 Allergy status to other drugs, medicaments and biological substances
CPT/HCPCS: 36415; 80053; 80305; 80307; 82962; 85027; 86780; 93005; 93010; Q0162

== ENCOUNTER 2023-12-21 16:16 | Inpatient (IN) | payer OTHER ==
[2023-12-21 16:59] VITALS: BMI 27.7
[2023-12-21] MEDS ORDERED: IBUPROFEN 600 MG TABLET (FP) PO PRN (18:22)
[2023-12-21] MEDS ORDERED: MAGNESIUM HYDROX 2400MG/30ML ORAL SUSPENSION 30 ML CUP PO PRN (18:22)
[2023-12-21] MEDS ORDERED: hydrOXYzine PAMOATE 25 MG CAPSULE (FP) PO PRN (18:22)
[2023-12-21] MEDS ORDERED: BENZONATATE 200 MG CAPSULE PO PRN (18:22)
[2023-12-21] MEDS ORDERED: DICYCLOMINE HCL 10 MG CAPSULE PO PRN (18:22)
[2023-12-21] MEDS ORDERED: NALOXONE (NARCAN) HCL 4 MG/0.1 ML SPRAY NS PRN (18:22)
[2023-12-21] MEDS ORDERED: ONDANSETRON *ODT* 4 MG TABLET SL PRN (18:22)
[2023-12-21] MEDS ORDERED: IBUPROFEN 400 MG TABLET (FP) PO PRN (18:22)
[2023-12-21] MEDS ORDERED: METHOCARBAMOL 500 MG TABLET PO PRN (18:22)
[2023-12-21] MEDS ORDERED: POLYETHYLENE GLYCOL (HEALTHYLAX) 3350 17 GM PACKET PO PRN (18:22)
[2023-12-21] MEDS ORDERED: BENZOCAINE/MENTHOL (CHLORASEPTIC ) LOZENGE MM PRN (18:22)
[2023-12-21] MEDS ORDERED: MAG HYDROX/AL HYDROX/SIMETH 30 ML UNIT-DOSE CUP PO PRN (18:22)
[2023-12-21] MEDS ORDERED: guaiFENesin 600 MG TABLET.ER (FP) PO PRN (18:22)
[2023-12-21] MEDS ORDERED: BISMUTH SUBSALICYLATE 524 MG/30 ML PO PRN (18:22)
[2023-12-21] MEDS ORDERED: NALOXONE HCL 0.4 MG/ML VIAL IM PRN (18:22)
[2023-12-21] MEDS: THIAMINE 100 MG TABLET PO SCH (22:15)
[2023-12-21] MEDS: MELATONIN 5 MG TABLETS PO SCH (22:15)
[2023-12-22] MEDS ORDERED: chlordiazePOXIDE HCL 25 MG CAPSULE PO PRN (08:30)
[2023-12-22] MEDS: chlordiazePOXIDE HCL 25 MG CAPSULE PO ONE ×2 (08:56→11:32)
[2023-12-22] MEDS: amLODIPine BESYLATE 10 MG TABLET (FP) PO SCH (09:36)
[2023-12-22] MEDS: LOSARTAN POTASSIUM 25 MG TABLET PO SCH (09:36)
[2023-12-22] MEDS: FAMOTIDINE 20 MG TABLET PO SCH (09:36)
[2023-12-22] MEDS: DIVALPROEX SODIUM 500 MG TABLET E.C. PO SCH (09:36)
[2023-12-22] MEDS: NALTREXONE HCL 50 MG TABLET PO SCH (09:36)
[2023-12-22] MEDS: PRENATAL VITAMINS W/ FOLIC ACID TABLET (FP) PO SCH (09:37)
[2023-12-22] MEDS ORDERED: chlordiazePOXIDE HCL 25 MG CAPSULE PO SCH (11:00)
[2023-12-22 13:52] LABS: HEMATOCRIT 44.8 % (35.4-49); HEMOGLOBIN 15.6 GM/dL (11.7-16.9); MCH 32.1 pg (25.7-33.7); MCHC 34.8 g/dl (32.0-35.9); MEAN CELL VOLUME 92.2 fl (80-96); MEAN PLT VOLUME 9.7 fl (7.5-11.1); PLATELET COUNT 140 10^3/uL (134-434); RBC 4.86 M/mm3 (4.00-5.60); RDW 14.7 % (11.9-15.9); WHITE BLOOD COUNT 4.7 K/mm3 (4.0-10.0)
[2023-12-22 13:57] LABS: CHLORIDE 106 mmol/L (98-107); POTASSIUM 3.5 mmol/L (3.5-5.1); SODIUM 140 mmol/L (136-145)
[2023-12-22 14:16] LABS: ANION GAP 7 mmol/L (4-13); CALCIUM 9.1 mg/dL (8.5-10.1); CO2 27 mmol/L (21-32); GLUCOSE,RANDOM 138 mg/dL (74-106)
[2023-12-22 14:17] LABS: ALBUMIN 3.4 g/dl (3.4-5.0); BLOOD UREA NITROGEN 13.8 mg/dL (7-18); CREATININE 1.2 mg/dL (0.55-1.3); SGPT/ALT 31 U/L (13-61)
[2023-12-22 14:18] LABS: BILIRUBIN,TOTAL 0.8 mg/dL (0.2-1); TOT PROT 7.1 g/dl (6.4-8.2)
[2023-12-22 14:19] LABS: ALK PHOS 68 U/L (45-117)
[2023-12-22 14:20] LABS: SGOT/AST 42 U/L (15-37)
[2023-12-22] MEDS: chlordiazePOXIDE HCL 25 MG CAPSULE PO SCH (17:09)
[2023-12-22] MEDS: metFORMIN HCL 500 MG TABLET (FP) PO SCH (17:23)
[2023-12-23] MEDS: LOPERAMIDE HCL 2 MG CAPSULE PO PRN (13:56)
[2023-12-23] MEDS: ACETAMINOPHEN 325 MG TABLET (FP) PO PRN (17:15)
[2023-12-24] MEDS: chlordiazePOXIDE HCL 25 MG CAPSULE PO SCH (05:11)
[2023-12-24 21:17] VITALS: RESP 16
[2023-12-25] MEDS ORDERED: chlordiazePOXIDE HCL 10 MG CAPSULE PO PRN
[2023-12-25] MEDS: chlordiazePOXIDE HCL 10 MG CAPSULE PO SCH (05:31)
[2023-12-25] MEDS ORDERED: BISACODYL 5 MG TABLET.DR (FP) PO PRN (10:33)
[2023-12-25 12:46] VITALS: BP 133/84; PULSE 95; TEMP 97.8
[2023-12-26] MEDS ORDERED: chlordiazePOXIDE HCL 10 MG CAPSULE PO SCH (05:00)
[2023-12-27] MEDS ORDERED: chlordiazePOXIDE HCL 10 MG CAPSULE PO ONE (05:00)
== END 2023-12-25 18:00 | disposition home or self-care (01) | DRG 775 ==
LOC: YASAS 16:16 → Y6N 18:27
PROVIDERS: ADMIT Allergy & Immunology; ATTEND Surgery
PROC: HZ2ZZZZ Detoxification Services for Substance Abuse Treatment (ICD-10-PCS; principal; 2023-12-21)
DX: F10.230 Alcohol dependence with withdrawal, uncomplicated (principal); F12.20 Cannabis dependence, uncomplicated; F10.282 Alcohol dependence with alcohol-induced sleep disorder; F10.24 Alcohol dependence with alcohol-induced mood disorder; I10 Essential (primary) hypertension; E11.9 Type 2 diabetes mellitus without complications; Z79.84 Long term (current) use of oral hypoglycemic drugs; K21.9 Gastro-esophageal reflux disease without esophagitis; K59.00 Constipation, unspecified
CPT/HCPCS: 36415; 80053; 80305; 80307; 82962; 85027; 86780

== ENCOUNTER 2024-02-29 09:20 | Inpatient (IN) | payer OTHER ==
[2024-02-29 10:08] VITALS: BMI 25.0
[2024-02-29] MEDS ORDERED: IBUPROFEN 600 MG TABLET (FP) PO PRN (10:36)
[2024-02-29] MEDS ORDERED: BENZOCAINE/MENTHOL (CHLORASEPTIC ) LOZENGE MM PRN (10:36)
[2024-02-29] MEDS ORDERED: BISMUTH SUBSALICYLATE 262 MG/15 ML BTL PO PRN (10:36)
[2024-02-29] MEDS ORDERED: ONDANSETRON *ODT* 4 MG TABLET SL PRN (10:36)
[2024-02-29] MEDS ORDERED: ACETAMINOPHEN 325 MG TABLET (FP) PO PRN (10:36)
[2024-02-29] MEDS ORDERED: hydrOXYzine PAMOATE 25 MG CAPSULE (FP) PO PRN (10:36)
[2024-02-29] MEDS ORDERED: BENZONATATE 200 MG CAPSULE PO PRN (10:36)
[2024-02-29] MEDS ORDERED: POLYETHYLENE GLYCOL (HEALTHYLAX) 3350 17 GM PACKET PO PRN (10:36)
[2024-02-29] MEDS ORDERED: IBUPROFEN 400 MG TABLET (FP) PO PRN (10:36)
[2024-02-29] MEDS ORDERED: MAGNESIUM HYDROX 2400MG/30ML ORAL SUSPENSION 30 ML CUP PO PRN (10:36)
[2024-02-29] MEDS ORDERED: DICYCLOMINE HCL 10 MG CAPSULE PO PRN (10:36)
[2024-02-29] MEDS ORDERED: guaiFENesin 600 MG TABLET.ER (FP) PO PRN (10:36)
[2024-02-29] MEDS ORDERED: LOPERAMIDE HCL 2 MG CAPSULE PO PRN (10:36)
[2024-02-29] MEDS ORDERED: NALOXONE (NARCAN) HCL 4 MG/0.1 ML SPRAY NS PRN (10:36)
[2024-02-29] MEDS ORDERED: diazePAM 5 MG TABLET ONE (11:08)
[2024-02-29] MEDS: diazePAM 5 MG TABLET PO SCH (11:21)
[2024-02-29] MEDS: NALTREXONE HCL 50 MG TABLET PO SCH (11:22)
[2024-02-29] MEDS: LOSARTAN POTASSIUM 25 MG TABLET PO SCH (11:22)
[2024-02-29] MEDS: amLODIPine BESYLATE 10 MG TABLET (FP) PO SCH (11:23)
[2024-02-29] MEDS: FAMOTIDINE 20 MG TABLET PO SCH (11:23)
[2024-02-29] MEDS: metFORMIN HCL 500 MG TABLET (FP) PO SCH (11:23)
[2024-02-29] MEDS: DIVALPROEX SODIUM 500 MG TABLET E.C. PO SCH (11:24)
[2024-02-29] MEDS: THIAMINE 100 MG TABLET PO SCH (22:21)
[2024-02-29] MEDS: MELATONIN 5 MG TABLETS PO SCH (22:21)
[2024-03-01] MEDS: PRENATAL VITAMINS W/ FOLIC ACID TABLET (FP) PO SCH (10:22)
[2024-03-01 11:23] LABS: POTASSIUM 3.9 mmol/L (3.5-5.1)
[2024-03-01 11:26] LABS: ALBUMIN 3.9 g/dl (3.4-5.0); CALCIUM 9.8 mg/dL (8.5-10.1)
[2024-03-01 11:27] LABS: BLOOD UREA NITROGEN 20.4 mg/dL (7-18)
[2024-03-01 11:30] LABS: CREATININE 1.4 mg/dL (0.55-1.3)
[2024-03-01 11:31] LABS: BILIRUBIN,TOTAL 0.3 mg/dL (0.2-1); HEMATOCRIT 46.2 % (35.4-49); MCH 31.1 pg (25.7-33.7); MCHC 32.5 g/dl (32.0-35.9); MEAN CELL VOLUME 95.7 fl (80-96); MEAN PLT VOLUME 10.4 fl (7.5-11.1); PLATELET COUNT 229 10^3/uL (134-434); RBC 4.83 M/mm3 (4.00-5.60); RDW 14.4 % (11.9-15.9); TOT PROT 7.8 g/dl (6.4-8.2); WHITE BLOOD COUNT 5.6 K/mm3 (4.0-10.0)
[2024-03-01] MEDS: diazePAM 5 MG TABLET PO PRN (12:56)
[2024-03-01] MEDS: METHOCARBAMOL 500 MG TABLET PO PRN (17:36)
[2024-03-02] MEDS: diazePAM 5 MG TABLET PO SCH (05:09)
[2024-03-02] MEDS: MAG HYDROX/AL HYDROX/SIMETH 30 ML UNIT-DOSE CUP PO PRN (05:11)
[2024-03-03] MEDS: diazePAM 5 MG TABLET PO SCH (05:34)
[2024-03-03 09:28] VITALS: BP 127/76; PULSE 90; RESP 18; TEMP 98
[2024-03-03] MEDS ORDERED: NALOXONE (NYS OPIOID OVERDOSE PROGRAM) 4 MG/0.1 ML SPRAY NS SCH (10:55)
[2024-03-04] MEDS ORDERED: diazePAM 5 MG TABLET PO ONE (06:00)
[2024-03-04] MEDS ORDERED: NALOXONE (NYS OPIOID OVERDOSE PROGRAM) 4 MG/0.1 ML SPRAY NS SCH (08:00)
== END 2024-03-03 11:03 | disposition home or self-care (01) | DRG 774 ==
LOC: YASAS 09:20 → Y3N 10:28
PROVIDERS: ADMIT Allergy & Immunology; ATTEND Surgery
PROC: HZ2ZZZZ Detoxification Services for Substance Abuse Treatment (ICD-10-PCS; principal; 2024-02-29)
DX: F10.230 Alcohol dependence with withdrawal, uncomplicated (principal); F13.230 Sedative, hypnotic or anxiolytic dependence with withdrawal, uncomplicated; F14.20 Cocaine dependence, uncomplicated; F12.20 Cannabis dependence, uncomplicated; F10.282 Alcohol dependence with alcohol-induced sleep disorder; F10.24 Alcohol dependence with alcohol-induced mood disorder; F32.A Depression, unspecified; G40.909 Epilepsy, unspecified, not intractable, without status epilepticus; I10 Essential (primary) hypertension; K21.9 Gastro-esophageal reflux disease without esophagitis; E11.9 Type 2 diabetes mellitus without complications; Z79.84 Long term (current) use of oral hypoglycemic drugs; Z88.8 Allergy status to other drugs, medicaments and biological substances
CPT/HCPCS: 36415; 80053; 80305; 80307; 82962; 83036; 85027; 86780; 93005; 93010

== ENCOUNTER 2024-04-10 23:32 | Inpatient (IN) | payer OTHER ==
[2024-04-11 00:37] VITALS: BMI 26.6
[2024-04-11] MEDS ORDERED: NALOXONE (NARCAN) HCL 4 MG/0.1 ML SPRAY NS PRN (01:01)
[2024-04-11] MEDS ORDERED: MAG HYDROX/AL HYDROX/SIMETH 30 ML UNIT-DOSE CUP PO PRN (01:01)
[2024-04-11] MEDS ORDERED: LOPERAMIDE HCL 2 MG CAPSULE PO PRN (01:01)
[2024-04-11] MEDS ORDERED: BENZONATATE 200 MG CAPSULE PO PRN (01:01)
[2024-04-11] MEDS ORDERED: ACETAMINOPHEN 325 MG TABLET (FP) PO PRN (01:01)
[2024-04-11] MEDS ORDERED: guaiFENesin 600 MG TABLET.ER (FP) PO PRN (01:01)
[2024-04-11] MEDS ORDERED: MAGNESIUM HYDROX 2400MG/30ML ORAL SUSPENSION 30 ML CUP PO PRN (01:01)
[2024-04-11] MEDS ORDERED: BISMUTH SUBSALICYLATE 524 MG/30 ML PO PRN (01:01)
[2024-04-11] MEDS ORDERED: BENZOCAINE/MENTHOL (CHLORASEPTIC ) LOZENGE MM PRN (01:01)
[2024-04-11] MEDS ORDERED: IBUPROFEN 400 MG TABLET (FP) PO PRN (01:01)
[2024-04-11] MEDS ORDERED: DICYCLOMINE HCL 10 MG CAPSULE PO PRN (01:01)
[2024-04-11] MEDS ORDERED: ONDANSETRON *ODT* 4 MG TABLET SL PRN (01:01)
[2024-04-11] MEDS ORDERED: IBUPROFEN 600 MG TABLET (FP) PO PRN (01:01)
[2024-04-11] MEDS ORDERED: POLYETHYLENE GLYCOL (HEALTHYLAX) 3350 17 GM PACKET PO PRN (01:01)
[2024-04-11] MEDS: chlordiazePOXIDE HCL 25 MG CAPSULE PO PRN (02:33)
[2024-04-11] MEDS: chlordiazePOXIDE HCL 25 MG CAPSULE PO SCH (05:48)
[2024-04-11] MEDS: metFORMIN HCL 500 MG TABLET (FP) PO SCH (06:12)
[2024-04-11] MEDS: amLODIPine BESYLATE 10 MG TABLET (FP) PO SCH (10:05)
[2024-04-11] MEDS: PRENATAL VITAMINS W/ FOLIC ACID TABLET (FP) PO SCH (10:06)
[2024-04-11 12:11] LABS: HIV INTERPRETATION NEGATIVE (NEGATIVE)
[2024-04-11] MEDS: THIAMINE 100 MG TABLET PO SCH (22:14)
[2024-04-11] MEDS: MELATONIN 5 MG TABLETS PO SCH (22:14)
[2024-04-12] MEDS: chlordiazePOXIDE HCL 25 MG CAPSULE PO SCH (05:35)
[2024-04-12] MEDS: hydrOXYzine PAMOATE 25 MG CAPSULE (FP) PO PRN (10:14)
[2024-04-12] MEDS: METHOCARBAMOL 500 MG TABLET PO PRN (10:14)
[2024-04-12 14:40] LABS: HEMATOCRIT 43.7 % (35.4-49); HEMOGLOBIN 14.3 GM/dL (11.7-16.9); MCH 30.4 pg (25.7-33.7); MCHC 32.7 g/dl (32.0-35.9); MEAN CELL VOLUME 92.9 fl (80-96); MEAN PLT VOLUME 10.1 fl (7.5-11.1); PLATELET COUNT 188 10^3/uL (134-434); RBC 4.71 M/mm3 (4.00-5.60); RDW 13.6 % (11.9-15.9); WHITE BLOOD COUNT 5.9 K/mm3 (4.0-10.0)
[2024-04-12 14:57] LABS: POTASSIUM 3.8 mmol/L (3.5-5.1)
[2024-04-12 14:59] LABS: ALBUMIN 3.6 g/dl (3.4-5.0); BLOOD UREA NITROGEN 21.7 mg/dL (7-18); CALCIUM 9.5 mg/dL (8.5-10.1)
[2024-04-12 15:03] LABS: CREATININE 1.2 mg/dL (0.55-1.3)
[2024-04-12 15:04] LABS: BILIRUBIN,TOTAL 0.3 mg/dL (0.2-1); TOT PROT 6.7 g/dl (6.4-8.2)
[2024-04-13] MEDS ORDERED: chlordiazePOXIDE HCL 10 MG CAPSULE PO PRN
[2024-04-13] MEDS: chlordiazePOXIDE HCL 10 MG CAPSULE PO SCH (05:24)
[2024-04-14] MEDS: chlordiazePOXIDE HCL 10 MG CAPSULE PO SCH (05:29)
[2024-04-15] MEDS: chlordiazePOXIDE HCL 10 MG CAPSULE PO ONE (05:42)
[2024-04-15 09:30] VITALS: BP 122/76; PULSE 97; RESP 18; TEMP 98.6
[2024-04-15] MEDS: NALOXONE (NYS OPIOID OVERDOSE PROGRAM) 4 MG/0.1 ML SPRAY NS SCH (10:01)
== END 2024-04-15 11:02 | disposition other institution (70) | DRG 774 ==
LOC: YASAS 23:32 → Y3N 04-11 01:59
PROVIDERS: ADMIT Allergy & Immunology; ATTEND Allergy & Immunology
PROC: HZ2ZZZZ Detoxification Services for Substance Abuse Treatment (ICD-10-PCS; principal; 2024-04-11)
DX: F10.230 Alcohol dependence with withdrawal, uncomplicated (principal); F14.20 Cocaine dependence, uncomplicated; F12.20 Cannabis dependence, uncomplicated; F19.24 Other psychoactive substance dependence with psychoactive substance-induced mood disorder; F32.A Depression, unspecified; I10 Essential (primary) hypertension; K21.9 Gastro-esophageal reflux disease without esophagitis; E11.9 Type 2 diabetes mellitus without complications; Z79.84 Long term (current) use of oral hypoglycemic drugs; Z87.891 Personal history of nicotine dependence
CPT/HCPCS: 36415; 80053; 80305; 80307; 82962; 85027; 86780; 86803; 87389; 87811; 93005; 93010

== ENCOUNTER 2024-04-15 11:18 | Inpatient (IN) | payer OTHER ==
[2024-04-15] MEDS ORDERED: ACETAMINOPHEN 325 MG TABLET (FP) PO PRN (13:51)
[2024-04-15] MEDS ORDERED: IBUPROFEN 400 MG TABLET (FP) PO PRN (13:51)
[2024-04-15] MEDS ORDERED: guaiFENesin 600 MG TABLET.ER (FP) PO PRN (13:51)
[2024-04-15] MEDS ORDERED: MAGNESIUM HYDROX 2400MG/30ML ORAL SUSPENSION 30 ML CUP PO PRN (13:51)
[2024-04-15] MEDS ORDERED: BENZOCAINE/MENTHOL (CHLORASEPTIC ) LOZENGE MM PRN (13:51)
[2024-04-15] MEDS ORDERED: POLYETHYLENE GLYCOL (HEALTHYLAX) 3350 17 GM PACKET PO PRN (13:51)
[2024-04-15] MEDS ORDERED: LOPERAMIDE HCL 2 MG CAPSULE PO PRN (13:51)
[2024-04-15] MEDS ORDERED: BENZONATATE 200 MG CAPSULE PO PRN (13:51)
[2024-04-15] MEDS ORDERED: hydrOXYzine PAMOATE 25 MG CAPSULE (FP) PO PRN (13:51)
[2024-04-15] MEDS ORDERED: MAG HYDROX/AL HYDROX/SIMETH 30 ML UNIT-DOSE CUP PO PRN (13:51)
[2024-04-15] MEDS ORDERED: IBUPROFEN 600 MG TABLET (FP) PO PRN (13:51)
[2024-04-15] MEDS: metFORMIN HCL 500 MG TABLET (FP) PO SCH (17:27)
[2024-04-15] MEDS ORDERED: MELATONIN 5 MG TABLETS PO PRN (22:00)
[2024-04-15] MEDS: METHOCARBAMOL 500 MG TABLET PO PRN (22:28)
[2024-04-15] MEDS: DIVALPROEX SODIUM 500 MG TABLET E.C. PO SCH (22:28)
[2024-04-15] MEDS: THIAMINE 100 MG TABLET PO SCH (22:29)
[2024-04-15] MEDS: MELATONIN 5 MG TABLETS PO SCH (22:29)
[2024-04-16] MEDS: PRENATAL VITAMINS W/ FOLIC ACID TABLET (FP) PO SCH (05:30)
[2024-04-16] MEDS: amLODIPine BESYLATE 10 MG TABLET (FP) PO SCH (09:34)
[2024-04-20 06:39] VITALS: RESP 18
[2024-04-21 06:50] VITALS: TEMP 97.8
[2024-04-21] MEDS: NALOXONE (NYS OPIOID OVERDOSE PROGRAM) 4 MG/0.1 ML SPRAY NS PRN (08:46)
[2024-04-21 09:10] VITALS: BP 151/96; PULSE 109
== END 2024-04-21 09:21 | disposition home or self-care (01) | DRG 772 ==
LOC: YASAS 11:18 → Y3NR 11:20 → Y3W 04-17 12:25
PROVIDERS: ADMIT Psychiatry & Neurology Pain Medicine; ATTEND Psychiatry & Neurology Pain Medicine
PROC: HZ42ZZZ Group Counseling for Substance Abuse Treatment, Cognitive-Behavioral (ICD-10-PCS; principal; 2024-04-15)
DX: F10.20 Alcohol dependence, uncomplicated (principal); F12.20 Cannabis dependence, uncomplicated; F10.282 Alcohol dependence with alcohol-induced sleep disorder; F10.24 Alcohol dependence with alcohol-induced mood disorder; F32.A Depression, unspecified; I10 Essential (primary) hypertension; K21.9 Gastro-esophageal reflux disease without esophagitis; E11.9 Type 2 diabetes mellitus without complications; Z79.84 Long term (current) use of oral hypoglycemic drugs; M17.12 Unilateral primary osteoarthritis, left knee; Z87.891 Personal history of nicotine dependence; Z86.69 Personal history of other diseases of the nervous system and sense organs
CPT/HCPCS: 82962

== ENCOUNTER 2024-05-26 12:24 | Inpatient (IN) | payer OTHER ==
[2024-05-26 13:53] VITALS: BMI 27.2
[2024-05-26] MEDS ORDERED: LOPERAMIDE HCL 2 MG CAPSULE PO PRN (14:06)
[2024-05-26] MEDS ORDERED: BENZONATATE 200 MG CAPSULE PO PRN (14:06)
[2024-05-26] MEDS ORDERED: NALOXONE (NARCAN) HCL 4 MG/0.1 ML SPRAY NS PRN (14:06)
[2024-05-26] MEDS ORDERED: guaiFENesin 600 MG TABLET.ER (FP) PO PRN (14:06)
[2024-05-26] MEDS ORDERED: ONDANSETRON *ODT* 4 MG TABLET SL PRN (14:06)
[2024-05-26] MEDS ORDERED: IBUPROFEN 400 MG TABLET (FP) PO PRN (14:06)
[2024-05-26] MEDS ORDERED: DICYCLOMINE HCL 10 MG CAPSULE PO PRN (14:06)
[2024-05-26] MEDS ORDERED: MAGNESIUM HYDROX 2400MG/30ML ORAL SUSPENSION 30 ML CUP PO PRN (14:06)
[2024-05-26] MEDS ORDERED: MAG HYDROX/AL HYDROX/SIMETH 30 ML UNIT-DOSE CUP PO PRN (14:06)
[2024-05-26] MEDS ORDERED: POLYETHYLENE GLYCOL (HEALTHYLAX) 3350 17 GM PACKET PO PRN (14:06)
[2024-05-26] MEDS ORDERED: IBUPROFEN 600 MG TABLET (FP) PO PRN (14:06)
[2024-05-26] MEDS ORDERED: BENZOCAINE/MENTHOL (CHLORASEPTIC ) LOZENGE MM PRN (14:06)
[2024-05-26] MEDS ORDERED: BISMUTH SUBSALICYLATE 262 MG/15 ML BTL PO PRN (14:06)
[2024-05-26] MEDS ORDERED: chlordiazePOXIDE HCL 25 MG CAPSULE PO PRN (14:10)
[2024-05-26] MEDS ORDERED: chlordiazePOXIDE HCL 25 MG CAPSULE ONE (16:57)
[2024-05-26] MEDS: chlordiazePOXIDE HCL 25 MG CAPSULE PO SCH (17:00)
[2024-05-26] MEDS: ACETAMINOPHEN 325 MG TABLET (FP) PO PRN (17:45)
[2024-05-26] MEDS: THIAMINE 100 MG TABLET PO SCH (22:25)
[2024-05-26] MEDS: MELATONIN 5 MG TABLETS PO SCH (22:25)
[2024-05-27] MEDS: amLODIPine BESYLATE 10 MG TABLET (FP) PO SCH (10:12)
[2024-05-27] MEDS: DIVALPROEX SODIUM 500 MG TABLET E.C. PO SCH (10:12)
[2024-05-27] MEDS: PRENATAL VITAMINS W/ FOLIC ACID TABLET (FP) PO SCH (10:12)
[2024-05-27 12:46] LABS: CHLORIDE 106 mmol/L (98-107); POTASSIUM 3.6 mmol/L (3.5-5.1); SODIUM 142 mmol/L (136-145)
[2024-05-27 12:47] LABS: CALCIUM 8.7 mg/dL (8.5-10.1); HEMATOCRIT 41.9 % (35.4-49); HEMOGLOBIN 14.5 GM/dL (11.7-16.9); MCH 31.7 pg (25.7-33.7); MCHC 34.6 g/dl (32.0-35.9); MEAN CELL VOLUME 91.7 fl (80-96); MEAN PLT VOLUME 9.6 fl (7.5-11.1); PLATELET COUNT 177 10^3/uL (134-434); RBC 4.57 M/mm3 (4.00-5.60); RDW 14.6 % (11.9-15.9); WHITE BLOOD COUNT 4.2 K/mm3 (4.0-10.0)
[2024-05-27 12:48] LABS: ALBUMIN 3.2 g/dl (3.4-5.0); ANION GAP 6 mmol/L (4-13); BLOOD UREA NITROGEN 12.2 mg/dL (7-18); CO2 30 mmol/L (21-32); GLUCOSE,RANDOM 118 mg/dL (74-106)
[2024-05-27 12:51] LABS: CREATININE 1.1 mg/dL (0.55-1.3); SGOT/AST 31 U/L (15-37); SGPT/ALT 30 U/L (13-61)
[2024-05-27 12:53] LABS: TOT PROT 6.4 g/dl (6.4-8.2)
[2024-05-27 12:54] LABS: ALK PHOS 72 U/L (45-117)
[2024-05-27] MEDS: metFORMIN HCL 500 MG TABLET (FP) PO SCH (16:42)
[2024-05-27] MEDS: METHOCARBAMOL 500 MG TABLET PO PRN (17:18)
[2024-05-27] MEDS: hydrOXYzine PAMOATE 25 MG CAPSULE (FP) PO PRN (22:10)
[2024-05-28] MEDS: chlordiazePOXIDE HCL 25 MG CAPSULE PO SCH (05:41)
[2024-05-29] MEDS ORDERED: chlordiazePOXIDE HCL 10 MG CAPSULE PO PRN
[2024-05-29] MEDS: chlordiazePOXIDE HCL 10 MG CAPSULE PO SCH (05:41)
[2024-05-30] MEDS: chlordiazePOXIDE HCL 10 MG CAPSULE PO SCH (05:34)
[2024-05-30 08:52] VITALS: BP 127/81; PULSE 81; RESP 16; TEMP 97.7
[2024-05-30] MEDS: NALTREXONE HCL 50 MG TABLET PO SCH (09:57)
[2024-05-31] MEDS ORDERED: chlordiazePOXIDE HCL 10 MG CAPSULE PO ONE (05:00)
== END 2024-05-30 11:30 | disposition home or self-care (01) | DRG 774 ==
LOC: YASAS 12:24 → Y6N 15:26
PROVIDERS: ADMIT Allergy & Immunology; ATTEND Allergy & Immunology
PROC: HZ2ZZZZ Detoxification Services for Substance Abuse Treatment (ICD-10-PCS; principal; 2024-05-26)
DX: F10.230 Alcohol dependence with withdrawal, uncomplicated (principal); F14.20 Cocaine dependence, uncomplicated; F12.20 Cannabis dependence, uncomplicated; F19.280 Other psychoactive substance dependence with psychoactive substance-induced anxiety disorder; F19.282 Other psychoactive substance dependence with psychoactive substance-induced sleep disorder; F10.24 Alcohol dependence with alcohol-induced mood disorder; G40.89 Other seizures; I10 Essential (primary) hypertension; E11.9 Type 2 diabetes mellitus without complications; Z79.84 Long term (current) use of oral hypoglycemic drugs; K21.9 Gastro-esophageal reflux disease without esophagitis; M17.12 Unilateral primary osteoarthritis, left knee; Z87.891 Personal history of nicotine dependence
CPT/HCPCS: 36415; 80053; 80305; 80307; 82962; 85027; 86780; 93005; 93010

== ENCOUNTER 2024-08-21 08:07 | Inpatient (IN) | payer OTHER ==
[2024-08-21 08:34] VITALS: BMI 27.3
[2024-08-21] MEDS ORDERED: BISMUTH SUBSALICYLATE 524 MG/30 ML PO PRN (09:01)
[2024-08-21] MEDS ORDERED: NALOXONE (NARCAN) HCL 4 MG/0.1 ML SPRAY NS PRN (09:01)
[2024-08-21] MEDS ORDERED: METHOCARBAMOL 500 MG TABLET PO PRN (09:01)
[2024-08-21] MEDS ORDERED: ONDANSETRON *ODT* 4 MG TABLET SL PRN (09:01)
[2024-08-21] MEDS ORDERED: MAG HYDROX/AL HYDROX/SIMETH 30 ML UNIT-DOSE CUP PO PRN (09:01)
[2024-08-21] MEDS ORDERED: ACETAMINOPHEN 325 MG TABLET (FP) PO PRN (09:01)
[2024-08-21] MEDS ORDERED: POLYETHYLENE GLYCOL (HEALTHYLAX) 3350 17 GM PACKET PO PRN (09:01)
[2024-08-21] MEDS ORDERED: MAGNESIUM HYDROX 2400MG/30ML ORAL SUSPENSION 30 ML CUP PO PRN (09:01)
[2024-08-21] MEDS ORDERED: hydrOXYzine PAMOATE 25 MG CAPSULE (FP) PO PRN (09:01)
[2024-08-21] MEDS ORDERED: IBUPROFEN 600 MG TABLET (FP) PO PRN (09:01)
[2024-08-21] MEDS ORDERED: IBUPROFEN 400 MG TABLET (FP) PO PRN (09:01)
[2024-08-21] MEDS ORDERED: BENZONATATE 200 MG CAPSULE PO PRN (09:01)
[2024-08-21] MEDS ORDERED: DICYCLOMINE HCL 10 MG CAPSULE PO PRN (09:01)
[2024-08-21] MEDS ORDERED: guaiFENesin 600 MG TABLET.ER (FP) PO PRN (09:01)
[2024-08-21] MEDS ORDERED: LOPERAMIDE HCL 2 MG CAPSULE PO PRN (09:01)
[2024-08-21] MEDS ORDERED: BENZOCAINE/MENTHOL (CHLORASEPTIC ) LOZENGE MM PRN (09:01)
[2024-08-21] MEDS ORDERED: diazePAM 5 MG TABLET ONE (10:11)
[2024-08-21] MEDS ORDERED: METOPROLOL TARTRATE 25 MG TABLET (FP) ONE (10:11)
[2024-08-21] MEDS ORDERED: PRENATAL VITAMINS W/ FOLIC ACID TABLET (FP) PO ONE (10:12)
[2024-08-21] MEDS: METOPROLOL TARTRATE 25 MG TABLET (FP) PO ONE (10:20)
[2024-08-21] MEDS: diazePAM 5 MG TABLET PO SCH (10:21)
[2024-08-21] MEDS: PRENATAL VITAMINS W/ FOLIC ACID TABLET (FP) PO SCH (10:21)
[2024-08-21] MEDS: metFORMIN HCL 500 MG TABLET (FP) PO SCH (17:18)
[2024-08-21] MEDS: THIAMINE 100 MG TABLET PO SCH (22:08)
[2024-08-21] MEDS: MELATONIN 5 MG TABLETS PO SCH (22:08)
[2024-08-22 10:00] LABS: HEMATOCRIT 43.5 % (40.1-51.0); HEMOGLOBIN 14.4 g/dL (13.7-17.5); MCHC 33.1 g/dl (32.3-36.5); MEAN CELL VOLUME 90.2 fl (79.0-92.2); MEAN PLT VOLUME 12.3 fl (9.4-12.4); PLATELET COUNT 176 x10^3/uL (163-337); RDW 14.2 % (12.2-16.1)
[2024-08-22 10:06] LABS: CHLORIDE 106 mmol/L (98-107); POTASSIUM 3.5 mmol/L (3.5-5.1); SODIUM 143 mmol/L (136-145)
[2024-08-22 10:21] LABS: ANION GAP 11 mmol/L (4-13); BLOOD UREA NITROGEN 16.2 mg/dL (7-18); CO2 27 mmol/L (21-32); GLUCOSE,RANDOM 157 mg/dL (74-106)
[2024-08-22 10:22] LABS: ALBUMIN 3.3 g/dl (3.4-5.0)
[2024-08-22 10:24] LABS: SGOT/AST 42 U/L (15-37); SGPT/ALT 40 U/L (13-61)
[2024-08-22] MEDS: amLODIPine BESYLATE 10 MG TABLET (FP) PO SCH (10:24)
[2024-08-22 10:26] LABS: BILIRUBIN,TOTAL 0.8 mg/dL (0.2-1); TOT PROT 6.4 g/dl (6.4-8.2)
[2024-08-22 10:27] LABS: ALK PHOS 70 U/L (45-117)
[2024-08-22 10:53] LABS: CALCIUM 7.3 mg/dL (8.5-10.1); CREATININE 1.3 mg/dL (0.55-1.3)
[2024-08-23] MEDS: diazePAM 5 MG TABLET PO SCH (05:18)
[2024-08-23] MEDS: CALCIUM 500MG/VIT-D 200 UNITS COMBO TABLET (FP) PO SCH (09:53)
[2024-08-23] MEDS: diazePAM 5 MG TABLET PO PRN (09:55)
[2024-08-24] MEDS: diazePAM 5 MG TABLET PO SCH (05:09)
[2024-08-25] MEDS: diazePAM 5 MG TABLET PO ONE (05:17)
[2024-08-25 13:04] VITALS: BP 132/76; PULSE 89; RESP 18; TEMP 97.1
== END 2024-08-25 15:35 | disposition other institution (70) | DRG 774 ==
LOC: YASAS 08:07 → Y3N 09:56
PROVIDERS: ADMIT Allergy & Immunology; ATTEND Allergy & Immunology
PROC: HZ2ZZZZ Detoxification Services for Substance Abuse Treatment (ICD-10-PCS; principal; 2024-08-21)
DX: F10.230 Alcohol dependence with withdrawal, uncomplicated (principal); F14.20 Cocaine dependence, uncomplicated; F12.20 Cannabis dependence, uncomplicated; F32.A Depression, unspecified; I10 Essential (primary) hypertension; K21.9 Gastro-esophageal reflux disease without esophagitis; E83.51 Hypocalcemia; E11.9 Type 2 diabetes mellitus without complications; Z79.84 Long term (current) use of oral hypoglycemic drugs; Z86.69 Personal history of other diseases of the nervous system and sense organs
CPT/HCPCS: 36415; 80053; 80305; 80307; 82962; 85027; 86780; 87811

== ENCOUNTER 2024-12-12 10:27 | Inpatient (IN) | payer OTHER ==
[2024-12-12 11:00] VITALS: BMI 27.8
[2024-12-12] MEDS ORDERED: LOPERAMIDE HCL 2 MG CAPSULE PO PRN (11:16)
[2024-12-12] MEDS ORDERED: DICYCLOMINE HCL 10 MG CAPSULE PO PRN (11:16)
[2024-12-12] MEDS ORDERED: MAGNESIUM HYDROX 2400MG/30ML ORAL SUSPENSION 30 ML CUP PO PRN (11:16)
[2024-12-12] MEDS ORDERED: NALOXONE (NARCAN) HCL 4 MG/0.1 ML SPRAY NS PRN (11:16)
[2024-12-12] MEDS ORDERED: BENZOCAINE/MENTHOL (CHLORASEPTIC ) LOZENGE MM PRN (11:16)
[2024-12-12] MEDS ORDERED: METHOCARBAMOL 500 MG TABLET PO PRN (11:16)
[2024-12-12] MEDS ORDERED: IBUPROFEN 600 MG TABLET (FP) PO PRN (11:16)
[2024-12-12] MEDS ORDERED: BISMUTH SUBSALICYLATE 524 MG/30 ML PO PRN (11:16)
[2024-12-12] MEDS ORDERED: MAG HYDROX/AL HYDROX/SIMETH 30 ML UNIT-DOSE CUP PO PRN (11:16)
[2024-12-12] MEDS ORDERED: BENZONATATE 200 MG CAPSULE PO PRN (11:16)
[2024-12-12] MEDS ORDERED: ONDANSETRON *ODT* 4 MG TABLET SL PRN (11:16)
[2024-12-12] MEDS ORDERED: hydrOXYzine PAMOATE 25 MG CAPSULE (FP) PO PRN (11:16)
[2024-12-12] MEDS ORDERED: ACETAMINOPHEN 325 MG TABLET (FP) PO PRN (11:16)
[2024-12-12] MEDS ORDERED: POLYETHYLENE GLYCOL (HEALTHYLAX) 3350 17 GM PACKET PO PRN (11:16)
[2024-12-12] MEDS ORDERED: IBUPROFEN 400 MG TABLET (FP) PO PRN (11:16)
[2024-12-12] MEDS ORDERED: guaiFENesin 600 MG TABLET.ER (FP) PO PRN (11:16)
[2024-12-12] MEDS ORDERED: amLODIPine BESYLATE 5 MG TABLET (FP) ONE (12:20)
[2024-12-12] MEDS: amLODIPine BESYLATE 5 MG TABLET (FP) PO ONE (12:21)
[2024-12-12] MEDS: NALTREXONE HCL 50 MG TABLET PO ONE (13:10)
[2024-12-12] MEDS: metFORMIN HCL 500 MG TABLET (FP) PO SCH (17:15)
[2024-12-12] MEDS: levETIRAcetam 500 MG TABLET (FP) PO SCH (22:46)
[2024-12-12] MEDS: THIAMINE 100 MG TABLET PO SCH (22:46)
[2024-12-12] MEDS: MELATONIN 5 MG TABLETS PO SCH (22:49)
[2024-12-13] MEDS: PRENATAL VITAMINS W/ FOLIC ACID TABLET (FP) PO SCH (10:09)
[2024-12-13] MEDS: NALTREXONE HCL 50 MG TABLET PO SCH (10:09)
[2024-12-13] MEDS: amLODIPine BESYLATE 10 MG TABLET (FP) PO SCH (10:09)
[2024-12-13 10:40] LABS: MCHC 32.8 g/dl (32.3-36.5); MEAN CELL VOLUME 92.2 fl (79.0-92.2); MEAN PLT VOLUME 12.4 fl (9.4-12.4); RDW 15.3 % (12.2-16.1)
[2024-12-13 11:03] LABS: GLUCOSE,RANDOM 139.0 mg/dL (74-106); TOT PROT 8.0 g/dl (6.4-8.2)
[2024-12-13 11:04] LABS: CO2 21.0 mmol/L (21-32)
[2024-12-13 11:06] LABS: ALK PHOS 72.0 U/L (40-150)
[2024-12-13 11:09] LABS: CREATININE 1.0 mg/dL (0.55-1.3); SGOT/AST 44.0 U/L (5-34); SGPT/ALT 34.0 U/L (0-55)
[2024-12-13] MEDS: POTASSIUM CHLORIDE ORAL LIQUID 20 MEQ/15 ML PO ONE (15:54)
[2024-12-13] MEDS: MELATONIN 5 MG TABLETS PO SCH (22:22)
[2024-12-14 12:47] LABS: GLUCOSE,RANDOM 99.0 mg/dL (74-106); TOT PROT 6.7 g/dl (6.4-8.2)
[2024-12-14 12:48] LABS: CO2 26.0 mmol/L (21-32)
[2024-12-14 12:50] LABS: ALK PHOS 75.0 U/L (40-150)
[2024-12-14 12:52] LABS: CREATININE 1.01 mg/dL (0.55-1.3); SGOT/AST 27.0 U/L (5-34); SGPT/ALT 25.0 U/L (0-55)
[2024-12-14] MEDS: MAGNESIUM OXIDE 400 MG TABLET (FP) PO SCH (14:33)
[2024-12-16 13:04] VITALS: RESP 16
[2024-12-16 17:21] VITALS: BP 132/85; PULSE 89; TEMP 97.8
== END 2024-12-16 18:00 | disposition home or self-care (01) | DRG 774 ==
LOC: YASAS 10:27 → Y6N 12:02
PROVIDERS: ADMIT Family Medicine; ATTEND Counselor Addiction (Substance Use Disorder)
PROC: HZ2ZZZZ Detoxification Services for Substance Abuse Treatment (ICD-10-PCS; principal; 2024-12-12)
DX: F10.230 Alcohol dependence with withdrawal, uncomplicated (principal); F14.20 Cocaine dependence, uncomplicated; F13.20 Sedative, hypnotic or anxiolytic dependence, uncomplicated; F19.282 Other psychoactive substance dependence with psychoactive substance-induced sleep disorder; F10.24 Alcohol dependence with alcohol-induced mood disorder; F19.280 Other psychoactive substance dependence with psychoactive substance-induced anxiety disorder; F32.A Depression, unspecified; E87.6 Hypokalemia; I10 Essential (primary) hypertension; E11.9 Type 2 diabetes mellitus without complications; Z79.4 Long term (current) use of insulin; K21.9 Gastro-esophageal reflux disease without esophagitis; Z86.69 Personal history of other diseases of the nervous system and sense organs; Z87.891 Personal history of nicotine dependence
CPT/HCPCS: 36415; 80053; 80307; 82962; 83036; 83735; 85027; 86780; 93005; 93010